=== PATIENT | female | born 1945 | race Caucasian/White ===

== ENCOUNTER 2016-06-19 13:24 | Inpatient (IN) | payer MEDICARE, BC, OTHER ==
[2016-06-19] MEDS ORDERED: SODIUM CHLORIDE 0.9% 1,000 ML IV STA (14:05)
[2016-06-19] MEDS ORDERED: ACETAMINOPHEN IV (For NPO) 1,000 MG in EMPTY BAG 1 BAG IVPB ONE (14:05)
--- NOTE | 2016-06-19 14:20 | ED ---
General Adult HPI - General Chief complaint: Shortness of Breath Stated complaint: pneumonia, chf from [facility] Time Seen by Provider: 06/19/16 13:34 Source: patient, EMS, RN notes reviewed, old records reviewed Mode of arrival: EMS Limitations: altered mental status, physical limitation - History of Present Illness Initial comments: Chief complaint and history of present illness a 70-year-old female who was sent from [facility] emergency room with a diagnosis of pneumonia and CHF. The patient was accepted for transfer further evaluation and management here. The patient was in the hospital approximately 3 weeks ago for similar problems. The chart from the other facility concludes the patient has right perihilar infiltrates and evidence of CHF. The patient was given 40 mg of Lasix IV placed on BiPAP en route. She also received Zosyn and vancomycin. Here she had temperature 99.9 axillary. She received Tylenol while here. - Related Data Home Medications Medication Instructions Recorded Confirmed ALPRAZolam [Xanax] 0.5 mg PO TID PRN 11/07/13 06/19/16 Allopurinol [Zyloprim] 100 mg PO DAILY 11/07/13 06/19/16 Desvenlafaxine Succinate [Pristiq 50 mg PO DAILY 11/07/13 06/19/16 ER] Digoxin [Lanoxin] 250 mcg PO DAILY 11/07/13 06/19/16 Ferrous Sulfate [Feosol] 325 mg PO DAILY 11/07/13 06/19/16 Gabapentin [Neurontin] 300 mg PO HS 11/07/13 06/19/16 Ipratropium/Albuterol Sulfate 3 ml INHALATION RT-QID PRN 11/07/13 06/19/16 [Duoneb 0.5 mg-3 mg/3 ml Soln] Levothyroxine Sodium [Levoxyl] 175 mcg PO AC-BRKFST 11/07/13 06/19/16 Loratadine [Claritin] 10 mg PO DAILY 11/07/13 06/19/16 Mometasone Furoate [Nasonex Nasal 2 spray EA NOSTRIL DAILY 11/07/13 06/19/16 [place]] Omeprazole [PriLOSEC] 20 mg PO BID 11/07/13 06/19/16 Potassium Chloride [Klor-Con 20] 20 meq PO DAILY 11/07/13 06/19/16 busPIRone HCl [Buspar] 10 mg PO BID 11/08/13 06/19/16 Ascorbic Acid [Vitamin C] 500 mg PO DAILY 08/16/14 06/19/16 Warfarin [Coumadin] 3 mg PO MOTUTHSA 08/16/14 06/19/16 Cholecalciferol [Vitamin D3] 1,000 unit PO DAILY 12/30/14 06/19/16 Warfarin [Coumadin] 4.5 mg PO SUWEFR 12/30/14 06/19/16 Calcium 500 [id number] 1 tab PO DAILY 06/01/16 06/19/16 Cyanocobalamin [Vitamin B-12] 1,000 mcg PO DAILY 06/01/16 06/19/16 Docusate [Colace] 100 mg PO DAILY PRN 06/01/16 06/19/16 Furosemide [Lasix] 40 mg PO BID 06/01/16 06/19/16 HYDROcodone/APAP 5-325MG [[place] 1 tab PO BID PRN 06/01/16 06/19/16 5-325] Meloxicam [Mobic] 7.5 mg PO DAILY 06/01/16 06/19/16 Montelukast [Singulair] 10 mg PO HS 06/01/16 06/19/16 Multivits-Min/Iron/FA/Lutein 1 tab PO DAILY 06/01/16 06/19/16 [Centrum Silver Women Tablet] Niacin 500 mg PO DAILY 06/01/16 06/19/16 Ranitidine HCl [Zantac] 150 mg PO BID 06/01/16 06/19/16 Verapamil HCl 120 mg PO BID 06/01/16 06/19/16 guaiFENesin-DM 100-10MG/5ML 10 ml PO Q6H PRN 06/01/16 06/19/16 [Robitussin DM] tiZANidine [Zanaflex] 2 mg PO Q8HR PRN 06/01/16 06/19/16 Previous Rx's Medication Instructions Recorded HYDROcodone/APAP 10-325MG [[place] 1 each PO Q8HR PRN #0 tab 06/04/16 10-325] Magnesium Oxide [Mag-Ox] 250 mg PO TID #0 06/04/16 Methocarbamol [Robaxin] 500 mg PO Q4HR PRN #0 tab 06/04/16 Metoprolol Tartrate [Lopressor] 12.5 mg PO BID #60 tab 06/04/16 Pyridoxine [Vitamin B-6] 200 mg PO DAILY tab 06/04/16 predniSONE 10 mg PO DAILY #30 tab 06/04/16 Allergies Allergy/AdvReac Type Severity Reaction Status Date / Time Penicillins Allergy Dyspnea Verified 06/19/16 13:38 Review of Systems ROS Statement: Those systems with pertinent positive or pertinent negative responses have been documented in the HPI. Review of systems. The patient is on BiPAP but ANSWERING questions appropriately states she feels much better now than when she initially got to the other hospital. Patient denying any chest pain she has on BiPAP states she is feeling much better as far as her respiratory status goes. She's having chronic low back pain for several weeks. Patient reportedly lives home alone. Full workup was done at [facility]. Charts reviewed. Significant findings time CPK less than 20 normal limits troponin mildly elevated 0.39. INR 3.93, BNP 1344 which is elevated. Past medical problems significant for CHF, respiratory failure, COPD, obstructive sleep apnea, hypothyroidism, peripheral neuropathy, paroxysmal A. fib, osteoarthritis multiple joints, morbid obesity mass index of over 50. Moderate distress secondary pulmonary hypertension due to chronic obstructive pulmonary disease and hypertensive heart disease. Past surgery family history: Old chart. ALLERGIES penicillin. Review ROS Other: All systems not noted in ROS Statement are negative. Past Medical History Past Medical History: Heart Failure, COPD, Deep Vein Thrombosis (DVT), Hypertension, Pneumonia, Pulmonary Embolus (PE) Additional Past Medical History / Comment(s): anxiety, chronic back pain, morbid obesity, hypothyroidism, peripheral neuroapathy, UTI,CONSTIPATION History of Any Multi-Drug Resistant Organisms: MRSA Date of last positivie culture/infection: 11/13/07 MDRO Source:: Unknown Past Surgical History: Appendectomy, Cholecystectomy, Hysterectomy Additional Past Surgical History / Comment(s): Previous Trach placement- two cardiac arrests during procedure. Past Anesthesia/Blood Transfusion Reactions: No Reported Reaction Past Psychological History: Anxiety Smoking Status: Never smoker Past Alcohol Use History: None Reported Past Drug Use History: None Reported - Past Family History Father Family Medical History: No Reported History Mother Family Medical History: Unable to Obtain Additional Family Medical History / Comment(s): Two knee replacements and two hip replacements General Exam - General Exam Comments Initial Comments: General: Patient states she is feeling significantly better on BiPAP after leaving [facility]. Diagnosed with pneumonia and CHF at that facility was given IV antibiotics and Lasix. Vital signs per nurse's note. Patient states that she does not want to be intubated and no CPR. Eye: Pupils are equal, round and reactive to light, extra-ocular movements are intact ; there is normal conjunctiva bilaterally. No signs of icterus. Ears, nose, mouth and throat: There are moist mucous membranes and no oral lesions. Neck: The neck is supple, there is no tenderness , history healed tracheostomy. Cardiovascular: Egler rate, 89. No complaint chest pain at this time. Respiratory: Crepitant rales appreciated laterally. History CHF and COPD. She Lasix at the other facility. Gastrointestinal: Morbidly obese but no complaint of abdominal pain no masses palpable. Active bowel sounds. Back: Chronic back pain for weeks. Musculoskeletal: Positive peripheral pitting edema. Neurological: Moves upper or lower extremities on command. States she lives alone. Skin: Some bruising noted. Limitations: altered mental status, physical limitation Course Vital Signs 06/19/16 06/19/16 13:29 13:51 Temperature 99.4 F Pulse Rate 90 99 Respiratory 40 H 36 H Rate Blood Pressure 133/61 151/68 O2 Sat by Pulse 84 L 93 L Oximetry Medical Decision Making - Medical Decision Making The patient's labs are reviewed from the facility. I spoke with Dr. Reardon patient be admitted to ICU. Disposition Clinical Impression: Acute on chronic diastolic CHF (congestive heart failure), Pneumonia Disposition: ADMITTED IP TO THIS HOSP Condition: Serious
[2016-06-19] MEDS ORDERED: NALOXONE 0.4 MG/ML 1 ML VIAL IV PRN (14:24)
[2016-06-19] MEDS ORDERED: ACETAMINOPHEN TAB 325 MG TAB PO PRN (14:24)
[2016-06-19 14:25] LABS: Basophils % (A) 0 %; CH 24.6; CHCM 28.3; Eosinophils # (A) 0.1 k/uL (0-0.7); Eosinophils % (A) 1 %; HCT 35.5 % (34.0-46.0); HDW 3.25; Hypochromasia Marked; Luc # (Auto) 0.09; Luc % (Auto) 1; Lymphocytes # (A) 0.3 k/uL (1.0-4.8); Lymphocytes % (A) 3 %; MCH 24.5 pg (25.0-35.0); MCHC 28.2 g/dL (31.0-37.0); MCV 87.1 fL (80.0-100.0); Mean Platelet Volume 7.2; Monocytes # (A) 0.6 k/uL (0-1.0); Monocytes % (A) 5 %; Neutrophils # (A) 10.1 k/uL (1.3-7.7); Neutrophils % (A) 91 %; RBC 4.08 m/uL (3.80-5.40); RDW 15.8 % (11.5-15.5); WBC 11.2 k/uL (3.8-10.6); WBC (Perox) 12.07
[2016-06-19] MEDS ORDERED: DOCUSATE 100 MG CAP PO PRN (14:32)
[2016-06-19] MEDS ORDERED: METHOCARBAMOL 500 MG TAB PO PRN (14:32)
[2016-06-19] MEDS ORDERED: IV VANCOMYCIN PER PHARMACY 1 EACH MISC MISCELLANE PRN (14:36)
[2016-06-19 14:37] LABS: Prothrombin Time 39.6 sec (9.0-12.0)
[2016-06-19 14:38] LABS: ALT 37 U/L (9-52); AST 22 U/L (14-36); Alkaline Phosphatase 52 U/L (38-126); Blood Urea Nitrogen 13 mg/dL (7-17); Calcium 8.4 mg/dL (8.4-10.2); Chloride 93 mmol/L (98-107); Glucose 128 mg/dL (74-99); Non-African American GFR(MDRD) >60 (>60 ml/min/1.73 sqM); Potassium 4.4 mmol/L (3.5-5.1); Sodium 138 mmol/L (137-145); Total Bilirubin 0.6 mg/dL (0.2-1.3); Total Protein 5.2 g/dL (6.3-8.2)
[2016-06-19 14:47] LABS: Anion Gap 6 mmol/L; Carbon Dioxide 39 mmol/L (22-30)
[2016-06-19 14:48] LABS: Creatine Kinase <20 U/L (30-135)
[2016-06-19 15:00] LABS: Creatine Kinase MB 0.7 ng/mL (0.0-2.4)
[2016-06-19] MEDS: SODIUM CHLORIDE 0.9% 1,000 ML IV SCH (15:10)
[2016-06-19 15:24] LABS: Troponin I 0.057 ng/mL (0.000-0.034)
[2016-06-19] MEDS ORDERED: VANCOMYCIN 2,000 MG in SODIUM CHLORIDE 0.9% 500 ML IVPB STA (15:38)
[2016-06-19] MEDS ORDERED: VANCOMYCIN 1,000 MG in SODIUM CHLORIDE 0.9% 250 ML IVPB STA (15:47)
[2016-06-19 17:43] LABS: Glucose,Whole Blood 124 mg/dL (75-99)
[2016-06-19 17:43] LABS: Glucose,Whole Blood 117 mg/dL (75-99)
--- NOTE | 2016-06-19 17:49 | XR ---
EXAMINATION TYPE: XR chest 1V portable DATE OF EXAM: 06/19/2016 5:38 PM COMPARISON: 06/02/2016 HISTORY: Short of breath and heart failure TECHNIQUE: Single frontal view of the chest is obtained. FINDINGS: There is pneumonic consolidation in the right lower lobe and right middle lobe. There is m ild pulmonary vascular congestion. Heart is enlarged. There are chest leads. There is slight blunting of costophrenic angles. IMPRESSION: There is no significant pulmonary consolidation in the right lung compared to last exam. Congestive heart failure is mostly new compared to last exam. Cardiomegaly. Small pleural effusions.
[2016-06-19] MEDS: MAGNESIUM OXIDE 250 MG TAB PO SCH ×2 (17:54→22:30)
[2016-06-19] MEDS ORDERED: WARFARIN 3 MG TAB PO SCH (18:00)
[2016-06-19 19:03] LABS: Appearance,Urine Clear (Clear); Bacteria,Urine Rare /hpf; Bilirubin,Urine Negative (Negative); Glucose,Urine (UA) Negative (Negative); Ketones,Urine Negative (Negative); Leukocyte Esterase,Urine Negative (Negative); Mucus,Urine Rare /hpf; Nitrite,Urine Negative (Negative); PH, Urine 5.5 (5.0-8.0); Particle Count 1805; Protein,Urine Trace (Negative); RBC,Urine 16 /hpf (0-5); Specific Gravity,Urine 1.016 (1.001-1.035); UA Billing (MACRO vs. MICRO) MICRO; Urobilinogen,Urine <2.0 mg/dL (<2.0); WBC,Urine 2 /hpf (0-5)
[2016-06-19 20:03] LABS: Creatine Kinase <20 U/L (30-135)
[2016-06-19 20:16] LABS: Creatine Kinase MB 0.9 ng/mL (0.0-2.4)
[2016-06-19 20:18] LABS: Troponin I 0.051 ng/mL (0.000-0.034)
[2016-06-19] MEDS ORDERED: FAMOTIDINE 20 MG TAB PO SCH (21:00)
--- NOTE | 2016-06-19 21:15 | HP ---
DATE OF ADMISSION: 06/19/2016 CHIEF COMPLAINT: Shortness of breath and pneumonia. HISTORY OF PRESENT ILLNESS: This 70-year-old woman with a past medical history of multiple medical problems, including COPD, CHF, history of DVT, history of hypertension, hyperlipidemia, pulmonary embolism, anxiety, chronic back pain, history of super morbid obesity, being followed by Dr. Kwong in the outpatient setting, was recently admitted with CHF, acute exacerbation. The patient was treated with diuretics. Patient went home. Apparently patient presented again with shortness of breath to [facility] in [place], and from there the patient was directly transferred to [facility] and admitted for further evaluation and treatment. The chest x-ray showed evidence of pneumonia on the right side. There is no history of any fever, rigor or chills, no history of trauma. Currently patient is on BiPAP because of acute respiratory failure. Patient is unable to give a coherent history. Most of the history is taken from my discussion with staff and review of the chart at this time. PAST MEDICAL HISTORY: 1. CHF. 2. COPD. 3. DVT. 4. History of hypertension. 5. Pneumonia. 6. History of pulmonary embolism. 7. Anxiety. 8. Chronic back pain. 9. Morbid obesity. 10. History of UTI. 11. Constipation. 12. Cholecystectomy. HOME MEDICATIONS: 1. Robaxin 500 mg q.4 p.r.n. 2. Zantac 150 mg p.o. b.i.d. 3. DuoNeb q.i.d. and p.r.n. 4. Zanaflex 2 mg p.o. q.8 p.r.n. 5. Verapamil 120 mg p.o. b.i.d. 6. Vitamin B12 1000 mcg p.o. daily. 7. Vitamin D3 1000 units daily. 8. Vitamin C 500 mg p.o. daily. 9. Xanax 0.5 t.i.d. p.r.n. 10. Prednisone 20 mg p.o. daily. 11. Colace 100 mg daily p.r.n. 12. Pristiq ER 50 mg p.o. daily. 13. Zyloprim 100 mg p.o. daily. 14. Klor-Con 20 mEq p.o. daily. 15. Prilosec 20 mg p.o. b.i.d. 16. Niacin 500 mg p.o. daily. 17. Nasonex 2 sprays daily. 18. Singulair 10 mg at bedtime. 19. Lopressor 12.5 mg p.o. b.i.d. 20. Mobic 7.5 mg p.o. daily. 21. Magnesium oxide 250 mg p.o. daily. 22. Levoxyl 175 mcg p.o. daily. 23. Ferrous sulfate 325 mg daily. 24. Coumadin 4.5 mg Wednesday, Wednesday and Wednesday; 3 mg Wednesday, Wednesday, , Wednesday. 25. Hydrocodone 1 tablet q.i.d. p.r.n. 26. Neurontin 300 mg at bedtime. 27. Lasix 40 mg p.o. b.i.d. 28. Lanoxin 250 mcg p.o. daily. 29. BuSpar 10 mg p.o. daily. 30. Multivitamins 1 p.o. daily. 31. Claritin 10 mg daily. 32. Calcium daily. ALLERGIES: PENICILLIN. Family history, social history, review of systems could not be taken at length. Per chart, there is DJD in her family. No history of smoking. PHYSICAL EXAMINATION: Patient is stuporous. Pulse is 79, blood pressure 140/80, respiration 31, temperature 98.6, pulse ox 90% on 80% BiPAP HEENT: Conjunctivae normal. NECK: Obese. CARDIOVASCULAR SYSTEM: S1, S2 muffled. RESPIRATORY SYSTEM: Breath sounds diminished at the bases. Bilateral scattered rhonchi and expiratory wheezing and crackles. ABDOMEN: Soft, obese, nontender. No mass palpable. LEGS: Bilateral leg edema. NERVOUS SYSTEM: Diffusely weak. LABS: WBC 11.2. Hemoglobin is 10. INR is 4. Troponin 0.057. Albumin is 2.7. ASSESSMENT: 1. Right upper lobe and middle lobe pneumonia with possible sepsis; possibly hospital-acquired pneumonia with acute hypoxic respiratory failure. 2. Chronic hypercapnic respiratory failure from underlying chronic obstructive pulmonary disease. 3. Possible adult pickwickian syndrome. 4. Increased white count. 5. Change in mental status, metabolic encephalopathy. 6. Anemia, normocytic. 7. Super morbid obesity with a body mass index of 47.7. 8. Coumadin coagulopathy. 9. Increased random blood sugar. 10. Troponin 0.057. 11. Hypoalbuminemia. 12. History of congestive heart failure. 13. Chronic obstructive pulmonary disease. 14. History of deep venous thrombosis. 15. Hypertension. 16. History of pneumonia. 17. History of pulmonary embolism. 18. History of anemia. 19. Chronic back pain and degenerative joint disease. 20. Morbid obesity. 21. Peripheral neuropathy. 22. Hypothyroidism. 23. History of urinary tract infection. 24. History of constipation. 25. History of methicillin-resistant Staphylococcus aureus. 26. History of cholecystectomy. 27. History of trach placement and cardiac arrest. 28. History of anxiety. 29. History of congestive heart failure with chronic diastolic dysfunction; ejection fraction of 55% to 60%. 30. NO CODE, NO CPR, NO VENT. RECOMMENDATIONS AND DISCUSSION: In this 70-year-old woman who presented with multiple complex medical issues, we will monitor the patient closely, continue the current medication, continue with symptomatic treatment. Otherwise, at this time I recommend broad-spectrum IV antibiotics, bronchodilators. Monitor in the ICU. BiPAP. Consult Dr. Pathak. Guarded prognosis because of multiple complex medical issues. Resume the home medications. Will monitor PT and INR closely. Hold the Coumadin today. Prognosis is extremely guarded because of multiple complex medical issues. Patient is NO CODE. Discussed with the staff. Further recommendations to follow. A copy of this dictation is being forwarded to Dr. Kwong, who is the primary physician. SHANNEN
[2016-06-19 21:42] LABS: Glucose,Whole Blood 97 mg/dL (75-99)
[2016-06-19] MEDS: INSULIN LISPRO (humaLOG) 300 UNIT/3 ML VIAL SQ SCH (21:42)
[2016-06-19] MEDS: FUROSEMIDE 10 MG/ML 4 ML VIAL IV SCH (21:43)
[2016-06-19] MEDS: methylPREDNISolone SOD SUCCI 40 MG/ML 1 ML VIAL IV SCH (21:43)
[2016-06-19] MEDS: GABAPENTIN 300 MG CAP PO SCH (22:30)
[2016-06-19] MEDS: MONTELUKAST 10 MG TAB PO SCH (22:30)
[2016-06-19] MEDS: busPIRone HCl 10 MG TAB PO SCH (22:30)
[2016-06-19] MEDS: METOPROLOL TARTRATE 12.5 MG TAB PO SCH ×2 (22:31→23:23)
[2016-06-19] MEDS: VERAPAMIL 40 MG TAB PO SCH (22:31)
[2016-06-19 22:33] LABS: Hemoglobin A1C 5.6 % (4.2-6.1)
[2016-06-19] MEDS: VANCOMYCIN 2,000 MG in SODIUM CHLORIDE 0.9% 500 ML IVPB SCH (23:14)
[2016-06-20] MEDS ORDERED: ACETAMINOPHEN IV (For NPO) 1,000 MG in EMPTY BAG 1 BAG IVPB PRN (00:25)
[2016-06-20] MEDS: PIPERACILLIN-TAZOBACTAM 3.375 GM in DEXTROSE/WATER 1 50ML.BAG IVPB SCH ×3 (00:28→16:20)
[2016-06-20] MEDS: methylPREDNISolone SOD SUCCI 40 MG/ML 1 ML VIAL IV SCH ×4 (00:28→18:09)
[2016-06-20] MEDS: hydrALAZINE HCL 20 MG/ML 1 ML VIAL IVP PRN (00:46)
[2016-06-20 03:00] LABS: Basophils % (A) 0 %; CH 23.8; CHCM 27.2; Eosinophils % (A) 0 %; HCT 39.1 % (34.0-46.0); HDW 3.31; HGB 11.1 gm/dL (11.4-16.0); Hypochromasia Marked; Luc # (Auto) 0.13; Luc % (Auto) 1; Lymphocytes # (A) 0.2 k/uL (1.0-4.8); Lymphocytes % (A) 1 %; MCH 24.8 pg (25.0-35.0); MCHC 28.3 g/dL (31.0-37.0); MCV 87.8 fL (80.0-100.0); Mean Platelet Volume 6.2; Monocytes # (A) 0.3 k/uL (0-1.0); Monocytes % (A) 2 %; Neutrophils # (A) 16.2 k/uL (1.3-7.7); Neutrophils % (A) 96 %; RBC 4.46 m/uL (3.80-5.40); RDW 15.4 % (11.5-15.5); WBC 16.8 k/uL (3.8-10.6); WBC (Perox) 17.54
[2016-06-20 03:13] LABS: Prothrombin Time 51.1 sec (9.0-12.0)
[2016-06-20 03:15] LABS: Anion Gap 10 mmol/L; Blood Urea Nitrogen 13 mg/dL (7-17); Calcium 8.5 mg/dL (8.4-10.2); Carbon Dioxide 35 mmol/L (22-30); Chloride 93 mmol/L (98-107); Glucose 125 mg/dL (74-99); Magnesium 1.7 mg/dL (1.6-2.3); Non-African American GFR(MDRD) >60 (>60 ml/min/1.73 sqM); Potassium 4.5 mmol/L (3.5-5.1); Sodium 138 mmol/L (137-145)
[2016-06-20 03:20] LABS: Creatine Kinase <20 U/L (30-135); INR 5.1 (<1.1)
[2016-06-20 03:33] LABS: Creatine Kinase MB 0.8 ng/mL (0.0-2.4)
[2016-06-20 03:48] LABS: Troponin I 0.051 ng/mL (0.000-0.034)
[2016-06-20 04:13] LABS: Glucose,Whole Blood 125 mg/dL (75-99)
[2016-06-20] MEDS ORDERED: Magnesium Replacement Protocol 1 EACH MISC MISCELLANE PRN (04:57)
[2016-06-20] MEDS ORDERED: FUROSEMIDE 10 MG/ML 4 ML VIAL IV STA (05:14)
[2016-06-20] MEDS ORDERED: LEVOTHYROXINE 75 MCG TAB PO SCH (06:30)
[2016-06-20] MEDS ORDERED: LEVOTHYROXINE 100 MCG TAB PO SCH (06:30)
[2016-06-20] MEDS: MAGNESIUM SULFATE-D5W PMX 1 GM in DEXTROSE/WATER 1 100ML.BAG IVPB SCH ×2 (06:38→08:48)
[2016-06-20] MEDS: IPRATROPIUM-ALBUTEROL 3 ML NEB INHALATION PRN ×4 (07:28→19:43)
[2016-06-20] MEDS ORDERED: PANTOPRAZOLE 40 MG TABLET PO SCH (07:30)
[2016-06-20 08:38] LABS: Glucose,Whole Blood 152 mg/dL (75-99)
[2016-06-20] MEDS ORDERED: predniSONE 10 MG TAB PO SCH (09:00)
[2016-06-20] MEDS ORDERED: PANTOPRAZOLE 40 MG/10 ML VIAL IV SCH (09:00)
[2016-06-20] MEDS ORDERED: DIGOXIN 250 MCG TAB PO SCH (09:00)
[2016-06-20] MEDS: INSULIN LISPRO (humaLOG) 300 UNIT/3 ML VIAL SQ SCH ×3 (09:14→19:16)
[2016-06-20] MEDS: CYANOCOBALAMIN 500 MCG TAB PO SCH (09:15)
[2016-06-20] MEDS: busPIRone HCl 10 MG TAB PO SCH ×2 (09:15→23:57)
[2016-06-20] MEDS: ALLOPURINOL 100 MG TAB PO SCH (09:15)
[2016-06-20] MEDS: METOPROLOL TARTRATE 12.5 MG TAB PO SCH (09:16)
[2016-06-20] MEDS: MAGNESIUM OXIDE 250 MG TAB PO SCH ×3 (09:16→23:57)
[2016-06-20] MEDS: POTASSIUM CHLORIDE ER 20 MEQ TAB.ER PO SCH (09:16)
[2016-06-20] MEDS: FLUTICASONE 50MCG/SPRAY NASAL 16GM EA NOSTRIL SCH (09:16)
[2016-06-20] MEDS: LORATADINE 10 MG TAB PO SCH (09:16)
[2016-06-20] MEDS: MELOXICAM 7.5 MG TAB PO SCH (09:16)
[2016-06-20] MEDS: FUROSEMIDE 10 MG/ML 4 ML VIAL IV SCH (09:17)
[2016-06-20] MEDS: DESVENLAFAXINE SUCCINATE 50 MG TAB.ER.24H PO SCH (09:18)
[2016-06-20] MEDS: FERROUS SULFATE 325 MG TAB PO SCH (09:18)
[2016-06-20] MEDS: VERAPAMIL 40 MG TAB PO SCH ×2 (09:19→23:57)
[2016-06-20] MEDS: VANCOMYCIN 2,000 MG in SODIUM CHLORIDE 0.9% 500 ML IVPB SCH ×2 (10:04→23:58)
[2016-06-20] MEDS: NIACIN TR 500 MG CAPSULE.ER PO SCH (11:48)
[2016-06-20] MEDS: MULTIVITAMINS, THERA 1 EACH TAB PO SCH (11:48)
[2016-06-20] MEDS: CHOLECALCIFEROL 1,000 UNIT TAB PO SCH (11:49)
[2016-06-20] MEDS: CALCIUM CARB-VIT D 500MG-200UN 1 EACH TAB PO SCH (11:49)
[2016-06-20] MEDS: ASCORBIC ACID 500 MG TAB PO SCH (11:49)
[2016-06-20] MEDS: HYDROmorphone 1 MG/ML 1 ML SYRINGE IVP PRN (12:21)
[2016-06-20 12:29] LABS: Glucose,Whole Blood 169 mg/dL (75-99)
[2016-06-20 12:30] LABS: Glucose,Whole Blood 154 mg/dL (75-99)
[2016-06-20] MEDS: PANTOPRAZOLE 40 MG/10 ML VIAL IVP SCH (12:36)
[2016-06-20] MEDS: METOPROLOL TARTRATE 5 MG/5 ML VIAL IVP SCH ×2 (12:37→23:58)
--- NOTE | 2016-06-20 12:42 | P.CNPUL ---
History of Present Illness Consult date: 06/20/16 Requesting physician: Nik Reardon Reason for consult: abnormal CXR/CT (Multilobar pneumonia) Chief complaint: Shortness of breath History of present illness: This is a 70-year-old female patient with multiple medical problems including morbid obesity, chronic hypercapnic respiratory failure, chronic hypoxic respiratory failure secondary to obesity/hypoventilation syndrome/obstructive sleep apnea and she is a lifelong nonsmoker. She is maintained on home oxygen at 2-3 L/m per nasal cannula. She also has a history of hypertension, pulmonary embolism/DVT anticoagulated with warfarin , hypertension, general anxiety disorder, hypothyroidism, gout, GERD. She was recently here in May for acute on chronic hypercapnic respiratory failure and congestive heart failure. She was subsequently discharged and he presented to [facility] yesterday with similar symptoms of shortness of breath, cough and congestion. She was found to have bibasilar pneumonia and congestive heart failure. She was transferred here for further evaluation and treatment. She is seen today in consultation in the intensive care unit. Her chest x-ray does reveal bibasilar pneumonia with dense consolidation in the right middle lobe along with the left lower lobe retrocardiac area. She is maintained on BiPAP at 12/5 at 80% FiO2. She has a 0.9 normal saline at KVO. She has been diuresed and initiated on Lasix 40 mg IV every 12 hours. She was initiated on vancomycin and Zosyn. Review of Systems ROS unobtainable: due to mental status Past Medical History Past Medical History: Atrial Fibrillation, Heart Failure, COPD, Deep Vein Thrombosis (DVT), Hypertension, Pneumonia, Pulmonary Embolus (PE), Respiratory Disorder, Thyroid Disorder Additional Past Medical History / Comment(s): anxiety, chronic back pain, morbid obesity, hypothyroidism, peripheral neuroapathy, UTI,CONSTIPATION History of Any Multi-Drug Resistant Organisms: MRSA Date of last positivie culture/infection: 11/13/07 MDRO Source:: Unknown Past Surgical History: Appendectomy, Cholecystectomy, Hysterectomy Additional Past Surgical History / Comment(s): Previous Trach placement- two cardiac arrests during procedure. Past Anesthesia/Blood Transfusion Reactions: No Reported Reaction Past Psychological History: Anxiety Smoking Status: Never smoker Past Alcohol Use History: None Reported Past Drug Use History: None Reported - Past Family History Father Family Medical History: No Reported History Mother Family Medical History: Unable to Obtain Additional Family Medical History / Comment(s): Two knee replacements and two hip replacements Medications and Allergies Home Medications Medication Instructions Recorded Confirmed Type ALPRAZolam [Xanax] 0.5 mg PO TID PRN 11/07/13 06/19/16 History Allopurinol [Zyloprim] 100 mg PO DAILY 11/07/13 06/19/16 History Desvenlafaxine Succinate [Pristiq 50 mg PO DAILY 11/07/13 06/19/16 History ER] Digoxin [Lanoxin] 250 mcg PO DAILY 11/07/13 06/19/16 History Ferrous Sulfate [Feosol] 325 mg PO DAILY 11/07/13 06/19/16 History Gabapentin [Neurontin] 300 mg PO HS 11/07/13 06/19/16 History Ipratropium/Albuterol Sulfate 3 ml INHALATION RT-QID PRN 11/07/13 06/19/16 History [Duoneb 0.5 mg-3 mg/3 ml Soln] Levothyroxine Sodium [Levoxyl] 175 mcg PO AC-BRKFST 11/07/13 06/19/16 History Loratadine [Claritin] 10 mg PO DAILY 11/07/13 06/19/16 History Mometasone Furoate [Nasonex Nasal 2 spray EA NOSTRIL DAILY 11/07/13 06/19/16 History [place]] Omeprazole [PriLOSEC] 20 mg PO BID 11/07/13 06/19/16 History Potassium Chloride [Klor-Con 20] 20 meq PO DAILY 11/07/13 06/19/16 History busPIRone HCl [Buspar] 10 mg PO BID 11/08/13 06/19/16 History Ascorbic Acid [Vitamin C] 500 mg PO DAILY 08/16/14 06/19/16 History Warfarin [Coumadin] 3 mg PO MOTUTHSA 08/16/14 06/19/16 History Cholecalciferol [Vitamin D3] 1,000 unit PO DAILY 12/30/14 06/19/16 History Warfarin [Coumadin] 4.5 mg PO SUWEFR 12/30/14 06/19/16 History Calcium 500 [id number] 1 tab PO DAILY 06/01/16 06/19/16 History Cyanocobalamin [Vitamin B-12] 1,000 mcg PO DAILY 06/01/16 06/19/16 History Docusate [Colace] 100 mg PO DAILY PRN 06/01/16 06/19/16 History Furosemide [Lasix] 40 mg PO BID 06/01/16 06/19/16 History HYDROcodone/APAP 5-325MG [Amboy 1 tab PO BID PRN 06/01/16 06/19/16 History 5-325] Montelukast [Singulair] 10 mg PO HS 06/01/16 06/19/16 History Multivits-Min/Iron/FA/Lutein 1 tab PO DAILY 06/01/16 06/19/16 History [Centrum Silver Women Tablet] Niacin 500 mg PO DAILY 06/01/16 06/19/16 History Ranitidine HCl [Zantac] 150 mg PO BID 06/01/16 06/19/16 History Verapamil HCl 120 mg PO BID 06/01/16 06/19/16 History tiZANidine [Zanaflex] 2 mg PO Q8HR PRN 06/01/16 06/19/16 History Magnesium Oxide [Mag-Ox] 250 mg PO DAILY 06/19/16 06/19/16 History Meloxicam [Mobic] 7.5 mg PO DAILY 06/19/16 06/19/16 History Metoprolol Tartrate [Lopressor] 12.5 mg PO BID 06/19/16 06/19/16 History predniSONE 20 mg PO DAILY 06/19/16 06/19/16 History Allergies Allergy/AdvReac Type Severity Reaction Status Date / Time Penicillins Allergy Dyspnea Verified 06/19/16 15:02 Physical Exam Vitals: Vital Signs Temp Pulse Resp BP Pulse Ox 06/20/16 11:35 86 06/20/16 11:30 98.0 F 87 33 H 142/52 87 L 06/20/16 11:00 86 38 H 131/47 88 L 06/20/16 10:30 87 32 H 116/52 86 L 06/20/16 10:00 86 29 H 139/47 87 L 06/20/16 09:30 96 30 H 156/64 81 L 06/20/16 09:00 88 27 H 146/53 89 L 06/20/16 08:30 98.1 F 84 30 H 123/52 89 L 06/20/16 08:00 85 30 H 124/45 88 L 06/20/16 07:40 96 06/20/16 07:30 84 32 H 133/59 87 L 06/20/16 07:28 88 06/20/16 07:00 88 29 H 127/48 83 L 06/20/16 06:30 97.7 F 87 32 H 119/48 83 L 06/20/16 06:00 89 27 H 118/59 84 L 06/20/16 05:30 91 31 H 109/44 89 L 06/20/16 05:00 92 25 H 149/59 91 L 06/20/16 04:30 91 32 H 127/47 91 L 06/20/16 04:00 99.7 F H 95 34 H 118/46 90 L 06/20/16 03:30 97 32 H 124/48 89 L 06/20/16 03:00 104 H 25 H 168/72 90 L 06/20/16 02:30 108 H 26 H 168/72 91 L 06/20/16 02:00 108 H 28 H 188/58 91 L 06/20/16 01:30 107 H 26 H 185/63 91 L 06/20/16 01:00 105 H 25 H 184/64 91 L 06/20/16 00:30 104 H 26 H 184/72 88 L 06/20/16 00:00 100 F H 101 H 34 H 167/61 85 L 06/19/16 23:30 99 28 H 167/57 85 L 06/19/16 23:07 96 27 H 170/60 90 L 06/19/16 23:00 97 25 H 170/60 90 L 06/19/16 22:30 94 28 H 168/61 89 L 06/19/16 22:00 88 24 153/57 90 L 06/19/16 21:30 85 26 H 153/57 89 L 06/19/16 21:00 84 26 H 145/52 89 L 06/19/16 20:30 83 24 152/58 89 L 06/19/16 20:00 98.3 F 82 25 H 145/51 89 L 06/19/16 19:30 91 13 137/51 90 L 06/19/16 19:00 77 22 136/59 90 L 06/19/16 18:30 76 38 H 122/50 90 L 06/19/16 18:00 77 33 H 144/46 90 L 06/19/16 17:50 79 33 H 148/56 89 L 06/19/16 17:40 79 31 H 148/56 90 L 06/19/16 17:30 98.6 F 84 32 H 148/56 93 L 06/19/16 17:02 98.6 F 81 36 H 127/85 92 L 06/19/16 16:15 64 35 H 141/34 92 L 06/19/16 15:58 98.8 F 88 36 H 142/65 91 L 06/19/16 14:59 99.2 F 87 32 H 132/60 93 L Intake and Output 06/19/16 06/20/16 06/20/16 22:59 06:59 14:59 Intake Total 660 870 541.5 Output Total 585 1595 820 Balance 75 -725 -278.5 Intake: IV 160 220 95 Sodium Chloride 0.9% 1, 160 220 95 000 ml @ 40 mls/hr IV . Q24H [facility] Rx#:[id number] Intake, IV Titration 500 650 446.5 Amount ACETAMINOPHEN IV (For NPO 100 ) 1,000 mg In Empty Bag 1 bag @ 400 mls/hr IVPB Q6HR PRN Rx#:[id number] Magnesium Sulfate-D5w Pmx 100 1 gm In Dextrose/Water 1 100ml.bag @ 100 mls/hr IVPB Q1H [facility] Rx#: [id number] Piperacillin-Tazobactam 3 50 12.5 .375 gm In Dextrose/Water 1 50ml.bag @ 12.5 mls/hr IVPB Q8HR [facility] Rx#: [id number] Vancomycin 1,000 mg In 167 Sodium Chloride 0.9% 250 ml @ 125 mls/hr IVPB ONCE [facility] Rx#:[id number] Vancomycin 2,000 mg In 500 500 167 Sodium Chloride 0.9% 500 ml @ 167 mls/hr IVPB Q12HR@1000,2200 [facility] Rx#: [id number] Output: Urine 585 1595 820 Other: Voiding Method Indwelling Catheter Indwelling Catheter Indwelling Catheter Weight 142.428 kg 141.1 kg 141.1 kg Patient Weight 06/21/16 06:59 Weight 141.1 kg GENERAL EXAM: Morbidly obese. Obtunded. HEAD: Normocephalic. EYES: Normal reaction of pupils, equal size. NOSE: Clear with pink turbinates. THROAT: There is crowding of the posterior pharynx. No erythema or exudates. NECK: Short. No masses, no JVD. CHEST: No chest wall deformity. LUNGS: Equal air entry with GERD rhonchi, coarse crackles in the posterior bases. CVS: S1 and S2 normal with no audible murmurs, regular rhythm. ABDOMEN: Obese, soft, normal bowel sounds, no guarding or rigidity. Extremities: There is 1-2+ lower extremity peripheral edema. No clubbing, no cyanosis. Peripheral pulses are intact. Results - Laboratory Findings CBC and BMP: 06/20/16 02:46 06/20/16 02:46 PT/INR, D-dimer PT 51.1 sec (9.0-12.0) H 06/20/16 02:46 INR 5.1 (<1.1) H* 06/20/16 02:46 Abnormal lab findings: Abnormal Labs 06/19/16 06/19/16 06/19/16 17:20 17:41 18:50 WBC Hgb MCH MCHC Neutrophils # Lymphocytes # PT INR Chloride Carbon Dioxide Glucose POC Glucose (mg/dL) 117 H 124 H Total Creatine Kinase Troponin I Urine Protein Trace H Urine Blood Small H Urine RBC 16 H Urine Bacteria Rare H Urine Mucus Rare H 06/19/16 06/20/16 06/20/16 19:27 02:46 02:46 WBC 16.8 H Hgb 11.1 L MCH 24.8 L MCHC 28.3 L Neutrophils # 16.2 H Lymphocytes # 0.2 L PT INR Chloride Carbon Dioxide Glucose POC Glucose (mg/dL) Total Creatine Kinase <20 L <20 L Troponin I 0.051 H* 0.051 H* Urine Protein Urine Blood Urine RBC Urine Bacteria Urine Mucus 06/20/16 06/20/16 06/20/16 02:46 02:46 04:09 WBC Hgb MCH MCHC Neutrophils # Lymphocytes # PT 51.1 H INR 5.1 H* Chloride 93 L Carbon Dioxide 35 H Glucose 125 H POC Glucose (mg/dL) 125 H Total Creatine Kinase Troponin I Urine Protein Urine Blood Urine RBC Urine Bacteria Urine Mucus 06/20/16 08:37 WBC Hgb MCH MCHC Neutrophils # Lymphocytes # PT INR Chloride Carbon Dioxide Glucose POC Glucose (mg/dL) 152 H Total Creatine Kinase Troponin I Urine Protein Urine Blood Urine RBC Urine Bacteria Urine Mucus - Diagnostic Findings Chest x-ray: image reviewed (Bibasilar pneumonia with dense consolidation in the right mid lung/right lower lobe/left lower lobe.) Assessment and Plan Plan: Impression: #1 Acute on chronic hypoxic respiratory failure secondary to fluid volume overload from acute on chronic exacerbation of diastolic congestive heart failure and secondary to multilobar pneumonia. #2 Acute on chronic hypercapnic respiratory failure secondary to above. #3 Acute on chronic diastolic congestive heart failure. #4 Moderate pulmonary hypertension. #5 Morbid obesity with obesity/hypoventilation syndrome. #6 Obstructive sleep apnea. #7 Previous history of PE/DVT, anticoagulated with warfarin, currently supratherapeutic at 5.1. #8 Chronic back pain. #9 Peripheral neuropathy. #10 Hypothyroidism. Her graft #11 Poor overall functional performance secondary to the above-mentioned multiple comorbidities. Plan: The patient was seen and evaluated by Dr. Pathak. Her chest x-ray ABGs and labs were reviewed. Patient is still requiring a significant amount of FiO2 80% to maintain O2 saturations in the low 90s. Her overall prognosis is quite poor and guarded. Her daughter is planning to arrive at 1:30 and already made her a DO NOT RESUSCITATE/DO NOT INTUBATE CODE STATUS. She may consider comfort care at this point as well. In the interim we'll continue with supportive care. He remains on antibiotics in the form of vancomycin and Zosyn. We'll continue with bronchodilators and IV Solu-Medrol. She continues to be diuresed. We'll hold the warfarin. We'll continue to monitor her closely and make further recommendations based on her clinical status.
[2016-06-20] MEDS: SODIUM CHLORIDE 0.9% 1,000 ML IV SCH (15:58)
--- NOTE | 2016-06-20 16:35 | PN ---
DATE OF SERVICE: 06/20/2016 This 70-year-old woman who was admitted with multilobe pneumonia, also had features of acute respiratory failure. The patient is on BiPAP at this time. Dr. Pathak is following the patient closely. The patient is on broad-spectrum IV antibiotics. The patient also had congestive heart failure acute exacerbation also. Fluid and electrolyte balance is being managed. The sensorium is significantly improved compared to yesterday. PAST MEDICAL HISTORY: Reviewed. REVIEW OF SYSTEMS: CARDIOVASCULAR: No angina. RESPIRATORY: As mentioned earlier. GI: As mentioned earlier. : No dysuria. NERVOUS SYSTEM: No numbness or weakness. Current medications are: 1. Tylenol 650 q.6 p.r.n. 2. Tylenol. 3. Terry 5 mg. 4. Albuterol and Atrovent q.i.d. and p.r.n. 5. Zyloprim 100 mg daily. 6. Xanax 0.5 t.i.d. p.r.n. 7. Vitamin C 500 daily. 8. BuSpar 10 mg p.o. b.i.d. 9. Os-Marcus with vitamin D 1 p.o. daily. 10. Vitamin D3 1000 daily. 11. Vitamin B12 1,000 daily. 12. Pristiq 50 mg daily. 13. Lanoxin 175 mg IV daily. 14. Colace 100 mg. 15. Iron sulfate 320 mg daily. 16. Flonase. 17. Lasix 40 mg b.i.d. 18. Apresoline 10 mg q.6 p.r.n. 19. Dilaudid 0.5 mg q.4 p.r.n. 20. Synthroid 100 mcg p.o. daily. 21. Claritin 10 mg p.o. daily. 22. Magnesium oxide. 23. Mobic. 24. Robaxin. 25. Solu-Medrol 40 IV q.6. 26. Vancomycin. 27. Zosyn IV. 28. Zanaflex. PHYSICAL EXAMINATION: Patient is alert and oriented x2. Pulse is 82, blood pressure is 140/52, respirations 16, temperature is normal. Pulse ox 87% on 80% BiPAP. HEENT: Mild facial puffiness. NECK: No jugular venous distention. No carotid bruit. No lymph node enlargement. CARDIOVASCULAR: S1 and S2, muffled. No S3, no S4. RESPIRATORY: Breath sounds diminished at the bases. Bilateral scattered rhonchi ABDOMEN: Soft, nontender. No mass palpable. LEGS: No edema, no swelling. NERVOUS SYSTEM: Higher function as mentioned earlier. Moves all four limbs. Mild diffuse weakness. LYMPHATIC: No lymphadenopathy in the neck, axillae or groin. SKIN: No ulcer, rash or bleeding. LABS: WBC 16.8, Accu-Cheks noted. Troponin 0.051, TSH 0.367 and FT4 is 1.74. ASSESSMENT: 1. Right upper and middle lobe pneumonia, multilobar pneumonia with possible sepsis with possible hospital acquired with acute hypoxic respiratory failure on BiPAP with possible sepsis. 2. Chronic hypercapnic respiratory failure from underlying chronic obstructive pulmonary disease. 3. Coumadin coagulopathy. 4. Troponin 0.051 indeterminate. 5. Low TSH and normal FT4, possible sick euthyroid syndrome. 6. Possible adult pickwickian syndrome. 7. Increased WBC. 8. Change in mental status, metabolic encephalopathy, multifactorial. 9. Anemia, normocytic. 10. Super morbid obesity with body mass index of 47.7. 11. Increased random blood sugar. 12. Hypoalbuminemia with mild to moderate protein calorie malnutrition. 13. History of congestive heart failure, ejection fraction 50% to 60% with earlier congestive heart failure. 14. Chronic obstructive pulmonary disease. 15. History of deep venous thrombosis. 16. Hypertension. 17. History of pneumonia. 18. History of pulmonary embolus. 19. History of anemia. 20. Chronic back pain and degenerative joint disease. 21. Morbid obesity. 22. neuropathy. 23. Hypothyroidism. 24. History of urinary tract infection. 25. History of constipation. 26. History of methicillin-resistant Staphylococcus aureus. 27. History of cholecystectomy. 28. History of trach placement and cardiac arrest previously. 29. History of anxiety. 30. History of congestive heart failure with chronic diastolic dysfunction, ejection fraction 50 to 60%. 31. No code, no cardiopulmonary resuscitation, no vent. RECOMMENDATIONS AND DISCUSSION: I recommend to continue the current medications, continue monitoring and symptomatic treatment. Continue with the bronchodilators, monitor fluid and electrolyte balance closely. Hold the Coumadin at this time. The patient is on IV Lasix 40 mg IV b.i.d. Otherwise continue steroids, monitor blood sugars closely, continue the broad-spectrum IV antibiotics, cultures are negative so far. Guarded prognosis. Sensorium as mentioned has slightly improved, but will continue to monitor in the ICU. Further recommendations to follow. MTDD
[2016-06-20 17:14] LABS: Glucose,Whole Blood 132 mg/dL (75-99)
[2016-06-20] MEDS ORDERED: WARFARIN 3 MG TAB PO SCH (18:00)
[2016-06-20 18:33] LABS: Potassium 4.4 mmol/L (3.5-5.1)
[2016-06-20] MEDS: GABAPENTIN 300 MG CAP PO SCH (23:57)
[2016-06-20] MEDS: MONTELUKAST 10 MG TAB PO SCH (23:57)
[2016-06-21] MEDS: FUROSEMIDE 10 MG/ML 4 ML VIAL IV SCH ×3 (00:25→21:35)
[2016-06-21 00:46] LABS: Glucose,Whole Blood 144 mg/dL (75-99)
[2016-06-21] MEDS: HYDROmorphone 1 MG/ML 1 ML SYRINGE IVP PRN ×3 (01:20→18:41)
[2016-06-21] MEDS: INSULIN LISPRO (humaLOG) 300 UNIT/3 ML VIAL SQ SCH ×5 (01:25→21:51)
[2016-06-21] MEDS: methylPREDNISolone SOD SUCCI 40 MG/ML 1 ML VIAL IV SCH ×5 (01:48→23:33)
[2016-06-21] MEDS: PIPERACILLIN-TAZOBACTAM 3.375 GM in DEXTROSE/WATER 1 50ML.BAG IVPB SCH ×3 (02:50→16:11)
[2016-06-21 05:06] LABS: Basophils % (A) 0 %; CHCM 27.8; Eosinophils % (A) 0 %; HCT 35.1 % (34.0-46.0); HDW 3.34; Hypochromasia Marked; Luc # (Auto) 0.08; Luc % (Auto) 1; Lymphocytes # (A) 0.2 k/uL (1.0-4.8); Lymphocytes % (A) 2 %; MCH 24.6 pg (25.0-35.0); MCHC 28.3 g/dL (31.0-37.0); MCV 86.7 fL (80.0-100.0); Mean Platelet Volume 5.9; Monocytes # (A) 0.3 k/uL (0-1.0); Monocytes % (A) 3 %; Neutrophils # (A) 8.7 k/uL (1.3-7.7); Neutrophils % (A) 94 %; RBC 4.05 m/uL (3.80-5.40); RDW 15.5 % (11.5-15.5); WBC 9.3 k/uL (3.8-10.6); WBC (Perox) 9.53
[2016-06-21 05:18] LABS: Anion Gap 7 mmol/L; Blood Urea Nitrogen 19 mg/dL (7-17); Calcium 8.3 mg/dL (8.4-10.2); Chloride 94 mmol/L (98-107); Glucose 149 mg/dL (74-99); Magnesium 1.7 mg/dL (1.6-2.3); Non-African American GFR(MDRD) >60 (>60 ml/min/1.73 sqM); Potassium 3.4 mmol/L (3.5-5.1); Sodium 141 mmol/L (137-145)
[2016-06-21 05:29] LABS: Carbon Dioxide 40 mmol/L (22-30)
[2016-06-21] MEDS: LEVOTHYROXINE IVP 100 MCG/5 ML VIAL IV SCH (05:31)
[2016-06-21 05:32] LABS: Prothrombin Time 54.9 sec (9.0-12.0)
[2016-06-21] MEDS ORDERED: Potassium Replacement Protocol 1 EACH MISC MISCELLANE PRN (05:34)
[2016-06-21 05:36] LABS: INR 5.5 (<1.1)
[2016-06-21] MEDS: POTASSIUM CHLORIDE 10 MEQ, LIDOCAINE 2% INJ 10 MG in SODIUM CHLORIDE 0.9% 100 ML IV SCH ×4 (06:17→21:34)
[2016-06-21] MEDS: MAGNESIUM SULFATE-D5W PMX 1 GM in DEXTROSE/WATER 1 100ML.BAG IVPB SCH ×2 (06:52→08:44)
[2016-06-21] MEDS: IPRATROPIUM-ALBUTEROL 3 ML NEB INHALATION PRN ×4 (07:28→19:28)
[2016-06-21 08:21] LABS: Glucose,Whole Blood 169 mg/dL (75-99)
[2016-06-21] MEDS: PANTOPRAZOLE 40 MG/10 ML VIAL IVP SCH (08:46)
[2016-06-21] MEDS: VERAPAMIL 40 MG TAB PO SCH ×2 (08:46→21:35)
[2016-06-21] MEDS: METOPROLOL TARTRATE 5 MG/5 ML VIAL IVP SCH ×2 (08:46→21:35)
[2016-06-21] MEDS: MAGNESIUM OXIDE 250 MG TAB PO SCH ×3 (08:46→21:36)
[2016-06-21] MEDS: POTASSIUM CHLORIDE ER 20 MEQ TAB.ER PO SCH (08:47)
[2016-06-21] MEDS: DESVENLAFAXINE SUCCINATE 50 MG TAB.ER.24H PO SCH (08:47)
[2016-06-21] MEDS: ALLOPURINOL 100 MG TAB PO SCH (08:49)
[2016-06-21] MEDS: LORATADINE 10 MG TAB PO SCH (08:49)
[2016-06-21] MEDS: busPIRone HCl 10 MG TAB PO SCH ×2 (08:49→21:35)
[2016-06-21] MEDS: CYANOCOBALAMIN 500 MCG TAB PO SCH (08:49)
[2016-06-21] MEDS: DIGOXIN 250 MCG/ML 2 ML AMP IVP SCH (08:50)
[2016-06-21] MEDS ORDERED: VANCOMYCIN TROUGH DUE 1 EACH MISC MISCELLANE ONE (09:00)
[2016-06-21] MEDS: FLUTICASONE 50MCG/SPRAY NASAL 16GM EA NOSTRIL SCH (09:43)
[2016-06-21] MEDS: FERROUS SULFATE 325 MG TAB PO SCH (09:43)
[2016-06-21] MEDS: MELOXICAM 7.5 MG TAB PO SCH (09:44)
[2016-06-21] MEDS: CHOLECALCIFEROL 1,000 UNIT TAB PO SCH (09:45)
[2016-06-21] MEDS: CALCIUM CARB-VIT D 500MG-200UN 1 EACH TAB PO SCH (09:45)
[2016-06-21] MEDS: ASCORBIC ACID 500 MG TAB PO SCH (09:45)
[2016-06-21] MEDS: NIACIN TR 500 MG CAPSULE.ER PO SCH (09:46)
[2016-06-21] MEDS: MULTIVITAMINS, THERA 1 EACH TAB PO SCH (09:46)
[2016-06-21] MEDS: VANCOMYCIN 2,000 MG in SODIUM CHLORIDE 0.9% 500 ML IVPB SCH (11:16)
[2016-06-21 11:22] LABS: Glucose,Whole Blood 170 mg/dL (75-99)
--- NOTE | 2016-06-21 11:31 | P.PN ---
Subjective Progress note dated 06/21/2016 This is a 70-year-old female who we saw yesterday in consultation. She was admitted with a diagnosis of multilobar pneumonia. She been on BiPAP pretty much the entire time since his been here. Her BiPAP settings are 12 and 5 and 70%. She is a DO NOT RESUSCITATE. I told her nurse, that the patient could eat if she felt like eating. May be started off with clear liquids or full liquids. She is only getting applesauce right now with her oral medications. In addition, because she has made some improvements, she can come off the BiPAP if she wishes. I explained what BiPAP wasn't told her that if she wanted the BiPAP she could ask for back and he didn't wanted she could take it off and is gone nasal O2. I don't told the nurse not to pay as much attention to the saturations but more in with the patient clinically looks like including how she feels her respiratory rate, etc. She has a history of multiple medical problems including off chronic hypercapnic respiratory failure probable pickwickian syndrome possibly obstructive sleep apnea syndrome essential hypertension PE/DVT hypertension anxiety hypothyroidism gout and GERD. She was initially admitted to [facility] and transferred out for further evaluation. She was seen by Dr. Vinay Whyte in the emergency room. She is much more awake today much more alert today. Feeling much better. Objective - Vital Signs Vital signs: Vital Signs Temp 98.7 F 06/21/16 11:00 Pulse 57 L 06/21/16 11:00 Resp 19 06/21/16 11:00 BP 146/50 06/21/16 11:00 Pulse Ox 84 L 06/21/16 11:00 Intake & Output 06/20/16 06/21/16 06/21/16 18:59 06:59 18:59 Intake Total 1058.0 890 517.0 Output Total 1915 2435 625 Balance -857.0 -1545 -108.0 Weight 141.1 kg 143.2 kg 143.2 kg Intake: IV 95 Sodium Chloride 0.9% 1, 95 000 ml @ 40 mls/hr IV . Q24H [facility] Rx#:[id number] Intake, IV Titration 963.0 890 397.0 Amount Magnesium Sulfate-D5w Pmx 100 1 gm In Dextrose/Water 1 100ml.bag @ 100 mls/hr IVPB Q1H [facility] Rx#: [id number] Magnesium Sulfate-D5w Pmx 100 1 gm In Dextrose/Water 1 100ml.bag @ 100 mls/hr IVPB Q1H [facility] Rx#: [id number] Piperacillin-Tazobactam 3 75.0 50 50.0 .375 gm In Dextrose/Water 1 50ml.bag @ 12.5 mls/hr IVPB Q8HR [facility] Rx#: [id number] Potassium Chloride 10 meq 100 Lidocaine 2% Inj 10 mg In Sodium Chloride 0.9% 100 ml @ 100 mls/hr IV Q1HR [facility] Rx#:[id number] Sodium Chloride 0.9% 1, 120 240 80 000 ml @ 20 mls/hr IV . Q24H [facility] Rx#:[id number] Vancomycin 1,000 mg In 167 Sodium Chloride 0.9% 250 ml @ 125 mls/hr IVPB ONCE [facility] Rx#:[id number] Vancomycin 2,000 mg In 501 500 167 Sodium Chloride 0.9% 500 ml @ 167 mls/hr IVPB Q12HR@1000,2200 [facility] Rx#: [id number] Oral 120 Output: Urine 1915 2435 625 Other: Voiding Method Indwelling Catheter Indwelling Catheter Indwelling Catheter - Exam No acute distress, oriented 3. BiPAP mask in place. She can only mouth words. HEENT examination is grossly unremarkable. Neck is Supple. Cardiovascular examination reveals distant heart sounds. No distinct murmurs noted. S1-S2 normal. Lungs reveal few scattered coarse rhonchi. No wheezes or crackles. Abdomen is obese. Extremities are noted to be normal. - Labs CBC & Chem 7: 06/21/16 04:37 06/21/16 04:37 Labs: Abnormal Lab Results - Last 24 Hours (Table) 06/20/16 06/20/16 06/20/16 Range/Units 02:46 12:06 12:27 Hgb (11.4-16.0) gm/dL MCH (25.0-35.0) pg MCHC (31.0-37.0) g/dL Plt Count (150-450) k/uL Neutrophils # (1.3-7.7) k/uL Lymphocytes # (1.0-4.8) k/uL PT (9.0-12.0) sec INR (<1.1) Potassium (3.5-5.1) mmol/L Chloride (98-107) mmol/L Carbon Dioxide (22-30) mmol/L BUN (7-17) mg/dL Glucose (74-99) mg/dL POC Glucose (mg/dL) 154 H 169 H (75-99) mg/dL Calcium (8.4-10.2) mg/dL TSH 0.360 L (0.465-4.680) mIU/L 06/20/16 06/21/16 06/21/16 Range/Units 17:01 00:43 04:37 Hgb 10.0 L (11.4-16.0) gm/dL MCH 24.6 L (25.0-35.0) pg MCHC 28.3 L (31.0-37.0) g/dL Plt Count 138 L (150-450) k/uL Neutrophils # 8.7 H (1.3-7.7) k/uL Lymphocytes # 0.2 L (1.0-4.8) k/uL PT (9.0-12.0) sec INR (<1.1) Potassium (3.5-5.1) mmol/L Chloride (98-107) mmol/L Carbon Dioxide (22-30) mmol/L BUN (7-17) mg/dL Glucose (74-99) mg/dL POC Glucose (mg/dL) 132 H 144 H (75-99) mg/dL Calcium (8.4-10.2) mg/dL TSH (0.465-4.680) mIU/L 06/21/16 06/21/16 06/21/16 Range/Units 04:37 04:37 07:51 Hgb (11.4-16.0) gm/dL MCH (25.0-35.0) pg MCHC (31.0-37.0) g/dL Plt Count (150-450) k/uL Neutrophils # (1.3-7.7) k/uL Lymphocytes # (1.0-4.8) k/uL PT 54.9 H (9.0-12.0) sec INR 5.5 H* (<1.1) Potassium 3.4 L (3.5-5.1) mmol/L Chloride 94 L (98-107) mmol/L Carbon Dioxide 40 H* (22-30) mmol/L BUN 19 H (7-17) mg/dL Glucose 149 H (74-99) mg/dL POC Glucose (mg/dL) 169 H (75-99) mg/dL Calcium 8.3 L (8.4-10.2) mg/dL TSH (0.465-4.680) mIU/L 06/21/16 Range/Units 11:19 Hgb (11.4-16.0) gm/dL MCH (25.0-35.0) pg MCHC (31.0-37.0) g/dL Plt Count (150-450) k/uL Neutrophils # (1.3-7.7) k/uL Lymphocytes # (1.0-4.8) k/uL PT (9.0-12.0) sec INR (<1.1) Potassium (3.5-5.1) mmol/L Chloride (98-107) mmol/L Carbon Dioxide (22-30) mmol/L BUN (7-17) mg/dL Glucose (74-99) mg/dL POC Glucose (mg/dL) 170 H (75-99) mg/dL Calcium (8.4-10.2) mg/dL TSH (0.465-4.680) mIU/L Microbiology - Last 24 Hours (Table) 06/19/16 18:50 Urine Culture - Final Urine,Catheterized Assessment and Plan (1) Acute on chronic diastolic CHF (congestive heart failure) Status: Acute (2) Pneumonia Status: Acute (3) Acute respiratory acidosis Status: Acute (4) CHF (congestive heart failure) Status: Acute (5) COPD exacerbation Status: Acute (6) Hx of deep venous thrombosis Status: Acute (7) Hypothyroid Status: Acute (8) Morbid obesity Status: Chronic (9) Restrictive lung disease secondary to obesity Status: Chronic Plan: Plan dated 06/21/2016 The patient is currently just on an IV appointment 90 KVO. When I evaluated her she was on the BiPAP. She can come off the BiPAP if he wishes. She go back on the BiPAP. She feels winded or short of breath. We can also advance her diet is feeling up to it. She is a DO NOT RESUSCITATE. Meds labs x-rays are all reviewed. Additional recommendations suggestions are forthcoming. Prognosis is guarded. Time with Patient: Less than 30
[2016-06-21 13:05] LABS: Glucose,Whole Blood 157 mg/dL (75-99)
[2016-06-21] MEDS: SODIUM CHLORIDE 0.9% 1,000 ML IV SCH (13:54)
[2016-06-21] MEDS: HYDROcodone/APAP 5-325MG 1 EACH TAB PO PRN (16:02)
[2016-06-21] MEDS: hydrALAZINE HCL 20 MG/ML 1 ML VIAL IVP PRN (16:03)
--- NOTE | 2016-06-21 17:06 | P.CRDCN ---
History of Present Illness Consult date: 06/21/16 History of present illness: This is a pleasant 70-year-old female patient with a past medical history significant for morbid obesity, chronic respiratory failure, COPD, hypertension, hypertensive heart disease, as well as multiple comorbid conditions was transferred from another hospital to [facility] with acute on chronic respiratory failure. The patient was found unresponsive at home by a visiting nurse. But over the last 4 days she has been experiencing progressive dyspnea and progressive bilateral lower extremities edema. She did not have any symptoms of chest pain or chest discomfort. She was diagnosed was congestive heart failure exacerbation as well as with a pneumonia. The chest x-ray showed findings consistent with vascular congestion as well as infiltrate consistent with pneumonia and also pleural effusion. The BNP came in to be elevated. The EKG showed sinus rhythm with RBBB. The patient was on Coumadin for DVT/PE but the INR was supratherapeutic and the Coumadin is on hold at this point. The patient was started on Lasix IV. The patient underwent an echocardiogram in May 2016 and that showed preserved LV function with moderate concentric LVH and finding consistent with hypertensive heart disease. At this admission, the cardiac enzymes were checked and came in to be slightly abnormal but the patient did not have any symptoms of chest pain or chest discomfort. Currently the patient is on Lasix and she is on antibiotic. I would add aspirin and statin to the current medical treatment. As an outpatient severity underlying CAD need to be ruled out by obtaining a stress test or performing a heart catheterization. Past Medical History Past Medical History: Atrial Fibrillation, Heart Failure, COPD, Deep Vein Thrombosis (DVT), Hypertension, Pneumonia, Pulmonary Embolus (PE), Respiratory Disorder, Thyroid Disorder Additional Past Medical History / Comment(s): anxiety, chronic back pain, morbid obesity, hypothyroidism, peripheral neuroapathy, UTI,CONSTIPATION History of Any Multi-Drug Resistant Organisms: MRSA Date of last positivie culture/infection: 11/13/07 MDRO Source:: Unknown Past Surgical History: Appendectomy, Cholecystectomy, Hysterectomy Additional Past Surgical History / Comment(s): Previous Trach placement- two cardiac arrests during procedure. Past Anesthesia/Blood Transfusion Reactions: No Reported Reaction Past Psychological History: Anxiety Smoking Status: Never smoker Past Alcohol Use History: None Reported Past Drug Use History: None Reported - Past Family History Father Family Medical History: No Reported History Mother Family Medical History: Unable to Obtain Additional Family Medical History / Comment(s): Two knee replacements and two hip replacements Medications and Allergies Home Medications Medication Instructions Recorded Confirmed Type ALPRAZolam [Xanax] 0.5 mg PO TID PRN 11/07/13 06/19/16 History Allopurinol [Zyloprim] 100 mg PO DAILY 11/07/13 06/19/16 History Desvenlafaxine Succinate [Pristiq 50 mg PO DAILY 11/07/13 06/19/16 History ER] Digoxin [Lanoxin] 250 mcg PO DAILY 11/07/13 06/19/16 History Ferrous Sulfate [Feosol] 325 mg PO DAILY 11/07/13 06/19/16 History Gabapentin [Neurontin] 300 mg PO HS 11/07/13 06/19/16 History Ipratropium/Albuterol Sulfate 3 ml INHALATION RT-QID PRN 11/07/13 06/19/16 History [Duoneb 0.5 mg-3 mg/3 ml Soln] Levothyroxine Sodium [Levoxyl] 175 mcg PO AC-BRKFST 11/07/13 06/19/16 History Loratadine [Claritin] 10 mg PO DAILY 11/07/13 06/19/16 History Mometasone Furoate [Nasonex Nasal 2 spray EA NOSTRIL DAILY 11/07/13 06/19/16 History Norden] Omeprazole [PriLOSEC] 20 mg PO BID 11/07/13 06/19/16 History Potassium Chloride [Klor-Con 20] 20 meq PO DAILY 11/07/13 06/19/16 History busPIRone HCl [Buspar] 10 mg PO BID 11/08/13 06/19/16 History Ascorbic Acid [Vitamin C] 500 mg PO DAILY 08/16/14 06/19/16 History Warfarin [Coumadin] 3 mg PO MOTUTHSA 08/16/14 06/19/16 History Cholecalciferol [Vitamin D3] 1,000 unit PO DAILY 12/30/14 06/19/16 History Warfarin [Coumadin] 4.5 mg PO SUWEFR 12/30/14 06/19/16 History Calcium 500 [id number] 1 tab PO DAILY 06/01/16 06/19/16 History Cyanocobalamin [Vitamin B-12] 1,000 mcg PO DAILY 06/01/16 06/19/16 History Docusate [Colace] 100 mg PO DAILY PRN 06/01/16 06/19/16 History Furosemide [Lasix] 40 mg PO BID 06/01/16 06/19/16 History HYDROcodone/APAP 5-325MG [[place] 1 tab PO BID PRN 06/01/16 06/19/16 History 5-325] Montelukast [Singulair] 10 mg PO HS 06/01/16 06/19/16 History Multivits-Min/Iron/FA/Lutein 1 tab PO DAILY 06/01/16 06/19/16 History [Centrum Silver Women Tablet] Niacin 500 mg PO DAILY 06/01/16 06/19/16 History Ranitidine HCl [Zantac] 150 mg PO BID 06/01/16 06/19/16 History Verapamil HCl 120 mg PO BID 06/01/16 06/19/16 History tiZANidine [Zanaflex] 2 mg PO Q8HR PRN 06/01/16 06/19/16 History Magnesium Oxide [Mag-Ox] 250 mg PO DAILY 06/19/16 06/19/16 History Meloxicam [Mobic] 7.5 mg PO DAILY 06/19/16 06/19/16 History Metoprolol Tartrate [Lopressor] 12.5 mg PO BID 06/19/16 06/19/16 History predniSONE 20 mg PO DAILY 06/19/16 06/19/16 History Allergies Allergy/AdvReac Type Severity Reaction Status Date / Time Penicillins Allergy Dyspnea Verified 06/19/16 15:02 Physical Exam Vitals: Vital Signs Temp Pulse Resp BP Pulse Ox 06/21/16 16:30 74 22 166/57 93 L 06/21/16 16:13 77 06/21/16 16:04 74 06/21/16 16:00 79 26 H 170/61 93 L 06/21/16 15:30 98.9 F 69 25 H 170/71 93 L 06/21/16 15:00 66 25 H 186/69 93 L 06/21/16 14:30 68 27 H 167/62 93 L 06/21/16 14:00 70 19 167/62 87 L 06/21/16 13:30 68 22 170/69 91 L 06/21/16 13:00 66 28 H 170/69 92 L 06/21/16 12:30 69 25 H 161/62 91 L 06/21/16 12:00 73 37 H 161/62 88 L 06/21/16 11:34 88 06/21/16 11:30 63 17 146/50 88 L 06/21/16 11:26 87 06/21/16 11:00 98.7 F 57 L 19 146/50 84 L 06/21/16 10:30 57 L 20 154/61 85 L 06/21/16 10:00 73 21 154/61 85 L 06/21/16 09:30 74 28 H 143/52 90 L 06/21/16 09:00 83 21 143/52 90 L 06/21/16 08:30 98.3 F 82 19 148/51 92 L 06/21/16 08:00 78 18 148/51 93 L 06/21/16 07:32 83 06/21/16 07:30 98.3 F 91 28 H 155/69 93 L 06/21/16 07:00 82 31 H 151/53 92 L 06/21/16 06:00 79 31 H 150/48 92 L 06/21/16 05:00 84 20 156/58 93 L 06/21/16 04:00 98.8 F 82 30 H 140/53 94 L 06/21/16 03:00 83 22 133/54 91 L 06/21/16 02:00 78 22 139/59 94 L 06/21/16 01:00 83 30 H 142/56 91 L 06/21/16 00:00 98.7 F 92 26 H 142/59 91 L 06/20/16 23:00 82 35 H 129/45 92 L 06/20/16 22:00 87 31 H 130/52 89 L 06/20/16 21:00 89 27 H 158/50 91 L 06/20/16 20:00 89 22 149/51 92 L 06/20/16 19:47 89 34 H 94/54 91 L 06/20/16 19:36 86 06/20/16 19:30 86 26 H 94/54 90 L 06/20/16 19:00 91 20 94/54 91 L 06/20/16 18:30 87 25 H 142/55 91 L 06/20/16 18:00 84 27 H 142/55 90 L 06/20/16 17:30 84 26 H 133/51 90 L Intake and Output 06/21/16 06/21/16 06/21/16 06:59 14:59 22:59 Intake Total 810 1158.0 12.5 Output Total 1900 1265 245 Balance -1090 -107.0 -232.5 Intake: Intake, IV Titration 810 1038.0 12.5 Amount Magnesium Sulfate-D5w Pmx 100 1 gm In Dextrose/Water 1 100ml.bag @ 100 mls/hr IVPB Q1H [facility] Rx#: [id number] Piperacillin-Tazobactam 3 50 50.0 12.5 .375 gm In Dextrose/Water 1 50ml.bag @ 12.5 mls/hr IVPB Q8HR [facility] Rx#: [id number] Potassium Chloride 10 meq 100 100 Lidocaine 2% Inj 10 mg In Sodium Chloride 0.9% 100 ml @ 100 mls/hr IV Q1HR [facility] Rx#:[id number] Sodium Chloride 0.9% 1, 160 120 000 ml @ 20 mls/hr IV . Q24H [facility] Rx#:[id number] Vancomycin 2,000 mg In 500 668 Sodium Chloride 0.9% 500 ml @ 167 mls/hr IVPB Q12HR@1000,2200 [facility] Rx#: [id number] Oral 120 Output: Urine 1900 1265 245 Other: Voiding Method Indwelling Catheter Indwelling Catheter Indwelling Catheter Weight 143.2 kg 143.2 kg 143.2 kg Patient Weight 06/22/16 06:59 Weight 143.2 kg - Constitutional General appearance: mild distress - Respiratory Respiratory: bilateral: rales - Cardiovascular Rhythm: regular Heart sounds: normal: S1, S2 Results 06/21/16 04:37 06/21/16 04:37 Coagulation 06/21/16 Range/Units 04:37 PT 54.9 H (9.0-12.0) sec CBC 06/21/16 Range/Units 04:37 WBC 9.3 (3.8-10.6) k/uL RBC 4.05 (3.80-5.40) m/uL Hgb 10.0 L (11.4-16.0) gm/dL Hct 35.1 (34.0-46.0) % Plt Count 138 L (150-450) k/uL Comprehensive Metabolic Panel 06/20/16 06/21/16 Range/Units 17:10 04:37 Sodium 141 (137-145) mmol/L Potassium 4.4 3.4 L (3.5-5.1) mmol/L Chloride 94 L (98-107) mmol/L Carbon Dioxide 40 H* (22-30) mmol/L BUN 19 H (7-17) mg/dL Creatinine 0.71 (0.52-1.04) mg/dL Glucose 149 H (74-99) mg/dL Calcium 8.3 L (8.4-10.2) mg/dL Current Medications Generic Name Dose Route Start Last Admin Trade Name Freq PRN Reason Stop Dose Admin Acetaminophen 650 mg 06/19/16 14:24 Tylenol Tab PO Q6HR PRN Mild Pain or Fever > 100.5 Acetaminophen/Hydrocodone Bitart 1 each 06/19/16 17:22 06/21/16 16:02 [place] 5-325 PO 1 each BID PRN Administration Pain Albuterol/Ipratropium 3 ml 06/19/16 14:32 06/21/16 16:02 Duoneb 0.5 Mg-3 Mg/3 Ml Soln INHALATION 3 ml RT-QID PRN Administration Shortness Of Breath Allopurinol 100 mg 06/20/16 09:00 06/21/16 08:49 Zyloprim PO 100 mg DAILY JOLEEN Administration Alprazolam 0.5 mg 06/19/16 14:32 Xanax PO TID PRN Anxiety Ascorbic Acid 500 mg 06/20/16 12:00 06/21/16 09:45 Vitamin C PO 500 mg 1200 JOLEEN Administration Budesonide 1 mg 06/21/16 20:00 Pulmicort INHALATION RT-BID JOLEEN Buspirone HCl 10 mg 06/19/16 21:00 06/21/16 08:49 Buspar PO 10 mg BID JOLEEN Administration Calcium Carbonate 1 each 06/20/16 12:00 06/21/16 09:45 [place]scal 500+D PO 1 each 1200 JOLEEN Administration Cholecalciferol 1,000 unit 06/20/16 12:00 06/21/16 09:45 Vitamin D3 PO 1,000 unit 1200 JOLEEN Administration Cyanocobalamin 1,000 mcg 06/20/16 09:00 06/21/16 08:49 Vitamin B-12 PO 1,000 mcg DAILY JOLEEN Administration Desvenlafaxine Succinate 50 mg 06/20/16 09:00 06/21/16 08:47 Pristiq Er PO 50 mg DAILY JOLEEN Administration Digoxin 175 mcg 06/21/16 09:00 06/21/16 08:50 Lanoxin IVP 175 mcg DAILY JOLEEN Administration Docusate Sodium 100 mg 06/19/16 14:32 Colace PO DAILY PRN Constipation Ferrous Sulfate 325 mg 06/20/16 09:00 06/21/16 09:43 Feosol PO 325 mg DAILY JOLEEN Administration Fluticasone Propionate 2 spray 06/20/16 09:00 06/21/16 09:43 Flonase Nasal [place] EA NOSTRIL 2 spray DAILY JOLEEN Administration Formoterol Fumarate 20 mcg 06/21/16 20:00 Perforomist INHALATION RT-BID [facility] Furosemide 40 mg 06/19/16 21:00 06/21/16 08:47 Lasix IV 40 mg Q12HR JOLEEN Administration Gabapentin 300 mg 06/19/16 21:00 06/20/16 23:57 Neurontin PO Not Given [facility] Hydralazine HCl 10 mg 06/20/16 00:26 06/21/16 16:03 Apresoline IVP 10 mg Q6HR PRN Administration Blood Pressure - High Hydromorphone HCl 0.5 mg 06/20/16 12:11 06/21/16 07:41 Dilaudid IVP 0.5 mg Q4HR PRN Administration Pain Sodium Chloride 1,000 mls @ 40 mls/hr 06/19/16 14:30 06/21/16 13:54 Saline 0.9% IV Not Given .Q24H [facility] Piperacillin/Tazobactam/ 50 mls @ 12.5 mls/hr 06/20/16 00:00 06/21/16 16:11 Dextrose 3.375 gm/ IV Solution IVPB 12.5 mls/hr Q8HR JOLEEN Administration Vancomycin HCl 1,750 mg/ 250 mls @ 125 mls/hr 06/22/16 06:00 Sodium Chloride IVPB Q12H [facility] Insulin Human Lispro 0 unit 06/20/16 17:30 06/21/16 11:21 Humalog SQ 3 unit ACHS JOLEEN Administration Protocol Levothyroxine Sodium 100 mcg 06/21/16 06:30 06/21/16 05:31 Synthroid Ivp IV 100 mcg DAILY@0630 JOLEEN Administration Loratadine 10 mg 06/20/16 09:00 06/21/16 08:49 Claritin PO 10 mg DAILY JOLEEN Administration Magnesium Oxide 250 mg 06/19/16 16:00 06/21/16 16:04 Mag-Ox PO 250 mg TID JOLEEN Administration Meloxicam 7.5 mg 06/20/16 09:00 06/21/16 09:44 Mobic PO 7.5 mg DAILY JOLEEN Administration Methocarbamol 500 mg 06/19/16 14:32 Robaxin PO Q4HR PRN Muscle Pain Methylprednisolone Sodium Succinate 40 mg 06/19/16 18:45 06/21/16 11:17 Solu-Medrol IV 40 mg Q6HR JOLEEN Administration Metoprolol Tartrate 5 mg 06/20/16 11:45 06/21/16 08:46 Lopressor IVP 5 mg BID JOLEEN Administration Miscellaneous Information 1 each 06/20/16 04:57 Magnesium Per Protocol MISCELLANE DAILY PRN Per Protocol Protocol Miscellaneous Information 1 each 06/21/16 05:34 Potassium Per Protocol MISCELLANE DAILY PRN Per Protocol Protocol Montelukast Sodium 10 mg 06/19/16 21:00 06/20/16 23:57 Singulair PO Not Given HS [facility] Multivitamins 1 each 06/20/16 12:00 06/21/16 09:46 Theragran PO 1 each 1200 JOLEEN Administration Naloxone HCl 0.2 mg 06/19/16 14:24 Narcan IV Q2M PRN Opioid Reversal Niacin 500 mg 06/20/16 12:00 06/21/16 09:46 Niacin Tr PO 500 mg 1200 JOLEEN Administration Pantoprazole Sodium 40 mg 06/20/16 11:45 06/21/16 08:46 Protonix IVP 40 mg DAILY JOLEEN Administration Potassium Chloride 20 meq 06/20/16 09:00 06/21/16 08:47 K-Dur 20 PO 20 meq DAILY [facility] Administration Tizanidine HCl 2 mg 06/19/16 14:32 Zanaflex PO Q8HR PRN Muscle Spasm/Pain Verapamil HCl 120 mg 06/19/16 21:00 06/21/16 08:46 Isoptin PO 120 mg BID JOLEEN Administration Warfarin Sodium 4.5 mg 06/19/16 18:00 Coumadin PO SUWEFR [facility] Warfarin Sodium 3 mg 06/20/16 18:00 Coumadin PO MOTUTHSA [facility] Intake and Output 06/21/16 06/21/16 06/21/16 06:59 14:59 22:59 Intake Total 810 1158.0 12.5 Output Total 1900 1265 245 Balance -1090 -107.0 -232.5 Intake: Intake, IV Titration 810 1038.0 12.5 Amount Magnesium Sulfate-D5w Pmx 100 1 gm In Dextrose/Water 1 100ml.bag @ 100 mls/hr IVPB Q1H [facility] Rx#: [id number] Piperacillin-Tazobactam 3 50 50.0 12.5 .375 gm In Dextrose/Water 1 50ml.bag @ 12.5 mls/hr IVPB Q8HR [facility] Rx#: [id number] Potassium Chloride 10 meq 100 100 Lidocaine 2% Inj 10 mg In Sodium Chloride 0.9% 100 ml @ 100 mls/hr IV Q1HR [facility] Rx#:[id number] Sodium Chloride 0.9% 1, 160 120 000 ml @ 20 mls/hr IV . Q24H [facility] Rx#:[id number] Vancomycin 2,000 mg In 500 668 Sodium Chloride 0.9% 500 ml @ 167 mls/hr IVPB Q12HR@1000,2200 [facility] Rx#: [id number] Oral 120 Output: Urine 1900 1265 245 Other: Voiding Method Indwelling Catheter Indwelling Catheter Indwelling Catheter Weight 143.2 kg 143.2 kg 143.2 kg Patient Weight 06/22/16 06:59 Weight 143.2 kg 06/21/16 04:37 06/21/16 04:37 Assessment and Plan Plan: Assessment #1 acute on chronic respiratory failure #2 congestive heart failure exacerbation secondary to diastole dysfunction #3 COPD exacerbation #4 pneumonia #5 mildly abnormal cardiac enzymes #6 morbid obesity #7 multiple comorbid conditions Plan #1 continue the Lasix and continue the antibiotic #2 no need to repeat the echo since the patient just had an echo in May #3 add aspirin and statin to the current medical treatment #4 follow-up with the patient
[2016-06-21 17:11] LABS: Glucose,Whole Blood 162 mg/dL (75-99)
[2016-06-21 17:56] LABS: Magnesium 2.2 mg/dL (1.6-2.3); Potassium 3.6 mmol/L (3.5-5.1)
[2016-06-21] MEDS ORDERED: MAGNESIUM HYDROXIDE 2,400 MG/10 ML CUP PO PRN (18:26)
[2016-06-21] MEDS ORDERED: cloNIDine HCL 0.1 MG TAB PO PRN (19:05)
[2016-06-21] MEDS: FORMOTEROL FUMARATE 20 MCG/2 ML NEBU INHALATION SCH (19:28)
[2016-06-21] MEDS: BUDESONIDE 1 MG/2 ML NEBU INHALATION SCH (19:28)
[2016-06-21 20:59] LABS: Glucose,Whole Blood 208 mg/dL (75-99)
[2016-06-21] MEDS ORDERED: METOPROLOL TARTRATE 25 MG TAB PO SCH (21:00)
[2016-06-21] MEDS: GABAPENTIN 300 MG CAP PO SCH (21:35)
[2016-06-21] MEDS: MONTELUKAST 10 MG TAB PO SCH (21:35)
[2016-06-22] MEDS: PIPERACILLIN-TAZOBACTAM 3.375 GM in DEXTROSE/WATER 1 50ML.BAG IVPB SCH ×4 (00:25→23:35)
[2016-06-22 05:12] LABS: Basophils # (A) 0.1 k/uL (0-0.2); Basophils % (A) 2 %; CH 24.3; Eosinophils % (A) 0 %; HCT 33.5 % (34.0-46.0); HDW 3.24; HGB 9.4 gm/dL (11.4-16.0); Hypochromasia Marked; Luc # (Auto) 0.15; Luc % (Auto) 3; Lymphocytes # (A) 0.2 k/uL (1.0-4.8); Lymphocytes % (A) 4 %; MCH 24.4 pg (25.0-35.0); MCHC 28.1 g/dL (31.0-37.0); MCV 86.8 fL (80.0-100.0); Mean Platelet Volume 7.2; Monocytes # (A) 0.2 k/uL (0-1.0); Monocytes % (A) 4 %; Neutrophils % (A) 87 %; RBC 3.86 m/uL (3.80-5.40); RDW 15.8 % (11.5-15.5); WBC 4.6 k/uL (3.8-10.6); WBC (Perox) 4.62
[2016-06-22 05:24] LABS: Blood Urea Nitrogen 24 mg/dL (7-17); Calcium 8.2 mg/dL (8.4-10.2); Chloride 94 mmol/L (98-107); Glucose 162 mg/dL (74-99); Magnesium 2.1 mg/dL (1.6-2.3); Non-African American GFR(MDRD) >60 (>60 ml/min/1.73 sqM); Phosphorous 1.8 mg/dL (2.5-4.5); Potassium 3.6 mmol/L (3.5-5.1); Sodium 142 mmol/L (137-145)
[2016-06-22 05:31] LABS: Anion Gap 4 mmol/L
[2016-06-22 05:36] LABS: Prothrombin Time 49.8 sec (9.0-12.0)
[2016-06-22 05:37] LABS: Carbon Dioxide 44 mmol/L (22-30)
[2016-06-22] MEDS ORDERED: Phosphorus Replacement Protoco 1 EACH MISC MISCELLANE PRN (05:52)
[2016-06-22] MEDS: LEVOTHYROXINE IVP 100 MCG/5 ML VIAL IV SCH (05:57)
[2016-06-22] MEDS: methylPREDNISolone SOD SUCCI 40 MG/ML 1 ML VIAL IV SCH ×4 (05:57→23:35)
[2016-06-22] MEDS ORDERED: POTASSIUM CHLORIDE ER 20 MEQ TAB.ER PO SCH (06:00)
[2016-06-22] MEDS: VANCOMYCIN 1,750 MG in SODIUM CHLORIDE 0.9% 250 ML IVPB SCH ×2 (06:40→17:04)
--- NOTE | 2016-06-22 07:21 | XR ---
EXAMINATION TYPE: XR chest 1V portable DATE OF EXAM: 06/22/2016 6:47 AM HISTORY: Shortness of breath. COMPARISON: 06/19/2016 TECHNIQUE: Single view of the chest is submitted. FINDINGS: Demonstrated are scattered senescent parenchymal change. Again noted are perihilar infiltrates with significant improvement right perihilar region. Left lower lobe atelectasis or infiltrate persists as well. Small effusions noted. The heart is stable. Hilar and mediastinal structures are within normal limits. Degenerative changes are seen of the dorsal spine. IMPRESSION: 1. Again noted are perihilar infiltrates with significant improvement right perihilar region. Left l ower lobe atelectasis or infiltrate persists as well. Small effusions noted.
[2016-06-22] MEDS: FORMOTEROL FUMARATE 20 MCG/2 ML NEBU INHALATION SCH ×2 (07:37→20:03)
[2016-06-22] MEDS: IPRATROPIUM-ALBUTEROL 3 ML NEB INHALATION PRN ×4 (07:37→20:03)
[2016-06-22] MEDS: BUDESONIDE 1 MG/2 ML NEBU INHALATION SCH ×2 (07:37→20:03)
[2016-06-22 07:49] LABS: Glucose,Whole Blood 165 mg/dL (75-99)
[2016-06-22] MEDS: FUROSEMIDE 10 MG/ML 4 ML VIAL IV SCH (08:48)
[2016-06-22] MEDS: SODIUM PHOSPHATE 10 MMOL in SODIUM CHLORIDE 0.9% 250 ML IVPB SCH ×2 (08:48→10:51)
[2016-06-22] MEDS: FLUTICASONE 50MCG/SPRAY NASAL 16GM EA NOSTRIL SCH (08:48)
[2016-06-22] MEDS: VERAPAMIL 40 MG TAB PO SCH ×2 (08:49→20:25)
[2016-06-22] MEDS: METOPROLOL TARTRATE 5 MG/5 ML VIAL IVP SCH (08:49)
[2016-06-22] MEDS: MAGNESIUM OXIDE 250 MG TAB PO SCH ×3 (08:49→23:35)
[2016-06-22] MEDS: POTASSIUM CHLORIDE ER 20 MEQ TAB.ER PO SCH (08:49)
[2016-06-22] MEDS: CHOLECALCIFEROL 1,000 UNIT TAB PO SCH (08:50)
[2016-06-22] MEDS: ASPIRIN 325 MG TAB PO SCH (08:50)
[2016-06-22] MEDS: PANTOPRAZOLE 40 MG/10 ML VIAL IVP SCH (08:50)
[2016-06-22] MEDS: MULTIVITAMINS, THERA 1 EACH TAB PO SCH (08:50)
[2016-06-22] MEDS: INSULIN LISPRO (humaLOG) 300 UNIT/3 ML VIAL SQ SCH ×4 (08:51→20:33)
[2016-06-22] MEDS: DIGOXIN 250 MCG/ML 2 ML AMP IVP SCH (08:51)
[2016-06-22] MEDS: NIACIN TR 500 MG CAPSULE.ER PO SCH (08:52)
[2016-06-22] MEDS: busPIRone HCl 10 MG TAB PO SCH ×2 (08:52→20:25)
[2016-06-22] MEDS: ALLOPURINOL 100 MG TAB PO SCH (08:52)
[2016-06-22] MEDS: MELOXICAM 7.5 MG TAB PO SCH (08:53)
[2016-06-22] MEDS: ASCORBIC ACID 500 MG TAB PO SCH (08:53)
[2016-06-22] MEDS: LORATADINE 10 MG TAB PO SCH (08:53)
[2016-06-22] MEDS: CYANOCOBALAMIN 500 MCG TAB PO SCH (08:53)
[2016-06-22] MEDS: FERROUS SULFATE 325 MG TAB PO SCH (08:53)
[2016-06-22] MEDS: DESVENLAFAXINE SUCCINATE 50 MG TAB.ER.24H PO SCH (08:53)
[2016-06-22] MEDS: CALCIUM CARB-VIT D 500MG-200UN 1 EACH TAB PO SCH (08:54)
[2016-06-22] MEDS ORDERED: PHYTONADIONE ORAL 5 MG/5 ML ORAL.SYRG PO STA (09:34)
--- NOTE | 2016-06-22 09:34 | P.PN ---
Subjective This is a 70-year-old female patient with multiple medical problems including morbid obesity, chronic hypercapnic respiratory failure, chronic hypoxic respiratory failure secondary to obesity/hypoventilation syndrome/obstructive sleep apnea and she is a lifelong nonsmoker. She is maintained on home oxygen at 2-3 L/m per nasal cannula. She also has a history of hypertension, pulmonary embolism/DVT anticoagulated with warfarin , hypertension, general anxiety disorder, hypothyroidism, gout, GERD. She was recently here in May for acute on chronic hypercapnic respiratory failure and congestive heart failure. She was subsequently discharged and he presented to [facility] yesterday with similar symptoms of shortness of breath, cough and congestion. She was found to have bibasilar pneumonia and congestive heart failure. She was transferred here for further evaluation and treatment. She is seen today in consultation in the intensive care unit. Her chest x-ray does reveal bibasilar pneumonia with dense consolidation in the right middle lobe along with the left lower lobe retrocardiac area. She is maintained on BiPAP at 12/5 at 80% FiO2. She has a 0.9 normal saline at KVO. She has been diuresed and initiated on Lasix 40 mg IV every 12 hours. She was initiated on vancomycin and Zosyn. On 06/22/2016, the patient is being seen in follow-up. As mentioned, the patient went into respiratory failure due to an extensive right lung pneumonia and CHF. The follow-up chest x-ray that was done today showed marked improvement in the right sided pneumonia and there is some residual perihilar pulmonary infiltrates still present however in comparison there is considerable improvement and x-ray findings. The patient remains on a combination of Zosyn and vancomycin.. She is still producing copious amount of purulent respiratory secretions. No cultures have been identified and the patient's blood culture has been negative. The patient is also being diuresis with IV Lasix.The neck fluid Balance is negative more than 3 L over the past 24-48 hours. She is afebrile. No change in mental status. She is using on and off the BiPAP at a pressure of 12 over 5 cm of water with an FiO2 of 70%, currently she is on 10 L high flow oxygen and the saturation is at 88-89%. The PT/INR remains quite elevated and the patient does not show any signs of bleeding. Objective - Vital Signs Vital signs: Vital Signs Temp 97.7 F 06/22/16 08:00 Pulse 59 L 06/22/16 08:02 Resp 23 06/22/16 08:00 BP 161/54 06/22/16 08:00 Pulse Ox 96 06/22/16 08:00 Intake & Output 06/21/16 06/22/16 06/22/16 18:59 06:59 18:59 Intake Total 1195.5 1182.5 620 Output Total 1600 1750 75 Balance -404.5 -567.5 545 Weight 143.2 kg 144.2 kg Intake: Intake, IV Titration 1075.5 162.5 500 Amount Magnesium Sulfate-D5w Pmx 100 1 gm In Dextrose/Water 1 100ml.bag @ 100 mls/hr IVPB Q1H [facility] Rx#: [id number] Piperacillin-Tazobactam 3 87.5 62.5 .375 gm In Dextrose/Water 1 50ml.bag @ 12.5 mls/hr IVPB Q8HR [facility] Rx#: [id number] Potassium Chloride 10 meq 100 Lidocaine 2% Inj 10 mg In Sodium Chloride 0.9% 100 ml @ 100 mls/hr IV Q1HR [facility] Rx#:[id number] Potassium Chloride 10 meq 100 Lidocaine 2% Inj 10 mg In Sodium Chloride 0.9% 100 ml @ 100 mls/hr IV Q1HR [facility] Rx#:[id number] Sodium Chloride 0.9% 1, 120 000 ml @ 20 mls/hr IV . Q24H [facility] Rx#:[id number] Vancomycin 2,000 mg In 668 500 Sodium Chloride 0.9% 500 ml @ 167 mls/hr IVPB Q12HR@1000,2200 [facility] Rx#: [id number] Oral 120 1020 120 Output: Urine 1600 1750 75 Other: Voiding Method Indwelling Catheter Indwelling Catheter Indwelling Catheter - Exam Morbidly obese, comfortable, not in acute distress, currently on high flow oxygen at 2 L per minute nasal cannula.Head exam was generally normal. There was no scleral icterus or corneal arcus. Mucous membranes were moist. Neck is short and the patient has significant crowding of the posterior oropharynx. There is no goiter or neck masses. Lungs sounds are diminished bilaterally along with scattered rhonchi heard throughout the lung son. Sounds are diminished in lung bases. Heart sounds are regular, and there is a systolic ejection murmur grade 3/6 heard throughout the precordium.Abdominal exam revealed normal bowel sounds. The abdomen was soft, non-tender, and without masses, organomegaly, or appreciable enlargement of the abdominal aorta. Organs cannot be palpated adequate. The patient is morbidly obese. Extremities are slightly swollen and there is no cyanosis or clubbing at this point. Neurologically, the patient is awake and alert and she is following commands and answering questions appropriately. - Labs CBC & Chem 7: 06/22/16 04:45 06/22/16 04:45 Labs: Abnormal Lab Results - Last 24 Hours (Table) 06/21/16 06/21/16 06/21/16 Range/Units 11:19 13:02 17:10 Hgb (11.4-16.0) gm/dL Hct (34.0-46.0) % MCH (25.0-35.0) pg MCHC (31.0-37.0) g/dL RDW (11.5-15.5) % Plt Count (150-450) k/uL Lymphocytes # (1.0-4.8) k/uL PT (9.0-12.0) sec INR (<1.1) Chloride (98-107) mmol/L Carbon Dioxide (22-30) mmol/L BUN (7-17) mg/dL Glucose (74-99) mg/dL POC Glucose (mg/dL) 170 H 157 H 162 H (75-99) mg/dL Calcium (8.4-10.2) mg/dL Phosphorus (2.5-4.5) mg/dL 06/21/16 06/22/16 06/22/16 Range/Units 20:58 04:45 04:45 Hgb 9.4 L (11.4-16.0) gm/dL Hct 33.5 L (34.0-46.0) % MCH 24.4 L (25.0-35.0) pg MCHC 28.1 L (31.0-37.0) g/dL RDW 15.8 H (11.5-15.5) % Plt Count 130 L (150-450) k/uL Lymphocytes # 0.2 L (1.0-4.8) k/uL PT (9.0-12.0) sec INR (<1.1) Chloride 94 L (98-107) mmol/L Carbon Dioxide 44 H* (22-30) mmol/L BUN 24 H (7-17) mg/dL Glucose 162 H (74-99) mg/dL POC Glucose (mg/dL) 208 H (75-99) mg/dL Calcium 8.2 L (8.4-10.2) mg/dL Phosphorus 1.8 L (2.5-4.5) mg/dL 06/22/16 06/22/16 Range/Units 04:45 07:45 Hgb (11.4-16.0) gm/dL Hct (34.0-46.0) % MCH (25.0-35.0) pg MCHC (31.0-37.0) g/dL RDW (11.5-15.5) % Plt Count (150-450) k/uL Lymphocytes # (1.0-4.8) k/uL PT 49.8 H (9.0-12.0) sec INR 5.0 H* (<1.1) Chloride (98-107) mmol/L Carbon Dioxide (22-30) mmol/L BUN (7-17) mg/dL Glucose (74-99) mg/dL POC Glucose (mg/dL) 165 H (75-99) mg/dL Calcium (8.4-10.2) mg/dL Phosphorus (2.5-4.5) mg/dL Assessment and Plan Plan: Impression: #1 Acute on chronic hypoxic respiratory failure secondary primarily pneumonia of the right lung which is improving and secondarily due to CHF/diastolic dysfunction. The patient has extensive pulmonary infiltration of the right lung which is improving with a combination of Zosyn and vancomycin. She is still producing copious amount of purulent secretions and cultures need to be obtained. The chest x-ray from today shows significant improvement. There is been some improvement in the patient's oxygenation, however the patient is still requiring BiPAP on and off during the day which is set at a pressure of 12 /7 cm of water with an FiO2 of 70%. #2 Acute on chronic hypercapnic respiratory failure secondary to above. #3 Acute on chronic diastolic congestive heart failure. #4 Moderate pulmonary hypertension. #5 Morbid obesity with obesity/hypoventilation syndrome. #6 Obstructive sleep apnea. #7 Previous history of PE/DVT, anticoagulated with warfarin, currently supratherapeutic at 5.0. She is off anticoagulation and there is no signs of bleeding for now. #8 Chronic back pain. #9 Peripheral neuropathy. #10 Hypothyroidism. #11 Poor overall functional performance secondary to the above-mentioned multiple comorbidities. #13 severe pulmonary hypertension based on echocardiogram from some of 2015 Plan The patient is improving. Continue same treatment. The Lasix to 40 Mg IV Once a Day. Give the Patient Does of 2 Mg of Vitamin K. Keep the Patient ICU As Long As the Patient Is Still Requiring High Flow of Oxygen and on and off BiPAP. Clinically However, the Patient Is Improved and There Is Also Improvement in the Right Lung Pneumonia on Today's Chest X-Ray. Anticipate Further Improvement over the Next 24 Hours.
[2016-06-22 11:27] LABS: Glucose,Whole Blood 198 mg/dL (75-99)
--- NOTE | 2016-06-22 14:50 | PN ---
DATE OF SERVICE: 06/21/2016 This 70-year-old woman was admitted with multilobar pneumonia, is improving significantly. Patient also had possible sepsis with possible acute component. The patient for respiratory, patient on BiPAP. Patient is overall much more alert, and patient is being closely monitored. Patient's course improving at this time. Patient will be closely monitored in ICU. Dr. Pathak and Dr. Faulkner are following the patient closely. PAST MEDICAL HISTORY: Reviewed. REVIEW OF SYSTEMS: Could not be taken. The patient is on BiPAP and slightly drowsy. Current medications are reviewed and include: 1. Tylenol 650 q.6 p.r.n. 2. [place] 5 mg b.i.d. p.r.n. 3. DuoNeb q.i.d. and p.r.n. 4. Zyloprim 100 mg p.o. daily. 5. Xanax 0.5 t.i.d. 6. Vitamin C 500 mg. 7. Ecotrin 325 mg. 8. Pulmicort 1 mg b.i.d. 9. BuSpar 10 mg b.i.d. 10. Os-Marcus 500 1 p.o. daily. 11. Vitamin D3 one thousand daily. 12. Vitamin B12 one thousand mg daily. 13. Pristiq ER 50 mg p.o. 14. Lanoxin 175 mg p.o. daily. 15. Colace 100 mg p.o. daily. 16. Iron sulfate 325 mg daily. 17. Fluticasone. 18. Perforomist b.i.d. 19. Lasix 40 mg IV. 20. Neurontin 300 mg q.h.s. 21. Apresoline 10 mg q.6. 22. Dilaudid 0.5 mg q.4 p.r.n. 23. Synthroid 100 mcg daily. 24. Milk of magnesia. 25. Magnesium oxide. 26. Mobic. 27. Robaxin 500 mg p.o. 28. Solu-Medrol 40 IV q.6. 29. Lopressor 5 mg IV b.i.d. 30. Singulair 10 mg q.h.s. 31. Multivitamin 1 p.o. daily. 32. Narcan. 33. Niacin. 34. Zosyn 3.375 IV q.8. 35. K-Dur 20 mEq p.o. daily. 36. Zanaflex 2 mg p.o. q.8 p.r.n. 37. Isoptin 120 mg p.o. b.i.d. 38. Coumadin 4.5 mg p.o. Wednesday, Wednesday, Wednesday and 3 mg p.o. Wednesday, Wednesday, , Wednesday. PHYSICAL EXAMINATION: Pulse is 77, blood pressure 157/58, respirations 17, temperature is normal, pulse ox is 93% on 70% BiPAP. HEENT: Conjunctivae normal, oral mucosa moist. NECK: No thyroid enlargement, no carotid bruit, no lymph node enlargement. CARDIOVASCULAR SYSTEM: S1, S2 muffled. RESPIRATORY: Breath sounds diminished at the bases. Otherwise continue the bronchodilators. Continue with the antibiotics. The patient is also on intravenous steroids. Closely follow with Dr. Pathak. Further recommendations to follow. Once the patient is p.o., metoprolol can be switched over to p.o. metoprolol. Otherwise, I would recommend using p.r.n. medications at this time and continue to monitor. P.r.n. medication for blood pressure.
--- NOTE | 2016-06-22 16:37 | P.PN ---
Subjective Principal diagnosis: CHF This is a pleasant 70-year-old female patient with a past medical history significant for morbid obesity, chronic respiratory failure, COPD, hypertension, hypertensive heart disease, as well as multiple comorbid conditions was transferred from another hospital to [facility] with acute on chronic respiratory failure. The patient was found unresponsive at home by a visiting nurse. But over the last 4 days she has been experiencing progressive dyspnea and progressive bilateral lower extremities edema. She did not have any symptoms of chest pain or chest discomfort. She was diagnosed was congestive heart failure exacerbation as well as with a pneumonia. The chest x-ray showed findings consistent with vascular congestion as well as infiltrate consistent with pneumonia and also pleural effusion. The BNP came in to be elevated. The EKG showed sinus rhythm with RBBB. The patient was on Coumadin for DVT/PE but the INR was supratherapeutic and the Coumadin is on hold at this point. The patient was started on Lasix IV. The patient underwent an echocardiogram in May 2016 and that showed preserved LV function with moderate concentric LVH and finding consistent with hypertensive heart disease. At this admission, the cardiac enzymes were checked and came in to be slightly abnormal but the patient did not have any symptoms of chest pain or chest discomfort. On follow-up with the patient today, she seems to be doing slightly better. Her shortness of breath has improved. She continues to be on Lasix IV and she is making urine. She has been bradycardic and I am going to DC the digoxin, DC clonidine, and DC metoprolol IV. I will start the patient on Hydralazine PO. Objective - Vital Signs Vital signs: Vital Signs Temp 97.7 F 06/22/16 08:00 Pulse 71 06/22/16 16:16 Resp 18 06/22/16 11:29 BP 158/52 06/22/16 10:00 Pulse Ox 86 L 06/22/16 10:00 Intake & Output 06/21/16 06/22/16 06/22/16 18:59 06:59 18:59 Intake Total 1195.5 1182.5 1170.0 Output Total 1600 1750 525 Balance -404.5 -567.5 645.0 Weight 143.2 kg 144.2 kg 144.2 kg Intake: IV 500 Sodium Phosphate 10 mmol 500 In Sodium Chloride 0.9% 250 ml @ 125 mls/hr IVPB Q2H [facility] Rx#:[id number] Intake, IV Titration 1075.5 162.5 550.0 Amount Magnesium Sulfate-D5w Pmx 100 1 gm In Dextrose/Water 1 100ml.bag @ 100 mls/hr IVPB Q1H [facility] Rx#: [id number] Piperacillin-Tazobactam 3 87.5 62.5 50.0 .375 gm In Dextrose/Water 1 50ml.bag @ 12.5 mls/hr IVPB Q8HR [facility] Rx#: [id number] Potassium Chloride 10 meq 100 Lidocaine 2% Inj 10 mg In Sodium Chloride 0.9% 100 ml @ 100 mls/hr IV Q1HR [facility] Rx#:[id number] Potassium Chloride 10 meq 100 Lidocaine 2% Inj 10 mg In Sodium Chloride 0.9% 100 ml @ 100 mls/hr IV Q1HR [facility] Rx#:[id number] Sodium Chloride 0.9% 1, 120 000 ml @ 20 mls/hr IV . Q24H [facility] Rx#:[id number] Vancomycin 2,000 mg In 668 500 Sodium Chloride 0.9% 500 ml @ 167 mls/hr IVPB Q12HR@1000,2200 [facility] Rx#: [id number] Oral 120 1020 120 Output: Urine 1600 1750 525 Other: Voiding Method Indwelling Catheter Indwelling Catheter Indwelling Catheter - Constitutional General appearance: Present: no acute distress - Respiratory Respiratory: bilateral: diminished - Cardiovascular Rhythm: regular Heart sounds: normal: S1, S2 - Labs CBC & Chem 7: 06/22/16 04:45 06/22/16 04:45 Labs: Abnormal Lab Results - Last 24 Hours (Table) 06/21/16 06/21/16 06/22/16 Range/Units 17:10 20:58 04:45 Hgb 9.4 L (11.4-16.0) gm/dL Hct 33.5 L (34.0-46.0) % MCH 24.4 L (25.0-35.0) pg MCHC 28.1 L (31.0-37.0) g/dL RDW 15.8 H (11.5-15.5) % Plt Count 130 L (150-450) k/uL Lymphocytes # 0.2 L (1.0-4.8) k/uL PT (9.0-12.0) sec INR (<1.1) Chloride (98-107) mmol/L Carbon Dioxide (22-30) mmol/L BUN (7-17) mg/dL Glucose (74-99) mg/dL POC Glucose (mg/dL) 162 H 208 H (75-99) mg/dL Calcium (8.4-10.2) mg/dL Phosphorus (2.5-4.5) mg/dL 06/22/16 06/22/16 06/22/16 Range/Units 04:45 04:45 07:45 Hgb (11.4-16.0) gm/dL Hct (34.0-46.0) % MCH (25.0-35.0) pg MCHC (31.0-37.0) g/dL RDW (11.5-15.5) % Plt Count (150-450) k/uL Lymphocytes # (1.0-4.8) k/uL PT 49.8 H (9.0-12.0) sec INR 5.0 H* (<1.1) Chloride 94 L (98-107) mmol/L Carbon Dioxide 44 H* (22-30) mmol/L BUN 24 H (7-17) mg/dL Glucose 162 H (74-99) mg/dL POC Glucose (mg/dL) 165 H (75-99) mg/dL Calcium 8.2 L (8.4-10.2) mg/dL Phosphorus 1.8 L (2.5-4.5) mg/dL 06/22/16 Range/Units 11:26 Hgb (11.4-16.0) gm/dL Hct (34.0-46.0) % MCH (25.0-35.0) pg MCHC (31.0-37.0) g/dL RDW (11.5-15.5) % Plt Count (150-450) k/uL Lymphocytes # (1.0-4.8) k/uL PT (9.0-12.0) sec INR (<1.1) Chloride (98-107) mmol/L Carbon Dioxide (22-30) mmol/L BUN (7-17) mg/dL Glucose (74-99) mg/dL POC Glucose (mg/dL) 198 H (75-99) mg/dL Calcium (8.4-10.2) mg/dL Phosphorus (2.5-4.5) mg/dL Assessment and Plan Plan: Assessment #1 acute on chronic respiratory failure #2 congestive heart failure exacerbation secondary to diastole dysfunction #3 COPD exacerbation #4 pneumonia #5 mildly abnormal cardiac enzymes #6 morbid obesity #7 multiple comorbid conditions Plan #1 continue the Lasix and continue the antibiotic #2 no need to repeat the echo since the patient just had an echo in May #3 follow-up with the patient
[2016-06-22] MEDS: SODIUM CHLORIDE 0.9% 1,000 ML IV SCH (17:06)
[2016-06-22] MEDS: hydrALAZINE HCL 25 MG TAB PO SCH ×2 (17:11→23:35)
[2016-06-22] MEDS: DOCUSATE 100 MG CAP PO SCH (17:12)
[2016-06-22 17:50] LABS: Glucose,Whole Blood 208 mg/dL (75-99)
--- NOTE | 2016-06-22 19:59 | PN ---
DATE OF SERVICE: 06/22/2016 This 70-year-old woman who was admitted with multilobar pneumonia also had change in mental status, metabolic encephalopathy, and acute respiratory failure. Patient was on BiPAP throughout a couple days ago, but currently patient is on BiPAP at night. Sensorium has definitely improved. Chest x-ray also showed minimal improvement in the right middle and upper lobes. Multiple consultants are following the patient closely, including Dr. Leung. Past medical history reviewed. Review of systems still could not be taken; patient is confused. Current medications are reviewed and include: 1. Tylenol 650 q.6 p.r.n. 2. [place] 5 mg b.i.d. p.r.n. 3. DuoNeb q.i.d. and p.r.n. 4. Zyloprim 100 mg daily. 5. Xanax 0.5 t.i.d. 6. Vitamin C 500 mg 7. Aspirin 325 mg daily. 8. Pulmicort 1 mg b.i.d. 9. BuSpar 10 mg b.i.d. 10. Os-Marcus with vitamin D one p.o. daily. 11. Vitamin D3 daily. 12. Catapres 0.1 q.4 p.r.n. 13. Vitamin B12 1000 daily. 14. Pristiq ER 50 mg daily. 15. Lanoxin 175 mcg daily. 16. Colace. 17. Iron sulfate. 18. Perforomist. 19. Lasix. 20. Neurontin 300 mg q.6. 21. Apresoline 10 mg q.6 p.r.n. 22. Dilaudid. 23. Claritin. 24. Magnesium oxide. 25. Robaxin. 26. Solu-Medrol 40 IV q.6. 27. Lopressor. 28. Singulair. 29. Multivitamins. 30. Narcan. 31. Niacin. 32. Protonix. 33. Zosyn. 34. Zanaflex. 35. Vancomycin. 36. Isoptin. 37. Coumadin. PHYSICAL EXAMINATION: Patient is alert and oriented x3. Pulse is 58, blood pressure 158/92, respiration 18, temperature 97.7, pulse ox 96% on 15 L nasal cannula. HEENT: Conjunctivae normal. Oral mucosa moist. NECK: No jugular venous distention. No carotid bruit. No lymph node enlargement. CARDIOVASCULAR SYSTEM: S1, S2 muffled. No S3. No S4. RESPIRATORY SYSTEM: Breath sounds diminished at the bases. Bilateral scattered rhonchi and expiratory wheezing, crackles. ABDOMEN: Soft, non-tender. No mass palpable. LEGS: No edema. No swelling. NERVOUS SYSTEM: Higher functions as mentioned earlier. Moves all 4 limbs. No focal motor or sensory deficit. LYMPHATICS: No lymph node palpable in neck, axillae or groin. SKIN: No ulcer, rash, bleeding. LABS: WBC 4.6, hemoglobin 9.4. INR is 5. Sodium 142, potassium 3.6. Calcium 8.2. ASSESSMENT: 1. Right upper and middle lobe pneumonia; multilobar pneumonia with possible sepsis with possible hospital-acquired acute hypoxic respiratory failure, on BiPAP with possible sepsis. 2. Chronic hypercapnic respiratory failure from underlying chronic obstructive pulmonary disease. 3. Coumadin coagulopathy. 4. Troponin 0.051, indeterminate. 5. Low TSH with normal free T4; possible sick euthyroid syndrome. 6. Possible adult pickwickian syndrome. 7. Increased white count. 8. Change in mental status, metabolic encephalopathy, multifactorial. 9. Anemia, normocytic. 10. Super morbid obesity with a body mass index of 47.6. 11. Increased random blood sugar. 12. Hypoalbuminemia with mild protein-calorie malnutrition. 13. History of congestive heart failure, ejection 50% to 60%, with chronic systolic heart failure. 14. Chronic obstructive pulmonary disease. 15. History of deep venous thrombosis. 16. Hypertension. 17. History of pneumonia. 18. History of pulmonary embolus. 19. History of anemia. 20. Chronic back pain and degenerative joint disease. 21. Morbid obesity. 22. Neuropathy. 23. Hypothyroidism. 24. History of urinary tract infection. 25. History of constipation. 26. History of methicillin-resistant Staphylococcus aureus. 27. History of cholecystectomy. 28. History of trach placement and cardiac arrest previously. 29. History of anxiety. 30. History of congestive heart failure with chronic diastolic dysfunction, ejection fraction 50% to 60%. 31. NO CODE, CPR, NO VENT. RECOMMENDATIONS AND DISCUSSION: In this 70-year-old woman who presented with multiple complex medical issues, we will monitor the patient closely, continue the current medications, continue with symptomatic treatment, continue with empiric antibiotics, bronchodilators. Closely monitor. INR is 5 at this time. We will hold the Coumadin. Guarded prognosis because of multiple complex medical issues. Further recommendations to follow. Continue with antibiotics. Continue with BiPAP at night, bronchodilators, rest of the medications. Prognosis guarded. Patient is making gradual improvement at this time. TRACEYD
[2016-06-22] MEDS: GABAPENTIN 300 MG CAP PO SCH (20:25)
[2016-06-22] MEDS: MONTELUKAST 10 MG TAB PO SCH (20:25)
[2016-06-22 20:30] LABS: Glucose,Whole Blood 205 mg/dL (75-99)
[2016-06-22] MEDS: ONDANSETRON 4 MG/2 ML VIAL IVP PRN (21:11)
[2016-06-22 21:55] LABS: Glucose,Whole Blood 181 mg/dL (75-99)
[2016-06-23 04:56] LABS: Aty Lym Flag Slight; CH 23.8; CHCM 27.6; HCT 32.6 % (34.0-46.0); HDW 3.27; HGB 9.1 gm/dL (11.4-16.0); Hypochromasia Marked; MCH 24.3 pg (25.0-35.0); MCV 86.7 fL (80.0-100.0); Mean Platelet Volume 6.5; RBC 3.76 m/uL (3.80-5.40); RDW 15.4 % (11.5-15.5); WBC 5.8 k/uL (3.8-10.6); WBC (Perox) 6.27
[2016-06-23 05:13] LABS: Blood Urea Nitrogen 28 mg/dL (7-17); Calcium 8.4 mg/dL (8.4-10.2); Chloride 93 mmol/L (98-107); Glucose 186 mg/dL (74-99); Magnesium 2.3 mg/dL (1.6-2.3); Non-African American GFR(MDRD) >60 (>60 ml/min/1.73 sqM); Phosphorous 2.8 mg/dL (2.5-4.5); Potassium 3.9 mmol/L (3.5-5.1); Sodium 143 mmol/L (137-145)
[2016-06-23 05:19] LABS: Anion Gap 6 mmol/L
[2016-06-23 05:20] LABS: Carbon Dioxide 44 mmol/L (22-30)
[2016-06-23] MEDS: HYDROmorphone 1 MG/ML 1 ML SYRINGE IVP PRN (05:38)
[2016-06-23] MEDS: LEVOTHYROXINE IVP 100 MCG/5 ML VIAL IV SCH (05:38)
[2016-06-23] MEDS: methylPREDNISolone SOD SUCCI 40 MG/ML 1 ML VIAL IV SCH ×3 (05:38→17:20)
[2016-06-23 05:39] LABS: INR 1.6 (<1.1); Prothrombin Time 15.1 sec (9.0-12.0)
[2016-06-23] MEDS: VANCOMYCIN 1,750 MG in SODIUM CHLORIDE 0.9% 250 ML IVPB SCH ×2 (05:40→17:19)
[2016-06-23] MEDS: ONDANSETRON 4 MG/2 ML VIAL IVP PRN (05:59)
[2016-06-23] MEDS: POTASSIUM CHLORIDE 10 MEQ, LIDOCAINE 2% INJ 10 MG in SODIUM CHLORIDE 0.9% 100 ML IV SCH ×2 (05:59→08:34)
[2016-06-23 06:05] LABS: Add Differential Manual Differential
[2016-06-23 06:06] LABS: Nucleated Red Blood Cells 0 /100 WBC (0-0); Total Cells Counted 100
[2016-06-23 06:07] LABS: Manual Review Performed; Reactive Lymphocytes Present
[2016-06-23 07:29] LABS: Glucose,Whole Blood 205 mg/dL (75-99)
[2016-06-23] MEDS: IPRATROPIUM-ALBUTEROL 3 ML NEB INHALATION PRN ×3 (07:41→20:16)
[2016-06-23] MEDS: FORMOTEROL FUMARATE 20 MCG/2 ML NEBU INHALATION SCH ×2 (07:41→20:16)
[2016-06-23] MEDS: BUDESONIDE 1 MG/2 ML NEBU INHALATION SCH ×2 (07:41→20:16)
--- NOTE | 2016-06-23 08:08 | XR ---
EXAMINATION TYPE: XR chest 1V DATE OF EXAM: 06/23/2016 7:02 AM CLINICAL HISTORY: Difficulty breathing progress study. TECHNIQUE: Single AP portable upright view of the chest is obtained. COMPARISON: Chest x-ray from one day earlier FINDINGS: There is persistent cardiomegaly with atherosclerotic thoracic aorta. There are persistent small bilateral pleural effusions. There is persistent right hilar opacity. Improved aeration left h ilar level is present. There is persistent left basilar atelectasis and/or infiltrate silhouetting le ft hemidiaphragm No pneumothorax is seen bilaterally. Multilevel spurring and spine is present. [place] us structures are demineralized. IMPRESSION: Cardiomegaly with persistent right hilar infiltrate and left basilar atelectasis and/or i nfiltrate with small bilateral pleural effusions all redemonstrated. Background of chronic emphysemat ous change is suspected. No new infiltrate is seen.
[2016-06-23] MEDS: FUROSEMIDE 10 MG/ML 4 ML VIAL IV SCH (08:30)
[2016-06-23] MEDS: PANTOPRAZOLE 40 MG/10 ML VIAL IVP SCH (08:30)
[2016-06-23] MEDS: MULTIVITAMINS, THERA 1 EACH TAB PO SCH (08:31)
[2016-06-23] MEDS: VERAPAMIL 40 MG TAB PO SCH ×2 (08:31→20:18)
[2016-06-23] MEDS: MAGNESIUM OXIDE 250 MG TAB PO SCH ×2 (08:31→16:24)
[2016-06-23] MEDS: hydrALAZINE HCL 25 MG TAB PO SCH ×4 (08:31→22:37)
[2016-06-23] MEDS: DOCUSATE 100 MG CAP PO SCH ×2 (08:31→20:20)
[2016-06-23] MEDS: DESVENLAFAXINE SUCCINATE 50 MG TAB.ER.24H PO SCH (08:31)
[2016-06-23] MEDS: CHOLECALCIFEROL 1,000 UNIT TAB PO SCH (08:31)
[2016-06-23] MEDS: ASPIRIN 325 MG TAB PO SCH (08:31)
[2016-06-23] MEDS: MELOXICAM 7.5 MG TAB PO SCH (08:32)
[2016-06-23] MEDS: CALCIUM CARB-VIT D 500MG-200UN 1 EACH TAB PO SCH (08:32)
[2016-06-23] MEDS: ALLOPURINOL 100 MG TAB PO SCH (08:32)
[2016-06-23] MEDS: LORATADINE 10 MG TAB PO SCH (08:32)
[2016-06-23] MEDS: POTASSIUM CHLORIDE ER 20 MEQ TAB.ER PO SCH (08:32)
[2016-06-23] MEDS: busPIRone HCl 10 MG TAB PO SCH ×2 (08:32→20:20)
[2016-06-23] MEDS: FERROUS SULFATE 325 MG TAB PO SCH (08:32)
[2016-06-23] MEDS: NIACIN TR 500 MG CAPSULE.ER PO SCH (08:32)
[2016-06-23] MEDS: CYANOCOBALAMIN 500 MCG TAB PO SCH (08:32)
[2016-06-23] MEDS: ASCORBIC ACID 500 MG TAB PO SCH (08:32)
[2016-06-23] MEDS: FLUTICASONE 50MCG/SPRAY NASAL 16GM EA NOSTRIL SCH (08:41)
[2016-06-23] MEDS: INSULIN LISPRO (humaLOG) 300 UNIT/3 ML VIAL SQ SCH ×4 (08:41→20:20)
--- NOTE | 2016-06-23 09:26 | P.PN ---
Subjective This is a 70-year-old female patient with multiple medical problems including morbid obesity, chronic hypercapnic respiratory failure, chronic hypoxic respiratory failure secondary to obesity/hypoventilation syndrome/obstructive sleep apnea and she is a lifelong nonsmoker. She is maintained on home oxygen at 2-3 L/m per nasal cannula. She also has a history of hypertension, pulmonary embolism/DVT anticoagulated with warfarin , hypertension, general anxiety disorder, hypothyroidism, gout, GERD. She was recently here in May for acute on chronic hypercapnic respiratory failure and congestive heart failure. She was subsequently discharged and he presented to [facility] yesterday with similar symptoms of shortness of breath, cough and congestion. She was found to have bibasilar pneumonia and congestive heart failure. She was transferred here for further evaluation and treatment. She is seen today in consultation in the intensive care unit. Her chest x-ray does reveal bibasilar pneumonia with dense consolidation in the right middle lobe along with the left lower lobe retrocardiac area. She is maintained on BiPAP at 12/5 at 80% FiO2. She has a 0.9 normal saline at KVO. She has been diuresed and initiated on Lasix 40 mg IV every 12 hours. She was initiated on vancomycin and Zosyn. On 06/22/2016, the patient is being seen in follow-up. As mentioned, the patient went into respiratory failure due to an extensive right lung pneumonia and CHF. The follow-up chest x-ray that was done today showed marked improvement in the right sided pneumonia and there is some residual perihilar pulmonary infiltrates still present however in comparison there is considerable improvement and x-ray findings. The patient remains on a combination of Zosyn and vancomycin.. She is still producing copious amount of purulent respiratory secretions. No cultures have been identified and the patient's blood culture has been negative. The patient is also being diuresis with IV Lasix.The neck fluid Balance is negative more than 3 L over the past 24-48 hours. She is afebrile. No change in mental status. She is using on and off the BiPAP at a pressure of 12 over 5 cm of water with an FiO2 of 70%, currently she is on 10 L high flow oxygen and the saturation is at 88-89%. The PT/INR remains quite elevated and the patient does not show any signs of bleeding. On 06/23/2016 the patient is being seen in follow-up. Her chest x-ray from today still showing a dense consolidation in the right mid/perihilar area. She remains on a combination of vancomycin and Zosyn. Sputum is shown some yeast and gram-positive bacilli and final cultures and sensitivities are still pending. This morning, the patient is on high flow oxygen at 12 L. Note that her baseline is at 3 L/m nasal cannula. Overnight she was using the BiPAP at a pressure of 12 over 5 cm of water. She is gradually increasing her diet. No nausea. No vomiting. She is having some issues with constipation and she was given note of Magnesia and Colace was also started. She has a congested cough. On and off she is producing purulent sputum. No pleurisy pain no chest pain. No change in mental status. She is on IV Solu-Medrol. She is also on IV Lasix once a day. Objective - Vital Signs Vital signs: Vital Signs Temp 98 F 06/23/16 04:00 Pulse 69 06/23/16 08:10 Resp 10 L 06/23/16 07:00 BP 145/55 06/23/16 07:00 Pulse Ox 94 L 06/23/16 07:00 Intake & Output 06/22/16 06/23/16 06/23/16 18:59 06:59 18:59 Intake Total 1315.0 570 20 Output Total 1330 790 60 Balance -15.0 -220 -40 Weight 144.2 kg 138.4 kg Intake: IV 500 220 20 Sodium Chloride 0.9% 1, 220 20 000 ml @ 40 mls/hr IV . Q24H [facility] Rx#:[id number] Sodium Phosphate 10 mmol 500 In Sodium Chloride 0.9% 250 ml @ 125 mls/hr IVPB Q2H [facility] Rx#:[id number] Intake, IV Titration 695.0 350 Amount Piperacillin-Tazobactam 3 75.0 .375 gm In Dextrose/Water 1 50ml.bag @ 12.5 mls/hr IVPB Q8HR [facility] Rx#: [id number] Potassium Chloride 10 meq 100 Lidocaine 2% Inj 10 mg In Sodium Chloride 0.9% 100 ml @ 100 mls/hr IV Q1HR [facility] Rx#:[id number] Sodium Chloride 0.9% 1, 120 000 ml @ 40 mls/hr IV . Q24H [facility] Rx#:[id number] Vancomycin 1,750 mg In 250 Sodium Chloride 0.9% 250 ml @ 125 mls/hr IVPB Q12H [facility] Rx#:[id number] Vancomycin 2,000 mg In 500 Sodium Chloride 0.9% 500 ml @ 167 mls/hr IVPB Q12HR@1000,2200 [facility] Rx#: [id number] Oral 120 Output: Urine 1330 790 60 Other: Voiding Method Indwelling Catheter Indwelling Catheter - Exam Morbidly obese, comfortable, not in acute distress, currently on high flow oxygen at 2 L per minute nasal cannula.Head exam was generally normal. There was no scleral icterus or corneal arcus. Mucous membranes were moist. Neck is short and the patient has significant crowding of the posterior oropharynx. There is no goiter or neck masses. Lungs sounds are diminished bilaterally along with scattered rhonchi heard throughout the lung son. Sounds are diminished in lung bases. Heart sounds are regular, and there is a systolic ejection murmur grade 3/6 heard throughout the precordium.Abdominal exam revealed normal bowel sounds. The abdomen was soft, non-tender, and without masses, organomegaly, or appreciable enlargement of the abdominal aorta. Organs cannot be palpated adequate. The patient is morbidly obese. Extremities are slightly swollen and there is no cyanosis or clubbing at this point. Neurologically, the patient is awake and alert and she is following commands and answering questions appropriately. - Labs CBC & Chem 7: 06/23/16 04:31 06/23/16 04:31 Labs: Abnormal Lab Results - Last 24 Hours (Table) 06/22/16 06/22/16 06/22/16 Range/Units 11:26 17:48 20:29 RBC (3.80-5.40) m/uL Hgb (11.4-16.0) gm/dL Hct (34.0-46.0) % MCH (25.0-35.0) pg MCHC (31.0-37.0) g/dL Plt Count (150-450) k/uL Lymphocytes # (Manual) (1.0-4.8) k/uL PT (9.0-12.0) sec Chloride (98-107) mmol/L Carbon Dioxide (22-30) mmol/L BUN (7-17) mg/dL Glucose (74-99) mg/dL POC Glucose (mg/dL) 198 H 208 H 205 H (75-99) mg/dL 06/22/16 06/23/16 06/23/16 Range/Units 21:53 04:31 04:31 RBC 3.76 L (3.80-5.40) m/uL Hgb 9.1 L (11.4-16.0) gm/dL Hct 32.6 L (34.0-46.0) % MCH 24.3 L (25.0-35.0) pg MCHC 28.0 L (31.0-37.0) g/dL Plt Count 129 L (150-450) k/uL Lymphocytes # (Manual) 0.9 L (1.0-4.8) k/uL PT (9.0-12.0) sec Chloride 93 L (98-107) mmol/L Carbon Dioxide 44 H* (22-30) mmol/L BUN 28 H (7-17) mg/dL Glucose 186 H (74-99) mg/dL POC Glucose (mg/dL) 181 H (75-99) mg/dL 06/23/16 06/23/16 Range/Units 04:31 07:27 RBC (3.80-5.40) m/uL Hgb (11.4-16.0) gm/dL Hct (34.0-46.0) % MCH (25.0-35.0) pg MCHC (31.0-37.0) g/dL Plt Count (150-450) k/uL Lymphocytes # (Manual) (1.0-4.8) k/uL PT 15.1 H (9.0-12.0) sec Chloride (98-107) mmol/L Carbon Dioxide (22-30) mmol/L BUN (7-17) mg/dL Glucose (74-99) mg/dL POC Glucose (mg/dL) 205 H (75-99) mg/dL Microbiology - Last 24 Hours (Table) 06/22/16 11:25 Gram Stain - Preliminary Sputum Assessment and Plan Plan: Impression: #1 Acute on chronic hypoxic respiratory failure secondary primarily pneumonia of the right lung which is improving and secondarily due to CHF/diastolic dysfunction. The patient has extensive pulmonary infiltration of the right lung which is improving with a combination of Zosyn and vancomycin. She is still producing copious amount of purulent secretions and cultures need to be obtained. The chest x-ray from today shows significant improvement. There is been some improvement in the patient's oxygenation, however the patient is still requiring BiPAP on and off during the day which is set at a pressure of 12 /7 cm of water with an FiO2 of 70%. On 06/23/2016, the patient remains on the same antibiotic coverage. There is persistent infiltration of the right lung involving the right perihilar area and the right midlung area. Cultures had not yielded for any significant or specific microbial growth. She remains on a combination of Zosyn and vancomycin. She is less short of breath compared to yesterday. She is on high flow oxygen at 12 L/m nasal cannula. #2 Acute on chronic hypercapnic respiratory failure secondary to above. #3 Acute on chronic diastolic congestive heart failure. #4 Moderate pulmonary hypertension. #5 Morbid obesity with obesity/hypoventilation syndrome. #6 Obstructive sleep apnea. #7 Previous history of PE/DVT, anticoagulated with warfarin, currently supratherapeutic at 5.0. The patient was given a total of 2 mg of vitamin K yesterday and her INR dropped down to 1.6. #8 Chronic back pain. #9 Peripheral neuropathy. #10 Hypothyroidism. #11 Poor overall functional performance secondary to the above-mentioned multiple comorbidities. #13 severe pulmonary hypertension based on echocardiogram from some of 2015 Plan The patient is improving. Continue same treatment. The Lasix to 40 Mg IV Once a Day. Continue combination of Zosyn and vancomycin. Repeat chest x-ray in the morning. Gradually wean off the FiO2 as tolerated. Give the patient 2 mg of Coumadin today and repeat PT/INR in the morning. She'll be kept in ICU for another 24 hours. If he is evidence of activity as tolerated. We'll try to set that up on a chair. PT evaluation.
[2016-06-23] MEDS: PIPERACILLIN-TAZOBACTAM 3.375 GM in DEXTROSE/WATER 1 50ML.BAG IVPB SCH ×2 (09:37→16:30)
[2016-06-23 11:37] LABS: Glucose,Whole Blood 258 mg/dL (75-99)
--- NOTE | 2016-06-23 11:37 | P.PN ---
Subjective Principal diagnosis: CHF This is a pleasant 70-year-old female patient with a past medical history significant for morbid obesity, chronic respiratory failure, COPD, hypertension, hypertensive heart disease, as well as multiple comorbid conditions [facility] chronic [facility] failure. The patient was found unresponsive at home by a visiting nurse. But over the last 4 days she has been experiencing progressive dyspnea and progressive bilateral lower extremities edema. She did not have any symptoms of chest pain or chest discomfort. She was diagnosed was congestive heart failure exacerbation as well as with a pneumonia. The chest x-ray showed findings consistent with vascular congestion as well as infiltrate consistent with pneumonia and also pleural effusion. The BNP came in to be elevated. The EKG showed sinus rhythm with RBBB. The patient was on Coumadin for DVT/PE but the INR was supratherapeutic and the Coumadin is on hold at this point. The patient was started on Lasix IV. The patient underwent an echocardiogram in May 2016 and that showed preserved LV function with moderate concentric LVH and finding consistent with hypertensive heart disease. At this admission, the cardiac enzymes were checked and came in to be slightly abnormal but the patient did not have any symptoms of chest pain or chest discomfort. I'll follow-up with the patient today she stated that she still short of breath. The Lasix was decreased in to 40 mg IV daily. The kidney function continues to be stable. The heart rate has improved after I backed up multiple AV edison inga agents. Objective - Vital Signs Vital signs: Vital Signs Temp 98 F 06/23/16 04:00 Pulse 71 06/23/16 10:00 Resp 19 06/23/16 10:00 BP 150/56 06/23/16 10:00 Pulse Ox 87 L 06/23/16 10:00 Intake & Output 06/22/16 06/23/16 06/23/16 18:59 06:59 18:59 Intake Total 1315.0 570 185.0 Output Total 1330 790 390 Balance -15.0 -220 -205.0 Weight 144.2 kg 138.4 kg Intake: IV 500 220 60 Sodium Chloride 0.9% 1, 220 60 000 ml @ 40 mls/hr IV . Q24H [facility] Rx#:[id number] Sodium Phosphate 10 mmol 500 In Sodium Chloride 0.9% 250 ml @ 125 mls/hr IVPB Q2H [facility] Rx#:[id number] Intake, IV Titration 695.0 350 125.0 Amount Piperacillin-Tazobactam 3 75.0 25.0 .375 gm In Dextrose/Water 1 50ml.bag @ 12.5 mls/hr IVPB Q8HR [facility] Rx#: [id number] Potassium Chloride 10 meq 100 100 Lidocaine 2% Inj 10 mg In Sodium Chloride 0.9% 100 ml @ 100 mls/hr IV Q1HR [facility] Rx#:[id number] Sodium Chloride 0.9% 1, 120 000 ml @ 40 mls/hr IV . Q24H [facility] Rx#:[id number] Vancomycin 1,750 mg In 250 Sodium Chloride 0.9% 250 ml @ 125 mls/hr IVPB Q12H [facility] Rx#:[id number] Vancomycin 2,000 mg In 500 Sodium Chloride 0.9% 500 ml @ 167 mls/hr IVPB Q12HR@1000,2200 [facility] Rx#: [id number] Oral 120 Output: Urine 1330 790 390 Other: Voiding Method Indwelling Catheter Indwelling Catheter Indwelling Catheter - Constitutional General appearance: Present: mild distress - Respiratory Respiratory: bilateral: rales - Cardiovascular Heart sounds: normal: S1, S2 - Labs CBC & Chem 7: 06/23/16 04:31 06/23/16 04:31 Labs: Abnormal Lab Results - Last 24 Hours (Table) 06/22/16 06/22/16 06/22/16 Range/Units 17:48 20:29 21:53 RBC (3.80-5.40) m/uL Hgb (11.4-16.0) gm/dL Hct (34.0-46.0) % MCH (25.0-35.0) pg MCHC (31.0-37.0) g/dL Plt Count (150-450) k/uL Lymphocytes # (Manual) (1.0-4.8) k/uL PT (9.0-12.0) sec Chloride (98-107) mmol/L Carbon Dioxide (22-30) mmol/L BUN (7-17) mg/dL Glucose (74-99) mg/dL POC Glucose (mg/dL) 208 H 205 H 181 H (75-99) mg/dL 06/23/16 06/23/16 06/23/16 Range/Units 04:31 04:31 04:31 RBC 3.76 L (3.80-5.40) m/uL Hgb 9.1 L (11.4-16.0) gm/dL Hct 32.6 L (34.0-46.0) % MCH 24.3 L (25.0-35.0) pg MCHC 28.0 L (31.0-37.0) g/dL Plt Count 129 L (150-450) k/uL Lymphocytes # (Manual) 0.9 L (1.0-4.8) k/uL PT 15.1 H (9.0-12.0) sec Chloride 93 L (98-107) mmol/L Carbon Dioxide 44 H* (22-30) mmol/L BUN 28 H (7-17) mg/dL Glucose 186 H (74-99) mg/dL POC Glucose (mg/dL) (75-99) mg/dL 06/23/16 Range/Units 07:27 RBC (3.80-5.40) m/uL Hgb (11.4-16.0) gm/dL Hct (34.0-46.0) % MCH (25.0-35.0) pg MCHC (31.0-37.0) g/dL Plt Count (150-450) k/uL Lymphocytes # (Manual) (1.0-4.8) k/uL PT (9.0-12.0) sec Chloride (98-107) mmol/L Carbon Dioxide (22-30) mmol/L BUN (7-17) mg/dL Glucose (74-99) mg/dL POC Glucose (mg/dL) 205 H (75-99) mg/dL Microbiology - Last 24 Hours (Table) 06/22/16 11:25 Gram Stain - Preliminary Sputum Assessment and Plan Plan: Assessment #1 acute on chronic respiratory failure #2 congestive heart failure exacerbation secondary to diastole dysfunction #3 COPD exacerbation #4 pneumonia #5 mildly abnormal cardiac enzymes #6 morbid obesity #7 multiple comorbid conditions Plan #1 continue the Lasix and continue the antibiotic #2 no need to repeat the echo since the patient just had an echo in May #3 follow-up with the patient
[2016-06-23] MEDS: SODIUM CHLORIDE 0.9% 1,000 ML IV SCH (16:23)
[2016-06-23 17:03] LABS: Glucose,Whole Blood 105 mg/dL (75-99)
[2016-06-23] MEDS: HYDROcodone/APAP 5-325MG 1 EACH TAB PO PRN ×2 (17:19→22:28)
[2016-06-23] MEDS ORDERED: WARFARIN 2 MG TAB PO ONE (18:00)
[2016-06-23 20:19] LABS: Glucose,Whole Blood 271 mg/dL (75-99)
[2016-06-23] MEDS: MONTELUKAST 10 MG TAB PO SCH (20:19)
[2016-06-23] MEDS: GABAPENTIN 300 MG CAP PO SCH (20:19)
--- NOTE | 2016-06-23 21:39 | PN ---
HOSPITAL COURSE/SUBJECTIVE DATA: This is a 70-year-old female with multiple medical problems that is admitted to hospital with difficulty breathing and was noted to be in acute hypoxic respiratory failure. It was initially attributed to acute exacerbation of congestive heart failure and mild hypercapnic respiratory failure and obesity hypoventilation syndrome. Patient was initially noted to have bibasilar pneumonia with dense consolidation in the right middle lobe. Patient was started on IV diuretics. Patient was started on IV antibiotics. Patient currently is maintained on 100% FiO2. States to have a cough that is productive of a reddish-brown sputum that has mild to moderate amounts. The patient denies having any chills at this time. The patient denies having any chest pressure, abdominal pain or any change in bowel habits. OBJECTIVE DATA: VITALS: Temperature 98, pulse rate is a 69 beats per minute, respiratory rate 10, blood pressure 145/55 and saturating 94% on 100 percent FiO2. GENERAL APPEARANCE: In mild respiratory distress alert, oriented x3. Neck is supple. No JVD. Chest is obese. Diminished breath sounds in the bases. Air movement is appreciated. HEART: A mild systolic murmur is appreciated. Regular rate and rhythm. ABDOMEN: Obese and nontender. No organomegaly. Rebolledo catheter is noted. Neurologically moves all 4 extremities. Cranial nerves II through XII grossly intact. LABORATORY DATA: Hemoglobin is 9.1, hematocrit 32.6, white count 5.8 platelet count 129. Sodium 143, potassium 3.9, chloride 93, bicarb 44, BUN 28, creatinine 0.76. ASSESSMENT AND PLAN: 1. Acute on chronic hypoxic hypercapnic respiratory failure, which is complicated with healthcare acquired pneumonia involving and right middle lobe. 2. Acute on chronic diastolic congestive heart failure. 3. Moderate pulmonary hypertension. 4. Morbid obesity and obesity hypoventilation syndrome. 5. Obstructive sleep apnea. 6. History of venous thromboembolism in the past. 7. Peripheral neuropathy. 8. Hypothyroidism. 9. Severe pulmonary hypertension. 10. Chronic back pain. 11. Chronic respiratory acidosis that is compensated. PLAN: I discussed the CODE STATUS with the patient. The patient would like to be a DO NOT RESUSCITATE and DO NOT INTUBATE prior to a CODE BLUE. Patient would like a trial of BiPAP if necessary; however, not in the long-term. Patient will be maintained on a nasal cannula. Await respiratory causes. Continue empiric antibiotic therapy with vancomycin and Zosyn. Repeat laboratory data in the a.m. Prognosis appears to be poor.
[2016-06-24] MEDS: methylPREDNISolone SOD SUCCI 40 MG/ML 1 ML VIAL IV SCH ×5 (01:02→23:58)
[2016-06-24] MEDS: PIPERACILLIN-TAZOBACTAM 3.375 GM in DEXTROSE/WATER 1 50ML.BAG IVPB SCH ×4 (01:02→23:58)
[2016-06-24 01:06] LABS: Glucose,Whole Blood 231 mg/dL (75-99)
[2016-06-24 05:00] LABS: Basophils % (A) 0 %; CH 23.8; CHCM 27.6; Eosinophils % (A) 0 %; HCT 29.8 % (34.0-46.0); HDW 3.31; HGB 8.5 gm/dL (11.4-16.0); Hypochromasia Marked; Luc % (Auto) 2; Lymphocytes # (A) 0.4 k/uL (1.0-4.8); Lymphocytes % (A) 5 %; MCH 24.7 pg (25.0-35.0); MCHC 28.5 g/dL (31.0-37.0); MCV 86.6 fL (80.0-100.0); Mean Platelet Volume 6.5; Monocytes # (A) 0.3 k/uL (0-1.0); Monocytes % (A) 4 %; Neutrophils # (A) 7.4 k/uL (1.3-7.7); Neutrophils % (A) 88 %; RBC 3.44 m/uL (3.80-5.40); RDW 15.2 % (11.5-15.5); WBC 8.4 k/uL (3.8-10.6); WBC (Perox) 8.83
[2016-06-24] MEDS ORDERED: VANCOMYCIN TROUGH DUE 1 EACH MISC MISCELLANE ONE (05:00)
[2016-06-24 05:06] LABS: INR 1.3 (<1.1); Prothrombin Time 12.4 sec (9.0-12.0)
[2016-06-24] MEDS: VANCOMYCIN 1,750 MG in SODIUM CHLORIDE 0.9% 250 ML IVPB SCH ×2 (05:09→05:40)
[2016-06-24 05:17] LABS: Blood Urea Nitrogen 51 mg/dL (7-17); Calcium 8.6 mg/dL (8.4-10.2); Chloride 93 mmol/L (98-107); Glucose 169 mg/dL (74-99); Magnesium 2.6 mg/dL (1.6-2.3); Non-African American GFR(MDRD) >60 (>60 ml/min/1.73 sqM); Phosphorous 2.6 mg/dL (2.5-4.5); Potassium 4.4 mmol/L (3.5-5.1); Sodium 142 mmol/L (137-145)
[2016-06-24 05:24] LABS: Anion Gap 6 mmol/L
[2016-06-24 05:34] LABS: Carbon Dioxide 43 mmol/L (22-30)
[2016-06-24] MEDS: LEVOTHYROXINE IVP 100 MCG/5 ML VIAL IV SCH (05:41)
--- NOTE | 2016-06-24 07:18 | XR ---
EXAMINATION TYPE: XR chest 1V DATE OF EXAM: 06/24/2016 7:10 AM COMPARISON: Prior chest x-ray 23 June 2016 HISTORY: Pneumonia TECHNIQUE: Single frontal view of the chest is obtained. FINDINGS: The perihilar increased density on the right is somewhat less conspicuous than on prior ex am, there is persistent obscuration of the left hemidiaphragm, increased retrocardiac density. Inters titium is increased in the heart is enlarged. There are overlying cardiac leads. IMPRESSION: Correlate for possible congestive heart failure, there may be pleural effusion, pneumoni a not excluded. Follow up recommended.
[2016-06-24] MEDS: FORMOTEROL FUMARATE 20 MCG/2 ML NEBU INHALATION SCH ×2 (07:29→20:16)
[2016-06-24] MEDS: BUDESONIDE 1 MG/2 ML NEBU INHALATION SCH ×2 (07:29→20:16)
[2016-06-24] MEDS: IPRATROPIUM-ALBUTEROL 3 ML NEB INHALATION PRN ×4 (07:29→20:16)
[2016-06-24] MEDS ORDERED: IV VANCOMYCIN PER PHARMACY 1 EACH MISC MISCELLANE PRN (08:06)
--- NOTE | 2016-06-24 08:30 | P.PN ---
Subjective This is a 70-year-old female patient with multiple medical problems including morbid obesity, chronic hypercapnic respiratory failure, chronic hypoxic respiratory failure secondary to obesity/hypoventilation syndrome/obstructive sleep apnea and she is a lifelong nonsmoker. She is maintained on home oxygen at 2-3 L/m per nasal cannula. She also has a history of hypertension, pulmonary embolism/DVT anticoagulated with warfarin , hypertension, general anxiety disorder, hypothyroidism, gout, GERD. She was recently here in May for acute on chronic hypercapnic respiratory failure and congestive heart failure. She was subsequently discharged and he presented to [facility] yesterday with similar symptoms of shortness of breath, cough and congestion. She was found to have bibasilar pneumonia and congestive heart failure. She was transferred here for further evaluation and treatment. She is seen today in consultation in the intensive care unit. Her chest x-ray does reveal bibasilar pneumonia with dense consolidation in the right middle lobe along with the left lower lobe retrocardiac area. She is maintained on BiPAP at 12/5 at 80% FiO2. She has a 0.9 normal saline at KVO. She has been diuresed and initiated on Lasix 40 mg IV every 12 hours. She was initiated on vancomycin and Zosyn. On 06/22/2016, the patient is being seen in follow-up. As mentioned, the patient went into respiratory failure due to an extensive right lung pneumonia and CHF. The follow-up chest x-ray that was done today showed marked improvement in the right sided pneumonia and there is some residual perihilar pulmonary infiltrates still present however in comparison there is considerable improvement and x-ray findings. The patient remains on a combination of Zosyn and vancomycin.. She is still producing copious amount of purulent respiratory secretions. No cultures have been identified and the patient's blood culture has been negative. The patient is also being diuresis with IV Lasix.The neck fluid Balance is negative more than 3 L over the past 24-48 hours. She is afebrile. No change in mental status. She is using on and off the BiPAP at a pressure of 12 over 5 cm of water with an FiO2 of 70%, currently she is on 10 L high flow oxygen and the saturation is at 88-89%. The PT/INR remains quite elevated and the patient does not show any signs of bleeding. On 06/23/2016 the patient is being seen in follow-up. Her chest x-ray from today still showing a dense consolidation in the right mid/perihilar area. She remains on a combination of vancomycin and Zosyn. Sputum is shown some yeast and gram-positive bacilli and final cultures and sensitivities are still pending. . Note that her baseline is at 3 L/m nasal cannula. Overnight she was using the BiPAP at a pressure of 12 over 5 cm of water. She is gradually increasing her diet. No nausea. No vomiting. She is having some issues with constipation and she was given note of Magnesia and Colace was also started. She has a congested cough. On and off she is producing purulent sputum. No pleurisy pain no chest pain. No change in mental status. She is on IV Solu- Medrol. She is also on IV Lasix once a day. On 06/24/2016 the patient is being seen in follow-up. On today's chest x-ray there is some interval improvement of the right perihilar pulmonary infiltrate. There are small lateral pleural effusions. The patient is still being diuresed with IV Lasix once a day 40 mg IV push. The Creatinine are stable. Creatinine is at 0.8. No fever. No chills. No change in mental status. She has a congested cough.This morning, the patient is on high flow oxygen at 12 L nasal cannula. The earlier sputum that was sent did not yield any positive growth. The white cell count is not elevated at 8.4. Hemoglobin stable at 8.5. I noted a steady progressive drop in hemoglobin since the patient has been in the ICU where based on hemoglobin was 11.1 and has slowly dropped down to 8.5. No evidence of any acute gastrointestinal blood loss. The patient is still on anticoagulation. Her INR today is at 1.3 and the patient will be given another 2 mg of Coumadin today. Objective - Vital Signs Vital signs: Vital Signs Temp 98.6 F 06/24/16 04:00 Pulse 69 06/24/16 07:48 Resp 21 06/24/16 07:00 BP 134/57 06/24/16 07:00 Pulse Ox 95 06/24/16 07:00 Intake & Output 06/23/16 06/24/16 06/24/16 18:59 06:59 18:59 Intake Total 575.0 560.0 10 Output Total 885 1335 75 Balance -310.0 -775.0 -65 Weight 136.8 kg Intake: IV 150 190 10 Sodium Chloride 0.9% 1, 150 190 10 000 ml @ 40 mls/hr IV . Q24H [facility] Rx#:[id number] Intake, IV Titration 425.0 50.0 Amount Piperacillin-Tazobactam 3 75.0 50.0 .375 gm In Dextrose/Water 1 50ml.bag @ 12.5 mls/hr IVPB Q8HR [facility] Rx#: [id number] Potassium Chloride 10 meq 100 Lidocaine 2% Inj 10 mg In Sodium Chloride 0.9% 100 ml @ 100 mls/hr IV Q1HR [facility] Rx#:[id number] Vancomycin 1,750 mg In 250 Sodium Chloride 0.9% 250 ml @ 125 mls/hr IVPB Q12H [facility] Rx#:[id number] Oral 320 Output: Urine 885 1335 75 Other: Voiding Method Indwelling Catheter Indwelling Catheter - Exam Morbidly obese, comfortable, not in acute distress, currently on high flow oxygen at 2 L per minute nasal cannula.Head exam was generally normal. There was no scleral icterus or corneal arcus. Mucous membranes were moist. Neck is short and the patient has significant crowding of the posterior oropharynx. There is no goiter or neck masses. Lungs sounds are diminished bilaterally along with scattered rhonchi heard throughout the lung son. Sounds are diminished in lung bases. Heart sounds are regular, and there is a systolic ejection murmur grade 3/6 heard throughout the precordium.Abdominal exam revealed normal bowel sounds. The abdomen was soft, non-tender, and without masses, organomegaly, or appreciable enlargement of the abdominal aorta. Organs cannot be palpated adequate. The patient is morbidly obese. Extremities are slightly swollen and there is no cyanosis or clubbing at this point. Neurologically, the patient is awake and alert and she is following commands and answering questions appropriately. - Labs CBC & Chem 7: 06/24/16 04:41 06/24/16 04:41 Labs: Abnormal Lab Results - Last 24 Hours (Table) 06/23/16 06/23/16 06/23/16 Range/Units 11:35 17:00 20:17 RBC (3.80-5.40) m/uL Hgb (11.4-16.0) gm/dL Hct (34.0-46.0) % MCH (25.0-35.0) pg MCHC (31.0-37.0) g/dL Plt Count (150-450) k/uL Lymphocytes # (1.0-4.8) k/uL PT (9.0-12.0) sec Chloride (98-107) mmol/L Carbon Dioxide (22-30) mmol/L BUN (7-17) mg/dL Glucose (74-99) mg/dL POC Glucose (mg/dL) 258 H 105 H 271 H (75-99) mg/dL Magnesium (1.6-2.3) mg/dL Vancomycin Trough ug/mL 06/24/16 06/24/16 06/24/16 Range/Units 01:04 04:41 04:41 RBC 3.44 L (3.80-5.40) m/uL Hgb 8.5 L (11.4-16.0) gm/dL Hct 29.8 L (34.0-46.0) % MCH 24.7 L (25.0-35.0) pg MCHC 28.5 L (31.0-37.0) g/dL Plt Count 147 L (150-450) k/uL Lymphocytes # 0.4 L (1.0-4.8) k/uL PT (9.0-12.0) sec Chloride 93 L (98-107) mmol/L Carbon Dioxide 43 H* (22-30) mmol/L BUN 51 H (7-17) mg/dL Glucose 169 H (74-99) mg/dL POC Glucose (mg/dL) 231 H (75-99) mg/dL Magnesium 2.6 H (1.6-2.3) mg/dL Vancomycin Trough ug/mL 06/24/16 06/24/16 Range/Units 04:41 04:41 RBC (3.80-5.40) m/uL Hgb (11.4-16.0) gm/dL Hct (34.0-46.0) % MCH (25.0-35.0) pg MCHC (31.0-37.0) g/dL Plt Count (150-450) k/uL Lymphocytes # (1.0-4.8) k/uL PT 12.4 H (9.0-12.0) sec Chloride (98-107) mmol/L Carbon Dioxide (22-30) mmol/L BUN (7-17) mg/dL Glucose (74-99) mg/dL POC Glucose (mg/dL) (75-99) mg/dL Magnesium (1.6-2.3) mg/dL Vancomycin Trough 33.6 H* ug/mL Assessment and Plan Plan: Impression: #1 Acute on chronic hypoxic respiratory failure secondary primarily pneumonia of the right lung which is improving and secondarily due to CHF/diastolic dysfunction. The patient has extensive pulmonary infiltration of the right lung which is improving with a combination of Zosyn and vancomycin. She is still producing copious amount of purulent secretions and cultures need to be obtained. The chest x-ray from today shows significant improvement. There is been some improvement in the patient's oxygenation, however the patient is still requiring BiPAP on and off during the day which is set at a pressure of 12 /7 cm of water with an FiO2 of 70%. On 06/23/2016, the patient remains on the same antibiotic coverage. There is persistent infiltration of the right lung involving the right perihilar area and the right midlung area. Cultures had not yielded for any significant or specific microbial growth. She remains on a combination of Zosyn and vancomycin. She is less short of breath compared to yesterday. She is on high flow oxygen at 12 L/m nasal cannula. On 06/24/2016, the patient remains stable on high flow oxygen 12 L. There has been some interval improvement in the right perihilar infiltrate. We will continue same antibiotic coverage included a combination of Zosyn and vancomycin. No significant interval events since yesterday. #2 Acute on chronic hypercapnic respiratory failure secondary to above. #3 Acute on chronic diastolic congestive heart failure. #4 Moderate pulmonary hypertension. #5 Morbid obesity with obesity/hypoventilation syndrome. #6 Obstructive sleep apnea. #7 Previous history of PE/DVT, anticoagulated with warfarin, currently INR is 1.3 #8 Chronic back pain. #9 Peripheral neuropathy. #10 Hypothyroidism. #11 Poor overall functional performance secondary to the above-mentioned multiple comorbidities. #13 severe pulmonary hypertension based on echocardiogram from some of 2016 Plan The patient is improving. Continue same treatment. The Lasix to 40 Mg IV Once a Day. Continue combination of Zosyn and vancomycin. I am pleased with the follow-up chest x-ray that shows some interval improvement in the right perihilar pneumonia. The patient be given to make of the Coumadin today. The patient will be moved up to medical floor with telemetry monitoring. Note that the patient's CODE STATUS is DNR/DNI. On today's evaluation she stated that she is getting very tired with this ongoing medical treatment and care and she is interested in comfort care measures and hospice. I asked the patient to get a further thought and discussed this further with her father was living at the age of 90 and a daughter who lives in [place]. I would like to discuss it further with the family and make further recommendations regarding her future care. I will that the patient has multiple medical problems and comorbidities. Her quality of life has been poor. She has had multiple hospitalizations. She is seriously considering hospice care. That may be an option for this patient if the family, the patient and the rest of the medical staff are all in agreement. We'll continue to follow.
[2016-06-24] MEDS: FLUTICASONE 50MCG/SPRAY NASAL 16GM EA NOSTRIL SCH (08:54)
[2016-06-24] MEDS: INSULIN LISPRO (humaLOG) 300 UNIT/3 ML VIAL SQ SCH ×4 (08:54→21:25)
[2016-06-24 08:55] LABS: Glucose,Whole Blood 216 mg/dL (75-99)
[2016-06-24] MEDS: DOCUSATE 100 MG CAP PO SCH ×2 (08:55→21:18)
[2016-06-24] MEDS: VERAPAMIL 40 MG TAB PO SCH ×2 (08:55→21:17)
[2016-06-24] MEDS: hydrALAZINE HCL 25 MG TAB PO SCH ×4 (08:55→21:30)
[2016-06-24] MEDS: POTASSIUM CHLORIDE ER 20 MEQ TAB.ER PO SCH (08:55)
[2016-06-24] MEDS: FUROSEMIDE 10 MG/ML 4 ML VIAL IV SCH (08:55)
[2016-06-24] MEDS: CYANOCOBALAMIN 500 MCG TAB PO SCH (08:56)
[2016-06-24] MEDS: DESVENLAFAXINE SUCCINATE 50 MG TAB.ER.24H PO SCH (08:56)
[2016-06-24] MEDS: busPIRone HCl 10 MG TAB PO SCH ×2 (08:56→21:17)
[2016-06-24] MEDS: ASPIRIN 325 MG TAB PO SCH (08:56)
[2016-06-24] MEDS: ALLOPURINOL 100 MG TAB PO SCH (08:57)
[2016-06-24] MEDS: PANTOPRAZOLE 40 MG/10 ML VIAL IVP SCH (08:57)
[2016-06-24] MEDS: LORATADINE 10 MG TAB PO SCH (08:58)
[2016-06-24] MEDS: FERROUS SULFATE 325 MG TAB PO SCH (08:59)
--- NOTE | 2016-06-24 09:03 | P.PN ---
Subjective Principal diagnosis: CHF This is a pleasant 70-year-old female patient with a past medical history significant for morbid obesity, chronic respiratory failure, COPD, hypertension, hypertensive heart disease, as well as multiple comorbid conditions was transferred from another hospital [facility] with acute on chronic respiratory failure. The patient was found unresponsive at home by a visiting nurse. But over the last 4 days she has been experiencing progressive dyspnea and progressive bilateral lower extremities edema. She did not have any symptoms of chest pain or chest discomfort. She was diagnosed was congestive heart failure exacerbation as well as with a pneumonia. The chest x-ray showed findings consistent with vascular congestion as well as infiltrate consistent with pneumonia and also pleural effusion. The BNP came in to be elevated. The EKG showed sinus rhythm with RBBB. The patient was on Coumadin for DVT/PE but the INR was supratherapeutic and the Coumadin is on hold at this point. The patient was started on Lasix IV. The patient underwent an echocardiogram in May 2016 and that showed preserved LV function with moderate concentric LVH and finding consistent with hypertensive heart disease. At this admission, the cardiac enzymes were checked and came in to be slightly abnormal but the patient did not have any symptoms of chest pain or chest discomfort. I'll follow-up with the patient today, she is feeling slightly better. She has been getting physical therapy. She continues to be on Lasix 40 mg IV daily and the kidney function continues to be stable. The chest x-ray from yesterday showed finding consistent with CHF. We'll continue the patient on Lasix IV and continue monitor the kidney function and electrolytes. Objective - Vital Signs Vital signs: Vital Signs Temp 98.6 F 06/24/16 04:00 Pulse 69 06/24/16 07:48 Resp 21 06/24/16 07:00 BP 134/57 06/24/16 07:00 Pulse Ox 95 06/24/16 07:00 Intake & Output 06/23/16 06/24/16 06/24/16 18:59 06:59 18:59 Intake Total 575.0 560.0 10 Output Total 885 1335 75 Balance -310.0 -775.0 -65 Weight 136.8 kg Intake: IV 150 190 10 Sodium Chloride 0.9% 1, 150 190 10 000 ml @ 40 mls/hr IV . Q24H [facility] Rx#:[id number] Intake, IV Titration 425.0 50.0 Amount Piperacillin-Tazobactam 3 75.0 50.0 .375 gm In Dextrose/Water 1 50ml.bag @ 12.5 mls/hr IVPB Q8HR [facility] Rx#: [id number] Potassium Chloride 10 meq 100 Lidocaine 2% Inj 10 mg In Sodium Chloride 0.9% 100 ml @ 100 mls/hr IV Q1HR [facility] Rx#:[id number] Vancomycin 1,750 mg In 250 Sodium Chloride 0.9% 250 ml @ 125 mls/hr IVPB Q12H [facility] Rx#:[id number] Oral 320 Output: Urine 885 1335 75 Other: Voiding Method Indwelling Catheter Indwelling Catheter - Constitutional General appearance: Present: mild distress, no acute distress - Respiratory Respiratory: right: CTA, left: rales - Cardiovascular Rhythm: regular Heart sounds: normal: S1, S2 - Labs CBC & Chem 7: 06/24/16 04:41 06/24/16 04:41 Labs: Abnormal Lab Results - Last 24 Hours (Table) 06/23/16 06/23/16 06/23/16 Range/Units 11:35 17:00 20:17 RBC (3.80-5.40) m/uL Hgb (11.4-16.0) gm/dL Hct (34.0-46.0) % MCH (25.0-35.0) pg MCHC (31.0-37.0) g/dL Plt Count (150-450) k/uL Lymphocytes # (1.0-4.8) k/uL PT (9.0-12.0) sec Chloride (98-107) mmol/L Carbon Dioxide (22-30) mmol/L BUN (7-17) mg/dL Glucose (74-99) mg/dL POC Glucose (mg/dL) 258 H 105 H 271 H (75-99) mg/dL Magnesium (1.6-2.3) mg/dL Vancomycin Trough ug/mL 06/24/16 06/24/16 06/24/16 Range/Units 01:04 04:41 04:41 RBC 3.44 L (3.80-5.40) m/uL Hgb 8.5 L (11.4-16.0) gm/dL Hct 29.8 L (34.0-46.0) % MCH 24.7 L (25.0-35.0) pg MCHC 28.5 L (31.0-37.0) g/dL Plt Count 147 L (150-450) k/uL Lymphocytes # 0.4 L (1.0-4.8) k/uL PT (9.0-12.0) sec Chloride 93 L (98-107) mmol/L Carbon Dioxide 43 H* (22-30) mmol/L BUN 51 H (7-17) mg/dL Glucose 169 H (74-99) mg/dL POC Glucose (mg/dL) 231 H (75-99) mg/dL Magnesium 2.6 H (1.6-2.3) mg/dL Vancomycin Trough ug/mL 06/24/16 06/24/16 06/24/16 Range/Units 04:41 04:41 08:53 RBC (3.80-5.40) m/uL Hgb (11.4-16.0) gm/dL Hct (34.0-46.0) % MCH (25.0-35.0) pg MCHC (31.0-37.0) g/dL Plt Count (150-450) k/uL Lymphocytes # (1.0-4.8) k/uL PT 12.4 H (9.0-12.0) sec Chloride (98-107) mmol/L Carbon Dioxide (22-30) mmol/L BUN (7-17) mg/dL Glucose (74-99) mg/dL POC Glucose (mg/dL) 216 H (75-99) mg/dL Magnesium (1.6-2.3) mg/dL Vancomycin Trough 33.6 H* ug/mL Assessment and Plan Plan: Assessment #1 acute on chronic respiratory failure #2 congestive heart failure exacerbation secondary to diastole dysfunction #3 COPD exacerbation #4 pneumonia #5 mildly abnormal cardiac enzymes #6 morbid obesity #7 multiple comorbid conditions Plan #1 continue the Lasix and continue the antibiotic #2 no need to repeat the echo since the patient just had an echo in May #3 follow-up with the patient
[2016-06-24] MEDS: MELOXICAM 7.5 MG TAB PO SCH (09:18)
[2016-06-24] MEDS: MULTIVITAMINS, THERA 1 EACH TAB PO SCH (11:07)
[2016-06-24 12:32] LABS: Glucose,Whole Blood 224 mg/dL (75-99)
[2016-06-24] MEDS: HYDROcodone/APAP 5-325MG 1 EACH TAB PO PRN (14:23)
[2016-06-24] MEDS: ALPRAZolam 0.5 MG TAB PO PRN (14:23)
[2016-06-24] MEDS: SODIUM CHLORIDE 0.9% 1,000 ML IV SCH (15:02)
--- NOTE | 2016-06-24 15:53 | P.PN ---
Subjective This is a 70-year-old lady with multiple medical problems is admitted to the hospital with difficulty breathing. Patient was noted to have acute hypoxic respiratory failure. Is this was attribute it to multifactorial causes including a lateral lower lobe pneumonia and obesity hypoventilation syndrome. Her graft patient was started on IV antibiotics thereafter improved. Patient was on BiPAP initially for short period of time however did not tolerate it well. On 06/23/2016 when patient was evaluated in the ICU patient stated that she does not want any aggressive measures. Today patient was seen on the fourth floor. Patient appears to be stable. States that the she does not want anything aggressive done and to prolong her life. States thatif we stop her treatment she would pass away and is verbalizes to understand her situation. Other overnight events are reported. Objective - Vital Signs Vital signs: Vital Signs Temp 98.4 F 06/24/16 08:00 Pulse 70 06/24/16 12:20 Resp 53 H 06/24/16 09:00 BP 170/64 06/24/16 09:00 Pulse Ox 85 L 06/24/16 09:00 Intake & Output 06/23/16 06/24/16 06/24/16 18:59 06:59 18:59 Intake Total 575.0 560.0 30 Output Total 885 1335 190 Balance -310.0 -775.0 -160 Weight 136.8 kg Intake: IV 150 190 30 Sodium Chloride 0.9% 1, 150 190 30 000 ml @ 40 mls/hr IV . Q24H [facility] Rx#:[id number] Intake, IV Titration 425.0 50.0 Amount Piperacillin-Tazobactam 3 75.0 50.0 .375 gm In Dextrose/Water 1 50ml.bag @ 12.5 mls/hr IVPB Q8HR JO[facility] Rx#: [id number] Potassium Chloride 10 meq 100 Lidocaine 2% Inj 10 mg In Sodium Chloride 0.9% 100 ml @ 100 mls/hr IV Q1HR [facility] Rx#:[id number] Vancomycin 1,750 mg In 250 Sodium Chloride 0.9% 250 ml @ 125 mls/hr IVPB Q12H [facility] Rx#:[id number] Oral 320 Output: Urine 885 1335 190 Other: Voiding Method Indwelling Catheter Indwelling Catheter Indwelling Catheter # Bowel Movements 0 - Exam Gen. appearance alert oriented 3 in no distress Neck is supple noted Lungs diminished breath sounds obese chest Heart regular rate and rhythm no murmurs appreciated Abdomen is obese distended no organomegaly appreciated Lower extremities 1+ edema appreciated no erythema. Neurologically moves all 4 extremity is at this time. - Labs CBC & Chem 7: 06/24/16 04:41 06/24/16 04:41 Labs: Abnormal Lab Results - Last 24 Hours (Table) 06/23/16 06/23/16 06/24/16 Range/Units 17:00 20:17 01:04 RBC (3.80-5.40) m/uL Hgb (11.4-16.0) gm/dL Hct (34.0-46.0) % MCH (25.0-35.0) pg MCHC (31.0-37.0) g/dL Plt Count (150-450) k/uL Lymphocytes # (1.0-4.8) k/uL PT (9.0-12.0) sec Chloride (98-107) mmol/L Carbon Dioxide (22-30) mmol/L BUN (7-17) mg/dL Glucose (74-99) mg/dL POC Glucose (mg/dL) 105 H 271 H 231 H (75-99) mg/dL Magnesium (1.6-2.3) mg/dL Vancomycin Trough ug/mL 06/24/16 06/24/16 06/24/16 Range/Units 04:41 04:41 04:41 RBC 3.44 L (3.80-5.40) m/uL Hgb 8.5 L (11.4-16.0) gm/dL Hct 29.8 L (34.0-46.0) % MCH 24.7 L (25.0-35.0) pg MCHC 28.5 L (31.0-37.0) g/dL Plt Count 147 L (150-450) k/uL Lymphocytes # 0.4 L (1.0-4.8) k/uL PT 12.4 H (9.0-12.0) sec Chloride 93 L (98-107) mmol/L Carbon Dioxide 43 H* (22-30) mmol/L BUN 51 H (7-17) mg/dL Glucose 169 H (74-99) mg/dL POC Glucose (mg/dL) (75-99) mg/dL Magnesium 2.6 H (1.6-2.3) mg/dL Vancomycin Trough ug/mL 06/24/16 06/24/16 06/24/16 Range/Units 04:41 08:53 12:30 RBC (3.80-5.40) m/uL Hgb (11.4-16.0) gm/dL Hct (34.0-46.0) % MCH (25.0-35.0) pg MCHC (31.0-37.0) g/dL Plt Count (150-450) k/uL Lymphocytes # (1.0-4.8) k/uL PT (9.0-12.0) sec Chloride (98-107) mmol/L Carbon Dioxide (22-30) mmol/L BUN (7-17) mg/dL Glucose (74-99) mg/dL POC Glucose (mg/dL) 216 H 224 H (75-99) mg/dL Magnesium (1.6-2.3) mg/dL Vancomycin Trough 33.6 H* ug/mL Microbiology - Last 24 Hours (Table) 06/22/16 11:25 Gram Stain - Final Sputum Sputum Culture - Final April albicans Assessment and Plan Plan: #1 acute on chronic hypoxic hypercapnic respiratory failure which is compensated with the healthcare acquired pneumonia involving the right middle lobe #2 acute on chronic diastolic congestive heart failure #3 moderate to severe pulmonary hypertension #4 chronic respiratory acidosis #5 COPD #6 history of venous some embolism #7 peripheral neuropathy #8 hypothyroidism #9 chronic back pain Plan Patient has multiple comorbidities currently is improved slightly however patient is likely to be bedridden and may not make significant improvement. This was discussed with the patient states that she does not want to prolong her life with multiple admissions to the hospital. Discussed options such as hospice. Patient states she like to discuss her options with the hospice team. Goals of care right now are DO NOT RESUSCITATE and no aggressive measures prior to a CODE BLUE. Continue antibiotics and continue with oxygen.
[2016-06-24 17:07] LABS: Glucose,Whole Blood 192 mg/dL (75-99)
[2016-06-24] MEDS ORDERED: WARFARIN 2 MG TAB PO ONE (18:00)
[2016-06-24] MEDS: MELATONIN 3 MG TABLET PO SCH (21:15)
[2016-06-24 21:17] LABS: Glucose,Whole Blood 273 mg/dL (75-99)
[2016-06-24] MEDS: MONTELUKAST 10 MG TAB PO SCH (21:17)
[2016-06-24] MEDS: POLYETHYLENE GLYCOL 3350 17 GM POWD.PACK PO SCH (21:18)
[2016-06-24] MEDS: GABAPENTIN 300 MG CAP PO SCH (21:18)
[2016-06-25 01:23] LABS: Glucose,Whole Blood 265 mg/dL (75-99)
[2016-06-25] MEDS: methylPREDNISolone SOD SUCCI 40 MG/ML 1 ML VIAL IV SCH ×4 (05:20→23:19)
[2016-06-25] MEDS: HYDROcodone/APAP 5-325MG 1 EACH TAB PO PRN (05:33)
[2016-06-25] MEDS: LEVOTHYROXINE IVP 100 MCG/5 ML VIAL IV SCH (05:48)
[2016-06-25 07:25] LABS: Glucose,Whole Blood 251 mg/dL (75-99)
[2016-06-25] MEDS: INSULIN LISPRO (humaLOG) 300 UNIT/3 ML VIAL SQ SCH ×4 (08:34→21:30)
[2016-06-25] MEDS: PIPERACILLIN-TAZOBACTAM 3.375 GM in DEXTROSE/WATER 1 50ML.BAG IVPB SCH ×3 (08:35→23:19)
[2016-06-25] MEDS: ALLOPURINOL 100 MG TAB PO SCH (08:36)
[2016-06-25] MEDS: busPIRone HCl 10 MG TAB PO SCH ×2 (08:37→21:30)
[2016-06-25] MEDS: ASPIRIN 325 MG TAB PO SCH (08:37)
[2016-06-25] MEDS: CYANOCOBALAMIN 500 MCG TAB PO SCH (08:38)
[2016-06-25] MEDS: DESVENLAFAXINE SUCCINATE 50 MG TAB.ER.24H PO SCH (08:38)
[2016-06-25] MEDS: FERROUS SULFATE 325 MG TAB PO SCH (08:39)
[2016-06-25] MEDS: DOCUSATE 100 MG CAP PO SCH ×2 (08:39→21:30)
[2016-06-25] MEDS: FLUTICASONE 50MCG/SPRAY NASAL 16GM EA NOSTRIL SCH (08:39)
[2016-06-25] MEDS: hydrALAZINE HCL 25 MG TAB PO SCH ×4 (08:40→21:30)
[2016-06-25] MEDS: FUROSEMIDE 10 MG/ML 4 ML VIAL IV SCH (08:40)
[2016-06-25] MEDS: LORATADINE 10 MG TAB PO SCH (08:41)
[2016-06-25] MEDS: POTASSIUM CHLORIDE ER 20 MEQ TAB.ER PO SCH (08:41)
[2016-06-25] MEDS: MELOXICAM 7.5 MG TAB PO SCH (08:41)
[2016-06-25] MEDS: PANTOPRAZOLE 40 MG/10 ML VIAL IVP SCH (08:41)
[2016-06-25] MEDS: VERAPAMIL 40 MG TAB PO SCH ×4 (08:41→21:29)
[2016-06-25] MEDS: BUDESONIDE 1 MG/2 ML NEBU INHALATION SCH ×2 (08:58→20:04)
[2016-06-25] MEDS: IPRATROPIUM-ALBUTEROL 3 ML NEB INHALATION PRN ×4 (08:59→20:05)
[2016-06-25] MEDS: FORMOTEROL FUMARATE 20 MCG/2 ML NEBU INHALATION SCH ×2 (08:59→20:05)
[2016-06-25 09:14] LABS: INR 1.7 (<1.1); Prothrombin Time 16.8 sec (9.0-12.0)
[2016-06-25 09:34] LABS: Calcium 8.5 mg/dL (8.4-10.2); Chloride 91 mmol/L (98-107); Glucose 230 mg/dL (74-99); Non-African American GFR(MDRD) >60 (>60 ml/min/1.73 sqM); Sodium 139 mmol/L (137-145); Total Bilirubin 0.8 mg/dL (0.2-1.3); Total Protein 4.8 g/dL (6.3-8.2)
[2016-06-25 09:42] LABS: Anion Gap 2 mmol/L
[2016-06-25 09:46] LABS: ALT 49 U/L (9-52); AST 41 U/L (14-36); Blood Urea Nitrogen 44 mg/dL (7-17); Carbon Dioxide 46 mmol/L (22-30); Magnesium 2.4 mg/dL (1.6-2.3); Potassium 4.8 mmol/L (3.5-5.1)
[2016-06-25 09:47] LABS: Alkaline Phosphatase 32 U/L (38-126)
[2016-06-25 10:55] LABS: Basophils % (A) 0 %; CH 24.2; CHCM 28.6; Eosinophils % (A) 0 %; HCT 25.8 % (34.0-46.0); HDW 3.31; HGB 7.6 gm/dL (11.4-16.0); Hypochromasia Marked; Luc # (Auto) 0.05; Luc % (Auto) 1; Lymphocytes # (A) 0.3 k/uL (1.0-4.8); Lymphocytes % (A) 4 %; MCH 24.9 pg (25.0-35.0); MCHC 29.3 g/dL (31.0-37.0); MCV 84.9 fL (80.0-100.0); Mean Platelet Volume 8.8; Monocytes # (A) 0.3 k/uL (0-1.0); Monocytes % (A) 4 %; Neutrophils # (A) 6.2 k/uL (1.3-7.7); Neutrophils % (A) 91 %; RBC 3.04 m/uL (3.80-5.40); RDW 15.8 % (11.5-15.5); WBC 6.7 k/uL (3.8-10.6)
[2016-06-25] MEDS: MULTIVITAMINS, THERA 1 EACH TAB PO SCH (12:04)
[2016-06-25] MEDS: METOPROLOL TARTRATE 50 MG TAB PO SCH ×2 (12:28→21:30)
[2016-06-25 12:35] LABS: Glucose,Whole Blood 277 mg/dL (75-99)
--- NOTE | 2016-06-25 13:55 | PN ---
Mrs. Fernandez has history of paroxysmal A. fib. She is anticoagulated, INR is slightly low at 1.7. She is resting comfortably at the time of my evaluation, but she is in atrial fib, her rate is in the 120 range. She came into the hospital after being found unresponsive. She has improved, had spent some time in the ICU. However, at this time, she is resting comfortably without symptoms. She has had a previous echo in June 02 which revealed preserved systolic function. She is in atrial fib, hemodynamically stable. Blood pressure today is about 140/70, pulse rate is 124 per minute, irregular. JVD of 1 cm, no carotid bruit. Heart exam reveals S1, S2 with somewhat distant heart sounds. Lungs reveal diminished air entry. Abdomen and lower extremity exam is unchanged. I am recommending that we optimize rate control with increasing the Verapamil to 120 mg t.i.d. and also to add Lopressor 50 mg b.i.d. with one dose now. Hopefully, she will convert to sinus rhythm. I will discontinue the aspirin since patient is already on Coumadin with a decent INR. I discussed my thoughts in detail with the patient. Her laboratory data suggests some prerenal azotemia with some alkalosis. I am recommending some Diamox 250 mg b.i.d. and to discontinue IV Lasix and place her only on 20 mg Lasix p.o. Her ejection fraction based on the ejection fraction from June 02 revealed preserved systolic function. I discussed my thoughts in detail with the patient. Thank you very much for the consult.
[2016-06-25] MEDS: SODIUM CHLORIDE 0.9% 1,000 ML IV SCH (14:29)
[2016-06-25] MEDS: ALPRAZolam 0.5 MG TAB PO PRN (14:29)
[2016-06-25 14:34] VITALS: BMI 48.2
[2016-06-25] MEDS ORDERED: VANCOMYCIN 1,750 MG in SODIUM CHLORIDE 0.9% 250 ML IVPB ONE (15:00)
--- NOTE | 2016-06-25 15:05 | XR ---
EXAMINATION TYPE: XR chest 2V DATE OF EXAM: 06/25/2016 1:34 PM COMPARISON: 06/24/2016 HISTORY: 71 year-old female CHF TECHNIQUE: Frontal and lateral views FINDINGS: Heart remains borderline enlarged. Obscuration of the lower aortic dissection. Patchy airspace opacit ies particularly in the right perihilar region and retrocardiac region. Blunting of the left greater than right costophrenic angles. IMPRESSION: Patchy bilateral airspace disease especially right perihilar region and left retrocardiac region. Als o, small left pleural effusion. Findings are overall unchanged. Correlate for CHF and pulmonary edema or multifocal pneumonia.
[2016-06-25] MEDS ORDERED: VERAPAMIL 40 MG TAB PO SCH (16:00)
--- NOTE | 2016-06-25 16:25 | P.PN ---
Subjective This is a 70-year-old lady with multiple medical problems is admitted to the hospital with difficulty breathing. Patient was noted to have acute hypoxic respiratory failure. Is this was attribute it to multifactorial causes including a lateral lower lobe pneumonia and obesity hypoventilation syndrome. patient was started on IV antibiotics thereafter improved. Patient was on BiPAP initially for short period of time however did not tolerate it well. On 06/23/2016 when patient was evaluated in the ICU patient stated that she does not want any aggressive measures. Today patient was seen on the fourth floor. Patient appears to be stable. States that the she does not want anything aggressive done and to prolong her life. States that if we stop her treatment she would pass away and is verbalizes to understand her situation. Other overnight events are reported. 06/25/2016 Patient apparently did not want hospice this morning states that she wants to live. Stage to be breathing slightly better. No new complaints reported. Objective - Vital Signs Vital signs: Vital Signs Temp 98.6 F 06/25/16 14:02 Pulse 76 06/25/16 16:03 Resp 20 06/25/16 16:00 BP 127/52 06/25/16 14:02 Pulse Ox 96 06/25/16 14:02 Intake & Output 06/24/16 06/25/16 06/25/16 18:59 06:59 18:59 Intake Total 30 50 Output Total 9044 780 9576 Balance -1959 Weight 144 kg 144 kg Intake: IV 30 50 Piperacillin-Tazobactam 3 50 .375 gm In Dextrose/Water 1 50ml.bag @ 12.5 mls/hr IVPB Q8HR [facility] Rx#: [id number] Sodium Chloride 0.9% 1, 30 000 ml @ 40 mls/hr IV . Q24H [facility] Rx#:[id number] Output: Urine 7195 093 1174 Other: Voiding Method Indwelling Catheter Indwelling Catheter Indwelling Catheter # Bowel Movements 0 0 - Exam Gen. appearance alert oriented 3 in no distress Neck is supple noted Lungs diminished breath sounds obese chest Heart regular rate and rhythm no murmurs appreciated Abdomen is obese distended no organomegaly appreciated Lower extremities 1+ edema appreciated no erythema. Neurologically moves all 4 extremity is at this time. - Labs CBC & Chem 7: 06/25/16 08:03 06/25/16 08:03 Labs: Abnormal Lab Results - Last 24 Hours (Table) 06/24/16 06/24/16 06/25/16 Range/Units 17:05 21:15 01:19 RBC (3.80-5.40) m/uL Hgb (11.4-16.0) gm/dL Hct (34.0-46.0) % MCH (25.0-35.0) pg MCHC (31.0-37.0) g/dL RDW (11.5-15.5) % Plt Count (150-450) k/uL Lymphocytes # (1.0-4.8) k/uL PT (9.0-12.0) sec Chloride (98-107) mmol/L Carbon Dioxide (22-30) mmol/L BUN (7-17) mg/dL Glucose (74-99) mg/dL POC Glucose (mg/dL) 192 H 273 H 265 H (75-99) mg/dL Magnesium (1.6-2.3) mg/dL AST (14-36) U/L Alkaline Phosphatase (38-126) U/L Total Protein (6.3-8.2) g/dL Albumin (3.5-5.0) g/dL 06/25/16 06/25/16 06/25/16 Range/Units 07:02 08:03 08:03 RBC 3.04 L (3.80-5.40) m/uL Hgb 7.6 L (11.4-16.0) gm/dL Hct 25.8 L (34.0-46.0) % MCH 24.9 L (25.0-35.0) pg MCHC 29.3 L (31.0-37.0) g/dL RDW 15.8 H (11.5-15.5) % Plt Count 103 L (150-450) k/uL Lymphocytes # 0.3 L (1.0-4.8) k/uL PT (9.0-12.0) sec Chloride 91 L (98-107) mmol/L Carbon Dioxide 46 H* (22-30) mmol/L BUN 44 H (7-17) mg/dL Glucose 230 H (74-99) mg/dL POC Glucose (mg/dL) 251 H (75-99) mg/dL Magnesium 2.4 H (1.6-2.3) mg/dL AST 41 H (14-36) U/L Alkaline Phosphatase 32 L (38-126) U/L Total Protein 4.8 L (6.3-8.2) g/dL Albumin 2.3 L (3.5-5.0) g/dL 06/25/16 06/25/16 Range/Units 08:03 12:20 RBC (3.80-5.40) m/uL Hgb (11.4-16.0) gm/dL Hct (34.0-46.0) % MCH (25.0-35.0) pg MCHC (31.0-37.0) g/dL RDW (11.5-15.5) % Plt Count (150-450) k/uL Lymphocytes # (1.0-4.8) k/uL PT 16.8 H (9.0-12.0) sec Chloride (98-107) mmol/L Carbon Dioxide (22-30) mmol/L BUN (7-17) mg/dL Glucose (74-99) mg/dL POC Glucose (mg/dL) 277 H (75-99) mg/dL Magnesium (1.6-2.3) mg/dL AST (14-36) U/L Alkaline Phosphatase (38-126) U/L Total Protein (6.3-8.2) g/dL Albumin (3.5-5.0) g/dL Assessment and Plan Plan: #1 acute on chronic hypoxic hypercapnic respiratory failure which is compensated with the healthcare acquired pneumonia involving the right middle lobe #2 acute on chronic diastolic congestive heart failure #3 moderate to severe pulmonary hypertension #4 chronic respiratory acidosis #5 COPD #6 history of venous some embolism #7 peripheral neuropathy #8 hypothyroidism #9 chronic back pain Plan Continue ongoing care Diuretics and diamox> will obtain an ABG Repeat chest xray in the am. Likely dc to NH on wednesday. Currently on 10 l of supplemental o2. Goals of care right now are DO NOT RESUSCITATE and no aggressive measures prior to a CODE BLUE. Continue antibiotics and continue with oxygen.
[2016-06-25 16:52] LABS: Glucose,Whole Blood 247 mg/dL (75-99)
--- NOTE | 2016-06-25 17:55 | P.PN ---
Subjective This is a pleasant 70-year-old female patient with multiple medical problems including morbid obesity, chronic hypercapnic respiratory failure, chronic hypoxic respiratory failure secondary to obesity/hypoventilation syndrome/ obstructive sleep apnea. She is a lifelong nonsmoker. She presented here on initially seen in the intensive care unit for bibasilar pneumonia. Her chest x-ray showed bibasilar pneumonia with dense consolidation in the right middle lobe along with left lower lobe retrocardiac area. She is seen again today in follow-up in the regular medical floor. She is awake and alert in no acute distress. Yesterday's x-ray showed interval improvement in the right perihilar pulmonary infiltrate. There are small bilateral pleural effusions. The patient has been diuresed and has improved clinically and radiographically. Objective - Vital Signs Vital signs: Vital Signs Temp 98.6 F 06/25/16 14:02 Pulse 76 06/25/16 16:03 Resp 20 06/25/16 16:00 BP 127/52 06/25/16 14:02 Pulse Ox 96 06/25/16 14:02 Intake & Output 06/24/16 06/25/16 06/25/16 18:59 06:59 18:59 Intake Total 30 50 Output Total 4816 589 1817 -1959 Weight 144 kg 144 kg Intake: IV 30 50 Piperacillin-Tazobactam 3 50 .375 gm In Dextrose/Water 1 50ml.bag @ 12.5 mls/hr IVPB Q8HR [facility] Rx#: [id number] Sodium Chloride 0.9% 1, 30 000 ml @ 40 mls/hr IV . Q24H [facility] Rx#:[id number] Output: Urine 2637 332 5232 Other: Voiding Method Indwelling Catheter Indwelling Catheter Indwelling Catheter # Bowel Movements 0 0 - Exam GENERAL EXAM: Morbidly obese. Alert, comfortable in no apparent distress. HEAD: Normocephalic. EYES: Normal reaction of pupils, equal size. NOSE: Clear with pink turbinates. THROAT: There is crowding of the posterior pharynx. No erythema or exudates. NECK: Short. No masses, no JVD. CHEST: No chest wall deformity. LUNGS: Few bilateral scattered rhonchi. Diminished. CVS: S1 and S2 normal with audible systolic murmur, regular rhythm. ABDOMEN: Obese. Soft, normal bowel sounds, no guarding or rigidity. Extremities: There is trace peripheral edema. No clubbing, no cyanosis. Peripheral pulses are intact. - Labs CBC & Chem 7: 06/25/16 08:03 06/25/16 08:03 Labs: Abnormal Lab Results - Last 24 Hours (Table) 06/24/16 06/25/16 06/25/16 Range/Units 21:15 01:19 07:02 RBC (3.80-5.40) m/uL Hgb (11.4-16.0) gm/dL Hct (34.0-46.0) % MCH (25.0-35.0) pg MCHC (31.0-37.0) g/dL RDW (11.5-15.5) % Plt Count (150-450) k/uL Lymphocytes # (1.0-4.8) k/uL PT (9.0-12.0) sec Chloride (98-107) mmol/L Carbon Dioxide (22-30) mmol/L BUN (7-17) mg/dL Glucose (74-99) mg/dL POC Glucose (mg/dL) 273 H 265 H 251 H (75-99) mg/dL Magnesium (1.6-2.3) mg/dL AST (14-36) U/L Alkaline Phosphatase (38-126) U/L Total Protein (6.3-8.2) g/dL Albumin (3.5-5.0) g/dL 06/25/16 06/25/16 06/25/16 Range/Units 08:03 08:03 08:03 RBC 3.04 L (3.80-5.40) m/uL Hgb 7.6 L (11.4-16.0) gm/dL Hct 25.8 L (34.0-46.0) % MCH 24.9 L (25.0-35.0) pg MCHC 29.3 L (31.0-37.0) g/dL RDW 15.8 H (11.5-15.5) % Plt Count 103 L (150-450) k/uL Lymphocytes # 0.3 L (1.0-4.8) k/uL PT 16.8 H (9.0-12.0) sec Chloride 91 L (98-107) mmol/L Carbon Dioxide 46 H* (22-30) mmol/L BUN 44 H (7-17) mg/dL Glucose 230 H (74-99) mg/dL POC Glucose (mg/dL) (75-99) mg/dL Magnesium 2.4 H (1.6-2.3) mg/dL AST 41 H (14-36) U/L Alkaline Phosphatase 32 L (38-126) U/L Total Protein 4.8 L (6.3-8.2) g/dL Albumin 2.3 L (3.5-5.0) g/dL 06/25/16 06/25/16 Range/Units 12:20 16:47 RBC (3.80-5.40) m/uL Hgb (11.4-16.0) gm/dL Hct (34.0-46.0) % MCH (25.0-35.0) pg MCHC (31.0-37.0) g/dL RDW (11.5-15.5) % Plt Count (150-450) k/uL Lymphocytes # (1.0-4.8) k/uL PT (9.0-12.0) sec Chloride (98-107) mmol/L Carbon Dioxide (22-30) mmol/L BUN (7-17) mg/dL Glucose (74-99) mg/dL POC Glucose (mg/dL) 277 H 247 H (75-99) mg/dL Magnesium (1.6-2.3) mg/dL AST (14-36) U/L Alkaline Phosphatase (38-126) U/L Total Protein (6.3-8.2) g/dL Albumin (3.5-5.0) g/dL Assessment and Plan Plan: Impression: #1 Acute on chronic hypoxic respiratory failure secondary to fluid volume overload from acute on chronic exacerbation of diastolic congestive heart failure and secondary to multilobar pneumonia. #2 Acute on chronic hypercapnic respiratory failure secondary to above. #3 Acute on chronic diastolic congestive heart failure. #4 Moderate pulmonary hypertension. #5 Morbid obesity with obesity/hypoventilation syndrome. #6 Obstructive sleep apnea. #7 Previous history of PE/DVT, anticoagulated with warfarin, currently subtherapeutic at 1.7. #8 Chronic back pain. #9 Peripheral neuropathy. #10 Hypothyroidism. #11 Poor overall functional performance secondary to the above-mentioned multiple comorbidities. Plan: The patient was seen and evaluated by Dr. Leung. Her chest x-ray and labs were reviewed. We will order arterial blood gases to be drawn in the morning. If there is noted acidosis we'll discontinue the Diamox. She is improved clinically. We'll continue with her current pulmonary medications. We will increase her activity as tolerated. We'll continue to follow make further recommendations based on her clinical status.
[2016-06-25 20:53] LABS: Glucose,Whole Blood 284 mg/dL (75-99)
[2016-06-25] MEDS: MELATONIN 3 MG TABLET PO SCH (21:29)
[2016-06-25] MEDS: POLYETHYLENE GLYCOL 3350 17 GM POWD.PACK PO SCH (21:29)
[2016-06-25] MEDS: GABAPENTIN 300 MG CAP PO SCH (21:30)
[2016-06-25] MEDS: MONTELUKAST 10 MG TAB PO SCH (21:30)
[2016-06-25] MEDS: acetaZOLAMIDE 250 MG TAB PO SCH (21:30)
[2016-06-26] MEDS: LEVOTHYROXINE 75 MCG TAB PO SCH (06:15)
[2016-06-26] MEDS: ALPRAZolam 0.5 MG TAB PO PRN (06:15)
[2016-06-26] MEDS: LEVOTHYROXINE 100 MCG TAB PO SCH (06:15)
[2016-06-26] MEDS: methylPREDNISolone SOD SUCCI 40 MG/ML 1 ML VIAL IV SCH ×2 (06:15→11:43)
[2016-06-26 07:19] LABS: Glucose,Whole Blood 262 mg/dL (75-99)
[2016-06-26] MEDS: PIPERACILLIN-TAZOBACTAM 3.375 GM in DEXTROSE/WATER 1 50ML.BAG IVPB SCH ×3 (07:35→23:12)
[2016-06-26] MEDS: INSULIN LISPRO (humaLOG) 300 UNIT/3 ML VIAL SQ SCH ×4 (07:35→21:03)
[2016-06-26] MEDS: ALLOPURINOL 100 MG TAB PO SCH (07:36)
[2016-06-26] MEDS: acetaZOLAMIDE 250 MG TAB PO SCH ×2 (07:39→21:05)
[2016-06-26] MEDS: busPIRone HCl 10 MG TAB PO SCH ×2 (07:39→21:05)
[2016-06-26] MEDS: CYANOCOBALAMIN 500 MCG TAB PO SCH (07:40)
[2016-06-26] MEDS: FLUTICASONE 50MCG/SPRAY NASAL 16GM EA NOSTRIL SCH (07:41)
[2016-06-26] MEDS: DOCUSATE 100 MG CAP PO SCH ×2 (07:41→21:35)
[2016-06-26] MEDS: DESVENLAFAXINE SUCCINATE 50 MG TAB.ER.24H PO SCH (07:41)
[2016-06-26] MEDS: FERROUS SULFATE 325 MG TAB PO SCH (07:41)
[2016-06-26] MEDS: FUROSEMIDE 20 MG TAB PO SCH (07:42)
[2016-06-26] MEDS: LORATADINE 10 MG TAB PO SCH (07:42)
[2016-06-26] MEDS: hydrALAZINE HCL 25 MG TAB PO SCH ×4 (07:42→21:04)
[2016-06-26] MEDS: MELOXICAM 7.5 MG TAB PO SCH (07:43)
[2016-06-26] MEDS: PANTOPRAZOLE 40 MG/10 ML VIAL IVP SCH (07:43)
[2016-06-26] MEDS: POTASSIUM CHLORIDE ER 20 MEQ TAB.ER PO SCH (07:43)
[2016-06-26] MEDS: METOPROLOL TARTRATE 50 MG TAB PO SCH ×2 (07:43→21:05)
[2016-06-26] MEDS: VERAPAMIL 40 MG TAB PO SCH ×3 (07:44→21:04)
--- NOTE | 2016-06-26 07:45 | XR ---
EXAMINATION TYPE: XR chest 2V DATE OF EXAM: 06/26/2016 7:16 AM COMPARISON: 06/25/2016 HISTORY: Shortness of breath TECHNIQUE: Frontal and lateral views of the chest are obtained. FINDINGS: Scattered senescent parenchymal changes noted. Hyperinflation compatible with COPD. Heart size is stable and enlarged. Continued pulmonary venous congestion essentially unchanged with l eft basilar opacity which may reflect atelectasis and/or effusion. Mediastinal structures are stable and grossly unremarkable. No evidence for hilar prominence. Degenerative changes dorsal spine. IMPRESSION: 1. Stable chest
[2016-06-26 09:02] LABS: Basophils % (A) 0 %; CH 23.8; CHCM 27.5; Eosinophils % (A) 0 %; HCT 28.2 % (34.0-46.0); HDW 3.32; HGB 7.8 gm/dL (11.4-16.0); Hypochromasia Marked; Luc # (Auto) 0.05; Luc % (Auto) 1; Lymphocytes # (A) 0.2 k/uL (1.0-4.8); Lymphocytes % (A) 3 %; MCH 23.9 pg (25.0-35.0); MCV 86.7 fL (80.0-100.0); Mean Platelet Volume 6.5; Monocytes # (A) 0.3 k/uL (0-1.0); Monocytes % (A) 4 %; Neutrophils # (A) 6.5 k/uL (1.3-7.7); Neutrophils % (A) 92 %; RBC 3.25 m/uL (3.80-5.40); RDW 15.6 % (11.5-15.5); WBC 7.1 k/uL (3.8-10.6); WBC (Perox) 7.27
[2016-06-26 09:13] LABS: ALT 51 U/L (9-52); AST 26 U/L (14-36); Alkaline Phosphatase 39 U/L (38-126); Blood Urea Nitrogen 32 mg/dL (7-17); Calcium 8.7 mg/dL (8.4-10.2); Chloride 91 mmol/L (98-107); Glucose 283 mg/dL (74-99); Non-African American GFR(MDRD) 54 (>60 ml/min/1.73 sqM); Sodium 137 mmol/L (137-145); Total Bilirubin 0.8 mg/dL (0.2-1.3)
[2016-06-26 09:15] LABS: MCHC 27.6 g/dL (31.0-37.0)
[2016-06-26 09:20] LABS: Anion Gap 1 mmol/L
[2016-06-26] MEDS: FORMOTEROL FUMARATE 20 MCG/2 ML NEBU INHALATION SCH ×2 (09:22→18:39)
[2016-06-26] MEDS: IPRATROPIUM-ALBUTEROL 3 ML NEB INHALATION PRN (09:22)
[2016-06-26] MEDS: BUDESONIDE 1 MG/2 ML NEBU INHALATION SCH ×2 (09:23→18:39)
[2016-06-26 09:27] LABS: Carbon Dioxide 45 mmol/L (22-30)
[2016-06-26 10:05] LABS: ABG HCO3 39 mmol/L (21-25); ABG PCO2 54 mmHg (35-45); ABG PH 7.47 (7.35-7.45); ABG PO2 113 mmHg (83-108); ABG TCO2 41 mmol/L (19-24)
[2016-06-26] MEDS: MULTIVITAMINS, THERA 1 EACH TAB PO SCH (11:43)
[2016-06-26 12:05] LABS: Glucose,Whole Blood 228 mg/dL (75-99)
[2016-06-26] MEDS: VANCOMYCIN 1,750 MG in SODIUM CHLORIDE 0.9% 250 ML IVPB SCH (13:03)
[2016-06-26] MEDS: SODIUM CHLORIDE 0.9% 1,000 ML IV SCH (13:04)
--- NOTE | 2016-06-26 15:16 | P.PN ---
Subjective This is a pleasant 70-year-old female patient with multiple medical problems including morbid obesity, chronic hypercapnic respiratory failure, chronic hypoxic respiratory failure secondary to obesity/hypoventilation syndrome/ obstructive sleep apnea. She is a lifelong nonsmoker. She presented here on initially seen in the intensive care unit for bibasilar pneumonia. Her chest x-ray showed bibasilar pneumonia with dense consolidation in the right middle lobe along with left lower lobe retrocardiac area. She is seen again today 06/26/2016 in follow-up on the regular medical floor. She is awake and alert in no acute distress. Recent x-ray showed interval improvement in the right perihilar pulmonary infiltrate. There are small bilateral pleural effusions. The patient has been diuresed and has improved clinically and radiographically. She is still requiring 9 L of high flow nasal cannula to maintain O2 saturations in the 90s. She is afebrile. No white count. Arterial blood gases on 50% FiO2 revealed a pO2 of 113, pCO2 54, pH 7.47. We'll continue the Diamox 1 more day. Objective - Vital Signs Vital signs: Vital Signs Temp 97.6 F 06/26/16 07:00 Pulse 84 06/26/16 09:43 Resp 18 06/26/16 07:00 BP 144/69 06/26/16 07:00 Pulse Ox 98 06/26/16 07:00 Intake & Output 06/25/16 06/26/16 06/26/16 18:59 06:59 18:59 Intake Total 780 500 500 Output Total 2100 1225 500 Balance -1320 -725 0 Weight 144 kg 142.5 kg Intake: Oral 780 500 500 Output: Urine 2100 1225 500 Other: Voiding Method Indwelling Catheter Indwelling Catheter Indwelling Catheter # Voids 1 # Bowel Movements 0 1 - Exam GENERAL EXAM: Morbidly obese. Alert, comfortable in no apparent distress. HEAD: Normocephalic. EYES: Normal reaction of pupils, equal size. NOSE: Clear with pink turbinates. THROAT: There is crowding of the posterior pharynx. No erythema or exudates. NECK: Short. No masses, no JVD. CHEST: No chest wall deformity. LUNGS: Few bilateral scattered rhonchi. Diminished. CVS: S1 and S2 normal with audible systolic murmur, regular rhythm. ABDOMEN: Obese. Soft, normal bowel sounds, no guarding or rigidity. Extremities: There is trace peripheral edema. No clubbing, no cyanosis. Peripheral pulses are intact. - Labs CBC & Chem 7: 06/26/16 08:07 06/26/16 08:07 Labs: Abnormal Lab Results - Last 24 Hours (Table) 06/25/16 06/25/16 06/26/16 Range/Units 16:47 20:33 07:17 RBC (3.80-5.40) m/uL Hgb (11.4-16.0) gm/dL Hct (34.0-46.0) % MCH (25.0-35.0) pg MCHC (31.0-37.0) g/dL RDW (11.5-15.5) % Lymphocytes # (1.0-4.8) k/uL ABG pH (7.35-7.45) ABG pCO2 (35-45) mmHg ABG pO2 (83-108) mmHg ABG HCO3 (21-25) mmol/L ABG Total CO2 (19-24) mmol/L ABG O2 Saturation (94-97) % Chloride (98-107) mmol/L Carbon Dioxide (22-30) mmol/L BUN (7-17) mg/dL Glucose (74-99) mg/dL POC Glucose (mg/dL) 247 H 284 H 262 H (75-99) mg/dL Total Protein (6.3-8.2) g/dL Albumin (3.5-5.0) g/dL 06/26/16 06/26/16 06/26/16 Range/Units 08:07 08:07 09:45 RBC 3.25 L (3.80-5.40) m/uL Hgb 7.8 L (11.4-16.0) gm/dL Hct 28.2 L (34.0-46.0) % MCH 23.9 L (25.0-35.0) pg MCHC 27.6 L (31.0-37.0) g/dL RDW 15.6 H (11.5-15.5) % Lymphocytes # 0.2 L (1.0-4.8) k/uL ABG pH 7.47 H (7.35-7.45) ABG pCO2 54 H (35-45) mmHg ABG pO2 113 H (83-108) mmHg ABG HCO3 39 H (21-25) mmol/L ABG Total CO2 41 H (19-24) mmol/L ABG O2 Saturation 99.0 H (94-97) % Chloride 91 L (98-107) mmol/L Carbon Dioxide 45 H* (22-30) mmol/L BUN 32 H (7-17) mg/dL Glucose 283 H (74-99) mg/dL POC Glucose (mg/dL) (75-99) mg/dL Total Protein 5.0 L (6.3-8.2) g/dL Albumin 2.7 L (3.5-5.0) g/dL 06/26/16 Range/Units 11:41 RBC (3.80-5.40) m/uL Hgb (11.4-16.0) gm/dL Hct (34.0-46.0) % MCH (25.0-35.0) pg MCHC (31.0-37.0) g/dL RDW (11.5-15.5) % Lymphocytes # (1.0-4.8) k/uL ABG pH (7.35-7.45) ABG pCO2 (35-45) mmHg ABG pO2 (83-108) mmHg ABG HCO3 (21-25) mmol/L ABG Total CO2 (19-24) mmol/L ABG O2 Saturation (94-97) % Chloride (98-107) mmol/L Carbon Dioxide (22-30) mmol/L BUN (7-17) mg/dL Glucose (74-99) mg/dL POC Glucose (mg/dL) 228 H (75-99) mg/dL Total Protein (6.3-8.2) g/dL Albumin (3.5-5.0) g/dL Assessment and Plan Plan: Impression: #1 Acute on chronic hypoxic respiratory failure secondary to fluid volume overload from acute on chronic exacerbation of diastolic congestive heart failure and secondary to multilobar pneumonia. #2 Acute on chronic hypercapnic respiratory failure secondary to above. #3 Acute on chronic diastolic congestive heart failure. #4 Moderate pulmonary hypertension. #5 Morbid obesity with obesity/hypoventilation syndrome. #6 Obstructive sleep apnea. #7 Previous history of PE/DVT, anticoagulated with warfarin, currently subtherapeutic at 1.7. #8 Chronic back pain. #9 Peripheral neuropathy. #10 Hypothyroidism. #11 Poor overall functional performance secondary to the above-mentioned multiple comorbidities. Plan: The patient was seen and evaluated by Dr. Leung. Her arterial blood gases and labs were reviewed. She is improved clinically. We'll continue with her current pulmonary medications. We will increase her activity as tolerated. We' ll continue to follow and make further recommendations based on her clinical status.
--- NOTE | 2016-06-26 15:48 | P.PN ---
Subjective This is a 70-year-old lady with multiple medical problems is admitted to the hospital with difficulty breathing. Patient was noted to have acute hypoxic respiratory failure. Is this was attribute it to multifactorial causes including a lateral lower lobe pneumonia and obesity hypoventilation syndrome. patient was started on IV antibiotics thereafter improved. Patient was on BiPAP initially for short period of time however did not tolerate it well. On 06/23/2016 when patient was evaluated in the ICU patient stated that she does not want any aggressive measures. Today patient was seen on the fourth floor. Patient appears to be stable. States that the she does not want anything aggressive done and to prolong her life. States that if we stop her treatment she would pass away and is verbalizes to understand her situation. Other overnight events are reported. 06/25/2016 Patient apparently did not want hospice this morning states that she wants to live. Stage to be breathing slightly better. No new complaints reported. 06/26/2016 Patient states to be doing well. Continues to be on 10 L of supplement oxygen. States to have a cough that is nonproductive in nature. Denies having any fevers, chills, abdominal pain. Patient did have bowel movement this morning. Objective - Vital Signs Vital signs: Vital Signs Temp 98.4 F 06/26/16 15:00 Pulse 70 06/26/16 15:00 Resp 18 06/26/16 15:00 BP 124/54 06/26/16 15:00 Pulse Ox 98 06/26/16 15:00 Intake & Output 06/25/16 06/26/16 06/26/16 18:59 06:59 18:59 Intake Total 946 660 9748 Output Total 2100 1225 800 Balance -1320 -725 200 Weight 144 kg 142.5 kg Intake: Oral 629 070 6350 Output: Urine 2100 1225 800 Other: Voiding Method Indwelling Catheter Indwelling Catheter Indwelling Catheter # Voids 1 # Bowel Movements 0 1 - Exam Gen. appearance alert oriented 3 in no distress Neck is supple noted Lungs diminished breath sounds obese chest Heart regular rate and rhythm no murmurs appreciated Abdomen is obese distended no organomegaly appreciated Lower extremities 1+ edema appreciated no erythema. Neurologically moves all 4 extremity is at this time. - Labs CBC & Chem 7: 06/26/16 08:07 06/26/16 08:07 Labs: Abnormal Lab Results - Last 24 Hours (Table) 06/25/16 06/25/16 06/26/16 Range/Units 16:47 20:33 07:17 RBC (3.80-5.40) m/uL Hgb (11.4-16.0) gm/dL Hct (34.0-46.0) % MCH (25.0-35.0) pg MCHC (31.0-37.0) g/dL RDW (11.5-15.5) % Lymphocytes # (1.0-4.8) k/uL ABG pH (7.35-7.45) ABG pCO2 (35-45) mmHg ABG pO2 (83-108) mmHg ABG HCO3 (21-25) mmol/L ABG Total CO2 (19-24) mmol/L ABG O2 Saturation (94-97) % Chloride (98-107) mmol/L Carbon Dioxide (22-30) mmol/L BUN (7-17) mg/dL Glucose (74-99) mg/dL POC Glucose (mg/dL) 247 H 284 H 262 H (75-99) mg/dL Total Protein (6.3-8.2) g/dL Albumin (3.5-5.0) g/dL 06/26/16 06/26/16 06/26/16 Range/Units 08:07 08:07 09:45 RBC 3.25 L (3.80-5.40) m/uL Hgb 7.8 L (11.4-16.0) gm/dL Hct 28.2 L (34.0-46.0) % MCH 23.9 L (25.0-35.0) pg MCHC 27.6 L (31.0-37.0) g/dL RDW 15.6 H (11.5-15.5) % Lymphocytes # 0.2 L (1.0-4.8) k/uL ABG pH 7.47 H (7.35-7.45) ABG pCO2 54 H (35-45) mmHg ABG pO2 113 H (83-108) mmHg ABG HCO3 39 H (21-25) mmol/L ABG Total CO2 41 H (19-24) mmol/L ABG O2 Saturation 99.0 H (94-97) % Chloride 91 L (98-107) mmol/L Carbon Dioxide 45 H* (22-30) mmol/L BUN 32 H (7-17) mg/dL Glucose 283 H (74-99) mg/dL POC Glucose (mg/dL) (75-99) mg/dL Total Protein 5.0 L (6.3-8.2) g/dL Albumin 2.7 L (3.5-5.0) g/dL 06/26/16 Range/Units 11:41 RBC (3.80-5.40) m/uL Hgb (11.4-16.0) gm/dL Hct (34.0-46.0) % MCH (25.0-35.0) pg MCHC (31.0-37.0) g/dL RDW (11.5-15.5) % Lymphocytes # (1.0-4.8) k/uL ABG pH (7.35-7.45) ABG pCO2 (35-45) mmHg ABG pO2 (83-108) mmHg ABG HCO3 (21-25) mmol/L ABG Total CO2 (19-24) mmol/L ABG O2 Saturation (94-97) % Chloride (98-107) mmol/L Carbon Dioxide (22-30) mmol/L BUN (7-17) mg/dL Glucose (74-99) mg/dL POC Glucose (mg/dL) 228 H (75-99) mg/dL Total Protein (6.3-8.2) g/dL Albumin (3.5-5.0) g/dL Assessment and Plan Plan: #1 acute on chronic hypoxic hypercapnic respiratory failure which is compensated with the healthcare acquired pneumonia involving the right middle lobe #2 acute on chronic diastolic congestive heart failure #3 moderate to severe pulmonary hypertension #4 chronic respiratory acidosis #5 COPD #6 history of venous some embolism #7 peripheral neuropathy #8 hypothyroidism #9 chronic back pain Plan Continue ongoing care ABG was reviewed appears well compensated. Continue ongoing care. X-ray appears stable. Continue to be on 10 L supplement oxygen. Patient apparently desaturated with decreased to 8. Continue with fluid management. Will likely need another 40- 72 hours prior to discharge. Goals of care right now are DO NOT RESUSCITATE and no aggressive measures prior to a CODE BLUE. Continue antibiotics and continue with oxygen.
[2016-06-26] MEDS: predniSONE 10 MG TAB PO SCH (15:55)
--- NOTE | 2016-06-26 16:05 | PN ---
This lady has converted to sinus rhythm. She has a history of paroxysmal atrial fibrillation, cardiomyopathy-type picture. Doing well overall. She has anemia. Her Coumadin is being resumed at 2.5 mg today, and Dr. Reardon, her hospitalist, will manage the Coumadin from here onwards. She remains in sinus rhythm. I increased Lopressor and Verapamil yesterday. She is tolerating this well. She feels much better today. Vital signs are stable. S1 and S2 heard normally. Short systolic murmur noted. Lungs reveal improved air entry. Abdomen is soft, nontender. Lower extremities reveal bilateral 1+ edema. Central nervous system is grossly within normal limits. I will see her as needed from a cardiac standpoint and would recommend that we anticoagulate her, keep the INR between 2.0 and 2.8.
[2016-06-26 17:07] LABS: Glucose,Whole Blood 223 mg/dL (75-99)
[2016-06-26] MEDS ORDERED: WARFARIN 2.5 MG TAB PO ONE (18:00)
[2016-06-26] MEDS: HYDROcodone/APAP 5-325MG 1 EACH TAB PO PRN (19:48)
[2016-06-26 20:27] LABS: Glucose,Whole Blood 337 mg/dL (75-99)
[2016-06-26] MEDS ORDERED: INSULIN LISPRO (humaLOG) 300 UNIT/3 ML VIAL SQ ONE (20:52)
[2016-06-26] MEDS: MONTELUKAST 10 MG TAB PO SCH (21:04)
[2016-06-26] MEDS: GABAPENTIN 300 MG CAP PO SCH (21:05)
[2016-06-26] MEDS: MELATONIN 3 MG TABLET PO SCH (21:05)
[2016-06-26] MEDS: POLYETHYLENE GLYCOL 3350 17 GM POWD.PACK PO SCH (21:35)
[2016-06-27] MEDS: HYDROcodone/APAP 5-325MG 1 EACH TAB PO PRN (06:29)
[2016-06-27] MEDS: LEVOTHYROXINE 100 MCG TAB PO SCH (06:30)
[2016-06-27] MEDS: LEVOTHYROXINE 75 MCG TAB PO SCH (06:30)
[2016-06-27 07:26] LABS: Glucose,Whole Blood 194 mg/dL (75-99)
[2016-06-27] MEDS: hydrALAZINE HCL 25 MG TAB PO SCH ×4 (07:51→22:03)
[2016-06-27] MEDS: PIPERACILLIN-TAZOBACTAM 3.375 GM in DEXTROSE/WATER 1 50ML.BAG IVPB SCH ×3 (07:51→23:18)
[2016-06-27] MEDS: predniSONE 10 MG TAB PO SCH (07:52)
[2016-06-27] MEDS: acetaZOLAMIDE 250 MG TAB PO SCH (07:52)
[2016-06-27] MEDS: FUROSEMIDE 20 MG TAB PO SCH ×2 (07:53→22:00)
[2016-06-27] MEDS: busPIRone HCl 10 MG TAB PO SCH ×2 (07:53→22:03)
[2016-06-27] MEDS: DESVENLAFAXINE SUCCINATE 50 MG TAB.ER.24H PO SCH (07:53)
[2016-06-27] MEDS: MELOXICAM 7.5 MG TAB PO SCH (07:54)
[2016-06-27] MEDS: VERAPAMIL 40 MG TAB PO SCH ×3 (07:54→22:02)
[2016-06-27] MEDS: FLUTICASONE 50MCG/SPRAY NASAL 16GM EA NOSTRIL SCH (07:54)
[2016-06-27] MEDS: PANTOPRAZOLE 40 MG/10 ML VIAL IVP SCH (07:55)
[2016-06-27] MEDS: CYANOCOBALAMIN 500 MCG TAB PO SCH (07:55)
[2016-06-27] MEDS: LORATADINE 10 MG TAB PO SCH (07:55)
[2016-06-27] MEDS: POTASSIUM CHLORIDE ER 20 MEQ TAB.ER PO SCH (07:56)
[2016-06-27] MEDS: INSULIN LISPRO (humaLOG) 300 UNIT/3 ML VIAL SQ SCH ×4 (07:56→22:04)
[2016-06-27] MEDS: METOPROLOL TARTRATE 50 MG TAB PO SCH ×2 (07:56→22:04)
[2016-06-27] MEDS: FERROUS SULFATE 325 MG TAB PO SCH (07:56)
[2016-06-27] MEDS: ALLOPURINOL 100 MG TAB PO SCH (07:56)
[2016-06-27] MEDS: FORMOTEROL FUMARATE 20 MCG/2 ML NEBU INHALATION SCH ×2 (08:04→19:39)
[2016-06-27] MEDS: IPRATROPIUM-ALBUTEROL 3 ML NEB INHALATION PRN ×4 (08:04→19:39)
[2016-06-27] MEDS: BUDESONIDE 1 MG/2 ML NEBU INHALATION SCH ×2 (08:04→19:39)
[2016-06-27 08:43] LABS: INR 2.1 (<1.1); Prothrombin Time 19.9 sec (9.0-12.0)
[2016-06-27 08:46] LABS: Anisocytosis Slight; Basophils % (A) 0 %; CH 24.2; CHCM 28.4; Eosinophils % (A) 0 %; HCT 28.6 % (34.0-46.0); HDW 3.35; Hypochromasia Marked; Luc # (Auto) 0.13; Luc % (Auto) 1; Lymphocytes # (A) 0.4 k/uL (1.0-4.8); Lymphocytes % (A) 4 %; MCV 85.5 fL (80.0-100.0); Mean Platelet Volume 7.9; Monocytes # (A) 0.5 k/uL (0-1.0); Monocytes % (A) 5 %; Neutrophils # (A) 9.1 k/uL (1.3-7.7); Neutrophils % (A) 91 %; RBC 3.34 m/uL (3.80-5.40); RDW 16.1 % (11.5-15.5); WBC 10.1 k/uL (3.8-10.6); WBC (Perox) 10.52
[2016-06-27 08:54] LABS: ALT 47 U/L (9-52); AST 22 U/L (14-36); Alkaline Phosphatase 38 U/L (38-126); Anion Gap 7 mmol/L; Blood Urea Nitrogen 31 mg/dL (7-17); Calcium 8.7 mg/dL (8.4-10.2); Carbon Dioxide 37 mmol/L (22-30); Chloride 93 mmol/L (98-107); Glucose 177 mg/dL (74-99); Magnesium 2.2 mg/dL (1.6-2.3); Non-African American GFR(MDRD) 53 (>60 ml/min/1.73 sqM); Potassium 3.7 mmol/L (3.5-5.1); Sodium 137 mmol/L (137-145); Total Bilirubin 0.8 mg/dL (0.2-1.3); Total Protein 5.1 g/dL (6.3-8.2)
[2016-06-27] MEDS: DOCUSATE 100 MG CAP PO SCH ×2 (10:31→22:02)
[2016-06-27 11:52] LABS: Glucose,Whole Blood 200 mg/dL (75-99)
--- NOTE | 2016-06-27 12:14 | P.PN ---
Subjective This is a pleasant 70-year-old female patient with multiple medical problems including morbid obesity, chronic hypercapnic respiratory failure, chronic hypoxic respiratory failure secondary to obesity/hypoventilation syndrome/ obstructive sleep apnea. She is a lifelong nonsmoker. She presented here on initially seen in the intensive care unit for bibasilar pneumonia. Her chest x-ray showed bibasilar pneumonia with dense consolidation in the right middle lobe along with left lower lobe retrocardiac area. Patient is seen again today 06/27/2016 in follow-up. She is awake and alert in no acute distress. She denies any worsening shortness of breath, cough or congestion. She is maintaining O2 saturations in the mid 90s on 5 L of high flow nasal cannula. She is afebrile. No leukocytosis. She's been up out of bed with assistance. She started having loose liquidy diarrhea. She has been maintained on vancomycin and Zosyn. Objective - Vital Signs Vital signs: Vital Signs Temp 97.9 F 06/27/16 07:00 Pulse 72 06/27/16 11:53 Resp 20 06/27/16 07:00 BP 130/65 06/27/16 07:00 Pulse Ox 94 L 06/27/16 07:00 Intake & Output 06/26/16 06/27/16 06/27/16 18:59 06:59 18:59 Intake Total 1000 1000 Output Total 800 1350 Balance 200 -350 Weight 150 kg Intake: Oral 1000 1000 Output: Urine 800 1350 Other: Voiding Method Indwelling Catheter Indwelling Catheter Indwelling Catheter # Voids 1 # Bowel Movements 1 - Exam GENERAL EXAM: Morbidly obese. Alert, comfortable in no apparent distress. HEAD: Normocephalic. EYES: Normal reaction of pupils, equal size. NOSE: Clear with pink turbinates. THROAT: There is crowding of the posterior pharynx. No erythema or exudates. NECK: Short. No masses, no JVD. CHEST: No chest wall deformity. LUNGS: Few bilateral scattered rhonchi. Diminished. CVS: S1 and S2 normal with audible systolic murmur, regular rhythm. ABDOMEN: Obese. Soft, normal bowel sounds, no guarding or rigidity. Extremities: There is trace peripheral edema. No clubbing, no cyanosis. Peripheral pulses are intact. - Labs CBC & Chem 7: 06/27/16 07:51 06/27/16 07:51 Labs: Abnormal Lab Results - Last 24 Hours (Table) 06/26/16 06/26/16 06/27/16 Range/Units 17:05 20:21 07:25 RBC (3.80-5.40) m/uL Hgb (11.4-16.0) gm/dL Hct (34.0-46.0) % MCH (25.0-35.0) pg MCHC (31.0-37.0) g/dL RDW (11.5-15.5) % Neutrophils # (1.3-7.7) k/uL Lymphocytes # (1.0-4.8) k/uL PT (9.0-12.0) sec Chloride (98-107) mmol/L Carbon Dioxide (22-30) mmol/L BUN (7-17) mg/dL Glucose (74-99) mg/dL POC Glucose (mg/dL) 223 H 337 H 194 H (75-99) mg/dL Total Protein (6.3-8.2) g/dL Albumin (3.5-5.0) g/dL 06/27/16 06/27/16 06/27/16 Range/Units 07:51 07:51 07:51 RBC 3.34 L (3.80-5.40) m/uL Hgb 8.0 L (11.4-16.0) gm/dL Hct 28.6 L (34.0-46.0) % MCH 24.0 L (25.0-35.0) pg MCHC 28.0 L (31.0-37.0) g/dL RDW 16.1 H (11.5-15.5) % Neutrophils # 9.1 H (1.3-7.7) k/uL Lymphocytes # 0.4 L (1.0-4.8) k/uL PT 19.9 H (9.0-12.0) sec Chloride 93 L (98-107) mmol/L Carbon Dioxide 37 H (22-30) mmol/L BUN 31 H (7-17) mg/dL Glucose 177 H (74-99) mg/dL POC Glucose (mg/dL) (75-99) mg/dL Total Protein 5.1 L (6.3-8.2) g/dL Albumin 2.7 L (3.5-5.0) g/dL 06/27/16 Range/Units 11:51 RBC (3.80-5.40) m/uL Hgb (11.4-16.0) gm/dL Hct (34.0-46.0) % MCH (25.0-35.0) pg MCHC (31.0-37.0) g/dL RDW (11.5-15.5) % Neutrophils # (1.3-7.7) k/uL Lymphocytes # (1.0-4.8) k/uL PT (9.0-12.0) sec Chloride (98-107) mmol/L Carbon Dioxide (22-30) mmol/L BUN (7-17) mg/dL Glucose (74-99) mg/dL POC Glucose (mg/dL) 200 H (75-99) mg/dL Total Protein (6.3-8.2) g/dL Albumin (3.5-5.0) g/dL Assessment and Plan Plan: Impression: #1 Acute on chronic hypoxic respiratory failure secondary to fluid volume overload from acute on chronic exacerbation of diastolic congestive heart failure and secondary to multilobar pneumonia. She has improved both clinically and radiographically. #2 Acute on chronic hypercapnic respiratory failure secondary to above. #3 Acute on chronic diastolic congestive heart failure. #4 Moderate pulmonary hypertension. #5 Morbid obesity with obesity/hypoventilation syndrome. #6 Obstructive sleep apnea. #7 Previous history of PE/DVT, anticoagulated with warfarin, currently subtherapeutic at 1.7. #8 Chronic back pain. #9 Peripheral neuropathy. #10 Hypothyroidism. #11 Poor overall functional performance secondary to the above-mentioned multiple comorbidities. #12 New-onset diarrhea. #13 Anemia, current hemoglobin 8.0. Plan: The patient was seen and evaluated by Dr. Leung. She is improved clinically. We'll continue with her current pulmonary medications. We'll obtain a stool to rule out C. difficile toxin. We will increase her activity as tolerated. We'll continue to follow and make further recommendations based on her clinical status.
[2016-06-27] MEDS: MULTIVITAMINS, THERA 1 EACH TAB PO SCH (12:59)
[2016-06-27] MEDS: VANCOMYCIN 1,750 MG in SODIUM CHLORIDE 0.9% 250 ML IVPB SCH (15:38)
[2016-06-27] MEDS: SODIUM CHLORIDE 0.9% 1,000 ML IV SCH (15:38)
[2016-06-27] MEDS ORDERED: MECLIZINE 12.5 MG TAB PO PRN (16:02)
--- NOTE | 2016-06-27 16:02 | P.PN ---
Subjective This is a 70-year-old lady with multiple medical problems is admitted to the hospital with difficulty breathing. Patient was noted to have acute hypoxic respiratory failure. Is this was attribute it to multifactorial causes including a lateral lower lobe pneumonia and obesity hypoventilation syndrome. patient was started on IV antibiotics thereafter improved. Patient was on BiPAP initially for short period of time however did not tolerate it well. On 06/23/2016 when patient was evaluated in the ICU patient stated that she does not want any aggressive measures. Today patient was seen on the fourth floor. Patient appears to be stable. States that the she does not want anything aggressive done and to prolong her life. States that if we stop her treatment she would pass away and is verbalizes to understand her situation. Other overnight events are reported. 06/25/2016 Patient apparently did not want hospice this morning states that she wants to live. Stage to be breathing slightly better. No new complaints reported. 06/26/2016 Patient states to be doing well. Continues to be on 10 L of supplement oxygen. States to have a cough that is nonproductive in nature. Denies having any fevers, chills, abdominal pain. Patient did have bowel movement this morning. 06/27/2016 Patient states that her hearing has been significant diminished and feels a sense of fullness... States that she gets dizzy with movement of the head. Currently on 5 L supplemental oxygen. States of a cough that has been nonproductive in nature. States to be improved significantly Denies having any fevers, chills, nausea, vomiting. Objective - Vital Signs Vital signs: Vital Signs Temp 97.8 F 06/27/16 15:00 Pulse 67 06/27/16 15:00 Resp 20 06/27/16 15:00 BP 125/60 06/27/16 15:00 Pulse Ox 94 L 06/27/16 15:00 Intake & Output 06/26/16 06/27/16 06/27/16 18:59 06:59 18:59 Intake Total 1000 1000 Output Total 800 1350 700 Balance 200 -350 -700 Weight 150 kg Intake: Oral 1000 1000 Output: Urine 800 1350 700 Other: Voiding Method Indwelling Catheter Indwelling Catheter Indwelling Catheter # Voids 1 # Bowel Movements 1 2 - Exam Gen. appearance alert oriented 3 in no distress Neck is supple noted Lungs diminished breath sounds obese chest Heart regular rate and rhythm no murmurs appreciated Abdomen is obese distended no organomegaly appreciated Lower extremities 1+ edema appreciated no erythema. Neurologically moves all 4 extremity is at this time. - Labs CBC & Chem 7: 06/27/16 07:51 06/27/16 07:51 Labs: Abnormal Lab Results - Last 24 Hours (Table) 06/26/16 06/26/16 06/27/16 Range/Units 17:05 20:21 07:25 RBC (3.80-5.40) m/uL Hgb (11.4-16.0) gm/dL Hct (34.0-46.0) % MCH (25.0-35.0) pg MCHC (31.0-37.0) g/dL RDW (11.5-15.5) % Neutrophils # (1.3-7.7) k/uL Lymphocytes # (1.0-4.8) k/uL PT (9.0-12.0) sec Chloride (98-107) mmol/L Carbon Dioxide (22-30) mmol/L BUN (7-17) mg/dL Glucose (74-99) mg/dL POC Glucose (mg/dL) 223 H 337 H 194 H (75-99) mg/dL Total Protein (6.3-8.2) g/dL Albumin (3.5-5.0) g/dL 06/27/16 06/27/16 06/27/16 Range/Units 07:51 07:51 07:51 RBC 3.34 L (3.80-5.40) m/uL Hgb 8.0 L (11.4-16.0) gm/dL Hct 28.6 L (34.0-46.0) % MCH 24.0 L (25.0-35.0) pg MCHC 28.0 L (31.0-37.0) g/dL RDW 16.1 H (11.5-15.5) % Neutrophils # 9.1 H (1.3-7.7) k/uL Lymphocytes # 0.4 L (1.0-4.8) k/uL PT 19.9 H (9.0-12.0) sec Chloride 93 L (98-107) mmol/L Carbon Dioxide 37 H (22-30) mmol/L BUN 31 H (7-17) mg/dL Glucose 177 H (74-99) mg/dL POC Glucose (mg/dL) (75-99) mg/dL Total Protein 5.1 L (6.3-8.2) g/dL Albumin 2.7 L (3.5-5.0) g/dL 06/27/16 Range/Units 11:51 RBC (3.80-5.40) m/uL Hgb (11.4-16.0) gm/dL Hct (34.0-46.0) % MCH (25.0-35.0) pg MCHC (31.0-37.0) g/dL RDW (11.5-15.5) % Neutrophils # (1.3-7.7) k/uL Lymphocytes # (1.0-4.8) k/uL PT (9.0-12.0) sec Chloride (98-107) mmol/L Carbon Dioxide (22-30) mmol/L BUN (7-17) mg/dL Glucose (74-99) mg/dL POC Glucose (mg/dL) 200 H (75-99) mg/dL Total Protein (6.3-8.2) g/dL Albumin (3.5-5.0) g/dL Assessment and Plan Plan: #1 acute on chronic hypoxic hypercapnic respiratory failure which is compensated with the healthcare acquired pneumonia involving the right middle lobe #2 acute on chronic diastolic congestive heart failure #3 moderate to severe pulmonary hypertension #4 chronic respiratory acidosis #5 COPD #6 history of venous thrombo embolism #7 peripheral neuropathy #8 hypothyroidism #9 chronic back pain Plan Improved currently on 5 L of supplement oxygen. Patient's bicarb is improved. We'll discontinue Diamox. We'll change Lasix to 20 mg twice a day. We'll be started on Antivert. Peripheral vertigo is likely secondary to vestibular neuronitis. The sense of fullness is likely secondary to steroid use. Goals of care right now are DO NOT RESUSCITATE and no aggressive measures prior to a CODE BLUE. Continue antibiotics and treated off oxygen as tolerated.
[2016-06-27 17:12] LABS: Glucose,Whole Blood 247 mg/dL (75-99)
[2016-06-27] MEDS: ALPRAZolam 0.5 MG TAB PO PRN (17:53)
[2016-06-27 21:13] LABS: Glucose,Whole Blood 240 mg/dL (75-99)
[2016-06-27] MEDS: MELATONIN 3 MG TABLET PO SCH (22:00)
[2016-06-27] MEDS: MONTELUKAST 10 MG TAB PO SCH (22:03)
[2016-06-27] MEDS: GABAPENTIN 300 MG CAP PO SCH (22:04)
[2016-06-27] MEDS: POLYETHYLENE GLYCOL 3350 17 GM POWD.PACK PO SCH (22:06)
[2016-06-28] MEDS: LEVOTHYROXINE 100 MCG TAB PO SCH (06:37)
[2016-06-28] MEDS: LEVOTHYROXINE 75 MCG TAB PO SCH (06:37)
[2016-06-28 07:31] LABS: Glucose,Whole Blood 166 mg/dL (75-99)
[2016-06-28] MEDS: PIPERACILLIN-TAZOBACTAM 3.375 GM in DEXTROSE/WATER 1 50ML.BAG IVPB SCH ×3 (07:49→23:10)
[2016-06-28] MEDS: DOCUSATE 100 MG CAP PO SCH ×2 (07:50→21:30)
[2016-06-28] MEDS: INSULIN LISPRO (humaLOG) 300 UNIT/3 ML VIAL SQ SCH ×4 (07:50→21:26)
[2016-06-28] MEDS: FLUTICASONE 50MCG/SPRAY NASAL 16GM EA NOSTRIL SCH (07:51)
[2016-06-28] MEDS: PANTOPRAZOLE 40 MG/10 ML VIAL IVP SCH (07:53)
[2016-06-28] MEDS: BUDESONIDE 1 MG/2 ML NEBU INHALATION SCH ×2 (08:05→20:23)
[2016-06-28] MEDS: IPRATROPIUM-ALBUTEROL 3 ML NEB INHALATION PRN ×4 (08:05→20:19)
[2016-06-28] MEDS: FORMOTEROL FUMARATE 20 MCG/2 ML NEBU INHALATION SCH ×2 (08:05→20:23)
[2016-06-28 08:09] LABS: INR 2.2 (<1.1); Prothrombin Time 21.6 sec (9.0-12.0)
[2016-06-28 08:20] LABS: Basophils % (A) 0 %; CH 23.8; Eosinophils # (A) 0.1 k/uL (0-0.7); Eosinophils % (A) 1 %; HCT 24.5 % (34.0-46.0); HDW 3.44; HGB 7.1 gm/dL (11.4-16.0); Hypochromasia Marked; Luc % (Auto) 1; Lymphocytes # (A) 0.5 k/uL (1.0-4.8); Lymphocytes % (A) 7 %; MCH 24.4 pg (25.0-35.0); MCV 84.3 fL (80.0-100.0); Mean Platelet Volume 7.1; Monocytes # (A) 0.4 k/uL (0-1.0); Monocytes % (A) 6 %; Neutrophils # (A) 6.3 k/uL (1.3-7.7); Neutrophils % (A) 85 %; Poikilocytosis Slight; RDW 15.7 % (11.5-15.5); WBC 7.4 k/uL (3.8-10.6); WBC (Perox) 7.71
[2016-06-28 08:21] LABS: ALT 49 U/L (9-52); AST 16 U/L (14-36); Alkaline Phosphatase 36 U/L (38-126); Anion Gap 3 mmol/L; Blood Urea Nitrogen 26 mg/dL (7-17); Calcium 8.4 mg/dL (8.4-10.2); Carbon Dioxide 36 mmol/L (22-30); Chloride 94 mmol/L (98-107); Glucose 154 mg/dL (74-99); Non-African American GFR(MDRD) 56 (>60 ml/min/1.73 sqM); Potassium 3.6 mmol/L (3.5-5.1); Sodium 133 mmol/L (137-145); Total Bilirubin 0.7 mg/dL (0.2-1.3); Total Protein 4.4 g/dL (6.3-8.2)
[2016-06-28] MEDS: VERAPAMIL 40 MG TAB PO SCH ×3 (08:24→21:25)
[2016-06-28] MEDS: hydrALAZINE HCL 25 MG TAB PO SCH ×4 (08:24→21:25)
[2016-06-28] MEDS: METOPROLOL TARTRATE 50 MG TAB PO SCH ×2 (08:25→21:25)
[2016-06-28] MEDS: MELOXICAM 7.5 MG TAB PO SCH (08:25)
[2016-06-28] MEDS: predniSONE 10 MG TAB PO SCH (08:25)
[2016-06-28] MEDS: busPIRone HCl 10 MG TAB PO SCH ×2 (08:25→21:25)
[2016-06-28] MEDS: POTASSIUM CHLORIDE ER 20 MEQ TAB.ER PO SCH (08:26)
[2016-06-28] MEDS: CYANOCOBALAMIN 500 MCG TAB PO SCH (08:26)
[2016-06-28] MEDS: ALLOPURINOL 100 MG TAB PO SCH (08:26)
[2016-06-28] MEDS: LORATADINE 10 MG TAB PO SCH (08:26)
[2016-06-28] MEDS: FERROUS SULFATE 325 MG TAB PO SCH (08:26)
[2016-06-28] MEDS: DESVENLAFAXINE SUCCINATE 50 MG TAB.ER.24H PO SCH (08:26)
[2016-06-28] MEDS: FUROSEMIDE 20 MG TAB PO SCH ×2 (08:27→21:25)
[2016-06-28 08:29] LABS: CHCM 28.4; MCHC 28.9 g/dL (31.0-37.0)
[2016-06-28] MEDS: ALPRAZolam 0.5 MG TAB PO PRN ×2 (10:32→22:34)
[2016-06-28] MEDS ORDERED: FUROSEMIDE 10 MG/ML 2 ML VIAL IV ONE (11:51)
--- NOTE | 2016-06-28 12:04 | P.PN ---
Subjective This is a 70-year-old lady with multiple medical problems is admitted to the hospital with difficulty breathing. Patient was noted to have acute hypoxic respiratory failure. Is this was attribute it to multifactorial causes including a lateral lower lobe pneumonia and obesity hypoventilation syndrome. patient was started on IV antibiotics thereafter improved. Patient was on BiPAP initially for short period of time however did not tolerate it well. On 06/23/2016 when patient was evaluated in the ICU patient stated that she does not want any aggressive measures. Today patient was seen on the fourth floor. Patient appears to be stable. States that the she does not want anything aggressive done and to prolong her life. States that if we stop her treatment she would pass away and is verbalizes to understand her situation. Other overnight events are reported. 06/25/2016 Patient apparently did not want hospice this morning states that she wants to live. Stage to be breathing slightly better. No new complaints reported. 06/26/2016 Patient states to be doing well. Continues to be on 10 L of supplement oxygen. States to have a cough that is nonproductive in nature. Denies having any fevers, chills, abdominal pain. Patient did have bowel movement this morning. 06/27/2016 Patient states that her hearing has been significant diminished and feels a sense of fullness... States that she gets dizzy with movement of the head. Currently on 5 L supplemental oxygen. States of a cough that has been nonproductive in nature. States to be improved significantly Denies having any fevers, chills, nausea, vomiting. 06/28/2016 Patient states to be improved today her hearing and sense of fullness is also improved. Patient is currently significant a chair currently on 5 L supplement oxygen saturating at 96%. Denies having a cough, fevers, chills, nausea, vomiting. Patient continues to have a Rebolledo catheter in place. Objective - Vital Signs Vital signs: Vital Signs Temp 97.7 F 06/28/16 07:00 Pulse 60 06/28/16 11:50 Resp 20 06/28/16 11:41 BP 109/41 06/28/16 07:00 Pulse Ox 96 06/28/16 07:00 Intake & Output 06/27/16 06/28/16 06/28/16 18:59 06:59 18:59 Intake Total 1300 Output Total 700 1350 Balance -700 -50 Weight 150 kg Intake: Oral 1300 Output: Urine 700 1350 Other: Voiding Method Indwelling Catheter Indwelling Catheter Indwelling Catheter # Bowel Movements 1 - Exam Gen. appearance alert oriented 3 in no distress Neck is supple noted Lungs diminished breath sounds crackles appreciated at the bases today. Heart regular rate and rhythm no murmurs appreciated Abdomen is obese distended no organomegaly appreciated Lower extremities 1+ edema appreciated no erythema. Neurologically moves all 4 extremity is at this time. - Labs CBC & Chem 7: 06/28/16 07:32 06/28/16 07:32 Labs: Abnormal Lab Results - Last 24 Hours (Table) 06/27/16 06/27/16 06/28/16 Range/Units 17:02 20:58 07:29 RBC (3.80-5.40) m/uL Hgb (11.4-16.0) gm/dL Hct (34.0-46.0) % MCH (25.0-35.0) pg MCHC (31.0-37.0) g/dL RDW (11.5-15.5) % Lymphocytes # (1.0-4.8) k/uL PT (9.0-12.0) sec Sodium (137-145) mmol/L Chloride (98-107) mmol/L Carbon Dioxide (22-30) mmol/L BUN (7-17) mg/dL Glucose (74-99) mg/dL POC Glucose (mg/dL) 247 H 240 H 166 H (75-99) mg/dL Alkaline Phosphatase (38-126) U/L Total Protein (6.3-8.2) g/dL Albumin (3.5-5.0) g/dL 06/28/16 06/28/16 06/28/16 Range/Units 07:32 07:32 07:32 RBC 2.90 L (3.80-5.40) m/uL Hgb 7.1 L (11.4-16.0) gm/dL Hct 24.5 L (34.0-46.0) % MCH 24.4 L (25.0-35.0) pg MCHC 28.9 L (31.0-37.0) g/dL RDW 15.7 H (11.5-15.5) % Lymphocytes # 0.5 L (1.0-4.8) k/uL PT 21.6 H (9.0-12.0) sec Sodium 133 L (137-145) mmol/L Chloride 94 L (98-107) mmol/L Carbon Dioxide 36 H (22-30) mmol/L BUN 26 H (7-17) mg/dL Glucose 154 H (74-99) mg/dL POC Glucose (mg/dL) (75-99) mg/dL Alkaline Phosphatase 36 L (38-126) U/L Total Protein 4.4 L (6.3-8.2) g/dL Albumin 2.2 L (3.5-5.0) g/dL Assessment and Plan Plan: #1 acute on chronic hypoxic hypercapnic respiratory failure which is compensated with the healthcare acquired pneumonia involving the right middle lobe #2 acute on chronic diastolic congestive heart failure #3 moderate to severe pulmonary hypertension #4 chronic respiratory acidosis #5 COPD #6 history of venous thrombo embolism #7 peripheral neuropathy #8 hypothyroidism #9 chronic back pain #10 anemia of unknown etiology. Plan Titrate off oxygen. Patient uses 3 L supplement oxygen at home. Patient will receive an additional 20 Milgram IV Lasix at this time. Continue 21 g by mouth twice a day. Patient will likely be ready for discharge tomorrow in the a.m. Monitor hemoglobin. Patient is currently asymptomatic. We'll taking iron studies and reticulocyte count to evaluate etiology of anemia. We'll be started on Antivert. Peripheral vertigo is likely secondary to vestibular neuronitis. The sense of fullness is likely secondary to steroid use. Goals of care right now are DO NOT RESUSCITATE and no aggressive measures prior to a CODE BLUE. Continue antibiotics and treated off oxygen as tolerated.
[2016-06-28] MEDS: MULTIVITAMINS, THERA 1 EACH TAB PO SCH (12:22)
[2016-06-28 12:24] LABS: Glucose,Whole Blood 218 mg/dL (75-99)
[2016-06-28] MEDS ORDERED: VANCOMYCIN TROUGH DUE 1 EACH MISC MISCELLANE ONE (13:00)
[2016-06-28 13:07] LABS: Reticulocyte % 4.7 % (0.5-2.0)
[2016-06-28 13:32] LABS: % Iron Saturation 13.1 % (20-50)
[2016-06-28] MEDS: SODIUM CHLORIDE 0.9% 1,000 ML IV SCH (14:08)
[2016-06-28] MEDS: VANCOMYCIN 1,750 MG in SODIUM CHLORIDE 0.9% 250 ML IVPB SCH (14:08)
--- NOTE | 2016-06-28 15:02 | P.PN ---
Subjective This is a 70-year-old female patient with multiple medical problems including morbid obesity, chronic hypercapnic respiratory failure, chronic hypoxic respiratory failure secondary to obesity/hypoventilation syndrome/obstructive sleep apnea and she is a lifelong nonsmoker. She is maintained on home oxygen at 2-3 L/m per nasal cannula. She also has a history of hypertension, pulmonary embolism/DVT anticoagulated with warfarin , hypertension, general anxiety disorder, hypothyroidism, gout, GERD. She was recently here in May for acute on chronic hypercapnic respiratory failure and congestive heart failure. She was subsequently discharged and he presented to [facility] yesterday with similar symptoms of shortness of breath, cough and congestion. She was found to have bibasilar pneumonia and congestive heart failure. She was transferred here for further evaluation and treatment. She is seen today in consultation in the intensive care unit. Her chest x-ray does reveal bibasilar pneumonia with dense consolidation in the right middle lobe along with the left lower lobe retrocardiac area. She is maintained on BiPAP at 12/5 at 80% FiO2. She has a 0.9 normal saline at KVO. She has been diuresed and initiated on Lasix 40 mg IV every 12 hours. She was initiated on vancomycin and Zosyn. On 06/22/2016, the patient is being seen in follow-up. As mentioned, the patient went into respiratory failure due to an extensive right lung pneumonia and CHF. The follow-up chest x-ray that was done today showed marked improvement in the right sided pneumonia and there is some residual perihilar pulmonary infiltrates still present however in comparison there is considerable improvement and x-ray findings. The patient remains on a combination of Zosyn and vancomycin.. She is still producing copious amount of purulent respiratory secretions. No cultures have been identified and the patient's blood culture has been negative. The patient is also being diuresis with IV Lasix.The neck fluid Balance is negative more than 3 L over the past 24-48 hours. She is afebrile. No change in mental status. She is using on and off the BiPAP at a pressure of 12 over 5 cm of water with an FiO2 of 70%, currently she is on 10 L high flow oxygen and the saturation is at 88-89%. The PT/INR remains quite elevated and the patient does not show any signs of bleeding. On 06/23/2016 the patient is being seen in follow-up. Her chest x-ray from today still showing a dense consolidation in the right mid/perihilar area. She remains on a combination of vancomycin and Zosyn. Sputum is shown some yeast and gram-positive bacilli and final cultures and sensitivities are still pending. . Note that her baseline is at 3 L/m nasal cannula. Overnight she was using the BiPAP at a pressure of 12 over 5 cm of water. She is gradually increasing her diet. No nausea. No vomiting. She is having some issues with constipation and she was given note of Magnesia and Colace was also started. She has a congested cough. On and off she is producing purulent sputum. No pleurisy pain no chest pain. No change in mental status. She is on IV Solu- Medrol. She is also on IV Lasix once a day. On 06/24/2016 the patient is being seen in follow-up. On today's chest x-ray there is some interval improvement of the right perihilar pulmonary infiltrate. There are small lateral pleural effusions. The patient is still being diuresed with IV Lasix once a day 40 mg IV push. The Creatinine are stable. Creatinine is at 0.8. No fever. No chills. No change in mental status. She has a congested cough.This morning, the patient is on high flow oxygen at 12 L nasal cannula. The earlier sputum that was sent did not yield any positive growth. The white cell count is not elevated at 8.4. Hemoglobin stable at 8.5. I noted a steady progressive drop in hemoglobin since the patient has been in the ICU where based on hemoglobin was 11.1 and has slowly dropped down to 8.5. No evidence of any acute gastrointestinal blood loss. The patient is still on anticoagulation. Her INR today is at 1.3 and the patient will be given another 2 mg of Coumadin today. On 06/28/2016 the patient is being seen in follow-up. She is sitting up on a chair. She is alert and awake. No significant respiratory distress. No nausea or vomiting. No diarrhea. She still has a Rebolledo catheter in place. She is on high flow oxygen at 5 L/m nasal cannula. No leukocytosis. No chest pain. No change in mental status. No other complaints otherwise. She is quite weak and debilitated. Were looking for an ECF transferred to [place]. Objective - Vital Signs Vital signs: Vital Signs Temp 97.7 F 06/28/16 07:00 Pulse 60 06/28/16 11:50 Resp 20 06/28/16 11:41 BP 121/53 06/28/16 12:32 Pulse Ox 96 06/28/16 07:00 Intake & Output 06/27/16 06/28/16 06/28/16 18:59 06:59 18:59 Intake Total 1300 210 Output Total 700 1350 700 Balance -700 -50 -490 Weight 150 kg Intake: IV 210 Piperacillin-Tazobactam 3 50 .375 gm In Dextrose/Water 1 50ml.bag @ 12.5 mls/hr IVPB Q8HR [facility] Rx#: [id number] Sodium Chloride 0.9% 1, 160 000 ml @ 40 mls/hr IV . Q24H [facility] Rx#:[id number] Oral 1300 Output: Urine 700 1350 700 Other: Voiding Method Indwelling Catheter Indwelling Catheter Indwelling Catheter # Bowel Movements 1 - Exam Morbidly obese, comfortable, not in acute distress, currently on high flow oxygen at 5 L per minute nasal cannula.Head exam was generally normal. There was no scleral icterus or corneal arcus. Mucous membranes were moist. Neck is short and the patient has significant crowding of the posterior oropharynx. There is no goiter or neck masses. Lungs sounds are diminished bilaterally along with scattered rhonchi heard throughout the lung son. Sounds are diminished in lung bases. Heart sounds are regular, and there is a systolic ejection murmur grade 3/6 heard throughout the precordium.Abdominal exam revealed normal bowel sounds. The abdomen was soft, non-tender, and without masses, organomegaly, or appreciable enlargement of the abdominal aorta. Organs cannot be palpated adequate. The patient is morbidly obese. Extremities are slightly swollen and there is no cyanosis or clubbing at this point. Neurologically, the patient is awake and alert and she is following commands and answering questions appropriately. - Labs CBC & Chem 7: 06/28/16 07:32 06/28/16 07:32 Labs: Abnormal Lab Results - Last 24 Hours (Table) 06/27/16 06/27/16 06/28/16 Range/Units 17:02 20:58 07:29 RBC (3.80-5.40) m/uL Hgb (11.4-16.0) gm/dL Hct (34.0-46.0) % MCH (25.0-35.0) pg MCHC (31.0-37.0) g/dL RDW (11.5-15.5) % Lymphocytes # (1.0-4.8) k/uL Retic Count (0.5-2.0) % PT (9.0-12.0) sec Sodium (137-145) mmol/L Chloride (98-107) mmol/L Carbon Dioxide (22-30) mmol/L BUN (7-17) mg/dL Glucose (74-99) mg/dL POC Glucose (mg/dL) 247 H 240 H 166 H (75-99) mg/dL % Saturation (20-50) % Alkaline Phosphatase (38-126) U/L Total Protein (6.3-8.2) g/dL Albumin (3.5-5.0) g/dL 06/28/16 06/28/16 06/28/16 Range/Units 07:32 07:32 07:32 RBC 2.90 L (3.80-5.40) m/uL Hgb 7.1 L (11.4-16.0) gm/dL Hct 24.5 L (34.0-46.0) % MCH 24.4 L (25.0-35.0) pg MCHC 28.9 L (31.0-37.0) g/dL RDW 15.7 H (11.5-15.5) % Lymphocytes # 0.5 L (1.0-4.8) k/uL Retic Count (0.5-2.0) % PT 21.6 H (9.0-12.0) sec Sodium 133 L (137-145) mmol/L Chloride 94 L (98-107) mmol/L Carbon Dioxide 36 H (22-30) mmol/L BUN 26 H (7-17) mg/dL Glucose 154 H (74-99) mg/dL POC Glucose (mg/dL) (75-99) mg/dL % Saturation (20-50) % Alkaline Phosphatase 36 L (38-126) U/L Total Protein 4.4 L (6.3-8.2) g/dL Albumin 2.2 L (3.5-5.0) g/dL 06/28/16 06/28/16 06/28/16 Range/Units 12:23 12:43 12:43 RBC (3.80-5.40) m/uL Hgb (11.4-16.0) gm/dL Hct (34.0-46.0) % MCH (25.0-35.0) pg MCHC (31.0-37.0) g/dL RDW (11.5-15.5) % Lymphocytes # (1.0-4.8) k/uL Retic Count 4.7 H (0.5-2.0) % PT (9.0-12.0) sec Sodium (137-145) mmol/L Chloride (98-107) mmol/L Carbon Dioxide (22-30) mmol/L BUN (7-17) mg/dL Glucose (74-99) mg/dL POC Glucose (mg/dL) 218 H (75-99) mg/dL % Saturation 13.1 L (20-50) % Alkaline Phosphatase (38-126) U/L Total Protein (6.3-8.2) g/dL Albumin (3.5-5.0) g/dL Assessment and Plan Plan: Impression: #1 Acute on chronic hypoxic respiratory failure secondary primarily pneumonia of the right lung which is improving and secondarily due to CHF/diastolic dysfunction. The patient has extensive pulmonary infiltration of the right lung which is improving with a combination of Zosyn and vancomycin. On 06/28/2016, the patient is on 5 L of oxygen nasal cannula. There has been steady and progressive improvement of the right lung pneumonia. The patient is however quite weak and debilitated and she will need ECF transfer for further rehabilitation and recuperation. No signs of ongoing septicemia for now. #2 Acute on chronic hypercapnic respiratory failure secondary to above. #3 Acute on chronic diastolic congestive heart failure. #4 Moderate pulmonary hypertension. #5 Morbid obesity with obesity/hypoventilation syndrome. #6 Obstructive sleep apnea. #7 Previous history of PE/DVT, anticoagulated with warfarin, currently INR is 2.2 #8 Chronic back pain. #9 Peripheral neuropathy. #10 Hypothyroidism. #11 Poor overall functional performance secondary to the above-mentioned multiple comorbidities. #13 severe pulmonary hypertension based on echocardiogram from some of 2015 Plan Continue Zosyn and vancomycin. Follow-up chest x-ray. Wean off FiO2 as tolerated. Increased level of activity as tolerated. Incentive spirometer.Note that the patient's CODE STATUS is DNR/DNI.
[2016-06-28 17:06] LABS: Glucose,Whole Blood 239 mg/dL (75-99)
[2016-06-28] MEDS ORDERED: WARFARIN 5 MG TAB PO ONE (18:00)
[2016-06-28] MEDS: MELATONIN 3 MG TABLET PO SCH (21:25)
[2016-06-28] MEDS: MONTELUKAST 10 MG TAB PO SCH (21:25)
[2016-06-28] MEDS: GABAPENTIN 300 MG CAP PO SCH (21:25)
[2016-06-28] MEDS: POLYETHYLENE GLYCOL 3350 17 GM POWD.PACK PO SCH (21:30)
[2016-06-28 21:38] LABS: Glucose,Whole Blood 235 mg/dL (75-99)
[2016-06-29] MEDS: LEVOTHYROXINE 75 MCG TAB PO SCH (06:27)
[2016-06-29] MEDS: LEVOTHYROXINE 100 MCG TAB PO SCH (06:27)
[2016-06-29 07:28] LABS: Glucose,Whole Blood 122 mg/dL (75-99)
[2016-06-29] MEDS: INSULIN LISPRO (humaLOG) 300 UNIT/3 ML VIAL SQ SCH ×3 (07:34→17:43)
[2016-06-29] MEDS: FORMOTEROL FUMARATE 20 MCG/2 ML NEBU INHALATION SCH (08:11)
[2016-06-29] MEDS: BUDESONIDE 1 MG/2 ML NEBU INHALATION SCH (08:11)
[2016-06-29] MEDS: IPRATROPIUM-ALBUTEROL 3 ML NEB INHALATION PRN ×3 (08:11→15:56)
[2016-06-29 08:14] LABS: INR 1.9 (<1.1); Prothrombin Time 18.2 sec (9.0-12.0)
[2016-06-29 08:15] LABS: Anisocytosis Slight; Basophils % (A) 0 %; CH 24.1; Eosinophils # (A) 0.3 k/uL (0-0.7); Eosinophils % (A) 3 %; HCT 25.5 % (34.0-46.0); HDW 3.46; HGB 7.3 gm/dL (11.4-16.0); Hypochromasia Marked; Luc # (Auto) 0.12; Luc % (Auto) 1; Lymphocytes # (A) 0.7 k/uL (1.0-4.8); Lymphocytes % (A) 7 %; MCH 23.9 pg (25.0-35.0); MCHC 28.6 g/dL (31.0-37.0); MCV 83.6 fL (80.0-100.0); Mean Platelet Volume 7.4; Monocytes # (A) 0.5 k/uL (0-1.0); Monocytes % (A) 5 %; Neutrophils # (A) 7.7 k/uL (1.3-7.7); Neutrophils % (A) 83 %; Poikilocytosis Slight; RBC 3.05 m/uL (3.80-5.40); RDW 16.3 % (11.5-15.5); WBC 9.3 k/uL (3.8-10.6); WBC (Perox) 9.61
[2016-06-29 08:26] LABS: ALT 58 U/L (9-52); AST 19 U/L (14-36); Alkaline Phosphatase 42 U/L (38-126); Anion Gap 5 mmol/L; Blood Urea Nitrogen 22 mg/dL (7-17); Calcium 8.6 mg/dL (8.4-10.2); Carbon Dioxide 35 mmol/L (22-30); Chloride 96 mmol/L (98-107); Glucose 115 mg/dL (74-99); Non-African American GFR(MDRD) 57 (>60 ml/min/1.73 sqM); Potassium 3.7 mmol/L (3.5-5.1); Sodium 136 mmol/L (137-145); Total Bilirubin 0.6 mg/dL (0.2-1.3); Total Protein 4.6 g/dL (6.3-8.2)
[2016-06-29] MEDS: PIPERACILLIN-TAZOBACTAM 3.375 GM in DEXTROSE/WATER 1 50ML.BAG IVPB SCH ×2 (09:11→16:36)
[2016-06-29] MEDS: CYANOCOBALAMIN 500 MCG TAB PO SCH (09:12)
[2016-06-29] MEDS: DESVENLAFAXINE SUCCINATE 50 MG TAB.ER.24H PO SCH (09:12)
[2016-06-29] MEDS: DOCUSATE 100 MG CAP PO SCH (09:12)
[2016-06-29] MEDS: busPIRone HCl 10 MG TAB PO SCH (09:12)
[2016-06-29] MEDS: ALLOPURINOL 100 MG TAB PO SCH (09:12)
[2016-06-29] MEDS: FLUTICASONE 50MCG/SPRAY NASAL 16GM EA NOSTRIL SCH (09:13)
[2016-06-29] MEDS: FUROSEMIDE 20 MG TAB PO SCH (09:13)
[2016-06-29] MEDS: FERROUS SULFATE 325 MG TAB PO SCH (09:13)
[2016-06-29] MEDS: hydrALAZINE HCL 25 MG TAB PO SCH ×2 (09:13→12:51)
[2016-06-29] MEDS: LORATADINE 10 MG TAB PO SCH (09:14)
[2016-06-29] MEDS: MELOXICAM 7.5 MG TAB PO SCH (09:15)
[2016-06-29] MEDS: POTASSIUM CHLORIDE ER 20 MEQ TAB.ER PO SCH (09:16)
[2016-06-29] MEDS: METOPROLOL TARTRATE 50 MG TAB PO SCH (09:16)
[2016-06-29] MEDS: PANTOPRAZOLE 40 MG/10 ML VIAL IVP SCH (09:16)
[2016-06-29] MEDS: VERAPAMIL 40 MG TAB PO SCH ×2 (09:17→16:36)
[2016-06-29] MEDS: HYDROcodone/APAP 5-325MG 1 EACH TAB PO PRN (09:17)
[2016-06-29] MEDS: predniSONE 10 MG TAB PO SCH (09:17)
[2016-06-29 10:33] VITALS: RESP 18
[2016-06-29] MEDS ORDERED: WARFARIN 5 MG TAB PO ONE (11:00)
[2016-06-29] MEDS: MULTIVITAMINS, THERA 1 EACH TAB PO SCH (11:11)
[2016-06-29 12:10] LABS: Glucose,Whole Blood 189 mg/dL (75-99)
[2016-06-29] MEDS: SODIUM CHLORIDE 0.9% 1,000 ML IV SCH (14:38)
[2016-06-29] MEDS: VANCOMYCIN 1,750 MG in SODIUM CHLORIDE 0.9% 250 ML IVPB SCH (14:38)
--- NOTE | 2016-06-29 14:45 | P.DS ---
Providers Date of admission: 06/19/16 14:24 Expected date of discharge: 06/29/16 Attending physician: Nik Reardon MD Consults: 06/19/16 14:55 Consult Physician Routine Consulting Provider: Uziel Pathak Consult Reason/Comments: ICU management Do you want consulting provider notified?: Yes 06/21/16 15:54 Consult Physician Routine Consulting Provider: Frantz Faulkner Consult Reason/Comments: CHF Do you want consulting provider notified?: Yes Primary care physician: Uziel Solis [facility] Course: This is a 70-year-old lady with multiple medical problems is admitted to the hospital with difficulty breathing. Patient was noted to have acute hypoxic respiratory failure. Is this was attribute it to multifactorial causes including a lateral lower lobe pneumonia and obesity hypoventilation syndrome. patient was started on IV antibiotics thereafter improved. Patient was on BiPAP initially for short period of time however did not tolerate it well. On 06/23/2016 when patient was evaluated in the ICU patient stated that she does not want any aggressive measures. Today patient was seen on the fourth floor. Patient appears to be stable. States that the she does not want anything aggressive done and to prolong her life. States that if we stop her treatment she would pass away and is verbalizes to understand her situation. Other overnight events are reported. 06/25/2016 Patient apparently did not want hospice this morning states that she wants to live. Stage to be breathing slightly better. No new complaints reported. 06/26/2016 Patient states to be doing well. Continues to be on 10 L of supplement oxygen. States to have a cough that is nonproductive in nature. Denies having any fevers, chills, abdominal pain. Patient did have bowel movement this morning. 06/27/2016 Patient states that her hearing has been significant diminished and feels a sense of fullness... States that she gets dizzy with movement of the head. Currently on 5 L supplemental oxygen. States of a cough that has been nonproductive in nature. States to be improved significantly Denies having any fevers, chills, nausea, vomiting. 06/28/2016 Patient states to be improved today her hearing and sense of fullness is also improved. Patient is currently significant a chair currently on 5 L supplement oxygen saturating at 96%. Denies having a cough, fevers, chills, nausea, vomiting. Patient continues to have a Rebolledo catheter in place. - Exam Gen. appearance alert oriented 3 in no distress Neck is supple noted Lungs diminished breath sounds and good air movement trace crackles appreciated at the bases Heart regular rate and rhythm no murmurs appreciated Abdomen is obese distended no organomegaly appreciated Lower extremities 1+ edema appreciated no erythema. Neurologically moves all 4 extremity is at this time. Plan: #1 acute on chronic hypoxic hypercapnic respiratory failure which is compensated with the healthcare acquired pneumonia involving the right middle lobe #2 acute on chronic diastolic congestive heart failure #3 moderate to severe pulmonary hypertension #4 chronic respiratory acidosis #5 COPD #6 history of venous thrombo embolism #7 peripheral neuropathy #8 hypothyroidism #9 chronic back pain #10 anemia of unknown etiology. Patient is discharged on 3-4 L supple oxygen. Patient's oxygen requirement has significantly decreased. Continue Lasix 20 mg po twice a day. Patient's volume status is stable at this time. We'll recommend a follow-up x-ray in the next week and diuretic dosing accordingly. Recheck PT/INR and Chem-7 within the next week. Continue steroids till patient is followed up by Dr. Hernandez Patient Condition at Discharge: Serious Plan - Discharge Summary New Discharge Prescriptions: ALPRAZolam [Xanax] 0.5 mg PO TID PRN #20 tablet PRN Reason: Anxiety Discharge Medication List Allopurinol [Zyloprim] 100 mg PO DAILY 11/07/13 [History] Desvenlafaxine Succinate [Pristiq ER] 50 mg PO DAILY 11/07/13 [History] Gabapentin [Neurontin] 300 mg PO HS 11/07/13 [History] Ipratropium/Albuterol Sulfate [Duoneb 0.5 mg-3 mg/3 ml Soln] 3 ml INHALATION RT- QID PRN 11/07/13 [History] Levothyroxine Sodium [Levoxyl] 175 mcg PO AC-[id number] 11/07/13 [History] Loratadine [Claritin] 10 mg PO DAILY 11/07/13 [History] Mometasone Furoate [Nasonex Nasal [place]] 2 spray EA NOSTRIL DAILY 11/07/13 [ History] Omeprazole [PriLOSEC] 20 mg PO BID 11/07/13 [History] Potassium Chloride [Klor-Con 20] 20 meq PO DAILY 11/07/13 [History] busPIRone HCl [Buspar] 10 mg PO BID 11/08/13 [History] Ascorbic Acid [Vitamin C] 500 mg PO DAILY 08/16/14 [History] Warfarin [Coumadin] 3 mg PO MOTUTHSA 08/16/14 [History] Cholecalciferol [Vitamin D3] 1,000 unit PO DAILY 12/30/14 [History] Warfarin [Coumadin] 4.5 mg PO SUWEFR 12/30/14 [History] Calcium 500 [id number] 1 tab PO DAILY 06/01/16 [History] Cyanocobalamin [Vitamin B-12] 1,000 mcg PO DAILY 06/01/16 [History] Furosemide [Lasix] 40 mg PO BID 06/01/16 [History] Montelukast [Singulair] 10 mg PO HS 06/01/16 [History] Multivits-Min/Iron/FA/Lutein [Centrum Silver Women Tablet] 1 tab PO DAILY [History] Niacin 500 mg PO DAILY 06/01/16 [History] Verapamil HCl 120 mg PO BID 06/01/16 [History] tiZANidine [Zanaflex] 2 mg PO Q8HR PRN 06/01/16 [History] Methocarbamol [Robaxin] 500 mg PO Q4HR PRN #0 tab 06/04/16 [Rx] Meloxicam [Mobic] 7.5 mg PO DAILY 06/19/16 [History] Metoprolol Tartrate [Lopressor] 12.5 mg PO BID 06/19/16 [History] predniSONE 20 mg PO DAILY 06/19/16 [History] ALPRAZolam [Xanax] 0.5 mg PO TID PRN #20 tablet 06/29/16 [Rx] Docusate [Colace] 100 mg PO BID cap 06/29/16 [Rx] Ferrous Sulfate [Feosol] 325 mg PO TID #0 06/29/16 [Rx] Furosemide [Lasix] 20 mg PO BID tab 06/29/16 [Rx] Meclizine [Antivert] 12.5 mg PO BID PRN #0 tab 06/29/16 [Rx] Metoprolol Tartrate [Lopressor] 50 mg PO BID tab 06/29/16 [Rx] Follow up Appointment(s)/Referral(s): [place],Cain, MD [REFERRING] - 3 Days (While at [facility]) Uziel Kwong MD [Primary Care Provider] - 3 Days (After DC from ECF) Ambulatory/Diagnostic Orders: Prothrombin Time INR [LAB.AMB] Time Frame: 1 Day, Location: Determined By Patient Patient Instructions/Handouts: Heart Failure (DC), Pneumonia (DC) Activity/Diet/Wound Care/Special Instructions: [facility] Cardiac, diabetic diet. Diabetic/heart failure folder given. CBC, BMP in 3 days, daily PT INR Discharge Disposition: TRANSFER TO SNF/ECF
--- NOTE | 2016-06-29 16:11 | P.PN ---
Subjective Principal diagnosis: Acute on chronic hypoxic respiratory failure secondary to pneumonia and congestive heart failure/diastolic dysfunction. This is a 70-year-old female patient with multiple medical problems including morbid obesity, chronic hypercapnic respiratory failure, chronic hypoxic respiratory failure secondary to obesity/hypoventilation syndrome/obstructive sleep apnea and she is a lifelong nonsmoker. She is maintained on home oxygen at 2-3 L/m per nasal cannula. She also has a history of hypertension, pulmonary embolism/DVT anticoagulated with warfarin , hypertension, general anxiety disorder, hypothyroidism, gout, GERD. She was recently here in May for acute on chronic hypercapnic respiratory failure and congestive heart failure. She was subsequently discharged and he presented to [facility] yesterday with similar symptoms of shortness of breath, cough and congestion. She was found to have bibasilar pneumonia and congestive heart failure. She was transferred here for further evaluation and treatment. She is seen today in consultation in the intensive care unit. Her chest x-ray does reveal bibasilar pneumonia with dense consolidation in the right middle lobe along with the left lower lobe retrocardiac area. She is maintained on BiPAP at 12/5 at 80% FiO2. She has a 0.9 normal saline at KVO. She has been diuresed and initiated on Lasix 40 mg IV every 12 hours. She was initiated on vancomycin and Zosyn. On 06/29/2016, patient seems to be doing better, remains on oxygen and her dosing is between 3-5 L nasal cannula. She is presently on 3 L, and she is chronically on 3 L nasal cannula. Patient will likely require anywhere between 3-5 L, most likely for on a regular basis. Objective - Vital Signs Vital signs: Vital Signs Temp 97.6 F 06/29/16 07:00 Pulse 72 06/29/16 16:04 Resp 18 06/29/16 11:25 BP 144/64 06/29/16 07:00 Pulse Ox 92 L 06/29/16 11:25 Intake & Output 06/28/16 06/29/16 06/29/16 18:59 06:59 18:59 Intake Total 210 160 Output Total 1800 1 Balance -1590 159 Weight 146 kg Intake: IV 210 Piperacillin-Tazobactam 3 50 .375 gm In Dextrose/Water 1 50ml.bag @ 12.5 mls/hr IVPB Q8HR [facility] Rx#: [id number] Sodium Chloride 0.9% 1, 160 000 ml @ 40 mls/hr IV . Q24H [facility] Rx#:[id number] Intake, IV Titration 160 Amount Sodium Chloride 0.9% 1, 160 000 ml @ 40 mls/hr IV . Q24H [facility] Rx#:[id number] Output: Urine 1800 1 Other: Voiding Method Bedside Commode Bedside Commode Bedside Commode # Voids 1 2 3 # Bowel Movements 2 1 2 - Exam Morbidly obese, comfortable, not in acute distress, currently on high flow oxygen at 5 L per minute nasal cannula.Head exam was generally normal. There was no scleral icterus or corneal arcus. Mucous membranes were moist. Neck is short and the patient has significant crowding of the posterior oropharynx. There is no goiter or neck masses. Lungs sounds are diminished bilaterally along with scattered rhonchi heard throughout the lung son. Sounds are diminished in lung bases. Heart sounds are regular, and there is a systolic ejection murmur grade 3/6 heard throughout the precordium.Abdominal exam revealed normal bowel sounds. The abdomen was soft, non-tender, and without masses, organomegaly, or appreciable enlargement of the abdominal aorta. Organs cannot be palpated adequate. The patient is morbidly obese. Extremities are slightly swollen and there is no cyanosis or clubbing at this point. Neurologically, the patient is awake and alert and she is following commands and answering questions appropriately. - Labs CBC & Chem 7: 06/29/16 07:25 06/29/16 07:25 Labs: Abnormal Lab Results - Last 24 Hours (Table) 06/28/16 06/28/16 06/29/16 Range/Units 17:04 20:54 07:25 RBC 3.05 L (3.80-5.40) m/uL Hgb 7.3 L (11.4-16.0) gm/dL Hct 25.5 L (34.0-46.0) % MCH 23.9 L (25.0-35.0) pg MCHC 28.6 L (31.0-37.0) g/dL RDW 16.3 H (11.5-15.5) % Lymphocytes # 0.7 L (1.0-4.8) k/uL PT (9.0-12.0) sec Sodium (137-145) mmol/L Chloride (98-107) mmol/L Carbon Dioxide (22-30) mmol/L BUN (7-17) mg/dL Glucose (74-99) mg/dL POC Glucose (mg/dL) 239 H 235 H (75-99) mg/dL ALT (9-52) U/L Total Protein (6.3-8.2) g/dL Albumin (3.5-5.0) g/dL 06/29/16 06/29/16 06/29/16 Range/Units 07:25 07:25 07:26 RBC (3.80-5.40) m/uL Hgb (11.4-16.0) gm/dL Hct (34.0-46.0) % MCH (25.0-35.0) pg MCHC (31.0-37.0) g/dL RDW (11.5-15.5) % Lymphocytes # (1.0-4.8) k/uL PT 18.2 H (9.0-12.0) sec Sodium 136 L (137-145) mmol/L Chloride 96 L (98-107) mmol/L Carbon Dioxide 35 H (22-30) mmol/L BUN 22 H (7-17) mg/dL Glucose 115 H (74-99) mg/dL POC Glucose (mg/dL) 122 H (75-99) mg/dL ALT 58 H (9-52) U/L Total Protein 4.6 L (6.3-8.2) g/dL Albumin 2.4 L (3.5-5.0) g/dL 06/29/16 Range/Units 12:02 RBC (3.80-5.40) m/uL Hgb (11.4-16.0) gm/dL Hct (34.0-46.0) % MCH (25.0-35.0) pg MCHC (31.0-37.0) g/dL RDW (11.5-15.5) % Lymphocytes # (1.0-4.8) k/uL PT (9.0-12.0) sec Sodium (137-145) mmol/L Chloride (98-107) mmol/L Carbon Dioxide (22-30) mmol/L BUN (7-17) mg/dL Glucose (74-99) mg/dL POC Glucose (mg/dL) 189 H (75-99) mg/dL ALT (9-52) U/L Total Protein (6.3-8.2) g/dL Albumin (3.5-5.0) g/dL Assessment and Plan Plan: #1 Acute on chronic hypoxic respiratory failure secondary primarily pneumonia of the right lung which is improving and secondarily due to CHF/diastolic dysfunction. The patient has extensive pulmonary infiltration of the right lung which is improving with a combination of Zosyn and vancomycin. On 06/28/2016, the patient is on 5 L of oxygen nasal cannula. There has been steady and progressive improvement of the right lung pneumonia. The patient is however quite weak and debilitated and she will need ECF transfer for further rehabilitation and recuperation. No signs of ongoing septicemia for now. On , patient is on 3 L nasal cannula, she is steadily improving, and I believe the patient could be considered for discharge to ECF today. Her O2 will be at least 3 most likely 4 L/m 04/01. #2 Acute on chronic hypercapnic respiratory failure secondary to above. #3 Acute on chronic diastolic congestive heart failure. #4 Moderate pulmonary hypertension. #5 Morbid obesity with obesity/hypoventilation syndrome. #6 Obstructive sleep apnea. #7 Previous history of PE/DVT, anticoagulated with warfarin, currently INR is 2.2 #8 Chronic back pain. #9 Peripheral neuropathy. #10 Hypothyroidism. #11 Poor overall functional performance secondary to the above-mentioned multiple comorbidities. #13 severe pulmonary hypertension based on echocardiogram from some of 2016 Recommendation: Agree with discharge planning today, and we can follow-up on outpatient basis Time with Patient: Less than 30
[2016-06-29] MEDS: ALPRAZolam 0.5 MG TAB PO PRN (16:35)
[2016-06-29 16:54] VITALS: BP 145/67; PULSE 75; TEMP 98
[2016-06-29 17:52] LABS: Glucose,Whole Blood 253 mg/dL (75-99)
== END 2016-06-29 18:23 | DRG 291 ==
LOC: EC 13:24 → 6ICU 14:24 → 4MS4W 06-24 10:58
PROVIDERS: ADMIT Internal Medicine; ATTEND Internal Medicine
DX: I11.0 Hypertensive heart disease with heart failure (principal); J18.9 Pneumonia, unspecified organism; J96.21 Acute and chronic respiratory failure with hypoxia; G93.41 Metabolic encephalopathy; E44.0 Moderate protein-calorie malnutrition; E87.2 Acidosis; I27.2 Other secondary pulmonary hypertension; I42.9 Cardiomyopathy, unspecified; J96.22 Acute and chronic respiratory failure with hypercapnia; E66.2 Morbid (severe) obesity with alveolar hypoventilation; J44.0 Chronic obstructive pulmonary disease with (acute) lower respiratory infection; J44.1 Chronic obstructive pulmonary disease with (acute) exacerbation; Z68.42 Body mass index [BMI] 45.0-49.9, adult; I50.43 Acute on chronic combined systolic (congestive) and diastolic (congestive) heart failure; D64.9 Anemia, unspecified; E03.9 Hypothyroidism, unspecified; E78.5 Hyperlipidemia, unspecified; F41.1 Generalized anxiety disorder; G62.9 Polyneuropathy, unspecified; G89.29 Other chronic pain; I45.10 Unspecified right bundle-branch block; I48.0 Paroxysmal atrial fibrillation; J98.4 Other disorders of lung; K21.9 Gastro-esophageal reflux disease without esophagitis; K59.00 Constipation, unspecified; M10.9 Gout, unspecified; R79.1 Abnormal coagulation profile; T45.515A Adverse effect of anticoagulants, initial encounter; M54.9 Dorsalgia, unspecified; Y95 Nosocomial condition; R19.7 Diarrhea, unspecified; Z66 Do not resuscitate; Z86.14 Personal history of Methicillin resistant Staphylococcus aureus infection; Z86.711 Personal history of pulmonary embolism; Z86.718 Personal history of other venous thrombosis and embolism; Z86.74 Personal history of sudden cardiac arrest; Z87.01 Personal history of pneumonia (recurrent); Z87.440 Personal history of urinary (tract) infections; Z99.81 Dependence on supplemental oxygen; Z79.899 Other long term (current) drug therapy
CPT/HCPCS: 36415; 36600; 71010; 71020; 80048; 80053; 80202; 81001; 82550; 82553; 82728; 82805; 83036; 83540; 83550; 83605; 83735; 84100; 84132; 84439; 84443; 84484; 85025; 85045; 85610; 85730; 87040; 87070; 87086; 87205; 87502; 93005; 94640; 94660; 94760; 96365; 96375; 99285

== ENCOUNTER 2016-07-27 16:37 | Inpatient (IN) | payer MEDICARE, BC, OTHER ==
[2016-07-27] MEDS ORDERED: MAGNESIUM HYDROXIDE 2,400 MG/10 ML CUP PO PRN (23:10)
[2016-07-27] MEDS ORDERED: IV VANCOMYCIN PER PHARMACY 1 EACH MISC MISCELLANE PRN (23:10)
[2016-07-27] MEDS ORDERED: MECLIZINE 12.5 MG TAB PO PRN (23:10)
[2016-07-27] MEDS ORDERED: METHOCARBAMOL 500 MG TAB PO PRN (23:10)
[2016-07-27] MEDS ORDERED: CEFEPIME 1 GM in SODIUM CHLORIDE 0.9% 50 ML IVPB SCH (23:15)
[2016-07-27] MEDS: FLUCONAZOLE IN NACL,ISO-OSM 200 MG in SALINE 1 100ML.BAG IVPB SCH (23:42)
[2016-07-27] MEDS: SODIUM CHLORIDE 0.9% 1,000 ML IV SCH (23:42)
[2016-07-27] MEDS: GABAPENTIN 300 MG CAP PO SCH (23:58)
[2016-07-28] MEDS ORDERED: IPRATROPIUM-ALBUTEROL 3 ML NEB INHALATION SCH
[2016-07-28] MEDS ORDERED: IPRATROPIUM-ALBUTEROL 3 ML NEB INHALATION PRN (00:38)
[2016-07-28 01:03] LABS: Basophils % (A) 0 %; CH 23.2; CHCM 26.7; Eosinophils % (A) 0 %; HCT 32.7 % (34.0-46.0); HDW 3.12; HGB 8.7 gm/dL (11.4-16.0); Hypochromasia Marked; Luc # (Auto) 0.11; Luc % (Auto) 1; Lymphocytes # (A) 0.6 k/uL (1.0-4.8); Lymphocytes % (A) 5 %; MCH 23.3 pg (25.0-35.0); MCV 87.2 fL (80.0-100.0); Mean Platelet Volume 6.2; Monocytes # (A) 0.4 k/uL (0-1.0); Monocytes % (A) 3 %; Neutrophils # (A) 11.2 k/uL (1.3-7.7); Neutrophils % (A) 91 %; RBC 3.75 m/uL (3.80-5.40); RDW 15.9 % (11.5-15.5); WBC 12.3 k/uL (3.8-10.6); WBC (Perox) 12.44
[2016-07-28] MEDS: CEFEPIME 2 GM in SODIUM CHLORIDE 0.9% 50 ML IVPB SCH ×3 (01:03→17:35)
[2016-07-28 01:05] LABS: MCHC 26.8 g/dL (31.0-37.0)
[2016-07-28 01:09] LABS: Anion Gap 6 mmol/L; Blood Urea Nitrogen 25 mg/dL (7-17); Calcium 8.6 mg/dL (8.4-10.2); Carbon Dioxide 39 mmol/L (22-30); Chloride 96 mmol/L (98-107); Glucose 100 mg/dL (74-99); Non-African American GFR(MDRD) >60 (>60 ml/min/1.73 sqM); Potassium 4.5 mmol/L (3.5-5.1); Sodium 141 mmol/L (137-145)
[2016-07-28] MEDS ORDERED: VANCOMYCIN 2,000 MG in SODIUM CHLORIDE 0.9% 500 ML IVPB SCH (03:00)
[2016-07-28] MEDS: VANCOMYCIN 2,000 MG in SODIUM CHLORIDE 0.9% 500 ML IVPB SCH ×2 (04:59→22:04)
[2016-07-28] MEDS: HYDROcodone/APAP 5-325MG 1 EACH TAB PO PRN (08:38)
[2016-07-28] MEDS: LEVOTHYROXINE 75 MCG TAB PO SCH (08:39)
[2016-07-28] MEDS: LEVOTHYROXINE 100 MCG TAB PO SCH (08:39)
[2016-07-28] MEDS: IPRATROPIUM-ALBUTEROL 3 ML NEB INHALATION SCH ×4 (09:14→19:53)
[2016-07-28] MEDS: METOPROLOL TARTRATE 12.5 MG TAB PO SCH ×2 (09:33→22:07)
[2016-07-28] MEDS: FLUTICASONE 50MCG/SPRAY NASAL 16GM EA NOSTRIL SCH (09:34)
[2016-07-28] MEDS: DESVENLAFAXINE SUCCINATE 50 MG TAB.ER.24H PO SCH (09:34)
[2016-07-28] MEDS: ALLOPURINOL 100 MG TAB PO SCH (09:34)
[2016-07-28] MEDS: POLYETHYLENE GLYCOL 3350 17 GM POWD.PACK PO SCH (09:34)
[2016-07-28] MEDS: POTASSIUM CHLORIDE ER 20 MEQ TAB.ER PO SCH (09:35)
[2016-07-28] MEDS: VERAPAMIL SR 120 MG TABLET.ER PO SCH ×2 (09:35→22:08)
[2016-07-28] MEDS: busPIRone HCl 10 MG TAB PO SCH ×2 (09:35→22:07)
[2016-07-28] MEDS: FERROUS SULFATE 325 MG TAB PO SCH ×3 (09:36→22:08)
[2016-07-28] MEDS: predniSONE 20 MG TAB PO SCH (09:38)
--- NOTE | 2016-07-28 11:15 | XR ---
EXAMINATION TYPE: XR chest 2V DATE OF EXAM: 07/28/2016 11:04 AM COMPARISON: Chest x-ray June 26, 2016. Older x-rays back through January 02, 2015 HISTORY: CHF with shortness of breath TECHNIQUE: Frontal and lateral views of the chest are obtained. FINDINGS: Osseous structures are demineralized. Degenerative change of both shoulders at acromioclavi cular joint is present. There is multilevel spurring in the spine. There is cardiomegaly with atherosclerotic thoracic aorta. There is chronic senescent change with per sistent left basilar opacity silhouetting left hemidiaphragm consistent with infiltrate and/or atelec tasis on frontal view less well-seen on lateral view. Finding is more prominent versus more remote x- ray January 02, 2015. Bilateral hilar prominence suggests underlying pulmonary artery hypertension. IMPRESSION: Cardiomegaly and chronic changes with persistent left basilar infiltrate and/or atelecta sis felt present, mild central vascular congestion is not excluded. Consider CHF exacerbation.
--- NOTE | 2016-07-28 12:40 | FL ---
COMPARISON: NONE HISTORY: A number of thin and thick substances were ingested under the care of the department of speech pathol ogy. There is penetration and questionable trace amount of aspiration upon ingestion of thin barium. 35 seconds of fluoroscopy utilized. IMPRESSION: 1. No evidence of aspiration or penetration.
--- NOTE | 2016-07-28 14:51 | P.HPIM ---
History of Present Illness H&P Date: 07/28/16 Chief Complaint: Difficulty in breathing 8-year-old female was recently scheduled for surface comes back in to the hospital from [facility] due to complaints of progressive worsening of breathing difficulty over the last few days. Patient states that she has a cough that is productive in nature brownish in color that has increased in intensity. Patient was recently seen in our service for a right lower lobe pneumonia was treated and thereafter discharged home. Patient was noted to have a persistent left lower lobe infiltrate, was noted to have fevers, chills denies having any chest pressure, difficulty breathing, urinary urgency or frequency, lower extremity edema. Patient was at a assisted is improving since discharge over the last 4 weeks. Denies having any sick contacts or there. Influenza is screen was negative and [facility]. Review of Systems All systems: negative (Noted in HPI) Past Medical History Past Medical History: Atrial Fibrillation, Heart Failure, COPD, Deep Vein Thrombosis (DVT), Hypertension, Pneumonia, Pulmonary Embolus (PE), Respiratory Disorder, Thyroid Disorder Additional Past Medical History / Comment(s): anxiety, chronic back pain, morbid obesity, hypothyroidism, peripheral neuroapathy, UTI,CONSTIPATION, per pt 02 6 liters n/c while at [facility].[email or web address], anxiety/depression History of Any Multi-Drug Resistant Organisms: MRSA Date of last positivie culture/infection: 11/13/07 MDRO Source:: Unknown Past Surgical History: Appendectomy, Cholecystectomy, Hysterectomy Additional Past Surgical History / Comment(s): Previous Trach placement- two cardiac arrests during procedure. Past Anesthesia/Blood Transfusion Reactions: Motion Sickness Additional Past Anesthesia/Blood Transfusion Reaction / Comment(s): past blood transfusion" many years ago"-no reaction to it. Past Psychological History: Anxiety Smoking Status: Never smoker Past Alcohol Use History: None Reported Past Drug Use History: None Reported - Past Family History Father Family Medical History: No Reported History Mother Family Medical History: Osteoarthritis (OA) Additional Family Medical History / Comment(s): Two knee replacements and two hip replacements Medications and Allergies Home Medications Medication Instructions Recorded Confirmed Type Allopurinol [Zyloprim] 100 mg PO DAILY 11/07/13 07/27/16 History Desvenlafaxine Succinate [Pristiq 50 mg PO DAILY 11/07/13 07/27/16 History ER] Gabapentin [Neurontin] 300 mg PO HS 11/07/13 07/27/16 History Ipratropium/Albuterol Sulfate 3 ml INHALATION RT-Q6H PRN 11/07/13 07/27/16 History [Duoneb 0.5 mg-3 mg/3 ml Soln] Levothyroxine Sodium [Levoxyl] 175 mcg PO AC-BRKFST 11/07/13 07/27/16 History Omeprazole [PriLOSEC] 20 mg PO HS 11/07/13 07/27/16 History Potassium Chloride [Klor-Con 20] 20 meq PO DAILY 11/07/13 07/27/16 History busPIRone HCl [Buspar] 10 mg PO BID 11/08/13 07/27/16 History Montelukast [Singulair] 10 mg PO HS 06/01/16 07/27/16 History tiZANidine [Zanaflex] 2 mg PO Q8HR PRN 06/01/16 07/27/16 History Metoprolol Tartrate [Lopressor] 12.5 mg PO BID 06/19/16 07/27/16 History predniSONE 20 mg PO DAILY 06/19/16 07/27/16 History Docusate [Colace] 100 mg PO DAILY@1700 07/27/16 07/27/16 History Fluticasone Nasal [place] [Flonase 2 spr EA NOSTRIL DAILY 07/27/16 07/27/16 History Nasal [place]] Furosemide [Lasix] 60 mg PO BID 07/27/16 07/27/16 History HYDROcodone/APAP 5-325MG [[place] 1 tab PO QID PRN 07/27/16 07/27/16 History 5-325] Magnesium Hydroxide [Milk of 2,400 mg PO Q4H PRN 07/27/16 07/27/16 History Magnesia] Polyethylene Glycol 3350 [Miralax] 17 gm PO DAILY 07/27/16 07/27/16 History Spironolactone [Aldactone] 25 mg PO DAILY 07/27/16 07/27/16 History Verapamil HCl [Calan] 120 mg PO BID 07/27/16 07/27/16 History Warfarin Sodium [Coumadin] 4 mg PO DAILY@2100 07/27/16 07/27/16 History Allergies Allergy/AdvReac Type Severity Reaction Status Date / Time Penicillins Allergy Dyspnea Verified 07/27/16 19:57 Physical Exam Vitals: Vital Signs Temp Pulse Pulse Resp BP Pulse Ox 07/28/16 12:20 96 07/28/16 12:15 92 07/28/16 09:25 96 07/28/16 09:17 94 93 L 07/28/16 07:00 97.1 F L 20 143/77 93 L 07/28/16 00:00 20 07/27/16 23:00 96.1 F L 71 20 140/65 99 07/27/16 21:32 96.8 F L 72 19 125/55 97 Intake and Output 07/27/16 07/28/16 07/28/16 22:59 06:59 14:59 Intake Total 200 Output Total 1 Balance 200 -1 Intake: Oral 200 Output: Urine/Stool Mix 1 Other: Voiding Method Bedside Commode # Voids 1 1 3 Weight 131 kg Physical exam Gen. appearance oriented 3 in no distress Neck is supple no JVD Lungs diminished breath sounds crackles at the right base. No Wheezing noted. Heart S1-S2 heard regular rate and rhythm no murmurs appreciated Abdomen is soft nontender no organomegaly bowel sounds are intact Neurologically cranial nerves II-12 grossly intact no focal motor or sensory deficits noted Skin no abnormalities appreciated Results CBC & Chem 7: 07/28/16 00:44 07/28/16 00:44 Labs: Abnormal Lab Results - Last 24 Hours (Table) 07/28/16 07/28/16 Range/Units 00:44 00:44 WBC 12.3 H (3.8-10.6) k/uL RBC 3.75 L (3.80-5.40) m/uL Hgb 8.7 L (11.4-16.0) gm/dL Hct 32.7 L (34.0-46.0) % MCH 23.3 L (25.0-35.0) pg MCHC 26.8 L (31.0-37.0) g/dL RDW 15.9 H (11.5-15.5) % Neutrophils # 11.2 H (1.3-7.7) k/uL Lymphocytes # 0.6 L (1.0-4.8) k/uL Chloride 96 L (98-107) mmol/L Carbon Dioxide 39 H (22-30) mmol/L BUN 25 H (7-17) mg/dL Glucose 100 H (74-99) mg/dL Thrombosis Risk Factor Assmnt - Choose All That Apply Any of the Below Risk Factors Present?: Yes Each Factor Represents 1 point: Abnormal pulmonary function (COPD), Obesity ( BMI >25), Swollen legs (current) Other Risk Factors: Yes Each Risk Factor Represents 2 Points: Age 61-74 years Each Risk Factor Represents 3 Points: History of DVT/PE Other congenital or acquired thrombophilia - If yes, enter type in comment: No Thrombosis Risk Factor Assessment Total Risk Factor Score: 8 Thrombosis Risk Factor Assessment Level: High Risk Assessment and Plan Plan: #1 healthcare acquired pneumonia in the left lower lobe causing an acute on chronic hypoxic hypercapnic respiratory failure #2 moderate to severe pulmonary hypertension #3 chronic metabolic alkalosis #4 history of venous some embolism #5 peripheral neuropathy #6 hypothyroidism #Chronic back pain #8 COPD #9 iron deficiency anemia #10 peripheral vertigo Plan Continue antibiotic therapy as recommended by infectious diseases. Continue breathing treatments. Medications were reconciled. Patient is currently on 6 L of oxygen will be titrated down as tolerated. Incentive spirometer and a PEP valve be given.
--- NOTE | 2016-07-28 15:10 | P.CNPUL ---
History of Present Illness Consult date: 07/28/16 Requesting physician: Nik Reardon Reason for consult: dyspnea Chief complaint: Shortness of breath, cough congestion History of present illness: This is a very pleasant 71-year-old female patient who has a history of atrial fibrillation, congestive heart failure, chronic obstructive pulmonary disease, DVT, hypertension, pulmonary embolism, hypothyroidism, chronic back pain, morbid obesity. She does have chronic hypoxic respiratory failure secondary to obesity/hypoventilation syndrome/obstructive sleep apnea. She is a lifelong nonsmoker. She is oxygen dependent. She was just seen here last month for multilobar pneumonia. She was subsequently discharged to [facility] where she has been for almost 3 weeks. She had developed increasing shortness of breath cough and congestion and was transferred back here yesterday. She is seen today in consultation on the regular medical floor. She is awake and alert and in no acute distress. Her chest x-ray reveals evidence of mild congestive heart failure. She's had minimal leukocytosis at 12.3. She has been afebrile. She is on 6 L of high flow nasal cannula to maintain O2 saturations in the 90s. She is hemodynamically stable. Recent echocardiogram reveals preserved left ventricular systolic function with an ejection fraction between 55 and 60%. Review of Systems 14 point review of system was conducted. All negative other than as mentioned in HPI. Past Medical History Past Medical History: Atrial Fibrillation, Heart Failure, COPD, Deep Vein Thrombosis (DVT), Hypertension, Pneumonia, Pulmonary Embolus (PE), Respiratory Disorder, Thyroid Disorder Additional Past Medical History / Comment(s): anxiety, chronic back pain, morbid obesity, hypothyroidism, peripheral neuroapathy, UTI,CONSTIPATION, per pt 02 6 liters n/c while at [email or web address], anxiety/depression History of Any Multi-Drug Resistant Organisms: MRSA Date of last positivie culture/infection: 11/13/07 MDRO Source:: Unknown Past Surgical History: Appendectomy, Cholecystectomy, Hysterectomy Additional Past Surgical History / Comment(s): Previous Trach placement- two cardiac arrests during procedure. Past Anesthesia/Blood Transfusion Reactions: Motion Sickness Additional Past Anesthesia/Blood Transfusion Reaction / Comment(s): past blood transfusion" many years ago"-no reaction to it. Past Psychological History: Anxiety Smoking Status: Never smoker Past Alcohol Use History: None Reported Past Drug Use History: None Reported - Past Family History Father Family Medical History: No Reported History Mother Family Medical History: Osteoarthritis (OA) Additional Family Medical History / Comment(s): Two knee replacements and two hip replacements Medications and Allergies Home Medications Medication Instructions Recorded Confirmed Type Allopurinol [Zyloprim] 100 mg PO DAILY 11/07/13 07/27/16 History Desvenlafaxine Succinate [Pristiq 50 mg PO DAILY 11/07/13 07/27/16 History ER] Gabapentin [Neurontin] 300 mg PO HS 11/07/13 07/27/16 History Ipratropium/Albuterol Sulfate 3 ml INHALATION RT-Q6H PRN 11/07/13 07/27/16 History [Duoneb 0.5 mg-3 mg/3 ml Soln] Levothyroxine Sodium [Levoxyl] 175 mcg PO AC-BRKFST 11/07/13 07/27/16 History Omeprazole [PriLOSEC] 20 mg PO HS 11/07/13 07/27/16 History Potassium Chloride [Klor-Con 20] 20 meq PO DAILY 11/07/13 07/27/16 History busPIRone HCl [Buspar] 10 mg PO BID 11/08/13 07/27/16 History Montelukast [Singulair] 10 mg PO HS 06/01/16 07/27/16 History tiZANidine [Zanaflex] 2 mg PO Q8HR PRN 06/01/16 07/27/16 History Metoprolol Tartrate [Lopressor] 12.5 mg PO BID 06/19/16 07/27/16 History predniSONE 20 mg PO DAILY 06/19/16 07/27/16 History Docusate [Colace] 100 mg PO DAILY@1700 07/27/16 07/27/16 History Fluticasone Nasal [place] [Flonase 2 spr EA NOSTRIL DAILY 07/27/16 07/27/16 History Nasal [place]] Furosemide [Lasix] 60 mg PO BID 07/27/16 07/27/16 History HYDROcodone/APAP 5-325MG [[place] 1 tab PO QID PRN 07/27/16 07/27/16 History 5-325] Magnesium Hydroxide [Milk of 2,400 mg PO Q4H PRN 07/27/16 07/27/16 History Magnesia] Polyethylene Glycol 3350 [Miralax] 17 gm PO DAILY 07/27/16 07/27/16 History Spironolactone [Aldactone] 25 mg PO DAILY 07/27/16 07/27/16 History Verapamil HCl [Calan] 120 mg PO BID 07/27/16 07/27/16 History Warfarin Sodium [Coumadin] 4 mg PO DAILY@2100 07/27/16 07/27/16 History Allergies Allergy/AdvReac Type Severity Reaction Status Date / Time Penicillins Allergy Dyspnea Verified 07/27/16 19:57 Physical Exam Vitals: Vital Signs Temp Pulse Pulse Resp BP Pulse Ox 07/28/16 12:20 96 07/28/16 12:15 92 07/28/16 09:25 96 07/28/16 09:17 94 93 L 07/28/16 07:00 97.1 F L 20 143/77 93 L 07/28/16 00:00 20 07/27/16 23:00 96.1 F L 71 20 140/65 99 07/27/16 21:32 96.8 F L 72 19 125/55 97 Intake and Output 07/27/16 07/28/16 07/28/16 22:59 06:59 14:59 Intake Total 200 Output Total 1 Balance 200 -1 Intake: Oral 200 Output: Urine/Stool Mix 1 Other: Voiding Method Bedside Commode # Voids 1 1 3 Weight 131 kg GENERAL EXAM: Morbidly obese. Alert, comfortable in no apparent distress. HEAD: Normocephalic. EYES: Normal reaction of pupils, equal size. NOSE: Clear with pink turbinates. THROAT: There is crowding the posterior pharynx. No erythema or exudates. NECK: Short. No masses, no JVD. CHEST: No chest wall deformity. LUNGS: Equal air entry with faint crackles in the posterior bases.. CVS: S1 and S2 normal with no audible murmurs, regular rhythm. ABDOMEN: Obese, soft, normal bowel sounds, no guarding or rigidity. Extremities: There is 1-2+ lower extremity peripheral edema. No clubbing, no cyanosis. Peripheral pulses are intact. Results - Laboratory Findings CBC and BMP: 07/28/16 00:44 07/28/16 00:44 Abnormal lab findings: Abnormal Labs 07/28/16 07/28/16 00:44 00:44 WBC 12.3 H RBC 3.75 L Hgb 8.7 L Hct 32.7 L MCH 23.3 L MCHC 26.8 L RDW 15.9 H Neutrophils # 11.2 H Lymphocytes # 0.6 L Chloride 96 L Carbon Dioxide 39 H BUN 25 H Glucose 100 H - Diagnostic Findings Chest x-ray: image reviewed (Mild CHF.) Assessment and Plan Plan: Impression: #1 Dyspnea, multifactorial, suspect an acute exacerbation of chronic diastolic congestive heart failure. #2 Acute on chronic hypoxic respiratory failure secondary to above. #3 Acute on chronic hypercapnic respiratory failure secondary to above. #4 Moderate pulmonary hypertension. #5 Morbid obesity with obesity/hypoventilation syndrome. #6 Obstructive sleep apnea. #7 Prior history of PE/DVT, anticoagulated with warfarin #8 Chronic back pain. #9 Peripheral neuropathy. #10 Hypothyroidism. #11 Anemia. #12 Poor overall functional performance secondary to the above-mentioned multiple comorbidities. Plan: The patient was seen and evaluated by Dr. Pathak. Her chest x-ray and labs were reviewed. We will add proBNP level. We'll go ahead and add some diuretics to her regime. We'll continue with bronchodilators. She had been initiated on vancomycin and cefepime which may be able to be D escalated. We'll continue to follow make further recommendations based on her clinical status. Time with Patient: Greater than 30
[2016-07-28] MEDS: FUROSEMIDE 10 MG/ML 4 ML VIAL IV SCH (17:35)
[2016-07-28] MEDS: DOCUSATE 100 MG CAP PO SCH (19:12)
[2016-07-28] MEDS: GABAPENTIN 300 MG CAP PO SCH ×2 (22:07)
[2016-07-28] MEDS: PANTOPRAZOLE 40 MG TABLET PO SCH (22:07)
[2016-07-28] MEDS: MONTELUKAST 10 MG TAB PO SCH (22:07)
[2016-07-28] MEDS: SODIUM CHLORIDE 0.9% 1,000 ML IV SCH (22:08)
--- NOTE | 2016-07-28 22:24 | P.CONS ---
History of Present Illness - Reason for Consult Consult date: 07/28/16 - Chief Complaint shortness of breath - History of Present Illness 71-year-old female presents to Hospital from the extended care facility for evaluation of increasing shortness of breath. She does have a history of recent hospitalization where she had significant difficulties with pneumonia. She also had significant medical debility and was transferred to rehabilitation for physical strengthening and treatment of her pulmonary disease. She difficulties with pulmonary disease then and did well with diuresis and breathing treatments. Patient over now has a 2 day history of markedly increasing shortness of breath. Despite oxygen therapy she became more short of breath. She had chest x-ray the week before without evidence of pneumonia. On 07/26 a follow-up x-ray was performed that shows evidence of a new infiltrate. With this patient was transferred to Hospital for further intervention. Infectious disease consultation requested regarding history of pneumonia possibly aspiration. She has had a videoscopic swallow evaluation that showed no evidence of any penetration today. Patient relates that she still having cough and shortness of breath and feels slightly better than yesterday. She is anxious to continue her physical therapy so she can get back to her home setting she was hoping it was getting happen soon and this certainly is a bit of a setback for her. She is denying high-grade fever chills or rigors. The does feel weak and short of breath. Is hoping to have some therapy though while she is here so she doesn't have significant regression of her recent improvement. Review of Systems HEENT:Denies headache or acute visual change. Denies sinus or mouth discomforts. Denies neck stiffness or pain. Denies significant oral cavity pain. Denies difficulty on swallowing. Lungs: patient has severe shortness of breath sputum that is not grossly bloody. No he Does feel short of breath. Cardiovascular: Denies significant chest pain, chest wall pain, orthopnea, or syncope. But has had increasing dyspnea on exer Gastrointestinal:Denies nausea, vomiting, diarrhea, constipation, hematemesis, melena, hematochezia. No no significant change of bowel habit noticed. Musculoskeletal: denies significant myalgias or arthralgias. No new joint swelling. Denies new back pain. Skin: Denies new rash or lesions. No new ulcers or wounds are related.. Neuro: Denies headache or visual change. Denies any new onset weakness or difficulty with ambulation. Denies falls or seizures. Psychiatric:Denies anxiety or depression. Endocrine: has had significant fatigue which is improvingwith her therapy. Past Medical History Past Medical History: Atrial Fibrillation, Heart Failure, COPD, Deep Vein Thrombosis (DVT), Hypertension, Pneumonia, Pulmonary Embolus (PE), Respiratory Disorder, Thyroid Disorder Additional Past Medical History / Comment(s): anxiety, chronic back pain, morbid obesity, hypothyroidism, peripheral neuroapathy, UTI,CONSTIPATION, per pt 02 6 liters n/c while at [facility].gout, anxiety/depression History of Any Multi-Drug Resistant Organisms: MRSA Year Discovered:: 11/13/07 MDRO Source:: Unknown Past Surgical History: Appendectomy, Cholecystectomy, Hysterectomy Additional Past Surgical History / Comment(s): Previous Trach placement- two cardiac arrests during procedure. Past Anesthesia/Blood Transfusion Reactions: Motion Sickness Additional Past Anesthesia/Blood Transfusion Reaction / Comm: past blood transfusion" many years ago"-no reaction to it. Past Psychological History: Anxiety Additional Psychological History / Comment(s): . Lifelong nonsmoker. Retired customer service security officer. No experience. No travel history. No animal exposures Smoking Status: Never smoker Past Alcohol Use History: None Reported Past Drug Use History: None Reported - Past Family History Father Family Medical History: No Reported History Mother Family Medical History: Osteoarthritis (OA) Additional Family Medical History / Comment(s): Two knee replacements and two hip replacements Medications and Allergies Home Medications and Allergies Comment(s): Current Medications Acetaminophen/Hydrocodone Bitart ([place] 5-325) 1 each PO QID PRN PRN Reason: Pain Last Admin: 07/28/16 08:38 Dose: 1 each Albuterol/Ipratropium (Duoneb 0.5 Mg-3 Mg/3 Ml Soln) 3 ml INHALATION RT-QID JOLEEN Last Admin: 07/28/16 19:53 Dose: 3 ml Albuterol/Ipratropium (Duoneb 0.5 Mg-3 Mg/3 Ml Soln) 3 ml INHALATION RT-Q2H PRN PRN Reason: Shortness Of Breath Or Wheezing Allopurinol (Zyloprim) 100 mg PO DAILY JOLEEN Last Admin: 07/28/16 09:34 Dose: 100 mg Alprazolam (Xanax) 0.5 mg PO TID PRN PRN Reason: Anxiety Buspirone HCl (Buspar) 10 mg PO BID [facility] Last Admin: 07/28/16 22:07 Dose: 10 mg Desvenlafaxine Succinate (Pristiq Er) 50 mg PO DAILY [facility] Last Admin: 07/28/16 09:34 Dose: 50 mg Docusate Sodium (Colace) 100 mg PO DAILY@1700 [facility] Last Admin: 07/28/16 19:12 Dose: 100 mg Ferrous Sulfate (Feosol) 325 mg PO TID [facility] Last Admin: 07/28/16 22:08 Dose: 325 mg Fluticasone Propionate (Flonase Nasal [place]) 2 spray EA NOSTRIL DAILY [facility] Last Admin: 07/28/16 09:34 Dose: 2 spray Furosemide (Lasix) 40 mg IV Q8HR [facility] Last Admin: 07/28/16 17:35 Dose: 40 mg Gabapentin (Neurontin) 300 mg PO HS [facility] Last Admin: 07/28/16 22:07 Dose: 300 mg Fluconazole/Sodium Chloride (200 mg/ IV Solution) 100 mls @ 100 mls/hr IVPB Q24H [facility] Last Admin: 07/27/16 23:42 Dose: 100 mls/hr Sodium Chloride (Saline 0.9%) 1,000 mls @ 20 mls/hr IV .Q24H [facility] Last Admin: 07/28/16 22:08 Dose: 20 mls/hr Cefepime HCl 2 gm/ Sodium (Chloride) 50 mls @ 100 mls/hr IVPB Q8H [facility] Last Admin: 07/28/16 17:35 Dose: 100 mls/hr Vancomycin HCl 2,000 mg/ (Sodium Chloride) 500 mls @ 167 mls/hr IVPB Q16H [facility] Last Admin: 07/28/16 22:04 Dose: 167 mls/hr Levothyroxine Sodium (Synthroid) 100 mcg PO AC-BRKFST [facility] Last Admin: 07/28/16 08:39 Dose: 100 mcg Levothyroxine Sodium (Synthroid) 75 mcg PO AC-BRKFST [facility] Last Admin: 07/28/16 08:39 Dose: 75 mcg Magnesium Hydroxide (Milk Of Magnesia) 2,400 mg PO Q4H PRN PRN Reason: Constipation Meclizine HCl (Antivert) 12.5 mg PO BID PRN PRN Reason: Vertigo Methocarbamol (Robaxin) 500 mg PO Q4HR PRN PRN Reason: Muscle Pain Metoprolol Tartrate (Lopressor) 12.5 mg PO BID [facility] Last Admin: 07/28/16 22:07 Dose: 12.5 mg Montelukast Sodium (Singulair) 10 mg PO HS [facility] Last Admin: 07/28/16 22:07 Dose: 10 mg Pantoprazole Sodium (Protonix) 40 mg PO HS [facility] Last Admin: 07/28/16 22:07 Dose: 40 mg Polyethylene Glycol (Miralax) 17 gm PO DAILY [facility] Last Admin: 07/28/16 09:34 Dose: 17 gm Potassium Chloride (K-Dur 20) 20 meq PO DAILY [facility] Last Admin: 07/28/16 09:35 Dose: 20 meq Prednisone () 20 mg PO DAILY [facility] Last Admin: 07/28/16 09:38 Dose: 20 mg Tizanidine HCl (Zanaflex) 2 mg PO Q8HR PRN PRN Reason: Muscle Spasm Verapamil HCl (Isoptin Sr) 120 mg PO BID [facility] Last Admin: 07/28/16 22:08 Dose: 120 mg Home Medications Medication Instructions Recorded Confirmed Type Allopurinol [Zyloprim] 100 mg PO DAILY 11/07/13 07/27/16 History Desvenlafaxine Succinate [Pristiq 50 mg PO DAILY 11/07/13 07/27/16 History ER] Gabapentin [Neurontin] 300 mg PO 11/07/13 07/27/16 History Ipratropium/Albuterol Sulfate 3 ml INHALATION RT-Q6H PRN 11/07/13 07/27/16 History [Duoneb 0.5 mg-3 mg/3 ml Soln] Levothyroxine Sodium [Levoxyl] 175 mcg PO -BRKFST 11/07/13 07/27/16 History Omeprazole [PriLOSEC] 20 mg PO HS 11/07/13 07/27/16 History Potassium Chloride [Klor-Con 20] 20 meq PO DAILY 11/07/13 07/27/16 History busPIRone HCl [Buspar] 10 mg PO BID 11/08/13 07/27/16 History Montelukast [Singulair] 10 mg PO HS 06/01/16 07/27/16 History tiZANidine [Zanaflex] 2 mg PO Q8HR PRN 06/01/16 07/27/16 History Metoprolol Tartrate [Lopressor] 12.5 mg PO BID 06/19/16 07/27/16 History predniSONE 20 mg PO DAILY 06/19/16 07/27/16 History Docusate [Colace] 100 mg PO DAILY@1700 07/27/16 07/27/16 History Fluticasone Nasal [place] [Flonase 2 spr EA NOSTRIL DAILY 07/27/16 07/27/16 History Nasal [place]] Furosemide [Lasix] 60 mg PO BID 07/27/16 07/27/16 History HYDROcodone/APAP 5-325MG [[place] 1 tab PO QID PRN 07/27/16 07/27/16 History 5-325] Magnesium Hydroxide [Milk of 2,400 mg PO Q4H PRN 07/27/16 07/27/16 History Magnesia] Polyethylene Glycol 3350 [Miralax] 17 gm PO DAILY 07/27/16 07/27/16 History Spironolactone [Aldactone] 25 mg PO DAILY 07/27/16 07/27/16 History Verapamil HCl [Calan] 120 mg PO BID 07/27/16 07/27/16 History Warfarin Sodium [Coumadin] 4 mg PO DAILY@2100 07/27/16 07/27/16 History Allergies Allergy/AdvReac Type Severity Reaction Status Date / Time Penicillins Allergy Dyspnea Verified 07/27/16 19:57 Physical Exam Vitals: Vital Signs Temp Pulse Pulse Resp BP Pulse Ox 07/28/16 20:03 94 07/28/16 19:53 92 07/28/16 15:39 98 07/28/16 15:30 94 07/28/16 15:00 98.5 F 96 19 134/69 93 L 07/28/16 12:20 96 07/28/16 12:15 92 07/28/16 09:25 96 07/28/16 09:17 94 93 L 07/28/16 07:00 97.1 F L 20 143/77 93 L 07/28/16 00:00 20 07/27/16 23:00 96.1 F L 71 20 140/65 99 Intake and Output 07/28/16 07/28/16 07/28/16 06:59 14:59 22:59 Intake Total 200 Output Total 1 Balance 200 -1 Intake: Oral 200 Output: Urine/Stool Mix 1 Other: Voiding Method Bedside Commode # Voids 1 3 71-year-old woman who complains of some shortness of breath and cough HEENT: Anicteric conjunctiva are pink and moist nasal mucosa grossly intact without significant lesions, there is no thrush.edentulous Neck: The neck is supple without significant lymphadenopathy or thyromegaly. Lungs: Symmetrical air entry. Few expiratory wheezes. Few crackles in the right posterior base are noted. No dullness or egophony. Heart: irregular an audible S1-S2, no S3 no S4. There is no significant murmur click or rub, PMI was nondisplaced.has old gastric stapling scar Abdomen: obese,Positive bowel sounds soft and nontender without palpable masses or organomegaly. There was no guarding or rebound.Old midline incision well healed, Extremities: The upper extremities have excellent pulses they are symmetric, no significant petechiae or telangiectasia. No splinter hemorrhages were noted. or extremities have evidence of bilateral Left leg slightly more edematous Neuro: Awake alert oriented to person place and time. There are no acute new gross focal sensory motor deficits. Results CBC & Chem 7: 07/28/16 00:44 07/28/16 00:44 Labs: Abnormal Lab Results - Last 24 Hours (Table) 07/28/16 07/28/16 Range/Units 00:44 00:44 WBC 12.3 H (3.8-10.6) k/uL RBC 3.75 L (3.80-5.40) m/uL Hgb 8.7 L (11.4-16.0) gm/dL Hct 32.7 L (34.0-46.0) % MCH 23.3 L (25.0-35.0) pg MCHC 26.8 L (31.0-37.0) g/dL RDW 15.9 H (11.5-15.5) % Neutrophils # 11.2 H (1.3-7.7) k/uL Lymphocytes # 0.6 L (1.0-4.8) k/uL Chloride 96 L (98-107) mmol/L Carbon Dioxide 39 H (22-30) mmol/L BUN 25 H (7-17) mg/dL Glucose 100 H (74-99) mg/dL Laboratory Results WBC 12.3 k/uL (3.8-10.6) H 07/28/16 00:44 RBC 3.75 m/uL (3.80-5.40) L 07/28/16 00:44 Hgb 8.7 gm/dL (11.4-16.0) L 07/28/16 00:44 Hct 32.7 % (34.0-46.0) L 07/28/16 00:44 MCV 87.2 fL (80.0-100.0) 07/28/16 00:44 MCH 23.3 pg (25.0-35.0) L 07/28/16 00:44 MCHC 26.8 g/dL (31.0-37.0) L 07/28/16 00:44 RDW 15.9 % (11.5-15.5) H 07/28/16 00:44 Plt Count 203 k/uL (150-450) 07/28/16 00:44 Neutrophils % 91 % 07/28/16 00:44 Lymphocytes % 5 % 07/28/16 00:44 Monocytes % 3 % 07/28/16 00:44 Eosinophils % 0 % 07/28/16 00:44 Basophils % 0 % 07/28/16 00:44 Neutrophils # 11.2 k/uL (1.3-7.7) H 07/28/16 00:44 Lymphocytes # 0.6 k/uL (1.0-4.8) L 07/28/16 00:44 Monocytes # 0.4 k/uL (0-1.0) 07/28/16 00:44 Eosinophils # 0.0 k/uL (0-0.7) 07/28/16 00:44 Basophils # 0.0 k/uL (0-0.2) 07/28/16 00:44 Hypochromasia Marked 07/28/16 00:44 Sodium 141 mmol/L (137-145) 07/28/16 00:44 Potassium 4.5 mmol/L (3.5-5.1) 07/28/16 00:44 Chloride 96 mmol/L (98-107) L 07/28/16 00:44 Carbon Dioxide 39 mmol/L (22-30) H 07/28/16 00:44 Anion Gap 6 mmol/L 07/28/16 00:44 BUN 25 mg/dL (7-17) H 07/28/16 00:44 Creatinine 0.70 mg/dL (0.52-1.04) 07/28/16 00:44 Est GFR (MDRD) Af Amer >60 (>60 ml/min/1.73 sqM) 07/28/16 00:44 Est GFR (MDRD) Non-Af >60 (>60 ml/min/1.73 sqM) 07/28/16 00:44 Glucose 100 mg/dL (74-99) H 07/28/16 00:44 Calcium 8.6 mg/dL (8.4-10.2) 07/28/16 00:44 Assessment and Plan (1) Pneumonia Narrative/Plan: 71-year-old woman who was transferred from [facility] where she had worsening shortness of breath. Influenza testing is come back as negative. She is not having high-grade fevers or chills but had increasing shortness of breath with cough with sputum production. Does have some underlying lung disease. Chest x-ray is abnormal with a new right lower lobe infiltrate. She is evidence of significant penicillin ALLERGY. She's been placed on cefepime while cultures from process. His also received a dose of vancomycin. Awaiting further data from her prior admission. Laboratory review at this facility shows no prior history of MRSA. The fluoroscopic video evaluation of her swallow shows evidence of any aspiration. The patient does not give a history of second aspiration events. Cultures were further help direct her antibiotics therapy within the next day. If she improves could be potentially transition to levofloxacin to complete a course of therapy at the extended care facility. Status: Acute (2) CHF (congestive heart failure) Status: Acute
[2016-07-29] MEDS: FLUCONAZOLE IN NACL,ISO-OSM 200 MG in SALINE 1 100ML.BAG IVPB SCH (01:10)
[2016-07-29] MEDS: FUROSEMIDE 10 MG/ML 4 ML VIAL IV SCH ×3 (01:11→15:18)
[2016-07-29] MEDS: CEFEPIME 2 GM in SODIUM CHLORIDE 0.9% 50 ML IVPB SCH ×3 (02:15→16:09)
[2016-07-29] MEDS: LEVOTHYROXINE 75 MCG TAB PO SCH (07:09)
[2016-07-29] MEDS: LEVOTHYROXINE 100 MCG TAB PO SCH (07:09)
[2016-07-29] MEDS: IPRATROPIUM-ALBUTEROL 3 ML NEB INHALATION SCH ×4 (07:55→20:05)
[2016-07-29] MEDS: METOPROLOL TARTRATE 12.5 MG TAB PO SCH ×2 (08:21→20:26)
[2016-07-29] MEDS: ALLOPURINOL 100 MG TAB PO SCH (08:21)
[2016-07-29] MEDS: DESVENLAFAXINE SUCCINATE 50 MG TAB.ER.24H PO SCH (08:21)
[2016-07-29] MEDS: HYDROcodone/APAP 5-325MG 1 EACH TAB PO PRN ×2 (08:21→20:32)
[2016-07-29] MEDS: busPIRone HCl 10 MG TAB PO SCH ×2 (08:21→20:27)
[2016-07-29] MEDS: METOPROLOL TARTRATE 50 MG TAB PO SCH ×2 (08:22→20:27)
[2016-07-29] MEDS: FERROUS SULFATE 325 MG TAB PO SCH ×3 (08:22→22:25)
[2016-07-29] MEDS: FLUTICASONE 50MCG/SPRAY NASAL 16GM EA NOSTRIL SCH (08:22)
[2016-07-29] MEDS: POLYETHYLENE GLYCOL 3350 17 GM POWD.PACK PO SCH (08:22)
[2016-07-29] MEDS: POTASSIUM CHLORIDE ER 20 MEQ TAB.ER PO SCH (08:23)
[2016-07-29] MEDS: VERAPAMIL SR 120 MG TABLET.ER PO SCH ×2 (08:23→20:26)
[2016-07-29] MEDS: predniSONE 20 MG TAB PO SCH (08:23)
[2016-07-29 08:51] LABS: INR 3.9 (<1.1); Prothrombin Time 37.9 sec (9.0-12.0)
[2016-07-29 08:52] LABS: Anion Gap 7 mmol/L; Blood Urea Nitrogen 20 mg/dL (7-17); Calcium 8.9 mg/dL (8.4-10.2); Carbon Dioxide 39 mmol/L (22-30); Chloride 95 mmol/L (98-107); Glucose 167 mg/dL (74-99); Non-African American GFR(MDRD) >60 (>60 ml/min/1.73 sqM); Sodium 141 mmol/L (137-145)
--- NOTE | 2016-07-29 11:04 | P.PN ---
Subjective This is a very pleasant 71-year-old female patient who has a history of atrial fibrillation, congestive heart failure, chronic obstructive pulmonary disease, DVT, hypertension, pulmonary embolism, hypothyroidism, chronic back pain, morbid obesity. She does have chronic hypoxic respiratory failure secondary to obesity/hypoventilation syndrome/obstructive sleep apnea. She is a lifelong nonsmoker. She is oxygen dependent. She was just seen here last month for multilobar pneumonia. She was subsequently discharged to [facility] where she has been for almost 3 weeks. She had developed increasing shortness of breath cough and congestion and was transferred back here yesterday. She is seen today in consultation on the regular medical floor. She is awake and alert and in no acute distress. Her chest x-ray reveals evidence of mild congestive heart failure. She's had minimal leukocytosis at 12.3. She has been afebrile. She is on 6 L of high flow nasal cannula to maintain O2 saturations in the 90s. She is hemodynamically stable. Recent echocardiogram reveals preserved left ventricular systolic function with an ejection fraction between 55 and 60%. She is seen again today 07/29/2016 in follow-up on the regular medical floor. She is awake and alert in no acute distress. She states she is breathing easier today as compared to yesterday. She continues with a loose nonproductive cough. She is maintaining good O2 saturations in the 90s on 6 L/ m per nasal cannula. Currently afebrile. Hemodynamically stable. She has been seen by ID and is currently on cefepime and vancomycin. She is being diuresed as well. Objective - Vital Signs Vital signs: Vital Signs Temp 97.6 F 07/29/16 07:00 Pulse 94 07/29/16 08:10 Resp 18 07/29/16 07:00 BP 105/65 07/29/16 07:00 Pulse Ox 92 L 07/29/16 07:00 Intake & Output 07/28/16 07/29/16 07/29/16 18:59 06:59 18:59 Intake Total 750 Output Total 1 Balance -1 750 Weight 128 kg Intake: Oral 750 Output: Urine/Stool Mix 1 Other: Voiding Method Bedside Commode # Voids 3 2 2 # Bowel Movements 2 - Exam GENERAL EXAM: Morbidly obese. Alert, active, comfortable in no apparent distress. HEAD: Normocephalic. EYES: Normal reaction of pupils, equal size. NOSE: Clear with pink turbinates. THROAT: Crowding of the posterior pharynx. No erythema or exudates. NECK: Short. No masses, no JVD. CHEST: No chest wall deformity. LUNGS: Equal air entry with crackles in the posterior bases, more so on the left. CVS: S1 and S2 normal with no audible murmurs, regular rhythm. ABDOMEN: Obese. Soft, normal bowel sounds, no guarding or rigidity. Extremities: There is trace peripheral edema. No clubbing, no cyanosis. Peripheral pulses are intact - Labs CBC & Chem 7: 07/28/16 00:44 07/29/16 08:18 Labs: Abnormal Lab Results - Last 24 Hours (Table) 07/29/16 07/29/16 Range/Units 08:18 08:18 PT 37.9 H (9.0-12.0) sec Chloride 95 L (98-107) mmol/L Carbon Dioxide 39 H (22-30) mmol/L BUN 20 H (7-17) mg/dL Glucose 167 H (74-99) mg/dL Assessment and Plan Plan: Impression: #1 Dyspnea, multifactorial, suspect an acute exacerbation of chronic diastolic congestive heart failure. #2 Acute on chronic hypoxic respiratory failure secondary to above. #3 Acute on chronic hypercapnic respiratory failure secondary to above. #4 Moderate pulmonary hypertension. #5 Morbid obesity with obesity/hypoventilation syndrome. #6 Obstructive sleep apnea. #7 Prior history of PE/DVT, anticoagulated with warfarin #8 Chronic back pain. #9 Peripheral neuropathy. #10 Hypothyroidism. #11 Anemia. #12 Poor overall functional performance secondary to the above-mentioned multiple comorbidities. Plan: The patient was seen and evaluated by Dr. Pathak. We'll continue with her current medications. Antibiotics per ID. We'll repeat her chest x-ray in the a.m. We'll continue to follow.
[2016-07-29] MEDS: VANCOMYCIN 2,000 MG in SODIUM CHLORIDE 0.9% 500 ML IVPB SCH (12:00)
[2016-07-29] MEDS: DOCUSATE 100 MG CAP PO SCH (15:18)
--- NOTE | 2016-07-29 17:04 | P.PN ---
Subjective 71-year-old female was recently scheduled for surface comes back in to the hospital from [facility] due to complaints of progressive worsening of breathing difficulty over the last few days. Patient states that she has a cough that is productive in nature brownish in color that has increased in intensity. Patient was recently seen in our service for a right lower lobe pneumonia was treated and thereafter discharged home. Patient was noted to have a persistent left lower lobe infiltrate, was noted to have fevers, chills denies having any chest pressure, difficulty breathing, urinary urgency or frequency, lower extremity edema. Patient was at a longterm is improving since discharge over the last 4 weeks. Denies having any sick contacts or there. Influenza is screen was negative and [facility]. 07/29/2016 States to have a cough minimally productive in nature. No fevers, chills, nausea, vomiting at this time. Was able to work with physical therapy. Currently on 6 L supplement oxygen. Objective - Vital Signs Vital signs: Vital Signs Temp 97.6 F 07/29/16 15:00 Pulse 94 07/29/16 16:43 Resp 16 07/29/16 15:00 BP 124/65 07/29/16 15:00 Pulse Ox 93 L 07/29/16 15:00 Intake & Output 07/28/16 07/29/16 07/29/16 18:59 06:59 18:59 Intake Total 750 1210 Output Total 1 Balance -1 750 1210 Weight 128 kg Intake: IV 160 Sodium Chloride 0.9% 1, 160 000 ml @ 20 mls/hr IV . Q24H JOLEEN Rx#:[id number] Intake, IV Titration 550 Amount Cefepime 2 gm In Sodium 50 Chloride 0.9% 50 ml @ 100 mls/hr IVPB Q8H JOLEEN Rx#: [id number] Vancomycin 2,000 mg In 500 Sodium Chloride 0.9% 500 ml @ 167 mls/hr IVPB Q16H JOLEEN Rx#:[id number] Oral 750 500 Output: Urine/Stool Mix 1 Other: Voiding Method Bedside Commode # Voids 3 2 1 # Bowel Movements 2 - Exam Gen. appearance oriented 3 Neck is supple no JVD Head atraumatic normal self. Pupils equal round and reactive light and accommodation Lungs crackles at the bases diminished breath sounds however no wheezing or rhonchi appreciated Abdomen is soft obese nontender no organomegaly Neurologically no focal motor or sensory deficits noted No lower extremity edema appreciated Skin no abnormalities noted. - Labs CBC & Chem 7: 07/28/16 00:44 07/29/16 08:18 Labs: Abnormal Lab Results - Last 24 Hours (Table) 07/29/16 07/29/16 Range/Units 08:18 08:18 PT 37.9 H (9.0-12.0) sec Chloride 95 L (98-107) mmol/L Carbon Dioxide 39 H (22-30) mmol/L BUN 20 H (7-17) mg/dL Glucose 167 H (74-99) mg/dL Assessment and Plan Plan: #1 acute on chronic hypercapnic hypoxic respiratory failure likely multifactorial underlying acute exacerbation of congestive heart failure that is diastolic in nature plus concern for tracheobronchitis which is healthcare acquired in nature. #2 moderate to severe pulmonary hypertension #3 chronic metabolic alkalosis #4 history of venous thromboembolism #5 peripheral neuropathy #6 hypothyroidism #Chronic back pain #8 COPD #9 iron deficiency anemia #10 peripheral vertigo Plan Continue antibiotic therapy as recommended by infectious diseases. Continue breathing treatments. Medications were reconciled. Patient is currently on 6 L of oxygen will be titrated down as tolerated. Incentive spirometer and a PEP valve be given. IV diuretics. Repeat chest x-ray in the a.m. PT/OT Likely be discharged in the next 24-48 hours. Titrate down oxygen as tolerated.
--- NOTE | 2016-07-29 20:13 | P.PN ---
Subjective Principal diagnosis: shortness of breath 71-year-old female presents to Hospital from the extended care facility for evaluation of increasing shortness of breath. She does have a history of recent hospitalization where she had significant difficulties with pneumonia. She also had significant medical debility and was transferred to rehabilitation for physical strengthening and treatment of her pulmonary disease. She difficulties with pulmonary disease then and did well with diuresis and breathing treatments. Patient over now has a 2 day history of markedly increasing shortness of breath. Despite oxygen therapy she became more short of breath. She had chest x-ray the week before without evidence of pneumonia. On 07/26 a follow-up x-ray was performed that shows evidence of a new infiltrate. With this patient was transferred to Hospital for further intervention. Infectious disease consultation requested regarding history of pneumonia possibly aspiration. She has had a videoscopic swallow evaluation that showed no evidence of any penetration today. Patient relates that she still having cough and shortness of breath and feels slightly better than yesterday. She is anxious to continue her physical therapy so she can get back to her home setting she was hoping it was getting happen soon and this certainly is a bit of a setback for her. She is denying high-grade fever chills or rigors. She does feel weak and short of breath. But feels somewhat better today and is hoping to have some therapy though while she is here so she doesn't have significant regression of her recent improvement. Objective - Vital Signs Vital signs: Vital Signs Temp 97.6 F 07/29/16 15:00 Pulse 96 07/29/16 20:05 Resp 16 07/29/16 15:00 BP 124/65 07/29/16 15:00 Pulse Ox 93 L 07/29/16 15:00 Intake & Output 07/29/16 07/29/16 07/30/16 06:59 18:59 06:59 Intake Total 750 1210 Balance 750 1210 Weight 128 kg Intake: IV 160 Sodium Chloride 0.9% 1, 160 000 ml @ 20 mls/hr IV . Q24H JOLEEN Rx#:[id number] Intake, IV Titration 550 Amount Cefepime 2 gm In Sodium 50 Chloride 0.9% 50 ml @ 100 mls/hr IVPB Q8H JOLEEN Rx#: [id number] Vancomycin 2,000 mg In 500 Sodium Chloride 0.9% 500 ml @ 167 mls/hr IVPB Q16H JOLEEN Rx#:[id number] Oral 750 500 Other: Voiding Method Bedside Commode # Voids 2 2 # Bowel Movements 2 - Exam 71-year-old woman who complains of some shortness of breath and cough HEENT: Anicteric conjunctiva are pink and moist nasal mucosa grossly intact without significant lesions, there is no thrush.edentulous Neck: The neck is supple without significant lymphadenopathy or thyromegaly. Lungs: Symmetrical air entry. Few expiratory wheezes. Few crackles in the right posterior base are noted. No dullness or egophony. Heart: irregular an audible S1-S2, no S3 no S4. There is no significant murmur click or rub, PMI was nondisplaced.has old gastric stapling scar Abdomen: obese,Positive bowel sounds soft and nontender without palpable masses or organomegaly. There was no guarding or rebound.Old midline incision well healed, Extremities: The upper extremities have excellent pulses they are symmetric, no significant petechiae or telangiectasia. No splinter hemorrhages were noted. or extremities have evidence of bilateral Left leg slightly more edematous Neuro: Awake alert oriented to person place and time. There are no acute new gross focal sensory motor deficits. - Labs CBC & Chem 7: 07/28/16 00:44 07/29/16 08:18 Labs: Abnormal Lab Results - Last 24 Hours (Table) 07/29/16 07/29/16 Range/Units 08:18 08:18 PT 37.9 H (9.0-12.0) sec Chloride 95 L (98-107) mmol/L Carbon Dioxide 39 H (22-30) mmol/L BUN 20 H (7-17) mg/dL Glucose 167 H (74-99) mg/dL Laboratory Results WBC 12.3 k/uL (3.8-10.6) H 07/28/16 00:44 RBC 3.75 m/uL (3.80-5.40) L 07/28/16 00:44 Hgb 8.7 gm/dL (11.4-16.0) L 07/28/16 00:44 Hct 32.7 % (34.0-46.0) L 07/28/16 00:44 MCV 87.2 fL (80.0-100.0) 07/28/16 00:44 MCH 23.3 pg (25.0-35.0) L 07/28/16 00:44 MCHC 26.8 g/dL (31.0-37.0) L 07/28/16 00:44 RDW 15.9 % (11.5-15.5) H 07/28/16 00:44 Plt Count 203 k/uL (150-450) 07/28/16 00:44 Neutrophils % 91 % 07/28/16 00:44 Lymphocytes % 5 % 07/28/16 00:44 Monocytes % 3 % 07/28/16 00:44 Eosinophils % 0 % 07/28/16 00:44 Basophils % 0 % 07/28/16 00:44 Neutrophils # 11.2 k/uL (1.3-7.7) H 07/28/16 00:44 Lymphocytes # 0.6 k/uL (1.0-4.8) L 07/28/16 00:44 Monocytes # 0.4 k/uL (0-1.0) 07/28/16 00:44 Eosinophils # 0.0 k/uL (0-0.7) 07/28/16 00:44 Basophils # 0.0 k/uL (0-0.2) 07/28/16 00:44 Hypochromasia Marked 07/28/16 00:44 PT 37.9 sec (9.0-12.0) H 07/29/16 08:18 INR 3.9 (<1.1) 07/29/16 08:18 Sodium 141 mmol/L (137-145) 07/29/16 08:18 Potassium 4.0 mmol/L (3.5-5.1) 07/29/16 08:18 Chloride 95 mmol/L (98-107) L 07/29/16 08:18 Carbon Dioxide 39 mmol/L (22-30) H 07/29/16 08:18 Anion Gap 7 mmol/L 07/29/16 08:18 BUN 20 mg/dL (7-17) H 07/29/16 08:18 Creatinine 0.71 mg/dL (0.52-1.04) 07/29/16 08:18 Est GFR (MDRD) Af Amer >60 (>60 ml/min/1.73 sqM) 07/29/16 08:18 Est GFR (MDRD) Non-Af >60 (>60 ml/min/1.73 sqM) 07/29/16 08:18 Glucose 167 mg/dL (74-99) H 07/29/16 08:18 Calcium 8.9 mg/dL (8.4-10.2) 07/29/16 08:18 NT-Pro-B Natriuret Pep 462 pg/mL 07/29/16 08:18 Assessment and Plan (1) Pneumonia Narrative/Plan: 71-year-old woman who was transferred from [facility] where she had worsening shortness of breath. Influenza testing is come back as negative. She is not having high-grade fevers or chills but had increasing shortness of breath with cough with sputum production. Does have some underlying lung disease. Chest x-ray is abnormal with a new right lower lobe infiltrate. She is evidence of significant penicillin ALLERGY. She's been placed on cefepime while cultures from process. His also received a dose of vancomycin. Awaiting further data from her prior admission. Laboratory review at this facility shows no prior history of MRSA. The fluoroscopic video evaluation of her swallow shows no evidence of any aspiration. The patient does not give a history of second aspiration events. Cultures were further help direct her antibiotics therapy within the next day. If she improves could be potentially transition to levofloxacin to complete a course of therapy at the extended care facility. Status: Acute (2) CHF (congestive heart failure) Status: Acute
[2016-07-29] MEDS: PANTOPRAZOLE 40 MG TABLET PO SCH (20:27)
[2016-07-29] MEDS: GABAPENTIN 300 MG CAP PO SCH (20:27)
[2016-07-29] MEDS: MONTELUKAST 10 MG TAB PO SCH (20:27)
[2016-07-29] MEDS: FLUCONAZOLE 100 MG TAB PO SCH (22:26)
[2016-07-30] MEDS: SODIUM CHLORIDE 0.9% 1,000 ML IV SCH (00:11)
[2016-07-30] MEDS: CEFEPIME 2 GM in SODIUM CHLORIDE 0.9% 50 ML IVPB SCH ×3 (00:18→18:16)
[2016-07-30] MEDS: FUROSEMIDE 10 MG/ML 4 ML VIAL IV SCH ×3 (00:18→21:37)
[2016-07-30] MEDS ORDERED: VANCOMYCIN TROUGH DUE 1 EACH MISC MISCELLANE ONE (04:00)
[2016-07-30 04:29] LABS: Blood Urea Nitrogen 26 mg/dL (7-17); Calcium 9.1 mg/dL (8.4-10.2); Chloride 89 mmol/L (98-107); Glucose 114 mg/dL (74-99); Non-African American GFR(MDRD) >60 (>60 ml/min/1.73 sqM); Sodium 141 mmol/L (137-145)
[2016-07-30 04:37] LABS: Anion Gap 4 mmol/L
[2016-07-30 04:54] LABS: Carbon Dioxide 48 mmol/L (22-30)
[2016-07-30] MEDS: VANCOMYCIN 2,000 MG in SODIUM CHLORIDE 0.9% 500 ML IVPB SCH (04:58)
--- NOTE | 2016-07-30 08:10 | XR ---
EXAMINATION TYPE: XR chest 1V portable DATE OF EXAM: 07/30/2016 8:01 AM HISTORY: Difficulty breathing. REFERENCE: Previous study dated 07/28/2016. FINDINGS: The heart is enlarged. There is volume loss in the left lung base. There is prominence of t he right interlobar artery suggesting pulmonary artery hypertension. I suspect the left effusion. IMPRESSION: 1. CARDIOMEGALY. 2. FINDINGS SUGGESTING PULMONARY ARTERY HYPERTENSION. 3. ATELECTASIS, LEFT LOWER LOBE. 4. LEFT-SIDED EFFUSION.
[2016-07-30] MEDS: POLYETHYLENE GLYCOL 3350 17 GM POWD.PACK PO SCH (08:42)
[2016-07-30] MEDS: ALLOPURINOL 100 MG TAB PO SCH (08:53)
[2016-07-30] MEDS: busPIRone HCl 10 MG TAB PO SCH ×2 (08:53→21:38)
[2016-07-30] MEDS: POTASSIUM CHLORIDE ER 20 MEQ TAB.ER PO SCH (08:53)
[2016-07-30] MEDS: IPRATROPIUM-ALBUTEROL 3 ML NEB INHALATION SCH ×4 (08:53→19:50)
[2016-07-30] MEDS: DESVENLAFAXINE SUCCINATE 50 MG TAB.ER.24H PO SCH (08:53)
[2016-07-30] MEDS: METOPROLOL TARTRATE 50 MG TAB PO SCH ×2 (08:53→21:38)
[2016-07-30] MEDS: FERROUS SULFATE 325 MG TAB PO SCH ×3 (08:53→21:37)
[2016-07-30] MEDS: METOPROLOL TARTRATE 12.5 MG TAB PO SCH ×2 (08:53→21:37)
[2016-07-30] MEDS: FLUTICASONE 50MCG/SPRAY NASAL 16GM EA NOSTRIL SCH (08:53)
[2016-07-30] MEDS: predniSONE 20 MG TAB PO SCH (08:54)
[2016-07-30] MEDS: LEVOTHYROXINE 75 MCG TAB PO SCH (08:54)
[2016-07-30] MEDS: VERAPAMIL SR 120 MG TABLET.ER PO SCH ×2 (08:54→21:38)
[2016-07-30] MEDS: LEVOTHYROXINE 100 MCG TAB PO SCH (08:54)
[2016-07-30] MEDS: HYDROcodone/APAP 5-325MG 1 EACH TAB PO PRN (09:04)
--- NOTE | 2016-07-30 11:57 | P.PN ---
Subjective 71-year-old female was recently scheduled for surface comes back in to the hospital from [facility] due to complaints of progressive worsening of breathing difficulty over the last few days. Patient states that she has a cough that is productive in nature brownish in color that has increased in intensity. Patient was recently seen in our service for a right lower lobe pneumonia was treated and thereafter discharged home. Patient was noted to have a persistent left lower lobe infiltrate, was noted to have fevers, chills denies having any chest pressure, difficulty breathing, urinary urgency or frequency, lower extremity edema. Patient was at a [facility] is improving since discharge over the last 4 weeks. Denies having any sick contacts or there. Influenza is screen was negative and [facility]. 07/29/2016 States to have a cough minimally productive in nature. No fevers, chills, nausea, vomiting at this time. Was able to work with physical therapy. Currently on 6 L supplement oxygen. 07/30/2016 Patient continues to have cough with significantly increased production of brownish sputum. States to improved. Currently on 4 L a supplement oxygen. Denies having any chest pain, difficulty breathing, nausea, vomiting at this time. Objective - Vital Signs Vital signs: Vital Signs Temp 96.1 F L 07/30/16 07:00 Pulse 88 07/30/16 09:00 Resp 16 07/30/16 07:00 BP 144/62 07/30/16 07:00 Pulse Ox 94 L 07/30/16 07:00 Intake & Output 07/29/16 07/30/16 07/30/16 18:59 06:59 18:59 Intake Total 1210 120 Output Total 1625 Balance 1210 -1505 Weight 125.5 kg Intake: IV 160 Sodium Chloride 0.9% 1, 160 000 ml @ 20 mls/hr IV . Q24H JOLEEN Rx#:[id number] Intake, IV Titration 550 Amount Cefepime 2 gm In Sodium 50 Chloride 0.9% 50 ml @ 100 mls/hr IVPB Q8H JOLEEN Rx#: [id number] Vancomycin 2,000 mg In 500 Sodium Chloride 0.9% 500 ml @ 167 mls/hr IVPB Q16H JOLEEN Rx#:[id number] Oral 500 120 Output: Urine 1625 Other: # Voids 2 1 # Bowel Movements 2 1 - Exam Gen. appearance oriented 3 Neck is supple no JVD Head atraumatic normal self. Pupils equal round and reactive light and accommodation Lungs rhonchi appreciated bilaterally today. Abdomen is soft obese nontender no organomegaly Neurologically no focal motor or sensory deficits noted No lower extremity edema appreciated Skin no abnormalities noted. - Labs CBC & Chem 7: 07/28/16 00:44 07/30/16 03:56 Labs: Abnormal Lab Results - Last 24 Hours (Table) 07/30/16 Range/Units 03:56 Chloride 89 L (98-107) mmol/L Carbon Dioxide 48 H* (22-30) mmol/L BUN 26 H (7-17) mg/dL Glucose 114 H (74-99) mg/dL Assessment and Plan Plan: #1 acute on chronic hypercapnic hypoxic respiratory failure likely multifactorial underlying acute exacerbation of congestive heart failure that is diastolic in nature plus concern for tracheobronchitis which is healthcare acquired in nature. #2 moderate to severe pulmonary hypertension #3 chronic metabolic alkalosis #4 history of venous thromboembolism #5 peripheral neuropathy #6 hypothyroidism #Chronic back pain #8 COPD #9 iron deficiency anemia #10 peripheral vertigo Plan antibiotic therapy. Patient has increased sputum production. However patient' s bicarbonate is over 48 hence will decrease the dose of Lasix. Can likely be discharged after recommendations from infectious diseases for long -term antibody therapy. Suspect morbid tracheobronchitis that a pneumonia.
--- NOTE | 2016-07-30 14:21 | P.PN ---
Subjective This is a very pleasant 71-year-old female patient who has a history of atrial fibrillation, congestive heart failure, chronic obstructive pulmonary disease, DVT, hypertension, pulmonary embolism, hypothyroidism, chronic back pain, morbid obesity. She does have chronic hypoxic respiratory failure secondary to obesity/hypoventilation syndrome/obstructive sleep apnea. She is a lifelong nonsmoker. She is oxygen dependent. She was just seen here last month for multilobar pneumonia. She was subsequently discharged to [facility] where she has been for almost 3 weeks. She had developed increasing shortness of breath cough and congestion and was transferred back here yesterday. She is seen today in consultation on the regular medical floor. She is awake and alert and in no acute distress. Her chest x-ray reveals evidence of mild congestive heart failure. She's had minimal leukocytosis at 12.3. She has been afebrile. She is on 6 L of high flow nasal cannula to maintain O2 saturations in the 90s. She is hemodynamically stable. Recent echocardiogram reveals preserved left ventricular systolic function with an ejection fraction between 55 and 60%. She is seen again today 07/30/2016. She is resting quite comfortably in bed. She is awake and alert in no acute distress. She states she is breathing easier today as compared to yesterday. Her cough has subsided. She is maintaining good O2 saturations in the mid 90s on 4 L per nasal cannula. Objective - Vital Signs Vital signs: Vital Signs Temp 96.1 F L 07/30/16 07:00 Pulse 90 07/30/16 13:35 Resp 16 07/30/16 07:00 BP 144/62 07/30/16 07:00 Pulse Ox 94 L 07/30/16 07:00 Intake & Output 07/29/16 07/30/16 07/30/16 18:59 06:59 18:59 Intake Total 1210 120 500 Output Total 1625 Balance 1210 -1505 500 Weight 125.5 kg Intake: IV 160 Sodium Chloride 0.9% 1, 160 000 ml @ 20 mls/hr IV . Q24H JOLEEN Rx#:[id number] Intake, IV Titration 550 Amount Cefepime 2 gm In Sodium 50 Chloride 0.9% 50 ml @ 100 mls/hr IVPB Q8H JOLEEN Rx#: [id number] Vancomycin 2,000 mg In 500 Sodium Chloride 0.9% 500 ml @ 167 mls/hr IVPB Q16H JOLEEN Rx#:[id number] Oral 500 120 500 Output: Urine 1625 Other: # Voids 2 1 # Bowel Movements 2 1 - Exam GENERAL EXAM: Morbidly obese. Alert, active, comfortable in no apparent distress. HEAD: Normocephalic. EYES: Normal reaction of pupils, equal size. NOSE: Clear with pink turbinates. THROAT: Crowding of the posterior pharynx. No erythema or exudates. NECK: Short. No masses, no JVD. CHEST: No chest wall deformity. LUNGS: Equal air entry with crackles in the posterior bases, more so on the left. CVS: S1 and S2 normal with no audible murmurs, regular rhythm. ABDOMEN: Obese. Soft, normal bowel sounds, no guarding or rigidity. Extremities: There is trace peripheral edema. No clubbing, no cyanosis. Peripheral pulses are intact - Labs CBC & Chem 7: 07/28/16 00:44 07/30/16 03:56 Labs: Abnormal Lab Results - Last 24 Hours (Table) 07/30/16 Range/Units 03:56 Chloride 89 L (98-107) mmol/L Carbon Dioxide 48 H* (22-30) mmol/L BUN 26 H (7-17) mg/dL Glucose 114 H (74-99) mg/dL Assessment and Plan Plan: Impression: #1 Dyspnea, multifactorial, suspect an acute exacerbation of chronic diastolic congestive heart failure. #2 Acute on chronic hypoxic respiratory failure secondary to above. #3 Acute on chronic hypercapnic respiratory failure secondary to above. #4 Moderate pulmonary hypertension. #5 Morbid obesity with obesity/hypoventilation syndrome. #6 Obstructive sleep apnea. #7 Prior history of PE/DVT, anticoagulated with warfarin #8 Chronic back pain. #9 Peripheral neuropathy. #10 Hypothyroidism. #11 Anemia. #12 Poor overall functional performance secondary to the above-mentioned multiple comorbidities. Plan: The patient was seen and evaluated by Dr. Pathak. Her chest x-ray was reviewed. There is no worsening infiltrates noted. She remains on antibiotics per infectious disease. If not to ECF today we will continue to follow make further recommendations based on her clinical status.
[2016-07-30] MEDS: DOCUSATE 100 MG CAP PO SCH (18:16)
[2016-07-30] MEDS: MONTELUKAST 10 MG TAB PO SCH (21:37)
[2016-07-30] MEDS: PANTOPRAZOLE 40 MG TABLET PO SCH (21:37)
[2016-07-30] MEDS: GABAPENTIN 300 MG CAP PO SCH (21:37)
[2016-07-30] MEDS: FLUCONAZOLE 100 MG TAB PO SCH (21:38)
--- NOTE | 2016-07-30 22:23 | P.PN ---
Subjective Principal diagnosis: shortness of breath 71-year-old female presents to Hospital from the extended care facility for evaluation of increasing shortness of breath. She does have a history of recent hospitalization where she had significant difficulties with pneumonia. She also had significant medical debility and was transferred to rehabilitation for physical strengthening and treatment of her pulmonary disease. She difficulties with pulmonary disease then and did well with diuresis and breathing treatments. Patient over now has a 2 day history of markedly increasing shortness of breath. Despite oxygen therapy she became more short of breath. She had chest x-ray the week before without evidence of pneumonia. On 07/26 a follow-up x-ray was performed that shows evidence of a new infiltrate. With this patient was transferred to Hospital for further intervention. Infectious disease consultation requested regarding history of pneumonia possibly aspiration. She has had a videoscopic swallow evaluation that showed no evidence of any penetration today. Patient relates that she still having cough and shortness of breath and feels slightly better than yesterday. She is anxious to continue her physical therapy so she can get back to her home setting she was hoping it was getting happen soon and this certainly is a bit of a setback for her. She is denying high-grade fever chills or rigors. She does feel weak and short of breath. Remains on oxygen therapy. Continues to have sputum production. But feels somewhat better today and is hoping to have some therapy though while she is here so she doesn't have significant regression of her recent improvement. Objective - Vital Signs Vital signs: Vital Signs Temp 97.9 F 07/30/16 15:00 Pulse 77 07/30/16 21:35 Resp 16 07/30/16 15:00 BP 117/75 07/30/16 21:35 Pulse Ox 94 L 07/30/16 19:50 Intake & Output 07/30/16 07/30/16 07/31/16 06:59 18:59 06:59 Intake Total 120 500 Output Total 1625 Balance -1505 500 Weight 125.5 kg Intake: Oral 120 500 Output: Urine 1625 Other: # Voids 1 1 # Bowel Movements 1 - Exam 71-year-old woman who complains of some shortness of breath and cough HEENT: Anicteric conjunctiva are pink and moist nasal mucosa grossly intact without significant lesions, there is no thrush.edentulous Neck: The neck is supple without significant lymphadenopathy or thyromegaly. Lungs: Symmetrical air entry. Few expiratory wheezes. Few crackles in the right posterior base are noted. No dullness or egophony. Heart: irregular an audible S1-S2, no S3 no S4. There is no significant murmur click or rub, PMI was nondisplaced.has old gastric stapling scar Abdomen: obese,Positive bowel sounds soft and nontender without palpable masses or organomegaly. There was no guarding or rebound.Old midline incision well healed, Extremities: The upper extremities have excellent pulses they are symmetric, no significant petechiae or telangiectasia. No splinter hemorrhages were noted. or extremities have evidence of bilateral Left leg slightly more edematous Neuro: Awake alert oriented to person place and time. There are no acute new gross focal sensory motor deficits. - Labs CBC & Chem 7: 07/28/16 00:44 07/30/16 03:56 Labs: Abnormal Lab Results - Last 24 Hours (Table) 07/30/16 Range/Units 03:56 Chloride 89 L (98-107) mmol/L Carbon Dioxide 48 H* (22-30) mmol/L BUN 26 H (7-17) mg/dL Glucose 114 H (74-99) mg/dL Laboratory Results WBC 12.3 k/uL (3.8-10.6) H 07/28/16 00:44 RBC 3.75 m/uL (3.80-5.40) L 07/28/16 00:44 Hgb 8.7 gm/dL (11.4-16.0) L 07/28/16 00:44 Hct 32.7 % (34.0-46.0) L 07/28/16 00:44 MCV 87.2 fL (80.0-100.0) 07/28/16 00:44 MCH 23.3 pg (25.0-35.0) L 07/28/16 00:44 MCHC 26.8 g/dL (31.0-37.0) L 07/28/16 00:44 RDW 15.9 % (11.5-15.5) H 07/28/16 00:44 Plt Count 203 k/uL (150-450) 07/28/16 00:44 Neutrophils % 91 % 07/28/16 00:44 Lymphocytes % 5 % 07/28/16 00:44 Monocytes % 3 % 07/28/16 00:44 Eosinophils % 0 % 07/28/16 00:44 Basophils % 0 % 07/28/16 00:44 Neutrophils # 11.2 k/uL (1.3-7.7) H 07/28/16 00:44 Lymphocytes # 0.6 k/uL (1.0-4.8) L 07/28/16 00:44 Monocytes # 0.4 k/uL (0-1.0) 07/28/16 00:44 Eosinophils # 0.0 k/uL (0-0.7) 07/28/16 00:44 Basophils # 0.0 k/uL (0-0.2) 07/28/16 00:44 Hypochromasia Marked 07/28/16 00:44 PT 37.9 sec (9.0-12.0) H 07/29/16 08:18 INR 3.9 (<1.1) 07/29/16 08:18 Sodium 141 mmol/L (137-145) 07/30/16 03:56 Potassium 4.0 mmol/L (3.5-5.1) 07/30/16 03:56 Chloride 89 mmol/L (98-107) L 07/30/16 03:56 Carbon Dioxide 48 mmol/L (22-30) H* 07/30/16 03:56 Anion Gap 4 mmol/L 07/30/16 03:56 BUN 26 mg/dL (7-17) H 07/30/16 03:56 Creatinine 0.82 mg/dL (0.52-1.04) 07/30/16 03:56 Est GFR (MDRD) Af Amer >60 (>60 ml/min/1.73 sqM) 07/30/16 03:56 Est GFR (MDRD) Non-Af >60 (>60 ml/min/1.73 sqM) 07/30/16 03:56 Glucose 114 mg/dL (74-99) H 07/30/16 03:56 Calcium 9.1 mg/dL (8.4-10.2) 07/30/16 03:56 NT-Pro-B Natriuret Pep 462 pg/mL 07/29/16 08:18 Vancomycin Trough 20.3 ug/mL 02/16/17 03:56 Assessment and Plan (1) Pneumonia Narrative/Plan: 71-year-old woman who was transferred from extended care where she had worsening shortness of breath. Influenza testing is come back as negative. She is not having high-grade fevers or chills but had increasing shortness of breath with cough with sputum production. Does have some underlying lung disease. Chest x-ray is abnormal with a new right lower lobe infiltrate. She is evidence of significant penicillin ALLERGY. She's been placed on cefepime while cultures from process. His also received a dose of vancomycin. Awaiting further data from her prior admission. Laboratory review at this facility shows no prior history of MRSA. The fluoroscopic video evaluation of her swallow shows no evidence of any aspiration. The patient does not give a history of second aspiration events. Cultures were further help direct her antibiotics therapy within the next day. If she improves could be potentially transition to levofloxacin to complete a course of therapy at the extended care facility. Status: Acute (2) CHF (congestive heart failure) Status: Acute
[2016-07-31] MEDS: CEFEPIME 2 GM in SODIUM CHLORIDE 0.9% 50 ML IVPB SCH ×3 (00:52→16:07)
[2016-07-31] MEDS: SODIUM CHLORIDE 0.9% 1,000 ML IV SCH (00:55)
[2016-07-31] MEDS: HYDROcodone/APAP 5-325MG 1 EACH TAB PO PRN ×3 (02:22→16:05)
[2016-07-31] MEDS: VANCOMYCIN 2,000 MG in SODIUM CHLORIDE 0.9% 500 ML IVPB SCH (05:30)
[2016-07-31] MEDS: IPRATROPIUM-ALBUTEROL 3 ML NEB INHALATION SCH ×4 (07:30→20:05)
[2016-07-31] MEDS: predniSONE 20 MG TAB PO SCH (08:27)
[2016-07-31] MEDS: METOPROLOL TARTRATE 12.5 MG TAB PO SCH ×2 (08:27→21:29)
[2016-07-31] MEDS: FLUTICASONE 50MCG/SPRAY NASAL 16GM EA NOSTRIL SCH (08:27)
[2016-07-31] MEDS: FERROUS SULFATE 325 MG TAB PO SCH ×3 (08:27→21:30)
[2016-07-31] MEDS: busPIRone HCl 10 MG TAB PO SCH ×2 (08:27→21:28)
[2016-07-31] MEDS: VERAPAMIL SR 120 MG TABLET.ER PO SCH ×2 (08:27→21:32)
[2016-07-31] MEDS: DESVENLAFAXINE SUCCINATE 50 MG TAB.ER.24H PO SCH (08:27)
[2016-07-31] MEDS: LEVOTHYROXINE 100 MCG TAB PO SCH (08:27)
[2016-07-31] MEDS: FUROSEMIDE 10 MG/ML 4 ML VIAL IV SCH ×2 (08:28→21:28)
[2016-07-31] MEDS: POLYETHYLENE GLYCOL 3350 17 GM POWD.PACK PO SCH (08:28)
[2016-07-31] MEDS: ALLOPURINOL 100 MG TAB PO SCH (08:28)
[2016-07-31] MEDS: LEVOTHYROXINE 75 MCG TAB PO SCH (08:28)
[2016-07-31] MEDS: POTASSIUM CHLORIDE ER 20 MEQ TAB.ER PO SCH (08:28)
[2016-07-31] MEDS: METOPROLOL TARTRATE 50 MG TAB PO SCH ×2 (08:28→21:29)
[2016-07-31] MEDS: ALPRAZolam 0.5 MG TAB PO PRN (08:32)
[2016-07-31 09:42] LABS: Anisocytosis Slight; Basophils % (A) 1 %; CH 23.9; CHCM 28.2; Eosinophils # (A) 0.1 k/uL (0-0.7); Eosinophils % (A) 1 %; HCT 36.6 % (34.0-46.0); HDW 3.03; HGB 10.2 gm/dL (11.4-16.0); Hypochromasia Marked; Luc # (Auto) 0.18; Luc % (Auto) 2; Lymphocytes # (A) 1.4 k/uL (1.0-4.8); Lymphocytes % (A) 18 %; MCH 23.8 pg (25.0-35.0); MCV 85.1 fL (80.0-100.0); Mean Platelet Volume 7.2; Monocytes # (A) 0.4 k/uL (0-1.0); Monocytes % (A) 5 %; Neutrophils # (A) 5.6 k/uL (1.3-7.7); Neutrophils % (A) 73 %; RBC 4.29 m/uL (3.80-5.40); RDW 16.2 % (11.5-15.5); WBC 7.6 k/uL (3.8-10.6); WBC (Perox) 7.77
[2016-07-31 09:49] LABS: ALT 32 U/L (9-52); AST 16 U/L (14-36); Alkaline Phosphatase 46 U/L (38-126); Anion Gap 12 mmol/L; Blood Urea Nitrogen 24 mg/dL (7-17); Calcium 9.3 mg/dL (8.4-10.2); Carbon Dioxide 36 mmol/L (22-30); Chloride 92 mmol/L (98-107); Glucose 165 mg/dL (74-99); Non-African American GFR(MDRD) >60 (>60 ml/min/1.73 sqM); Potassium 4.1 mmol/L (3.5-5.1); Sodium 140 mmol/L (137-145); Total Bilirubin 0.8 mg/dL (0.2-1.3)
--- NOTE | 2016-07-31 13:49 | P.PN ---
Subjective This is a very pleasant 71-year-old female patient who has a history of atrial fibrillation, congestive heart failure, chronic obstructive pulmonary disease, DVT, hypertension, pulmonary embolism, hypothyroidism, chronic back pain, morbid obesity. She does have chronic hypoxic respiratory failure secondary to obesity/hypoventilation syndrome/obstructive sleep apnea. She is a lifelong nonsmoker. She is oxygen dependent. She was just seen here last month for multilobar pneumonia. She was subsequently discharged to [facility] where she has been for almost 3 weeks. She had developed increasing shortness of breath cough and congestion and was transferred back here yesterday. She is seen today in consultation on the regular medical floor. She is awake and alert and in no acute distress. Her chest x-ray reveals evidence of mild congestive heart failure. She's had minimal leukocytosis at 12.3. She has been afebrile. She is on 6 L of high flow nasal cannula to maintain O2 saturations in the 90s. She is hemodynamically stable. Recent echocardiogram reveals preserved left ventricular systolic function with an ejection fraction between 55 and 60%. She is seen again today 07/30/2016. She is resting quite comfortably in bed. She is awake and alert in no acute distress. She states she is breathing easier today as compared to yesterday. Her cough has subsided. She is maintaining good O2 saturations in the mid 90s on 4 L per nasal cannula. She is seen again today 07/31/2016 in follow-up on the regular medical floor. Her chest x-ray reveals evidence of cardiomegaly and some question of pulmonary artery hypertension. There is some atelectatic changes left lower lobe. She denies any worsening shortness of breath, cough or congestion. She has been afebrile. No leukocytosis. ID is following the case as well. Objective - Vital Signs Vital signs: Vital Signs Temp 96.6 F L 07/31/16 07:00 Pulse 72 07/31/16 11:36 Resp 16 07/31/16 07:00 BP 134/62 07/31/16 07:00 Pulse Ox 95 07/31/16 07:00 Intake & Output 07/30/16 07/31/16 07/31/16 18:59 06:59 18:59 Intake Total 500 400 Output Total 3200 Balance 500 -2800 Weight 124.5 kg Intake: Oral 500 400 Output: Urine 3200 Other: Voiding Method Bedside Commode # Voids 1 1 # Bowel Movements 1 - Exam GENERAL EXAM: Morbidly obese. Alert, active, comfortable in no apparent distress. HEAD: Normocephalic. EYES: Normal reaction of pupils, equal size. NOSE: Clear with pink turbinates. THROAT: Crowding of the posterior pharynx. No erythema or exudates. NECK: Short. No masses, no JVD. CHEST: No chest wall deformity. LUNGS: Equal air entry with crackles in the posterior bases, more so on the left. CVS: S1 and S2 normal with no audible murmurs, regular rhythm. ABDOMEN: Obese. Soft, normal bowel sounds, no guarding or rigidity. Extremities: There is trace peripheral edema. No clubbing, no cyanosis. Peripheral pulses are intact - Labs CBC & Chem 7: 07/31/16 09:02 07/31/16 09:02 Labs: Abnormal Lab Results - Last 24 Hours (Table) 07/31/16 07/31/16 Range/Units 09:02 09:02 Hgb 10.2 L (11.4-16.0) gm/dL MCH 23.8 L (25.0-35.0) pg MCHC 28.0 L (31.0-37.0) g/dL RDW 16.2 H (11.5-15.5) % Chloride 92 L (98-107) mmol/L Carbon Dioxide 36 H (22-30) mmol/L BUN 24 H (7-17) mg/dL Glucose 165 H (74-99) mg/dL Total Protein 6.0 L (6.3-8.2) g/dL Albumin 3.0 L (3.5-5.0) g/dL Assessment and Plan Plan: Impression: #1 Dyspnea, suspect an acute exacerbation of chronic diastolic congestive heart failure. #2 Acute on chronic hypoxic respiratory failure secondary to above. #3 Acute on chronic hypercapnic respiratory failure secondary to above. #4 Moderate pulmonary hypertension. #5 Morbid obesity with obesity/hypoventilation syndrome. #6 Obstructive sleep apnea. #7 Prior history of PE/DVT, anticoagulated with warfarin #8 Chronic back pain. #9 Peripheral neuropathy. #10 Hypothyroidism. #11 Anemia. #12 Poor overall functional performance secondary to the above-mentioned multiple comorbidities. Plan: The patient was seen and evaluated by Dr. Pathak. She is cleared for transfer to the extended care facility from the pulmonary standpoint. Continue with her usual pulmonary medications. She is currently on prednisone 20 mg daily. Infectious diseases on the case as well and may transition the patient to oral Levaquin. She will follow-up in our office in 1-2 weeks' time or call sooner with any recurrence of symptoms or other questions or concerns. If not transferred today we will see the patient on as-needed basis.
--- NOTE | 2016-07-31 15:12 | P.PN ---
Subjective Principal diagnosis: shortness of breath 71-year-old female presents to Hospital from the extended care facility for evaluation of increasing shortness of breath. She does have a history of recent hospitalization where she had significant difficulties with pneumonia. She also had significant medical debility and was transferred to rehabilitation for physical strengthening and treatment of her pulmonary disease. She difficulties with pulmonary disease then and did well with diuresis and breathing treatments. Patient over now has a 2 day history of markedly increasing shortness of breath. Despite oxygen therapy she became more short of breath. She had chest x-ray the week before without evidence of pneumonia. On 07/26 a follow-up x-ray was performed that shows evidence of a new infiltrate. With this patient was transferred to Hospital for further intervention. Infectious disease consultation requested regarding history of pneumonia possibly aspiration. She has had a videoscopic swallow evaluation that showed no evidence of any penetration today. Patient relates that she still having cough and shortness of breath and feels slightly better than yesterday. She is anxious to continue her physical therapy so she can get back to her home setting she was hoping it was getting happen soon and this certainly is a bit of a setback for her. She is denying high-grade fever chills or rigors. She does feel weak and short of breath. Remains on oxygen therapy. Continues to have sputum production. Does feel somewhat better today and is hoping to have some therapy though while she is here so she doesn't have significant regression of her recent improvement. Objective - Vital Signs Vital signs: Vital Signs Temp 97.5 F L 07/31/16 15:00 Pulse 72 07/31/16 15:00 Resp 16 07/31/16 15:00 BP 125/53 07/31/16 15:00 Pulse Ox 94 L 07/31/16 15:00 Intake & Output 07/30/16 07/31/16 07/31/16 18:59 06:59 18:59 Intake Total 500 400 Output Total 3200 Balance 500 -2800 Weight 124.5 kg Intake: Oral 500 400 Output: Urine 3200 Other: Voiding Method Bedside Commode # Voids 1 1 # Bowel Movements 1 0 - Exam 71-year-old woman who complains of some shortness of breath and cough HEENT: Anicteric conjunctiva are pink and moist nasal mucosa grossly intact without significant lesions, there is no thrush.edentulous Neck: The neck is supple without significant lymphadenopathy or thyromegaly. Lungs: Symmetrical air entry. Few expiratory wheezes. Few crackles in the right posterior base are noted. No dullness or egophony. Heart: irregular an audible S1-S2, no S3 no S4. There is no significant murmur click or rub, PMI was nondisplaced.has old gastric stapling scar Abdomen: obese,Positive bowel sounds soft and nontender without palpable masses or organomegaly. There was no guarding or rebound.Old midline incision well healed, Extremities: The upper extremities have excellent pulses they are symmetric, no significant petechiae or telangiectasia. No splinter hemorrhages were noted. or extremities have evidence of bilateral Left leg slightly more edematous Neuro: Awake alert oriented to person place and time. There are no acute new gross focal sensory motor deficits. - Labs CBC & Chem 7: 07/31/16 09:02 07/31/16 09:02 Labs: Abnormal Lab Results - Last 24 Hours (Table) 07/31/16 07/31/16 Range/Units 09:02 09:02 Hgb 10.2 L (11.4-16.0) gm/dL MCH 23.8 L (25.0-35.0) pg MCHC 28.0 L (31.0-37.0) g/dL RDW 16.2 H (11.5-15.5) % Chloride 92 L (98-107) mmol/L Carbon Dioxide 36 H (22-30) mmol/L BUN 24 H (7-17) mg/dL Glucose 165 H (74-99) mg/dL Total Protein 6.0 L (6.3-8.2) g/dL Albumin 3.0 L (3.5-5.0) g/dL Laboratory Results WBC 7.6 k/uL (3.8-10.6) 07/31/16 09:02 RBC 4.29 m/uL (3.80-5.40) 07/31/16 09:02 Hgb 10.2 gm/dL (11.4-16.0) L 07/31/16 09:02 Hct 36.6 % (34.0-46.0) 07/31/16 09:02 MCV 85.1 fL (80.0-100.0) 07/31/16 09:02 MCH 23.8 pg (25.0-35.0) L 07/31/16 09:02 MCHC 28.0 g/dL (31.0-37.0) L 07/31/16 09:02 RDW 16.2 % (11.5-15.5) H 07/31/16 09:02 Plt Count 347 k/uL (150-450) 07/31/16 09:02 Neutrophils % 73 % 07/31/16 09:02 Lymphocytes % 18 % 07/31/16 09:02 Monocytes % 5 % 07/31/16 09:02 Eosinophils % 1 % 07/31/16 09:02 Basophils % 1 % 07/31/16 09:02 Neutrophils # 5.6 k/uL (1.3-7.7) 07/31/16 09:02 Lymphocytes # 1.4 k/uL (1.0-4.8) 07/31/16 09:02 Monocytes # 0.4 k/uL (0-1.0) 07/31/16 09:02 Eosinophils # 0.1 k/uL (0-0.7) 07/31/16 09:02 Basophils # 0.0 k/uL (0-0.2) 07/31/16 09:02 Hypochromasia Marked 07/31/16 09:02 Anisocytosis Slight 07/31/16 09:02 PT 37.9 sec (9.0-12.0) H 07/29/16 08:18 INR 3.9 (<1.1) 07/29/16 08:18 Sodium 140 mmol/L (137-145) 07/31/16 09:02 Potassium 4.1 mmol/L (3.5-5.1) 07/31/16 09:02 Chloride 92 mmol/L (98-107) L 07/31/16 09:02 Carbon Dioxide 36 mmol/L (22-30) H 07/31/16 09:02 Anion Gap 12 mmol/L 07/31/16 09:02 BUN 24 mg/dL (7-17) H 07/31/16 09:02 Creatinine 0.81 mg/dL (0.52-1.04) 07/31/16 09:02 Est GFR (MDRD) Af Amer >60 (>60 ml/min/1.73 sqM) 07/31/16 09:02 Est GFR (MDRD) Non-Af >60 (>60 ml/min/1.73 sqM) 07/31/16 09:02 Glucose 165 mg/dL (74-99) H 07/31/16 09:02 Calcium 9.3 mg/dL (8.4-10.2) 07/31/16 09:02 Total Bilirubin 0.8 mg/dL (0.2-1.3) 07/31/16 09:02 AST 16 U/L (14-36) 07/31/16 09:02 ALT 32 U/L (9-52) 07/31/16 09:02 Alkaline Phosphatase 46 U/L (38-126) 07/31/16 09:02 NT-Pro-B Natriuret Pep 462 pg/mL 07/29/16 08:18 Total Protein 6.0 g/dL (6.3-8.2) L 07/31/16 09:02 Albumin 3.0 g/dL (3.5-5.0) L 07/31/16 09:02 Vancomycin Trough 20.3 ug/mL 07/30/16 03:56 Assessment and Plan (1) Pneumonia Narrative/Plan: 71-year-old woman who was transferred from extended care where she had worsening shortness of breath. Influenza testing is come back as negative. She is not having high-grade fevers or chills but had increasing shortness of breath with cough with sputum production. Does have some underlying lung disease. Chest x-ray is abnormal with a new right lower lobe infiltrate. She is evidence of significant penicillin ALLERGY. She's been placed on cefepime while cultures from process. His also received a dose of vancomycin. Awaiting further data from her prior admission. Laboratory review at this facility shows no prior history of MRSA. The fluoroscopic video evaluation of her swallow shows no evidence of any aspiration. The patient does not give a history of second aspiration events. Cultures were further help direct her antibiotics therapy within the next day. If she improves could be potentially transition to levofloxacin to complete a 7 day course of therapy at the extended care facility. Status: Acute (2) CHF (congestive heart failure) Status: Acute
[2016-07-31] MEDS: DOCUSATE 100 MG CAP PO SCH (16:05)
[2016-07-31] MEDS: FLUCONAZOLE 100 MG TAB PO SCH (21:28)
[2016-07-31] MEDS: GABAPENTIN 300 MG CAP PO SCH (21:29)
[2016-07-31] MEDS: MONTELUKAST 10 MG TAB PO SCH (21:29)
[2016-07-31] MEDS: PANTOPRAZOLE 40 MG TABLET PO SCH (21:30)
[2016-08-01] MEDS: SODIUM CHLORIDE 0.9% 1,000 ML IV SCH (00:56)
[2016-08-01] MEDS: CEFEPIME 2 GM in SODIUM CHLORIDE 0.9% 50 ML IVPB SCH ×2 (00:57→09:24)
[2016-08-01] MEDS: VANCOMYCIN 2,000 MG in SODIUM CHLORIDE 0.9% 500 ML IVPB SCH (06:19)
--- NOTE | 2016-08-01 07:05 | PN ---
DATE OF SERVICE: 07/31/2016 INTERVAL HISTORY: Mrs. Fernandez is a 71-year-old female currently being treated for acute hypoxic and hypercapnic respiratory secondary to CHF with diastolic dysfunction and tracheobronchitis as well. Currently, patient says that she is better today. Denied any worsening cough or sputum production. Currently requiring oxygen 4 L nasal cannula. Denied any chest pain. No fever. No chills. No acute overnight issues. REVIEW OF SYSTEMS: CONSTITUTIONAL: No fever. No chills. No weakness, malaise. RESPIRATORY: Patient does have a cough with minimal sputum production and short of breath baseline. CARDIOVASCULAR: No chest pain. Patient does not have any leg swelling. ABDOMEN: No nausea or vomiting, abdominal pain. GENITOURINARY: Negative. ENDOCRINE: Negative. PSYCHIATRY: Negative. SKIN: Negative. All other remaining 14 point review of systems negative except as above. Current medications include [place] 5/75, DuoNeb, Zyloprim, Xanax, BuSpar, Cefepime, Pristiq, Colace, Feosol, Diflucan, Flonase, Lasix, gabapentin, levothyroxine, Milk of Magnesia, meclizine, Antivert, Robaxin, Lopressor, Singulair, Protonix, MiraLAX, K-Dur, prednisone, sodium chloride, ( ), tizanidine, vancomycin and Verapamil. PHYSICAL EXAMINATION: A 71-year-old male lying in the bed, awake, alert, oriented x2, appears in no apparent distress. VITALS: Blood pressure is 125/53, pulse is 72, respirations 16, temperature afebrile, pulse ox 95% on room air. HEENT: Atraumatic, normocephalic. Neck is supple. No JVD. CVS: S1, S2 heard. No murmurs or gallop. LUNGS: Bilateral air entry is present. Basilar crackles positive. Nonlabored breathing. No wheezing. ABDOMEN: Soft, obese. Bowel sounds are present. CODING COORDINATOR: Awake, alert, oriented x3 appears to be in no apparent distress. No focal deficits. EXTREMITIES: No edema. Pulses palpable bilaterally. No clubbing or cyanosis. PSYCHIATRIC: Cooperative. SKIN: No rash or skin lesions. LABORATORY DATA: WBC 7.6, hemoglobin 10.2, platelets 347, sodium 140, potassium 4.4, chloride 92. Bicarb is 36. BUN 24, creatinine 8.1, albumin 3.0. IMPRESSION: 1. Acute hypoxic and hypercapnic respiratory failure multifactorial secondary to acute congestive heart failure exacerbation with diastolic dysfunction and possible tracheobronchitis. 2. Acute on chronic congestive heart failure with diastolic dysfunction. Continued on IV diuresis. 3. Moderate to severe pulmonary hypertension. 4. Chronic metabolic acidosis. 5. History of deep venous thrombosis. 6. Peripheral neuropathy. 7. Hypothyroidism. 8. Chronic back pain. 9. Chronic respiratory failure secondary to chronic obstructive pulmonary disease. 10. Iron deficiency anemia. 11. Vertigo history. DISCUSSION AND PLAN: Patient will be continued on antibiotics in the form of vancomycin and cefepime. Awaiting final culture report and ID final antibiotic recommendations. Continue with IV diuresis today and will change to p.o. Lasix tomorrow. Will follow labs in a.m. Further recommendations based on clinical course. Anticipate discharge to [facility] in the next 24-hours.
[2016-08-01] MEDS: IPRATROPIUM-ALBUTEROL 3 ML NEB INHALATION SCH ×2 (07:20→11:15)
[2016-08-01 08:44] LABS: Basophils % (A) 0 %; CH 23.3; CHCM 27.4; Eosinophils # (A) 0.1 k/uL (0-0.7); Eosinophils % (A) 1 %; HCT 35.8 % (34.0-46.0); HGB 9.8 gm/dL (11.4-16.0); Hypochromasia Marked; Luc # (Auto) 0.23; Luc % (Auto) 3; Lymphocytes # (A) 1.3 k/uL (1.0-4.8); Lymphocytes % (A) 19 %; MCH 23.2 pg (25.0-35.0); Mean Platelet Volume 6.3; Monocytes # (A) 0.5 k/uL (0-1.0); Monocytes % (A) 7 %; Neutrophils # (A) 4.8 k/uL (1.3-7.7); Neutrophils % (A) 70 %; RBC 4.22 m/uL (3.80-5.40); RDW 15.6 % (11.5-15.5); WBC 6.9 k/uL (3.8-10.6); WBC (Perox) 7.24
[2016-08-01 08:48] LABS: MCHC 27.2 g/dL (31.0-37.0)
[2016-08-01 08:53] LABS: Anion Gap 5 mmol/L; Blood Urea Nitrogen 25 mg/dL (7-17); Calcium 9.1 mg/dL (8.4-10.2); Chloride 94 mmol/L (98-107); Glucose 118 mg/dL (74-99); Non-African American GFR(MDRD) >60 (>60 ml/min/1.73 sqM); Potassium 4.2 mmol/L (3.5-5.1); Sodium 139 mmol/L (137-145)
[2016-08-01 09:07] LABS: Carbon Dioxide 40 mmol/L (22-30)
[2016-08-01] MEDS: FUROSEMIDE 10 MG/ML 4 ML VIAL IV SCH (09:24)
[2016-08-01] MEDS: DESVENLAFAXINE SUCCINATE 50 MG TAB.ER.24H PO SCH (09:25)
[2016-08-01] MEDS: LEVOTHYROXINE 75 MCG TAB PO SCH (09:25)
[2016-08-01] MEDS: busPIRone HCl 10 MG TAB PO SCH (09:25)
[2016-08-01] MEDS: POLYETHYLENE GLYCOL 3350 17 GM POWD.PACK PO SCH (09:25)
[2016-08-01] MEDS: FERROUS SULFATE 325 MG TAB PO SCH (09:25)
[2016-08-01] MEDS: LEVOTHYROXINE 100 MCG TAB PO SCH (09:26)
[2016-08-01] MEDS: ALLOPURINOL 100 MG TAB PO SCH (09:26)
[2016-08-01] MEDS: METOPROLOL TARTRATE 12.5 MG TAB PO SCH (09:26)
[2016-08-01] MEDS: POTASSIUM CHLORIDE ER 20 MEQ TAB.ER PO SCH (09:26)
[2016-08-01] MEDS: VERAPAMIL SR 120 MG TABLET.ER PO SCH (09:26)
[2016-08-01] MEDS: METOPROLOL TARTRATE 50 MG TAB PO SCH (09:26)
[2016-08-01] MEDS: predniSONE 20 MG TAB PO SCH (09:27)
[2016-08-01] MEDS: ALPRAZolam 0.5 MG TAB PO PRN (09:33)
[2016-08-01] MEDS: HYDROcodone/APAP 5-325MG 1 EACH TAB PO PRN (09:33)
[2016-08-01 09:46] VITALS: BP 127/60; RESP 18; TEMP 96.6
[2016-08-01 11:32] VITALS: PULSE 76
[2016-08-01] MEDS: FLUTICASONE 50MCG/SPRAY NASAL 16GM EA NOSTRIL SCH (12:48)
--- NOTE | 2016-08-01 12:49 | P.PN ---
Subjective This is a very pleasant 71-year-old female patient who has a history of atrial fibrillation, congestive heart failure, chronic obstructive pulmonary disease, DVT, hypertension, pulmonary embolism, hypothyroidism, chronic back pain, morbid obesity. She does have chronic hypoxic respiratory failure secondary to obesity/hypoventilation syndrome/obstructive sleep apnea. She is a lifelong nonsmoker. She is oxygen dependent. She was just seen here last month for multilobar pneumonia. She was subsequently discharged to [facility] where she has been for almost 3 weeks. She had developed increasing shortness of breath cough and congestion and was transferred back here yesterday. She is seen today in consultation on the regular medical floor. She is awake and alert and in no acute distress. Her chest x-ray reveals evidence of mild congestive heart failure. She's had minimal leukocytosis at 12.3. She has been afebrile. She is on 6 L of high flow nasal cannula to maintain O2 saturations in the 90s. She is hemodynamically stable. Recent echocardiogram reveals preserved left ventricular systolic function with an ejection fraction between 55 and 60%. She is seen again today 07/30/2016. She is resting quite comfortably in bed. She is awake and alert in no acute distress. She states she is breathing easier today as compared to yesterday. Her cough has subsided. She is maintaining good O2 saturations in the mid 90s on 4 L per nasal cannula. She is seen again today 07/31/2016 in follow-up on the regular medical floor. Her chest x-ray reveals evidence of cardiomegaly and some question of pulmonary artery hypertension. There is some atelectatic changes left lower lobe. She denies any worsening shortness of breath, cough or congestion. She has been afebrile. No leukocytosis. ID is following the case as well. The patient is seen again today 08/01/2016 to follow-up on the regular medical floor. She is awake and alert in no acute distress. She denies any worsening shortness of breath, cough or congestion. No chills or night sweats. No leukocytosis. She has remained afebrile. She has been maintained on vancomycin and cefepime. Objective - Vital Signs Vital signs: Vital Signs Temp 96.6 F L 08/01/16 07:00 Pulse 76 08/01/16 11:25 Resp 18 08/01/16 11:03 BP 127/60 08/01/16 07:00 Pulse Ox 100 08/01/16 07:00 Intake & Output 07/31/16 08/01/16 08/01/16 18:59 06:59 18:59 Weight 124.5 kg Other: Voiding Method Bedside Commode Bedside Commode Bedside Commode # Voids 1 3 1 # Bowel Movements 0 - Exam GENERAL EXAM: Morbidly obese. Alert, active, comfortable in no apparent distress. HEAD: Normocephalic. EYES: Normal reaction of pupils, equal size. NOSE: Clear with pink turbinates. THROAT: Crowding of the posterior pharynx. No erythema or exudates. NECK: Short. No masses, no JVD. CHEST: No chest wall deformity. LUNGS: Equal air entry with crackles in the posterior bases, more so on the left. CVS: S1 and S2 normal with no audible murmurs, regular rhythm. ABDOMEN: Obese. Soft, normal bowel sounds, no guarding or rigidity. Extremities: There is trace peripheral edema. No clubbing, no cyanosis. Peripheral pulses are intact - Labs CBC & Chem 7: 08/01/16 08:06 08/01/16 08:06 Labs: Abnormal Lab Results - Last 24 Hours (Table) 08/01/16 08/01/16 Range/Units 08:06 08:06 Hgb 9.8 L (11.4-16.0) gm/dL MCH 23.2 L (25.0-35.0) pg MCHC 27.2 L (31.0-37.0) g/dL RDW 15.6 H (11.5-15.5) % Chloride 94 L (98-107) mmol/L Carbon Dioxide 40 H* (22-30) mmol/L BUN 25 H (7-17) mg/dL Glucose 118 H (74-99) mg/dL Assessment and Plan Plan: Impression: #1 Dyspnea, suspect an acute exacerbation of chronic diastolic congestive heart failure. #2 Acute on chronic hypoxic respiratory failure secondary to above. #3 Acute on chronic hypercapnic respiratory failure secondary to above. #4 Moderate pulmonary hypertension. #5 Morbid obesity with obesity/hypoventilation syndrome. #6 Obstructive sleep apnea. #7 Prior history of PE/DVT, anticoagulated with warfarin #8 Chronic back pain. #9 Peripheral neuropathy. #10 Hypothyroidism. #11 Anemia. #12 Poor overall functional performance secondary to the above-mentioned multiple comorbidities. Plan: The patient was seen and evaluated by Dr. Pathak. She is cleared for transfer to the extended care facility from the pulmonary standpoint. Continue with her usual pulmonary medications. She is currently on prednisone 20 mg daily. If not transferred today we will increase her activity as tolerated. Antibiotics per ID.
--- NOTE | 2016-08-01 13:28 | DS ---
DATE OF ADMISSION: 07/27/2016 DATE OF DISCHARGE: 08/01/2016 CONSULTATIONS: Pulmonary consultation and ID consultation. DISCHARGE DIAGNOSES: 1. Acute hypoxic and hypercapnic respiratory failure secondary to acute congestive heart failure with diastolic dysfunction and underlying tracheobronchitis. 2. Acute on chronic congestive heart failure with diastolic dysfunction, was on IV diuresis. 3. Acute tracheobronchitis. Culture showed no methicillin-resistant Staphylococcus aureus and patient was also found to have April albicans treated with Diflucan. 4. Moderate to severe pulmonary hypertension. 5. Chronic metabolic acidosis. 6. History of deep venous thrombosis on anticoagulation with Coumadin. 7. Peripheral neuropathy. 8. Hypothyroidism. 9. Chronic back pain. 10. Chronic respiratory failure secondary to chronic obstructive pulmonary disease, oxygen dependent and steroid dependent. 11. Iron deficiency anemia. 12. History of vertigo. HOSPITAL COURSE: Ms. Fernandez is a 71-year-old female with known history of multiple medical problems and comorbid conditions as discussed above admitted to the hospital with worsening short of breath and a cough with increased sputum production. Patient also found to have chest congestion and was treated for acute CHF with diastolic dysfunction and is continued on IV diuresis with IV Lasix. Initially patient was given q.8 hourly Lasix and changed to q.12 hourly due to worsening bicarb level. The patient is a chronic CO2 retainer, which is stable at this time. Lasix has been changed to p.o. today. Patient will be taking Lasix 60 mg b.i.d. along with spironolactone and potassium supplementation. Patient's breathing is much improved now. Sputum culture did not find any MRSA and the patient was continued on antibiotics in the form of vancomycin and cefepime while in the hospital, which will be changed to levofloxacin for 7 more days as per ID recommendations to complete the clinical course. Patient was seen by Pulmonary as well and cleared for discharge. Otherwise, patient's breathing is much improved now and will be discharged to [facility] and follow with the physician at that place. Patient is stable to be discharged today. DISCHARGE PHYSICAL EXAMINATION: A 71-year-old female, lying in the bed. Awake, alert, oriented x3, appears to be in no apparent distress. VITALS: Blood pressure is 127/60, pulse 71, respirations 18, temperature afebrile, pulse ox 100% on 4 L nasal cannula. Laboratory data reviewed. WBC 6.9, hemoglobin 9.8, platelets of 326. Sodium 139, potassium 4.2, chloride 94, bicarb is 40, BUN 25, creatinine 0.82. Albumin 3.0. DISCHARGE PHYSICAL EXAMINATION: HEENT: Atraumatic, normocephalic. Neck is supple. No JVD. CVS EXAM: S1, S2 heard. No murmurs, no gallop. LUNGS: Bilateral air entry is present. Minimal crackles at the base. Nonlabored breathing. No wheezing. ABDOMEN: Soft, obese. Bowel sounds are present. QUILL WORKER: Awake, alert, oriented x3. No focal neurologic deficit. EXTREMITIES: No edema. Pulses palpable bilaterally. No clubbing or cyanosis. PSYCHIATRIC: Cooperative. Discharge medications include: 1. Zyloprim 100 mg p.o. daily. 2. Pristiq 50 mg p.o. daily. 3. Gabapentin 300 mg p.o. at bedtime. 4. DuoNeb 3 mL q.6 hourly p.r.n. for short of breath. 5. Levothyroxine 175 mcg p.o. a.c. breakfast. 6. Omeprazole 20 mg p.o. at bedtime. 7. Potassium chloride 20 mEq p.o. daily. 8. Buspirone 10 mg p.o. b.i.d. 9. Singulair 10 mg p.o. at bedtime. 10. Zanaflex 2 mg p.o. q.8 hourly p.r.n. for spasms. 11. Robaxin 500 mg p.o. q.4 hourly p.r.n. 12. Lopressor 12.5 mg p.o. b.i.d. 13. Prednisone 20 mg p.o. daily. 14. Xanax 0.5 mg p.o. t.i.d. p.r.n. for anxiety. 15. Ferrous sulfate 325 mg p.o. t.i.d. 16. Meclizine 12.5 mg p.o. b.i.d. p.r.n. for vertigo. 17. Metoprolol 50 mg p.o. b.i.d. 18. Colace 100 p.o. daily p.r.n. for constipation. 19. Fluticasone nasal spray 2 sprays each nostril daily. 20. Lasix 60 mg p.o. b.i.d. 21. [place] 5/325 one tablet p.o. q.i.d. p.r.n. for pain. 22. Milk of magnesia 2400 mg p.o. q.4 hourly p.r.n. for constipation. 23. MiraLAX 17 grams p.o. daily p.r.n. for constipation. 24. Spironolactone 25 mg p.o. daily. 25. Verapamil 120 mg p.o. b.i.d. 26. Warfarin 4 mg p.o. daily. 27. Levofloxacin 500 mg p.o. daily for 7 days. Patient will be discharge [facility] in stable condition. Activity as tolerated. Heart healthy diet. Follow with the primary care physician in 1 to 2 days. Time taken more than 35 minutes including 18 minutes consulting patient and coordinating care.
--- NOTE | 2016-08-01 17:59 | P.PN ---
Subjective Principal diagnosis: shortness of breath 71-year-old female presents to Hospital from the extended care facility for evaluation of increasing shortness of breath. She does have a history of recent hospitalization where she had significant difficulties with pneumonia. She also had significant medical debility and was transferred to rehabilitation for physical strengthening and treatment of her pulmonary disease. She difficulties with pulmonary disease then and did well with diuresis and breathing treatments. Patient over now has a 2 day history of markedly increasing shortness of breath. Despite oxygen therapy she became more short of breath. She had chest x-ray the week before without evidence of pneumonia. On 07/26 a follow-up x-ray was performed that shows evidence of a new infiltrate. With this patient was transferred to Hospital for further intervention. Infectious disease consultation requested regarding history of pneumonia possibly aspiration. She has had a videoscopic swallow evaluation that showed no evidence of any penetration today. Patient relates that she still having cough and shortness of breath and feels slightly better than yesterday. She is anxious to continue her physical therapy so she can get back to her home setting she was hoping it was getting happen soon and this certainly is a bit of a setback for her. She is denying high-grade fever chills or rigors. She does feel weak and short of breath. Remains on oxygen therapy. Continues to have sputum production. Does feel somewhat better today looks forward to going to the extended care facility today. Objective - Vital Signs Vital signs: Vital Signs Temp 96.6 F L 08/01/16 07:00 Pulse 76 08/01/16 11:25 Resp 18 08/01/16 11:03 BP 127/60 08/01/16 07:00 Pulse Ox 100 08/01/16 07:00 Intake & Output 07/31/16 08/01/16 08/01/16 18:59 06:59 18:59 Intake Total 500 Balance 500 Weight 124.5 kg Intake: Oral 500 Other: Voiding Method Bedside Commode Bedside Commode Bedside Commode # Voids 1 3 1 # Bowel Movements 0 - Exam 71-year-old woman who complains of some shortness of breath and cough HEENT: Anicteric conjunctiva are pink and moist nasal mucosa grossly intact without significant lesions, there is no thrush.edentulous Neck: The neck is supple without significant lymphadenopathy or thyromegaly. Lungs: Symmetrical air entry. Few expiratory wheezes. Few crackles in the right posterior base are noted. No dullness or egophony. Heart: irregular an audible S1-S2, no S3 no S4. There is no significant murmur click or rub, PMI was nondisplaced.has old gastric stapling scar Abdomen: obese,Positive bowel sounds soft and nontender without palpable masses or organomegaly. There was no guarding or rebound.Old midline incision well healed, Extremities: The upper extremities have excellent pulses they are symmetric, no significant petechiae or telangiectasia. No splinter hemorrhages were noted. or extremities have evidence of bilateral Left leg slightly more edematous Neuro: Awake alert oriented to person place and time. There are no acute new gross focal sensory motor deficits. - Labs CBC & Chem 7: 08/01/16 08:06 08/01/16 08:06 Labs: Abnormal Lab Results - Last 24 Hours (Table) 08/01/16 08/01/16 Range/Units 08:06 08:06 Hgb 9.8 L (11.4-16.0) gm/dL MCH 23.2 L (25.0-35.0) pg MCHC 27.2 L (31.0-37.0) g/dL RDW 15.6 H (11.5-15.5) % Chloride 94 L (98-107) mmol/L Carbon Dioxide 40 H* (22-30) mmol/L BUN 25 H (7-17) mg/dL Glucose 118 H (74-99) mg/dL Laboratory Results WBC 6.9 k/uL (3.8-10.6) 08/01/16 08:06 RBC 4.22 m/uL (3.80-5.40) 08/01/16 08:06 Hgb 9.8 gm/dL (11.4-16.0) L 08/01/16 08:06 Hct 35.8 % (34.0-46.0) 08/01/16 08:06 MCV 85.0 fL (80.0-100.0) 08/01/16 08:06 MCH 23.2 pg (25.0-35.0) L 08/01/16 08:06 MCHC 27.2 g/dL (31.0-37.0) L 08/01/16 08:06 RDW 15.6 % (11.5-15.5) H 08/01/16 08:06 Plt Count 326 k/uL (150-450) 08/01/16 08:06 Neutrophils % 70 % 08/01/16 08:06 Lymphocytes % 19 % 08/01/16 08:06 Monocytes % 7 % 08/01/16 08:06 Eosinophils % 1 % 08/01/16 08:06 Basophils % 0 % 08/01/16 08:06 Neutrophils # 4.8 k/uL (1.3-7.7) 08/01/16 08:06 Lymphocytes # 1.3 k/uL (1.0-4.8) 08/01/16 08:06 Monocytes # 0.5 k/uL (0-1.0) 08/01/16 08:06 Eosinophils # 0.1 k/uL (0-0.7) 08/01/16 08:06 Basophils # 0.0 k/uL (0-0.2) 08/01/16 08:06 Hypochromasia Marked 08/01/16 08:06 Anisocytosis Slight 07/31/16 09:02 PT 37.9 sec (9.0-12.0) H 07/29/16 08:18 INR 3.9 (<1.1) 07/29/16 08:18 Sodium 139 mmol/L (137-145) 08/01/16 08:06 Potassium 4.2 mmol/L (3.5-5.1) 08/01/16 08:06 Chloride 94 mmol/L (98-107) L 08/01/16 08:06 Carbon Dioxide 40 mmol/L (22-30) H* 08/01/16 08:06 Anion Gap 5 mmol/L 08/01/16 08:06 BUN 25 mg/dL (7-17) H 08/01/16 08:06 Creatinine 0.82 mg/dL (0.52-1.04) 08/01/16 08:06 Est GFR (MDRD) Af Amer >60 (>60 ml/min/1.73 sqM) 08/01/16 08:06 Est GFR (MDRD) Non-Af >60 (>60 ml/min/1.73 sqM) 08/01/16 08:06 Glucose 118 mg/dL (74-99) H 08/01/16 08:06 Calcium 9.1 mg/dL (8.4-10.2) 08/01/16 08:06 Total Bilirubin 0.8 mg/dL (0.2-1.3) 07/31/16 09:02 AST 16 U/L (14-36) 07/31/16 09:02 ALT 32 U/L (9-52) 07/31/16 09:02 Alkaline Phosphatase 46 U/L (38-126) 07/31/16 09:02 NT-Pro-B Natriuret Pep 462 pg/mL 07/29/16 08:18 Total Protein 6.0 g/dL (6.3-8.2) L 07/31/16 09:02 Albumin 3.0 g/dL (3.5-5.0) L 07/31/16 09:02 Vancomycin Trough 20.3 ug/mL 07/30/16 03:56 Assessment and Plan (1) Pneumonia Narrative/Plan: 71-year-old woman who was transferred from [facility] where she had worsening shortness of breath. Influenza testing is come back as negative. She is not having high-grade fevers or chills but had increasing shortness of breath with cough with sputum production. Does have some underlying lung disease. Chest x-ray is abnormal with a new right lower lobe infiltrate. She is evidence of significant penicillin ALLERGY. She's been placed on cefepime while cultures from process. His also received a dose of vancomycin. Awaiting further data from her prior admission. Laboratory review at this facility shows no prior history of MRSA. The fluoroscopic video evaluation of her swallow shows no evidence of any aspiration. The patient does not give a history of second aspiration events. Cultures were further help direct her antibiotics therapy within the next day. She will complete a course of levofloxacin to complete a 7 day course of therapy at the extended care facility. Status: Acute (2) CHF (congestive heart failure) Status: Acute
== END 2016-08-01 16:12 | DRG 291 ==
LOC: 4MS4W 19:17
PROVIDERS: ADMIT Internal Medicine; ATTEND Internal Medicine
DX: I11.0 Hypertensive heart disease with heart failure (principal); J96.21 Acute and chronic respiratory failure with hypoxia; E87.4 Mixed disorder of acid-base balance; E66.2 Morbid (severe) obesity with alveolar hypoventilation; I27.2 Other secondary pulmonary hypertension; G62.9 Polyneuropathy, unspecified; I48.91 Unspecified atrial fibrillation; Z99.81 Dependence on supplemental oxygen; J44.0 Chronic obstructive pulmonary disease with (acute) lower respiratory infection; E03.9 Hypothyroidism, unspecified; J96.22 Acute and chronic respiratory failure with hypercapnia; M10.9 Gout, unspecified; D50.9 Iron deficiency anemia, unspecified; I50.33 Acute on chronic diastolic (congestive) heart failure; J20.9 Acute bronchitis, unspecified; F41.9 Anxiety disorder, unspecified; G89.29 Other chronic pain; H81.399 Other peripheral vertigo, unspecified ear; Z79.01 Long term (current) use of anticoagulants; Z79.52 Long term (current) use of systemic steroids; Z86.711 Personal history of pulmonary embolism; Z86.718 Personal history of other venous thrombosis and embolism; Z87.01 Personal history of pneumonia (recurrent); Z88.0 Allergy status to penicillin; M54.9 Dorsalgia, unspecified; Z79.899 Other long term (current) drug therapy
CPT/HCPCS: 71010; 71020; 74230; 80048; 80053; 80202; 83880; 85025; 85610; 94640; 94667; 94760

== ENCOUNTER 2016-12-23 14:41 | Inpatient (IN) | payer MEDICARE, BC, OTHER ==
[2016-12-23 17:02] VITALS: BMI 56.1
[2016-12-23] MEDS ORDERED: IPRATROPIUM-ALBUTEROL 3 ML NEB INHALATION PRN (19:31)
[2016-12-23] MEDS ORDERED: METHOCARBAMOL 500 MG TAB PO PRN (19:31)
[2016-12-23 19:58] LABS: CH 24.5; CHCM 28.9; HCT 40.9 % (34.0-46.0); HDW 2.79; HGB 12.1 gm/dL (11.4-16.0); Hypochromasia Marked; MCH 25.3 pg (25.0-35.0); MCHC 29.7 g/dL (31.0-37.0); MCV 85.1 fL (80.0-100.0); Mean Platelet Volume 6.4; RDW 14.9 % (11.5-15.5); WBC 11.2 k/uL (3.8-10.6)
[2016-12-23 20:00] LABS: ALT 24 U/L (9-52); AST 20 U/L (14-36); Alkaline Phosphatase 97 U/L (38-126); Blood Urea Nitrogen 22 mg/dL (7-17); Calcium 8.9 mg/dL (8.4-10.2); Chloride 93 mmol/L (98-107); Glucose 165 mg/dL (74-99); Magnesium 1.9 mg/dL (1.6-2.3); Non-African American GFR(MDRD) >60 (>60 ml/min/1.73 sqM); Potassium 4.7 mmol/L (3.5-5.1); Sodium 140 mmol/L (137-145); Total Bilirubin 0.7 mg/dL (0.2-1.3); Total Protein 5.9 g/dL (6.3-8.2)
[2016-12-23 20:06] LABS: Anion Gap 6 mmol/L
[2016-12-23 20:11] LABS: Carbon Dioxide 41 mmol/L (22-30)
[2016-12-23 20:29] LABS: INR 2.4 (<1.1); Prothrombin Time 22.9 sec (9.0-12.0)
[2016-12-23] MEDS: FUROSEMIDE 40 MG TAB PO SCH (20:51)
[2016-12-23] MEDS: PANTOPRAZOLE 40 MG TABLET PO SCH (20:51)
[2016-12-23] MEDS: busPIRone HCl 10 MG TAB PO SCH (20:51)
[2016-12-23] MEDS: GABAPENTIN 300 MG CAP PO SCH (20:51)
[2016-12-23] MEDS: VERAPAMIL SR 120 MG TABLET.ER PO SCH (20:51)
[2016-12-23] MEDS: METOPROLOL TARTRATE 50 MG TAB PO SCH (20:51)
[2016-12-23] MEDS: ALPRAZolam 0.5 MG TAB PO PRN (23:38)
[2016-12-24 00:05] LABS: Glucose,Whole Blood 158 mg/dL (75-99)
[2016-12-24 06:39] LABS: CH 24.3; CHCM 29.4; HDW 2.83; Hypochromasia Marked; MCH 25.5 pg (25.0-35.0); MCHC 30.7 g/dL (31.0-37.0); RDW 14.7 % (11.5-15.5); WBC 12.8 k/uL (3.8-10.6)
[2016-12-24 06:48] LABS: Blood Urea Nitrogen 26 mg/dL (7-17); Chloride 96 mmol/L (98-107); Glucose 137 mg/dL (74-99); Non-African American GFR(MDRD) >60 (>60 ml/min/1.73 sqM); Potassium 4.5 mmol/L (3.5-5.1); Sodium 141 mmol/L (137-145)
[2016-12-24] MEDS: LEVOTHYROXINE 100 MCG TAB PO SCH (06:52)
[2016-12-24] MEDS: PANTOPRAZOLE 40 MG TABLET PO SCH ×2 (06:52→17:24)
[2016-12-24] MEDS: LEVOTHYROXINE 75 MCG TAB PO SCH (06:52)
[2016-12-24 06:54] LABS: Anion Gap 5 mmol/L
[2016-12-24 07:00] LABS: Carbon Dioxide 40 mmol/L (22-30)
[2016-12-24 07:28] LABS: INR 2.7 (<1.1); Prothrombin Time 26.3 sec (9.0-12.0)
[2016-12-24] MEDS: METOPROLOL TARTRATE 50 MG TAB PO SCH ×2 (08:10→19:55)
[2016-12-24] MEDS: CHOLECALCIFEROL 1,000 UNIT TAB PO SCH (08:10)
[2016-12-24] MEDS: FERROUS SULFATE 325 MG TAB PO SCH (08:10)
[2016-12-24] MEDS: ASCORBIC ACID 500 MG TAB PO SCH (08:10)
[2016-12-24] MEDS: FUROSEMIDE 20 MG TAB PO SCH (08:10)
[2016-12-24] MEDS: POTASSIUM CHLORIDE ER 20 MEQ TAB.ER PO SCH (08:11)
[2016-12-24] MEDS: MAGNESIUM OXIDE 400 MG TAB PO SCH (08:11)
[2016-12-24] MEDS: VERAPAMIL SR 120 MG TABLET.ER PO SCH ×2 (08:11→19:55)
[2016-12-24] MEDS: busPIRone HCl 10 MG TAB PO SCH ×2 (08:11→19:54)
[2016-12-24] MEDS: ALLOPURINOL 100 MG TAB PO SCH (08:12)
[2016-12-24] MEDS: DESVENLAFAXINE SUCCINATE 50 MG TAB.ER.24H PO SCH (08:12)
[2016-12-24] MEDS: CYANOCOBALAMIN 500 MCG TAB PO SCH (08:12)
[2016-12-24] MEDS: DIGOXIN 250 MCG TAB PO SCH (08:12)
[2016-12-24] MEDS ORDERED: predniSONE 10 MG TAB PO SCH (09:00)
[2016-12-24] MEDS ORDERED: predniSONE 10 MG TAB PO ONE (13:00)
--- NOTE | 2016-12-24 13:28 | XR ---
EXAMINATION TYPE: XR chest 2V DATE OF EXAM: 12/24/2016 COMPARISON: Chest x-ray July 30, 2016. HISTORY: Shortness of breath. Possible aspiration pneumonia or CHF per order TECHNIQUE: Frontal and lateral views of the chest are obtained. FINDINGS: The osseous structures are demineralized. Degenerative spurring throughout the spine and b ilateral pulmonary acromioclavicular joints is redemonstrated. There is persistent cardiomegaly with atherosclerotic thoracic aorta. There may be pericardial calcification posteriorly on lateral view. T here is chronic parenchymal change with right hilar masslike opacity could reflect developing edema a nd/or infiltrate and suspected chronic lingular infiltrate or scarring.. IMPRESSION: Cardiomegaly and chronic parenchymal changes with chronic lingular infiltrate or scarrin g and possible developing right nodular infiltrate. Consider CT follow-up or correlation.
--- NOTE | 2016-12-24 13:29 | XR ---
EXAMINATION TYPE: XR thoracic spine complete DATE OF EXAM: 12/24/2016 CLINICAL HISTORY: Back pain for 2 months after fall injury. TECHNIQUE: Frontal, lateral, and swimmer's view of thoracic spine are obtained. COMPARISON: None. FINDINGS: Thoracic spine show satisfactory alignment without evidence of acute fracture or dislocatio n. Vertebral body heights and disc space heights are preserved. Multilevel moderate anterior and lat eral spurring is present. Visualized ribs are unremarkable. Surgical sutures and clips epigastric r egion are noted. Left basilar opacity is seen. IMPRESSION: No acute fracture or dislocation is seen in the thoracic spine. Moderate multilevel spur ring.
--- NOTE | 2016-12-24 13:32 | XR ---
EXAMINATION TYPE: XR lumbar spine 2 or 3V DATE OF EXAM: 12/24/2016 CLINICAL HISTORY: Back pain for 2 months after fall injury. TECHNIQUE: Frontal and lateral images of the lumbar spine are obtained. COMPARISON: None FINDINGS: There are 5 lumbar type vertebral bodies identified. The lumbar spine shows loss of balwinder l lumbar lordosis without evidence of acute fracture or dislocation. Osseous structures are demineral ized. There is some ossific fusion at left L2-L3 and entire L3-L4 level elements. There is vacuum dis c phenomenon with moderate disc space narrowing and spurring L4-L5 level. Spinous processes are not w ell seen on lateral view but better seen on frontal view. There is multilevel fairly moderate facet a rthropathy throughout the lumbar spine. There is multilevel moderate to severe anterior and lateral s purring. There is moderate to advanced disc space narrowing at L1-L2 and L2-L3 levels. Cholecystectomy clips are seen. Additional surgical clips epigastric region are noted. Metallic IUD o verlies right L3-L4 disc space which has ossific bridging. IMPRESSION: As above.
[2016-12-24] MEDS: HYDROcodone/APAP 5-325MG 1 EACH TAB PO PRN ×2 (13:51→19:56)
--- NOTE | 2016-12-24 13:57 | P.CNPUL ---
History of Present Illness Consult date: 12/24/16 Requesting physician: Nik Reardon Reason for consult: dyspnea Chief complaint: Shortness of breath History of present illness: This is a very pleasant 71-year-old female patient who follows with Dr. Kwong as her primary care physician and has a history of atrial fibrillation anticoagulated with warfarin, congestive heart failure, chronic obstructive pulmonary disease, DVT, hypertension, pulmonary embolism, hypothyroidism, chronic back pain, morbid obesity. She does have chronic hypoxic respiratory failure secondary to obesity/hypoventilation syndrome/obstructive sleep apnea. She is a lifelong nonsmoker. She is oxygen dependent. She has had multiple admissions for respiratory failure. She had developed increasing shortness of breath and was seen in the [facility] yesterday. She did require BiPAP support and was felt better served here she was transferred here to the hospitalist. She is seen today in consultation on the selective care unit. She is awake and alert and in no acute distress. Her chest x-ray reveals evidence of cardiomegaly and chronic dementia bowel changes with chronic lingular infiltrate or scarring. She's had minimal leukocytosis at 12.8. She has been afebrile. She is on 4 L of high flow nasal cannula to maintain O2 saturations in the 90s. She is hemodynamically stable. Recent echocardiogram reveals preserved left ventricular systolic function with an ejection fraction between 55 and 60%. She had also stated she had fallen back while at home and landed against her dresser and had some left-sided posterior discomfort. There was no acute fracture or dislocation noted in the thoracic spine on thoracic x- ray. No acute fracture or dislocation of the lumbar spine. Review of Systems 14 point review of system was conducted. All negative other than as mentioned in the HPI. Past Medical History Past Medical History: Atrial Fibrillation, Heart Failure, COPD, Deep Vein Thrombosis (DVT), Hypertension, Pneumonia, Pulmonary Embolus (PE), Respiratory Disorder, Thyroid Disorder Additional Past Medical History / Comment(s): anxiety, chronic back pain, morbid obesity, hypothyroidism, peripheral neuroapathy, UTI,CONSTIPATION, per pt 02 3.5 liters n/c while at [facility].gout, anxiety/depression History of Any Multi-Drug Resistant Organisms: MRSA Date of last positivie culture/infection: 11/13/07 MDRO Source:: Unknown Past Surgical History: Appendectomy, Cholecystectomy, Hysterectomy Additional Past Surgical History / Comment(s): Previous Trach placement- two cardiac arrests during procedure. Past Anesthesia/Blood Transfusion Reactions: No Reported Reaction Additional Past Anesthesia/Blood Transfusion Reaction / Comment(s): past blood transfusion" many years ago"-no reaction to it. Past Psychological History: Anxiety Additional Psychological History / Comment(s): . Lifelong nonsmoker. Retired office assistant. No experience. No travel history. No animal exposures Smoking Status: Never smoker Past Alcohol Use History: None Reported Past Drug Use History: None Reported - Past Family History Father Family Medical History: No Reported History Mother Family Medical History: Osteoarthritis (OA) Additional Family Medical History / Comment(s): Two knee replacements and two hip replacements Medications and Allergies Home Medications Medication Instructions Recorded Confirmed Type Allopurinol [Zyloprim] 100 mg PO DAILY 11/07/13 12/23/16 History Desvenlafaxine Succinate [Pristiq 50 mg PO DAILY 11/07/13 12/23/16 History ER] Gabapentin [Neurontin] 300 mg PO HS 11/07/13 12/23/16 History Ipratropium/Albuterol Sulfate 3 ml INHALATION RT-BID PRN 11/07/13 12/23/16 History [Duoneb 0.5 mg-3 mg/3 ml Soln] Levothyroxine Sodium [Levoxyl] 175 mcg PO AC-BRKFST 11/07/13 12/23/16 History Omeprazole [PriLOSEC] 20 mg PO BID 11/07/13 12/23/16 History Potassium Chloride [Klor-Con 20] 20 meq PO DAILY 11/07/13 12/23/16 History busPIRone HCl [Buspar] 10 mg PO BID 11/08/13 12/23/16 History Montelukast [Singulair] 10 mg PO HS 06/01/16 12/23/16 History tiZANidine [Zanaflex] 2 mg PO Q8HR PRN 06/01/16 12/23/16 History HYDROcodone/APAP 5-325MG [[place] 1 tab PO BID PRN 07/27/16 12/23/16 History 5-325] Verapamil HCl [Calan] 120 mg PO BID 07/27/16 12/23/16 History Ascorbic Acid [Vitamin C] 500 mg PO DAILY 12/23/16 12/23/16 History Cholecalciferol [Vitamin D3] 1,000 unit PO DAILY 12/23/16 12/23/16 History Codeine Phosphate/Guaifenesin 10 ml PO Q6HR PRN 12/23/16 12/23/16 History [Cheratussin AC Syrup] Cyanocobalamin (Vitamin B-12) 1,000 mcg PO DAILY 12/23/16 12/23/16 History [Vitamin B-12] Digoxin 250 mcg PO DAILY 12/23/16 12/23/16 History Ferrous Sulfate [Feosol] 325 mg PO DAILY 12/23/16 12/23/16 History Furosemide [Lasix] 40 mg PO HS 12/23/16 12/23/16 History Furosemide [Lasix] 60 mg PO DAILY 12/23/16 12/23/16 History Magnesium Oxide [Mag-Ox] 250 mg PO DAILY 12/23/16 12/23/16 History Meloxicam [Mobic] 7.5 mg PO DAILY 12/23/16 12/23/16 History Methocarbamol [Robaxin] 500 mg PO Q8H PRN 12/23/16 12/23/16 History Mometasone Furoate [Nasonex Nasal 1 - 2 spray EA NOSTRIL DAILY 12/23/16 History Wheeler] Niacin [Niaspan] 500 mg PO DAILY 12/23/16 12/23/16 History Pyridoxine HCl (Vitamin B6) 100 mg PO DAILY 12/23/16 12/23/16 History [Vitamin B-6] Warfarin Sodium 2.5 mg PO DAILY 12/23/16 12/23/16 History predniSONE 10 mg PO DAILY 12/23/16 12/23/16 History Allergies Allergy/AdvReac Type Severity Reaction Status Date / Time Penicillins Allergy Dyspnea Verified 12/23/16 17:58 Physical Exam Vitals: Vital Signs Temp Pulse Resp BP Pulse Ox 12/24/16 11:33 83 20 12/24/16 11:32 96.8 F L 83 20 115/58 93 L 12/24/16 09:45 92 L 12/24/16 08:00 96.6 F L 78 18 164/100 92 L 12/24/16 03:26 97.5 F L 65 18 132/67 94 L 12/24/16 00:00 97.5 F L 95 18 135/81 94 L 12/23/16 20:00 97.5 F L 98 19 132/75 94 L 12/23/16 19:35 99.0 F 22 98 12/23/16 19:01 20 98 12/23/16 17:38 97.8 F 95 20 145/69 93 L 12/23/16 17:31 95 22 12/23/16 16:46 97.8 F 95 22 145/69 93 L Intake and Output 12/23/16 12/24/16 12/24/16 22:59 06:59 14:59 Intake Total 80 Output Total 500 400 Balance -500 -400 80 Intake: Oral 80 Output: Urine 500 400 Other: Voiding Method Bedside Commode Bedside Commode Bedside Commode # Voids 1 1 Weight 153 kg 150.8 kg GENERAL EXAM: Morbidly obese. Alert, comfortable in no apparent distress. HEAD: Normocephalic. EYES: Normal reaction of pupils, equal size. NOSE: Clear with pink turbinates. THROAT: There is crowding the posterior pharynx. No erythema or exudates. NECK: Short. No masses, no JVD. CHEST: No chest wall deformity. LUNGS: Equal air entry with faint crackles in the posterior bases.. CVS: S1 and S2 normal with no audible murmurs, regular rhythm. ABDOMEN: Obese, soft, normal bowel sounds, no guarding or rigidity. Extremities: There is 1-2+ lower extremity peripheral edema. No clubbing, no cyanosis. Peripheral pulses are intact. Results - Laboratory Findings CBC and BMP: 12/24/16 05:56 12/24/16 05:56 PT/INR, D-dimer PT 26.3 sec (9.0-12.0) H 12/24/16 05:56 INR 2.7 (<1.1) 12/24/16 05:56 Abnormal lab findings: Abnormal Labs 12/23/16 12/23/16 12/23/16 19:37 19:37 19:37 WBC 11.2 H MCHC 29.7 L PT 22.9 H Chloride 93 L Carbon Dioxide 41 H* BUN 22 H Glucose 165 H POC Glucose (mg/dL) Total Protein 5.9 L Albumin 3.0 L 12/24/16 12/24/16 12/24/16 00:02 05:56 05:56 WBC 12.8 H MCHC 30.7 L PT Chloride 96 L Carbon Dioxide 40 H* BUN 26 H Glucose 137 H POC Glucose (mg/dL) 158 H Total Protein Albumin 12/24/16 05:56 WBC MCHC PT 26.3 H Chloride Carbon Dioxide BUN Glucose POC Glucose (mg/dL) Total Protein Albumin - Diagnostic Findings Chest x-ray: image reviewed Assessment and Plan Plan: Impression: #1 Dyspnea, multifactorial, suspect an acute exacerbation of chronic diastolic congestive heart failure. #2 Acute on chronic hypoxic respiratory failure secondary to above. #3 Acute on chronic hypercapnic respiratory failure secondary to above. #4 Moderate pulmonary hypertension. #5 Morbid obesity with obesity/hypoventilation syndrome. #6 Obstructive sleep apnea. #7 Prior history of atrial fibrillation, anticoagulated with warfarin. #8 Chronic back pain. #9 Peripheral neuropathy. #10 Hypothyroidism. #11 Anemia. #12 Prior history of PE/DVT #13 Poor overall functional performance secondary to the above-mentioned multiple comorbidities. Plan: The patient was seen and evaluated by Dr. Pathak. Her chest x-ray and labs were reviewed. We will continue with her bronchodilators, prednisone and diuretics. Continue warfarin. She is currently on empiric antibiotics in the form of Vibramycin. We will await results of cultures. We will increase her activity as tolerated. We'll continue to follow and make further recommendations based on her clinical status. Time with Patient: Greater than 30
--- NOTE | 2016-12-24 15:10 | P.HPIM ---
History of Present Illness 71-year-old female patient who follows with Dr. Kwong as her primary care physician, patient has a given history of chronic hypoxic respiratory failure secondary to obesity/hypoventilation syndrome/obstructive sleep apnea along with diastolic dysfunction congestive heart failure.. She is oxygen dependent and uses about 3 and half liters at home. She has had multiple admissions for respiratory failure. She was seen in outside medical facility was admitted and outside medical facility for acute respiratory failure and patient apparently required bilevel ventilation for that. Patient was given IV steroids. Patient denies any fever patient did chest x-ray did not show any pneumonic process did show a little bit of pulmonary edema. Patient was also given Lasix with improvement in symptoms patient was transferred here patient is presently on 4 L of oxygen and patient will be started on oral steroids. She is hemodynamically stable. Recent echocardiogram reveals preserved left ventricular systolic function with an ejection fraction between 55 and 60%. She had also stated she had fallen back while at home and landed against her dresser and had some left-sided posterior discomfort. There was no acute fracture or dislocation noted in the thoracic spine on thoracic x-ray. No acute fracture or dislocation of the lumbar spine. Imaging the chest x-ray here depending on that will decide on IV Lasix presently will continue with oral Lasix. Review of Systems REVIEW OF SYSTEMS: CONSTITUTIONAL: No fever, no malaise, no fatigue. HEENT: No recent visual problems or hearing problems. Denied any sore throat. CARDIOVASCULAR: No chest pain, orthopnea, PND, no palpitations, no syncope. PULMONARY: no hemoptysis, patient is coughing bringing up little bit of phlegm.. GASTROINTESTINAL: No diarrhea, no nausea, no vomiting, no abdominal pain. Normoactive bowel sounds. NEUROLOGICAL: No headaches, no weakness, no numbness. HEMATOLOGICAL: Denies any bleeding or petechiae. GENITOURINARY: Denies any burning micturition, frequency, or urgency. MUSCULOSKELETAL/RHEUMATOLOGICAL: Denies any joint pain, swelling, or any muscle pain. ENDOCRINE: Denies any polyuria or polydipsia. The rest of the 14-point review of systems is negative. Past Medical History Past Medical History: Atrial Fibrillation, Heart Failure, COPD, Deep Vein Thrombosis (DVT), Hypertension, Pneumonia, Pulmonary Embolus (PE), Respiratory Disorder, Thyroid Disorder Additional Past Medical History / Comment(s): anxiety, chronic back pain, morbid obesity, hypothyroidism, peripheral neuroapathy, UTI,CONSTIPATION, per pt 02 3.5 liters n/c while at the [email or web address], anxiety/depression History of Any Multi-Drug Resistant Organisms: MRSA Date of last positivie culture/infection: 11/13/07 MDRO Source:: Unknown Past Surgical History: Appendectomy, Cholecystectomy, Hysterectomy Additional Past Surgical History / Comment(s): Previous Trach placement- two cardiac arrests during procedure. Past Anesthesia/Blood Transfusion Reactions: No Reported Reaction Additional Past Anesthesia/Blood Transfusion Reaction / Comment(s): past blood transfusion" many years ago"-no reaction to it. Past Psychological History: Anxiety Additional Psychological History / Comment(s): . Lifelong nonsmoker. Retired philanthropy officer. No experience. No travel history. No animal exposures Smoking Status: Never smoker Past Alcohol Use History: None Reported Past Drug Use History: None Reported - Past Family History Father Family Medical History: No Reported History Mother Family Medical History: Osteoarthritis (OA) Additional Family Medical History / Comment(s): Two knee replacements and two hip replacements Medications and Allergies Home Medications Medication Instructions Recorded Confirmed Type Allopurinol [Zyloprim] 100 mg PO DAILY 11/07/13 12/23/16 History Desvenlafaxine Succinate [Pristiq 50 mg PO DAILY 11/07/13 12/23/16 History ER] Gabapentin [Neurontin] 300 mg PO HS 11/07/13 12/23/16 History Ipratropium/Albuterol Sulfate 3 ml INHALATION RT-BID PRN 11/07/13 12/23/16 History [Duoneb 0.5 mg-3 mg/3 ml Soln] Levothyroxine Sodium [Levoxyl] 175 mcg PO AC-BRKFST 11/07/13 12/23/16 History Omeprazole [PriLOSEC] 20 mg PO BID 11/07/13 12/23/16 History Potassium Chloride [Klor-Con 20] 20 meq PO DAILY 11/07/13 12/23/16 History busPIRone HCl [Buspar] 10 mg PO BID 11/08/13 12/23/16 History Montelukast [Singulair] 10 mg PO HS 06/01/16 12/23/16 History tiZANidine [Zanaflex] 2 mg PO Q8HR PRN 06/01/16 12/23/16 History HYDROcodone/APAP 5-325MG [[place] 1 tab PO BID PRN 07/27/16 12/23/16 History 5-325] Verapamil HCl [Calan] 120 mg PO BID 07/27/16 12/23/16 History Ascorbic Acid [Vitamin C] 500 mg PO DAILY 12/23/16 12/23/16 History Cholecalciferol [Vitamin D3] 1,000 unit PO DAILY 12/23/16 12/23/16 History Codeine Phosphate/Guaifenesin 10 ml PO Q6HR PRN 12/23/16 12/23/16 History [Cheratussin AC Syrup] Cyanocobalamin (Vitamin B-12) 1,000 mcg PO DAILY 12/23/16 12/23/16 History [Vitamin B-12] Digoxin 250 mcg PO DAILY 12/23/16 12/23/16 History Ferrous Sulfate [Feosol] 325 mg PO DAILY 12/23/16 12/23/16 History Furosemide [Lasix] 40 mg PO HS 12/23/16 12/23/16 History Furosemide [Lasix] 60 mg PO DAILY 12/23/16 12/23/16 History Magnesium Oxide [Mag-Ox] 250 mg PO DAILY 12/23/16 12/23/16 History Meloxicam [Mobic] 7.5 mg PO DAILY 12/23/16 12/23/16 History Methocarbamol [Robaxin] 500 mg PO Q8H PRN 12/23/16 12/23/16 History Mometasone Furoate [Nasonex Nasal 1 - 2 spray EA NOSTRIL DAILY 12/23/16 History [place]] Niacin [Niaspan] 500 mg PO DAILY 12/23/16 12/23/16 History Pyridoxine HCl (Vitamin B6) 100 mg PO DAILY 12/23/16 12/23/16 History [Vitamin B-6] Warfarin Sodium 2.5 mg PO DAILY 12/23/16 12/23/16 History predniSONE 10 mg PO DAILY 12/23/16 12/23/16 History Allergies Allergy/AdvReac Type Severity Reaction Status Date / Time Penicillins Allergy Dyspnea Verified 12/23/16 17:58 Physical Exam Vitals: Vital Signs Temp Pulse Resp BP Pulse Ox 12/24/16 11:33 83 20 12/24/16 11:32 96.8 F L 83 20 115/58 93 L 12/24/16 09:45 92 L 12/24/16 08:00 96.6 F L 78 18 164/100 92 L 12/24/16 03:26 97.5 F L 65 18 132/67 94 L 12/24/16 00:00 97.5 F L 95 18 135/81 94 L 12/23/16 20:00 97.5 F L 98 19 132/75 94 L 12/23/16 19:35 99.0 F 22 98 12/23/16 19:01 20 98 12/23/16 17:38 97.8 F 95 20 145/69 93 L 12/23/16 17:31 95 22 12/23/16 16:46 97.8 F 95 22 145/69 93 L Intake and Output 12/23/16 12/24/16 12/24/16 22:59 06:59 14:59 Intake Total 80 Output Total 500 400 Balance -500 -400 80 Intake: Oral 80 Output: Urine 500 400 Other: Voiding Method Bedside Commode Bedside Commode Bedside Commode # Voids 1 1 Weight 153 kg 150.8 kg PHYSICAL EXAMINATION: GENERAL: The patient is alert and oriented x3, not in any acute distress. Well developed, well nourished. HEENT: Pupils are round and equally reacting to light. EOMI. No scleral icterus. No conjunctival pallor. Normocephalic, atraumatic. No pharyngeal erythema. No thyromegaly. CARDIOVASCULAR: S1 and S2 present. No murmurs, rubs, or gallops. PULMONARY: Significant wheezing but presented bilateral lung son. ABDOMEN: Soft, nontender, nondistended, normoactive bowel sounds. No palpable organomegaly. MUSCULOSKELETAL: No joint swelling or deformity. EXTREMITIES: No cyanosis, clubbing, or pedal edema. NEUROLOGICAL: Gross neurological examination did not reveal any focal deficits. SKIN: No rashes. Results CBC & Chem 7: 12/24/16 05:56 12/24/16 05:56 Labs: Abnormal Lab Results - Last 24 Hours (Table) 12/23/16 12/23/16 12/23/16 Range/Units 19:37 19:37 19:37 WBC 11.2 H (3.8-10.6) k/uL MCHC 29.7 L (31.0-37.0) g/dL PT 22.9 H (9.0-12.0) sec Chloride 93 L (98-107) mmol/L Carbon Dioxide 41 H* (22-30) mmol/L BUN 22 H (7-17) mg/dL Glucose 165 H (74-99) mg/dL POC Glucose (mg/dL) (75-99) mg/dL Total Protein 5.9 L (6.3-8.2) g/dL Albumin 3.0 L (3.5-5.0) g/dL 12/24/16 12/24/16 12/24/16 Range/Units 00:02 05:56 05:56 WBC 12.8 H (3.8-10.6) k/uL MCHC 30.7 L (31.0-37.0) g/dL PT (9.0-12.0) sec Chloride 96 L (98-107) mmol/L Carbon Dioxide 40 H* (22-30) mmol/L BUN 26 H (7-17) mg/dL Glucose 137 H (74-99) mg/dL POC Glucose (mg/dL) 158 H (75-99) mg/dL Total Protein (6.3-8.2) g/dL Albumin (3.5-5.0) g/dL 12/24/16 Range/Units 05:56 WBC (3.8-10.6) k/uL MCHC (31.0-37.0) g/dL PT 26.3 H (9.0-12.0) sec Chloride (98-107) mmol/L Carbon Dioxide (22-30) mmol/L BUN (7-17) mg/dL Glucose (74-99) mg/dL POC Glucose (mg/dL) (75-99) mg/dL Total Protein (6.3-8.2) g/dL Albumin (3.5-5.0) g/dL Thrombosis Risk Factor Assmnt - Choose All That Apply Any of the Below Risk Factors Present?: Yes Each Factor Represents 1 point: Abnormal pulmonary function (COPD), Obesity ( BMI >25), Swollen legs (current) Other Risk Factors: Yes Each Risk Factor Represents 2 Points: Age 61-74 years Each Risk Factor Represents 3 Points: History of DVT/PE Other congenital or acquired thrombophilia - If yes, enter type in comment: No Thrombosis Risk Factor Assessment Total Risk Factor Score: 8 Thrombosis Risk Factor Assessment Level: High Risk Assessment and Plan Plan: #1 Dyspnea, multifactorial, COPD which probably have improved by now. Patient had, in the CHF chronic diastolic dysfunction with acute exacerbation. Above all days patient's pulmonary hypertension and obesity hypoventilation syndrome is contributing to her shortness of breath. Patient will need a new fitting CPAP at night. Patient will be started on oral steroids and oxygen for bronchitis. #2 Acute on chronic hypoxic respiratory failure secondary to above. #3 Acute on chronic hypercapnic respiratory failure secondary to above. #4 Moderate pulmonary hypertension. #5 Morbid obesity with obesity/hypoventilation syndrome. #6 Obstructive sleep apnea. #7 history of DVT, anticoagulated with warfarin. Brick on Coumadin but will decrease the dose of Coumadin because of the systemic strides and interaction with Coumadin #8 Chronic back pain. #9 Peripheral neuropathy. #10 Hypothyroidism. #11 Anemia.
[2016-12-24] MEDS: WARFARIN 2 MG TAB PO SCH (17:24)
[2016-12-24] MEDS ORDERED: WARFARIN 2.5 MG TAB PO SCH (18:00)
[2016-12-24] MEDS: FUROSEMIDE 40 MG TAB PO SCH (19:54)
[2016-12-24] MEDS: DOXYCYCLINE 50 MG CAP PO SCH (19:54)
[2016-12-24] MEDS: GABAPENTIN 300 MG CAP PO SCH (19:55)
[2016-12-25] MEDS: HYDROcodone/APAP 5-325MG 1 EACH TAB PO PRN (06:16)
[2016-12-25] MEDS: LEVOTHYROXINE 100 MCG TAB PO SCH (06:17)
[2016-12-25] MEDS: PANTOPRAZOLE 40 MG TABLET PO SCH ×2 (06:17→17:39)
[2016-12-25] MEDS: LEVOTHYROXINE 75 MCG TAB PO SCH (06:17)
[2016-12-25 06:41] LABS: Potassium 4.6 mmol/L (3.5-5.1)
[2016-12-25 06:44] LABS: CH 24.3; CHCM 28.4; HCT 39.5 % (34.0-46.0); HDW 2.64; HGB 11.7 gm/dL (11.4-16.0); Hypochromasia Marked; MCH 25.5 pg (25.0-35.0); MCHC 29.6 g/dL (31.0-37.0); MCV 85.8 fL (80.0-100.0); Mean Platelet Volume 6.4; RBC 4.61 m/uL (3.80-5.40); WBC 14.3 k/uL (3.8-10.6)
[2016-12-25 06:57] LABS: Calcium 9.1 mg/dL (8.4-10.2)
[2016-12-25] MEDS: VERAPAMIL SR 120 MG TABLET.ER PO SCH ×2 (08:14→19:53)
[2016-12-25] MEDS: ALPRAZolam 0.5 MG TAB PO PRN (08:14)
[2016-12-25] MEDS: METOPROLOL TARTRATE 50 MG TAB PO SCH ×2 (08:14→19:54)
[2016-12-25] MEDS: predniSONE 20 MG TAB PO SCH (08:14)
[2016-12-25] MEDS: POTASSIUM CHLORIDE ER 20 MEQ TAB.ER PO SCH (08:15)
[2016-12-25] MEDS: busPIRone HCl 10 MG TAB PO SCH ×2 (08:15→19:54)
[2016-12-25] MEDS: DOXYCYCLINE 50 MG CAP PO SCH ×2 (08:15→19:54)
[2016-12-25] MEDS: FUROSEMIDE 20 MG TAB PO SCH (08:15)
[2016-12-25] MEDS: MAGNESIUM OXIDE 400 MG TAB PO SCH (08:15)
[2016-12-25] MEDS: ALLOPURINOL 100 MG TAB PO SCH (08:15)
[2016-12-25] MEDS: DIGOXIN 250 MCG TAB PO SCH (08:15)
[2016-12-25] MEDS: DESVENLAFAXINE SUCCINATE 50 MG TAB.ER.24H PO SCH (08:15)
[2016-12-25 10:07] LABS: INR 2.3 (<1.1); Prothrombin Time 22.5 sec (9.0-12.0)
[2016-12-25] MEDS: ASCORBIC ACID 500 MG TAB PO SCH (12:31)
[2016-12-25] MEDS: CHOLECALCIFEROL 1,000 UNIT TAB PO SCH (12:32)
[2016-12-25] MEDS: FERROUS SULFATE 325 MG TAB PO SCH (12:32)
[2016-12-25] MEDS: CYANOCOBALAMIN 500 MCG TAB PO SCH (12:32)
[2016-12-25] MEDS ORDERED: IV VANCOMYCIN PER PHARMACY 1 EACH MISC MISCELLANE PRN (12:50)
[2016-12-25] MEDS ORDERED: VANCOMYCIN 2,250 MG in SODIUM CHLORIDE 0.9% 500 ML IVPB ONE (13:00)
--- NOTE | 2016-12-25 13:13 | P.PN ---
Subjective This is a very pleasant 71-year-old female patient who follows with Dr. Kwong as her primary care physician and has a history of atrial fibrillation anticoagulated with warfarin, congestive heart failure, chronic obstructive pulmonary disease, DVT, hypertension, pulmonary embolism, hypothyroidism, chronic back pain, morbid obesity. She does have chronic hypoxic respiratory failure secondary to obesity/hypoventilation syndrome/obstructive sleep apnea. She is a lifelong nonsmoker. She is oxygen dependent. She has had multiple admissions for respiratory failure. She had developed increasing shortness of breath and was seen in the [facility] yesterday. She did require BiPAP support and was felt better served here she was transferred here to the hospitalist. She is seen today in consultation on the selective care unit. She is awake and alert and in no acute distress. Her chest x-ray reveals evidence of cardiomegaly and chronic dementia bowel changes with chronic lingular infiltrate or scarring. She's had minimal leukocytosis at 12.8. She has been afebrile. She is on 4 L of high flow nasal cannula to maintain O2 saturations in the 90s. She is hemodynamically stable. Recent echocardiogram reveals preserved left ventricular systolic function with an ejection fraction between 55 and 60%. She had also stated she had fallen back while at home and landed against her dresser and had some left-sided posterior discomfort. There was no acute fracture or dislocation noted in the thoracic spine on thoracic x- ray. No acute fracture or dislocation of the lumbar spine. Patient is seen again today 12/25/2016 in follow-up on the selective care unit. She is resting quite comfortably in bed. She is awake and alert in no acute distress. She is breathing easier today as compared to yesterday. She is continued on 4 L of high flow nasal cannula to maintain O2 saturations in the 90s. She remains afebrile. Hemodynamically stable. Objective - Vital Signs Vital signs: Vital Signs Temp 97.5 F L 12/25/16 12:00 Pulse 62 12/25/16 12:00 Resp 16 12/25/16 12:00 BP 132/60 12/25/16 12:00 Pulse Ox 91 L 12/25/16 12:00 Intake & Output 12/24/16 12/25/16 12/25/16 18:59 06:59 18:59 Intake Total 430 Output Total 600 Balance 430 -600 Weight 150.7 kg Intake: Oral 430 Output: Urine 600 Other: Voiding Method Bedside Commode Bedside Commode # Voids 2 1 - Exam GENERAL EXAM: Morbidly obese. Alert, comfortable in no apparent distress. HEAD: Normocephalic. EYES: Normal reaction of pupils, equal size. NOSE: Clear with pink turbinates. THROAT: There is crowding the posterior pharynx. No erythema or exudates. NECK: Short. No masses, no JVD. CHEST: No chest wall deformity. LUNGS: Equal air entry with faint crackles in the posterior bases.. CVS: S1 and S2 normal with no audible murmurs, regular rhythm. ABDOMEN: Obese, soft, normal bowel sounds, no guarding or rigidity. Extremities: There is 1-2+ lower extremity peripheral edema. No clubbing, no cyanosis. Peripheral pulses are intact. - Labs CBC & Chem 7: 12/25/16 06:00 12/25/16 06:00 Labs: Abnormal Lab Results - Last 24 Hours (Table) 12/25/16 12/25/16 12/25/16 Range/Units 06:00 06:00 06:00 WBC 14.3 H (3.8-10.6) k/uL MCHC 29.6 L (31.0-37.0) g/dL PT 22.5 H (9.0-12.0) sec Chloride 96 L (98-107) mmol/L Carbon Dioxide 45 H* (22-30) mmol/L BUN 35 H (7-17) mg/dL Creatinine 1.14 H (0.52-1.04) mg/dL Glucose 111 H (74-99) mg/dL Assessment and Plan Plan: Impression: #1 Dyspnea, multifactorial, suspect an acute exacerbation of chronic diastolic congestive heart failure. #2 Acute on chronic hypoxic respiratory failure secondary to above. #3 Acute on chronic hypercapnic respiratory failure secondary to above. #4 Moderate pulmonary hypertension. #5 Morbid obesity with obesity/hypoventilation syndrome. #6 Obstructive sleep apnea. #7 Prior history of atrial fibrillation, anticoagulated with warfarin. #8 Chronic back pain. #9 Peripheral neuropathy. #10 Hypothyroidism. #11 Anemia. #12 Prior history of PE/DVT #13 Poor overall functional performance secondary to the above-mentioned multiple comorbidities. Plan: The patient was seen and evaluated by Dr. Pathak. We will continue with her bronchodilators, prednisone and diuretics. We will increase her activity as tolerated. We'll continue to follow and make further recommendations based on her clinical status.
[2016-12-25] MEDS: WARFARIN 2 MG TAB PO SCH (17:39)
[2016-12-25] MEDS: IPRATROPIUM-ALBUTEROL 3 ML NEB INHALATION SCH (17:53)
--- NOTE | 2016-12-25 18:07 | P.PN ---
Subjective Date of service 12/25/2016. Progress Note being dictated for Dr. Astudillo. Interval history: This is a 71-year-old female admitted with dyspnea- multifactorial, acute COPD exacerbation, [id number] cocci blood cultures from [place],, acute on chronic hypoxic, hypercapnic respiratory failure and multiple other medical issues. Maintained on oral Lasix, nebulized bronchodilators. Breathing improving, maintaining O2 sats of 92% on 5 L of nasal cannula, in a patient who wears 3 L nasal cannula O2 at home. Afebrile. Complains of back pain, recently lost balance fell back into her cabinets. Denies chest pain, palpitations or increasing shortness of breath. INR 2.3. Objective - Vital Signs Vital signs: Vital Signs Temp 97.5 F L 12/25/16 12:00 Pulse 62 12/25/16 12:00 Resp 16 12/25/16 12:00 BP 132/60 12/25/16 12:00 Pulse Ox 91 L 12/25/16 12:00 Intake & Output 12/24/16 12/25/16 12/25/16 18:59 06:59 18:59 Intake Total 430 Output Total 600 Balance 430 -600 Weight 150.7 kg Intake: Oral 430 Output: Urine 600 Other: Voiding Method Bedside Commode Bedside Commode # Voids 2 1 - Exam GENERAL: alert and oriented x3, no acute distress. Well developed, well nourished. HEENT: Pupils are round and equally reacting to light. EOMI. No scleral icterus. No conjunctival pallor. Normocephalic, atraumatic. CARDIOVASCULAR: S1 and S2 present. No murmurs, rubs, or gallops. Positive edema PULMONARY: Fine bibasilar crackles, occasional expiratory wheezing ABDOMEN: Soft, nontender, nondistended, normoactive bowel sounds. No palpable organomegaly. MUSCULOSKELETAL: No joint swelling or deformity. EXTREMITIES: No cyanosis, clubbing, positive pedal edema. NEUROLOGICAL: Gross neurological examination did not reveal any focal deficits. SKIN: No rashes. - Labs CBC & Chem 7: 12/25/16 06:00 12/25/16 06:00 Labs: Abnormal Lab Results - Last 24 Hours (Table) 12/25/16 12/25/16 12/25/16 Range/Units 06:00 06:00 06:00 WBC 14.3 H (3.8-10.6) k/uL MCHC 29.6 L (31.0-37.0) g/dL PT 22.5 H (9.0-12.0) sec Chloride 96 L (98-107) mmol/L Carbon Dioxide 45 H* (22-30) mmol/L BUN 35 H (7-17) mg/dL Creatinine 1.14 H (0.52-1.04) mg/dL Glucose 111 H (74-99) mg/dL Assessment and Plan Plan: #1 Dyspnea, multifactorial, COPD, acute on chronic CHF diastolic dysfunction in addition to patient's pulmonary hypertension and obesity hypoventilation. #2 Acute on chronic hypoxic respiratory failure secondary to above. #3 Acute on chronic hypercapnic respiratory failure secondary to above. #4 Moderate pulmonary hypertension. #5 Morbid obesity with obesity/hypoventilation syndrome. #6 Obstructive sleep apnea. #7 history of DVT, anticoagulated with warfarin. #8 Chronic back pain. #9 Peripheral neuropathy. #10 Hypothyroidism. #11 Anemia. #12 bacteremia, positive Felicia blood cultures with gram-positive cocci, repeat cultures pending Plan: Continue on current medication regime , nebulized bronchodilators, steroids, Lasix, monitoring and symptomatic treatment. Vancomycin added to med regime. Repeat blood cultures ordered. Daily PT INR.PT/OT. The impression and plan of care has been dictated as directed. : I performed a H&P examination of this patient and discussed the same with the dictator. I agree with the dictator's note. Any additional findings/opinions/ etc. will be noted.
[2016-12-25] MEDS ORDERED: WARFARIN 0.5 MG TAB PO ONE (18:30)
[2016-12-25] MEDS ORDERED: WARFARIN 1 MG TAB PO ONE (18:45)
[2016-12-25] MEDS: GABAPENTIN 300 MG CAP PO SCH (19:53)
[2016-12-25] MEDS: FUROSEMIDE 40 MG TAB PO SCH (19:54)
[2016-12-26] MEDS: VANCOMYCIN 2,250 MG in SODIUM CHLORIDE 0.9% 500 ML IVPB SCH (06:16)
[2016-12-26] MEDS: LEVOTHYROXINE 100 MCG TAB PO SCH (06:17)
[2016-12-26] MEDS: LEVOTHYROXINE 75 MCG TAB PO SCH (06:17)
[2016-12-26] MEDS: PANTOPRAZOLE 40 MG TABLET PO SCH ×2 (06:17→17:01)
[2016-12-26 07:08] LABS: INR 1.8 (<1.2)
[2016-12-26 07:32] LABS: Blood Urea Nitrogen 35 mg/dL (7-17); Calcium 8.8 mg/dL (8.4-10.2); Chloride 98 mmol/L (98-107); Glucose 86 mg/dL (74-99); Non-African American GFR(MDRD) >60 (>60 ml/min/1.73 sqM); Potassium 4.2 mmol/L (3.5-5.1); Sodium 143 mmol/L (137-145)
[2016-12-26 07:39] LABS: Anion Gap 2 mmol/L
[2016-12-26 07:46] LABS: Carbon Dioxide 43 mmol/L (22-30)
[2016-12-26] MEDS: IPRATROPIUM-ALBUTEROL 3 ML NEB INHALATION SCH ×4 (09:02→20:19)
[2016-12-26] MEDS: predniSONE 20 MG TAB PO SCH (09:30)
[2016-12-26] MEDS: ALLOPURINOL 100 MG TAB PO SCH (09:31)
[2016-12-26] MEDS: FUROSEMIDE 20 MG TAB PO SCH (09:31)
[2016-12-26] MEDS: VERAPAMIL SR 120 MG TABLET.ER PO SCH ×2 (09:31→21:03)
[2016-12-26] MEDS: POTASSIUM CHLORIDE ER 20 MEQ TAB.ER PO SCH (09:31)
[2016-12-26] MEDS: busPIRone HCl 10 MG TAB PO SCH ×2 (09:31→21:02)
[2016-12-26] MEDS: DESVENLAFAXINE SUCCINATE 50 MG TAB.ER.24H PO SCH (09:32)
[2016-12-26] MEDS: MAGNESIUM OXIDE 400 MG TAB PO SCH (09:32)
[2016-12-26] MEDS: DIGOXIN 250 MCG TAB PO SCH (09:32)
[2016-12-26] MEDS: DOXYCYCLINE 50 MG CAP PO SCH ×2 (09:32→21:02)
[2016-12-26] MEDS: METOPROLOL TARTRATE 50 MG TAB PO SCH ×2 (09:34→21:03)
--- NOTE | 2016-12-26 10:32 | P.PN ---
Subjective Progress note dated 12/26/2016 71-year-old female who resides at [facility] and [place]. Seems to be doing relatively well. Resting comfortably. Currently on O2 at 4 L. Her usual oxygen requirements 3 have to 4 L. Seemed pretty comfortable. Looks like she wants to go home. She states she's not going back to the [facility] [place]. His been hemodynamically stable. Breathing seems stable. Her graft she was initially admitted with a diagnosis of shortness of breath secondary to diastolic CHF as well as COPD. She does have a history of chronic hypoxemic and hypercapnic respiratory failure moderate pulmonary hypertension pickwickian syndrome morbid obesity sleep apnea syndrome atrial fibrillation chronic back pain and peripheral neuropathy and hypothyroidism. She is a CO2 retainer. Her bicarbonate on admission according to her electrolyte profile was 45 suggesting that her baseline PaCO2 is 75+ or -2 mmHg. Objective - Vital Signs Vital signs: Vital Signs Temp 96.9 F L 12/26/16 08:00 Pulse 60 12/26/16 09:16 Resp 18 12/26/16 08:00 BP 153/67 12/26/16 08:00 Pulse Ox 92 L 12/26/16 04:00 Intake & Output 12/25/16 12/26/16 12/26/16 18:59 06:59 18:59 Intake Total 280 500 Output Total 600 Balance 280 -100 Intake: Intake, IV Titration 500 Amount Vancomycin 2,250 mg In 500 Sodium Chloride 0.9% 500 ml @ 167 mls/hr IVPB ONCE ONE Rx#:[id number] Oral 280 Output: Urine 600 Other: Voiding Method Bedside Commode # Voids 1 - Exam No acute distress, oriented 3. HEENT examination is grossly unremarkable. Mixed membranes are moist. No oral lesions. Nasal O2 in place at 4 L. Supple. Full range of motion. No adenopathy or thyromegaly. Cardiovascular examination reveals regular rhythm rate. S1-S2 normal. Lungs reveal mostly clear breath sounds. No wheezes rhonchi or crackles. Breath sounds are equal. Abdomen is obese. Bowel sounds are noted. Extremities are intact. Mild edema. Skin without rash. - Labs CBC & Chem 7: 12/25/16 06:00 12/26/16 06:42 Labs: Abnormal Lab Results - Last 24 Hours (Table) 12/26/16 12/26/16 Range/Units 06:42 06:42 PT 17.0 H (9.0-12.0) sec INR 1.8 H (<1.2) Carbon Dioxide 43 H* (22-30) mmol/L BUN 35 H (7-17) mg/dL Assessment and Plan (1) AF (paroxysmal atrial fibrillation) Status: Acute (2) Acute on chronic diastolic CHF (congestive heart failure) Status: Acute (3) CHF (congestive heart failure) Status: Acute (4) COPD exacerbation Status: Acute (5) Diastolic CHF Status: Acute (6) Hypothyroid Status: Acute (7) Morbid obesity Status: Chronic (8) Restrictive lung disease secondary to obesity Status: Chronic Plan: Plan dated 12/26/2016 the patient's currently on good medications including bronchodilators prednisone and diuretics. She is on oxygen at 4 L which is her normal dose. We'll continue to follow. The patient does not want to be discharged back to the [facility] blood [facility] [place] and [place]. Likely discharge else her may be home. We'll continue to follow. Time with Patient: Less than 30
[2016-12-26] MEDS: ASCORBIC ACID 500 MG TAB PO SCH (12:26)
[2016-12-26] MEDS: FERROUS SULFATE 325 MG TAB PO SCH (12:26)
[2016-12-26] MEDS: CHOLECALCIFEROL 1,000 UNIT TAB PO SCH (12:26)
[2016-12-26] MEDS: CYANOCOBALAMIN 500 MCG TAB PO SCH (12:28)
--- NOTE | 2016-12-26 13:05 | P.PN ---
Subjective This is a 71-year-old female admitted with dyspnea-multifactorial, acute COPD exacerbation, jmqskwmsck-skvn-ysvqvsns cocci blood cultures from [place],, acute on chronic hypoxic, hypercapnic respiratory failure and multiple other medical issues. Maintained on oral Lasix, nebulized bronchodilators. Breathing improving, maintaining O2 sats of 92% on 5 L of nasal cannula, in a patient who wears 3 L nasal cannula O2 at home. Afebrile. Complains of back pain, recently lost balance fell back into her cabinets. Denies chest pain, palpitations or increasing shortness of breath. INR 1.9. Coumadin will be changed to 2.5 mg today and repeat INR tomorrow. We'll check with [facility] regarding finalization of the blood cultures so far blood cultures here are negative. Objective - Vital Signs Vital signs: Vital Signs Temp 96.9 F L 12/26/16 08:00 Pulse 60 12/26/16 09:16 Resp 18 12/26/16 08:00 BP 153/67 12/26/16 08:00 Pulse Ox 92 L 12/26/16 04:00 Intake & Output 12/25/16 12/26/16 12/26/16 18:59 06:59 18:59 Intake Total 280 500 Output Total 600 800 Balance 280 -100 -800 Intake: Intake, IV Titration 500 Amount Vancomycin 2,250 mg In 500 Sodium Chloride 0.9% 500 ml @ 167 mls/hr IVPB ONCE ONE Rx#:[id number] Oral 280 Output: Urine 600 800 Other: Voiding Method Bedside Commode # Voids 1 1 - Exam GENERAL: alert and oriented x3, no acute distress. Well developed, well nourished. HEENT: Pupils are round and equally reacting to light. EOMI. No scleral icterus. No conjunctival pallor. Normocephalic, atraumatic. CARDIOVASCULAR: S1 and S2 present. No murmurs, rubs, or gallops. Positive edema PULMONARY: No crackles,wheezing ABDOMEN: Soft, nontender, nondistended, normoactive bowel sounds. No palpable organomegaly. MUSCULOSKELETAL: No joint swelling or deformity. EXTREMITIES: No cyanosis, clubbing, positive pedal edema. NEUROLOGICAL: Gross neurological examination did not reveal any focal deficits. SKIN: No rashes. - Labs CBC & Chem 7: 12/25/16 06:00 07/15/17 06:42 Labs: Abnormal Lab Results - Last 24 Hours (Table) 12/26/16 12/26/16 Range/Units 06:42 06:42 PT 17.0 H (9.0-12.0) sec INR 1.8 H (<1.2) Carbon Dioxide 43 H* (22-30) mmol/L BUN 35 H (7-17) mg/dL Assessment and Plan Plan: #1 Dyspnea, multifactorial, COPD, acute on chronic CHF diastolic dysfunction in addition to patient's pulmonary hypertension and obesity hypoventilation. #2 Acute on chronic hypoxic respiratory failure secondary to above. #3 Acute on chronic hypercapnic respiratory failure secondary to above. #4 Moderate pulmonary hypertension. #5 Morbid obesity with obesity/hypoventilation syndrome. #6 Obstructive sleep apnea. #7 history of DVT, anticoagulated with warfarin. #8 Chronic back pain. #9 Peripheral neuropathy. #10 Hypothyroidism. #11 Anemia. #12 bacteremia, positive Felicia blood cultures with gram-positive cocci, repeat cultures are negative so far Continue on current medication regime , nebulized bronchodilators, steroids, Lasix, monitoring and symptomatic treatment. Vancomycin added to med regime. Repeat blood cultures ordered. Daily PT INR.PT/OT. She'll be to transfer out of [facility] care. Possible discharge tomorrow
[2016-12-26] MEDS: HYDROcodone/APAP 5-325MG 1 EACH TAB PO PRN (16:56)
[2016-12-26] MEDS: WARFARIN 2.5 MG TAB PO SCH (17:01)
[2016-12-26] MEDS: FUROSEMIDE 40 MG TAB PO SCH (21:02)
[2016-12-26] MEDS: GABAPENTIN 300 MG CAP PO SCH (21:02)
[2016-12-27] MEDS: VANCOMYCIN 2,250 MG in SODIUM CHLORIDE 0.9% 500 ML IVPB SCH (05:40)
[2016-12-27] MEDS: LEVOTHYROXINE 100 MCG TAB PO SCH (05:56)
[2016-12-27] MEDS: PANTOPRAZOLE 40 MG TABLET PO SCH ×2 (05:56→17:34)
[2016-12-27] MEDS: LEVOTHYROXINE 75 MCG TAB PO SCH (05:56)
[2016-12-27 06:59] LABS: CH 24.6; CHCM 28.3; HCT 39.3 % (34.0-46.0); HDW 2.65; HGB 11.3 gm/dL (11.4-16.0); Hypochromasia Marked; MCH 25.1 pg (25.0-35.0); MCHC 28.7 g/dL (31.0-37.0); MCV 87.4 fL (80.0-100.0); Mean Platelet Volume 6.4; WBC 9.9 k/uL (3.8-10.6)
[2016-12-27 07:09] LABS: Blood Urea Nitrogen 31 mg/dL (7-17); Calcium 8.8 mg/dL (8.4-10.2); Chloride 94 mmol/L (98-107); Glucose 99 mg/dL (74-99); Non-African American GFR(MDRD) >60 (>60 ml/min/1.73 sqM); Potassium 4.2 mmol/L (3.5-5.1); Sodium 143 mmol/L (137-145)
[2016-12-27 07:11] LABS: INR 1.9 (<1.2); Prothrombin Time 18.5 sec (9.0-12.0)
[2016-12-27 07:16] LABS: Anion Gap 5 mmol/L
[2016-12-27 07:18] LABS: Carbon Dioxide 44 mmol/L (22-30)
[2016-12-27] MEDS: VERAPAMIL SR 120 MG TABLET.ER PO SCH ×2 (09:09→21:54)
[2016-12-27] MEDS: DOXYCYCLINE 50 MG CAP PO SCH ×2 (09:09→21:54)
[2016-12-27] MEDS: busPIRone HCl 10 MG TAB PO SCH ×2 (09:10→21:54)
[2016-12-27] MEDS: DESVENLAFAXINE SUCCINATE 50 MG TAB.ER.24H PO SCH (09:10)
[2016-12-27] MEDS: ALLOPURINOL 100 MG TAB PO SCH (09:10)
[2016-12-27] MEDS: predniSONE 20 MG TAB PO SCH (09:10)
[2016-12-27] MEDS: POTASSIUM CHLORIDE ER 20 MEQ TAB.ER PO SCH (09:11)
[2016-12-27] MEDS: METOPROLOL TARTRATE 50 MG TAB PO SCH ×2 (09:11→21:54)
[2016-12-27] MEDS: MAGNESIUM OXIDE 400 MG TAB PO SCH (09:11)
[2016-12-27] MEDS: DIGOXIN 250 MCG TAB PO SCH (09:11)
[2016-12-27] MEDS: FUROSEMIDE 20 MG TAB PO SCH (09:12)
[2016-12-27] MEDS: ALPRAZolam 0.5 MG TAB PO PRN ×2 (09:20→22:02)
[2016-12-27] MEDS: HYDROcodone/APAP 5-325MG 1 EACH TAB PO PRN ×2 (09:20→22:02)
[2016-12-27] MEDS: IPRATROPIUM-ALBUTEROL 3 ML NEB INHALATION SCH ×4 (10:00→19:46)
[2016-12-27] MEDS: CHOLECALCIFEROL 1,000 UNIT TAB PO SCH (12:15)
[2016-12-27] MEDS: FERROUS SULFATE 325 MG TAB PO SCH (12:15)
[2016-12-27] MEDS: CYANOCOBALAMIN 500 MCG TAB PO SCH (12:15)
[2016-12-27] MEDS: ASCORBIC ACID 500 MG TAB PO SCH (12:15)
--- NOTE | 2016-12-27 13:58 | PN ---
71-year-old female who was admitted with a diagnosis of shortness of breath. Her shortness of breath is multifactorial, in part related to underlying atrial fibrillation, chronic diastolic CHF, COPD exacerbation and morbid obesity with restrictive lung disease. She is back down to her 3.5-4 liters nasal O2. Doing relatively well. Feeling about at baseline. The patient continues on current medications as well as diuretics, bronchodilators and prednisone. Feeling better as I mentioned. Currently temperature is 97.8, heart rate 69, respiratory rate 20, blood pressure 151/74, mean 99, 4 liter saturation 93%. Appears in no acute distress. HEENT: Grossly unremarkable. NECK: Supple. Full range of motion. No adenopathy or thyromegaly. Neck veins are flat. CARDIOVASCULAR: Reveals distant heart sounds. S1/S2 normal. No distinct murmur noted. LUNGS: Reveal a few scattered rhonchi. Some mild crackles. No wheezes. ABDOMEN: Obese. Bowel sounds are heard. EXTREMITIES: Intact. No significant edema, maybe a little bit. SKIN: Without rash. NEUROLOGIC: Brief but nonfocal. Labs are reviewed. White count 9.9, hemoglobin 11.3, hematocrit 39.3, platelet count is normal. PT and INR was 18.5 and 1.9 respectively. Sodium and potassium normal. Chloride is 94, CO2 is 44. BUN and creatinine were 31 and 0.90. Dig level is 0.5. No new x-rays to report. Microbiology is thus far negative. ASSESSMENT: 1. Shortness of breath with hypoxemia, multifactorial, in part related to underlying paroxysmal atrial fibrillation, chronic diastolic congestive heart failure, chronic obstructive pulmonary disease exacerbation and morbid obesity with restrictive lung disease. 2. History of chronic diastolic congestive heart failure. 3. Chronic obstructive pulmonary disease. 4. Hypothyroidism. 5. Morbid obesity. 6. Restrictive lung disease. 7. Hypoxemia. 8. Pulmonary hypertension. PLAN: The patient is pretty much back to baseline. Medications are reviewed. Labs are reviewed. Additional recommendations and suggestions are forthcoming. Will await for the primary service to discharge. [facility] CENTERMiguel
--- NOTE | 2016-12-27 15:54 | P.PN ---
Subjective This is a 71-year-old female admitted with dyspnea-multifactorial, acute COPD exacerbation, [id number] cocci blood cultures from [place],, acute on chronic hypoxic, hypercapnic respiratory failure and multiple other medical issues. Maintained on oral Lasix, nebulized bronchodilators. Breathing improving, maintaining O2 sats of 92% on 5 L of nasal cannula, in a patient who wears 3 L nasal cannula O2 at home. Afebrile. Complains of back pain, recently lost balance fell back into her cabinets. Denies chest pain, palpitations or increasing shortness of breath. INR 1.9. Coumadin will be changed to 2.5 mg today and repeat INR tomorrow. We'll check with [facility] regarding finalization of the blood cultures so far blood cultures here are negative. 12/27/2016 significant overall improvement, blood cultures for the last 24 hours is negative. Patient has Staphylococcus hominis, can be a contamination and will wait 1 more night for the finalization of the cultures that were drawn here. If they're negative patient was discharged and will not require antibiotics for Staphylococcus. Meantime we'll have IDU so [place] as well. Objective - Vital Signs Vital signs: Vital Signs Temp 99 F 12/27/16 14:15 Pulse 64 12/27/16 15:43 Resp 20 12/27/16 14:15 BP 138/60 12/27/16 14:15 Pulse Ox 90 L 12/27/16 14:15 Intake & Output 12/26/16 12/27/16 12/27/16 18:59 06:59 18:59 Intake Total 236 320 Output Total 1400 Balance -1164 320 Weight 150.7 kg Intake: Oral 236 320 Output: Urine 1400 Other: Voiding Method Bedside Commode Bedside Commode # Voids 1 1 1 # Bowel Movements 1 - Exam GENERAL: alert and oriented x3, no acute distress. Well developed, well nourished. HEENT: Pupils are round and equally reacting to light. EOMI. No scleral icterus. No conjunctival pallor. Normocephalic, atraumatic. CARDIOVASCULAR: S1 and S2 present. No murmurs, rubs, or gallops. Positive edema PULMONARY: No crackles,wheezing ABDOMEN: Soft, nontender, nondistended, normoactive bowel sounds. No palpable organomegaly. MUSCULOSKELETAL: No joint swelling or deformity. EXTREMITIES: No cyanosis, clubbing, positive pedal edema. NEUROLOGICAL: Gross neurological examination did not reveal any focal deficits. SKIN: No rashes. - Labs CBC & Chem 7: 12/27/16 06:12 12/27/16 06:12 Labs: Abnormal Lab Results - Last 24 Hours (Table) 12/27/16 12/27/16 12/27/16 Range/Units 06:12 06:12 06:12 Hgb 11.3 L (11.4-16.0) gm/dL MCHC 28.7 L (31.0-37.0) g/dL PT 18.5 H (9.0-12.0) sec INR 1.9 H (<1.2) Chloride 94 L (98-107) mmol/L Carbon Dioxide 44 H* (22-30) mmol/L BUN 31 H (7-17) mg/dL Microbiology - Last 24 Hours (Table) 12/26/16 06:42 Blood Culture - Preliminary Blood No Growth after 24 hours Assessment and Plan Plan: #1 Dyspnea, multifactorial, COPD, acute on chronic CHF diastolic dysfunction in addition to patient's pulmonary hypertension and obesity hypoventilation. #2 Acute on chronic hypoxic respiratory failure secondary to above. #3 Acute on chronic hypercapnic respiratory failure secondary to above. #4 Moderate pulmonary hypertension. #5 Morbid obesity with obesity/hypoventilation syndrome. #6 Obstructive sleep apnea. #7 history of DVT, anticoagulated with warfarin. #8 Chronic back pain. #9 Peripheral neuropathy. #10 Hypothyroidism. #11 Anemia. #12 bacteremia, positive [facility] blood cultures with gram-positive cocci, staph homis Continue on current medication regime , nebulized bronchodilators, steroids, Lasix, monitoring and symptomatic treatment. Vancomycin added to med regime. Repeat blood cultures ordered. Daily PT INR.PT/OT. She'll be to transfer out [facility]. Possible discharge tomorrow
[2016-12-27] MEDS: WARFARIN 2.5 MG TAB PO SCH (17:34)
[2016-12-27] MEDS: FUROSEMIDE 40 MG TAB PO SCH (21:54)
[2016-12-27] MEDS: GABAPENTIN 300 MG CAP PO SCH (21:54)
[2016-12-28 00:05] VITALS: RESP 16
[2016-12-28] MEDS: VANCOMYCIN 2,250 MG in SODIUM CHLORIDE 0.9% 500 ML IVPB SCH (06:16)
[2016-12-28] MEDS: LEVOTHYROXINE 100 MCG TAB PO SCH (06:17)
[2016-12-28] MEDS: LEVOTHYROXINE 75 MCG TAB PO SCH (06:17)
[2016-12-28] MEDS: IPRATROPIUM-ALBUTEROL 3 ML NEB INHALATION SCH ×2 (07:16→11:10)
[2016-12-28 07:26] VITALS: BP 143/78; TEMP 96.7
[2016-12-28] MEDS: MAGNESIUM OXIDE 400 MG TAB PO SCH (08:17)
[2016-12-28] MEDS: ALPRAZolam 0.5 MG TAB PO PRN (08:17)
[2016-12-28] MEDS: DOXYCYCLINE 50 MG CAP PO SCH (08:18)
[2016-12-28] MEDS: PANTOPRAZOLE 40 MG TABLET PO SCH (08:19)
[2016-12-28] MEDS: busPIRone HCl 10 MG TAB PO SCH (08:19)
[2016-12-28] MEDS: VERAPAMIL SR 120 MG TABLET.ER PO SCH (08:20)
[2016-12-28] MEDS: METOPROLOL TARTRATE 50 MG TAB PO SCH (08:20)
[2016-12-28] MEDS: ALLOPURINOL 100 MG TAB PO SCH (08:20)
[2016-12-28] MEDS: FUROSEMIDE 20 MG TAB PO SCH (08:20)
[2016-12-28] MEDS: DESVENLAFAXINE SUCCINATE 50 MG TAB.ER.24H PO SCH (08:20)
[2016-12-28] MEDS: POTASSIUM CHLORIDE ER 20 MEQ TAB.ER PO SCH (08:21)
[2016-12-28] MEDS: DIGOXIN 250 MCG TAB PO SCH (08:21)
[2016-12-28] MEDS: predniSONE 20 MG TAB PO SCH (08:21)
[2016-12-28 08:28] LABS: INR 2.4 (<1.2); Prothrombin Time 22.8 sec (9.0-12.0)
[2016-12-28 08:33] LABS: Blood Urea Nitrogen 24 mg/dL (7-17); Calcium 8.9 mg/dL (8.4-10.2); Chloride 93 mmol/L (98-107); Glucose 88 mg/dL (74-99); Non-African American GFR(MDRD) >60 (>60 ml/min/1.73 sqM); Potassium 3.9 mmol/L (3.5-5.1); Sodium 141 mmol/L (137-145)
[2016-12-28 08:40] LABS: Anion Gap 2 mmol/L
[2016-12-28 08:42] LABS: Carbon Dioxide 46 mmol/L (22-30)
--- NOTE | 2016-12-28 10:29 | CONS ---
DATE OF SERVICE: 12/27/2016 Reason for consultation is positive blood culture. HISTORY OF PRESENT ILLNESS: The patient is a 71-year-old female with the past medical history significant for COPD, morbid obesity and the previous history of respiratory failure. Patient presented to [facility] with chief complaints of increasing shortness of breath. Patient apparently has been getting worse over the last week or so prior to coming into the hospital. Patient denies having any high-grade fever, rigors or chills. Patient denies any significant urinary symptoms. No significant chest pain. Very minimal cough which remains to be a dry nature. No nausea, vomiting, and no bowel movement pain. Patient apparently did have a fall with a falling backward, hitting her back of the knees on the cabinet. Recently patient treated at the [facility]. She did have blood cultures obtained there and did receive some Lasix and subsequently transferred to [facility] for further evaluation. Patient did have a chest x-ray at this facility which is reported negative for any consolidation. Patient did have a lumbar spine x-ray that did show evidence of degenerative changes. The thoracic spine negative for any fracture. Patient has been continued with steroids, bronchodilators and ( ) therapy. Yesterday, the blood culture following [place] were reported and positive, sputum cultures were obtained and he was started on vancomycin. I was asked to the see the patient today for further examination regarding antibiotics. The patient remains to be afebrile. Breathing has improved and no new symptoms. REVIEW OF SYSTEMS: CONSTITUTIONAL: Positive for weakness, no high-grade fever. EYES: No complaint. ENT: No complaint. RESPIRATORY: As per HPI. CARDIOVASCULAR: No complaint. GENITOURINARY: No complaint. GASTROINTESTINAL: No complaint. MUSCULOSKELETAL: As per HPI. INTEGUMENT: No complaint. PSYCHOLOGICAL: No complaint. ENDOCRINE: No complaint. NEUROLOGIC: No complaint. PAST MEDICAL HISTORY: DVT, hypertension, heart failure, history of atrial fibrillation, prior embolism, hypothyroidism, anxiety, chronic back pain, morbid obesity, history of UTI, pneumonia. PAST SURGICAL HISTORY: Hysterectomy, cholecystectomy, appendectomy, 2 cardiac arrests. SOCIAL HISTORY: No history of smoking, drinking or drug use. FAMILY HISTORY: No pertinent findings. Allergy to PENICILLIN. Some medications for the patient currently on: 1. Robaxin. 2. Lopressor. 3. Protonix. 4. K-Dur. 5. Prednisone. 6. Vancomycin, Pharmacy to dose. 7. Coumadin. 8. Verapamil. 9. Maalox. 10. Levothyroxine. 11. Neurontin. 12. Lasix. 13. Ferrous sulfate. 14. DuoNeb. On examination, blood pressure is 132/60 with a pulse of 67, temperature of 99. She is 98% on room air. General description is an elderly female lying in bed in no distress. No tachypnea or respiration use. HEENT examination shows no pallor or scleral icterus. Oral mucosa dry. NECK: Trachea central, no thyromegaly. LUNG: Unlabored breathing, clear to auscultation. No wheeze or crackle. HEART: S1, S2, regular rate and rhythm. No loud murmur. ABDOMEN: Soft, no tenderness, no guarding or rigidity. EXTREMITIES: Trace edema of the feet. SKIN EXAMINATION: Bruises but no masses palpable. NEUROLOGICAL: Patient is awake, alert, oriented x3. Mood and affect normal. LABS: BUN of 31 with a creatinine of 0.90, hemoglobin is 11.3, white count of 9.9. Blood cultures at this facility negative. DIAGNOSTIC IMPRESSION AND PLAN: Patient with Enterococcus pseudomonas that has been obtained at an outside facility, possibly in a patient with no fever, ( ) with no significant cough, no evidence of any pneumonia. Patient with no history of pacemaker, placement of no central line placement. Findings more towards the ( ) as the patient is not clinically agrees to go along with it. PLAN: 1. If the blood cultures remain to be negative, which were obtained here on the 12/26, antibiotics will be discontinued. 2. As for underlying chronic obstructive pulmonary disease as well as patient' s tracheobronchitis, may benefit from a short course of ( ). Addition of steroid and bronchodilators by Pulmonary. Plan of care discussed in detail with the attending physician. Thank you for this consultation. Will follow this patient along with you. SHANNEN
[2016-12-28 11:24] VITALS: PULSE 64
--- NOTE | 2016-12-28 12:29 | PN ---
DATE OF SERVICE: 12/28/16 REASON FOR FOLLOW UP: Positive blood culture. INTERVAL HISTORY: The patient is afebrile. She is breathing comfortably. She denies significant chest pain or shortness of breath. Very minimal cough. No abdominal pain or any diarrhea. On examination, blood pressure is 143/78 with a pulse of 85. Temperature 96.7. She is 93% on 5 L nasal cannula. General description is an elderly female lying in bed in no distress. LUNGS: Unlabored breathing. Clear to auscultation anteriorly. HEART: S1, S2 regular rate and rhythm. ABDOMEN: Soft, no tenderness. EXTREMITIES: No edema of the feet. LABS: BUN 24, creatinine 0.7. Blood cultures 12/26 to 12/26 negative. DIAGNOSTIC IMPRESSION AND PLAN: Patient with positive blood cultures, one blood culture drawn on 12/23/2016 around 9:40. Blood cultures drawn at the same time, ( ) negative so far. More likely pointing towards skin contamination ( ) the patient clinically resistant to ( ). PLAN: At this time is no further workup ( ) positive blood culture. As for underlying COPD, the patient has possible tracheobronchitis, a short course of oral doxycycline to continue along with bronchodilators and steroid taper per primary team. MTDD
[2016-12-28] MEDS: HYDROcodone/APAP 5-325MG 1 EACH TAB PO PRN (13:00)
[2016-12-28] MEDS: CHOLECALCIFEROL 1,000 UNIT TAB PO SCH (13:02)
[2016-12-28] MEDS: CYANOCOBALAMIN 500 MCG TAB PO SCH (13:02)
[2016-12-28] MEDS: ASCORBIC ACID 500 MG TAB PO SCH (13:03)
[2016-12-28] MEDS: FERROUS SULFATE 325 MG TAB PO SCH (13:03)
[2016-12-28] MEDS ORDERED: FUROSEMIDE 40 MG TAB PO SCH (16:00)
--- NOTE | 2016-12-28 16:46 | P.PN ---
Subjective This is a very pleasant 71-year-old female patient who follows with Dr. Kwong as her primary care physician and has a history of atrial fibrillation anticoagulated with warfarin, congestive heart failure, chronic obstructive pulmonary disease, DVT, hypertension, pulmonary embolism, hypothyroidism, chronic back pain, morbid obesity. She does have chronic hypoxic respiratory failure secondary to obesity/hypoventilation syndrome/obstructive sleep apnea. She is a lifelong nonsmoker. She is oxygen dependent. She has had multiple admissions for respiratory failure. She had developed increasing shortness of breath and was seen in the [facility] yesterday. She did require BiPAP support and was felt better served here she was transferred here to the hospitalist. She is seen today in consultation on the selective care unit. She is awake and alert and in no acute distress. Her chest x-ray reveals evidence of cardiomegaly and chronic dementia bowel changes with chronic lingular infiltrate or scarring. She's had minimal leukocytosis at 12.8. She has been afebrile. She is on 4 L of high flow nasal cannula to maintain O2 saturations in the 90s. She is hemodynamically stable. Recent echocardiogram reveals preserved left ventricular systolic function with an ejection fraction between 55 and 60%. She had also stated she had fallen back while at home and landed against her dresser and had some left-sided posterior discomfort. There was no acute fracture or dislocation noted in the thoracic spine on thoracic x- ray. No acute fracture or dislocation of the lumbar spine. Patient is seen again today 12/25/2016 in follow-up on the selective care unit. She is resting quite comfortably in bed. She is awake and alert in no acute distress. She is breathing easier today as compared to yesterday. She is continued on 4 L of high flow nasal cannula to maintain O2 saturations in the 90s. She remains afebrile. Hemodynamically stable. The patient was seen again today 12/28/2016 in follow-up on the regular medical floor. She is awake and alert in no acute distress. She is much improved today as compared to yesterday. She is down to her usual 3-4 L of high flow nasal cannula to maintain O2 saturations in the 90s. She is cleared for discharge and is quite anxious to go home. Objective - Vital Signs Vital signs: Vital Signs Temp 96.7 F L 12/28/16 07:00 Pulse 64 12/28/16 11:23 Resp 16 12/28/16 08:00 BP 143/78 12/28/16 07:00 Pulse Ox 93 L 12/28/16 11:23 Intake & Output 12/27/16 12/28/16 12/28/16 18:59 06:59 18:59 Intake Total 320 200 Balance 320 200 Intake: Oral 320 200 Other: Voiding Method Bedside Commode Bedside Commode # Voids 1 1 2 # Bowel Movements 1 - Exam GENERAL EXAM: Morbidly obese. Alert, comfortable in no apparent distress. HEAD: Normocephalic. EYES: Normal reaction of pupils, equal size. NOSE: Clear with pink turbinates. THROAT: There is crowding the posterior pharynx. No erythema or exudates. NECK: Short. No masses, no JVD. CHEST: No chest wall deformity. LUNGS: Equal air entry with faint crackles in the posterior bases.. CVS: S1 and S2 normal with no audible murmurs, regular rhythm. ABDOMEN: Obese, soft, normal bowel sounds, no guarding or rigidity. Extremities: There is 1-2+ lower extremity peripheral edema. No clubbing, no cyanosis. Peripheral pulses are intact. - Labs CBC & Chem 7: 12/27/16 06:12 12/28/16 07:54 Labs: Abnormal Lab Results - Last 24 Hours (Table) 12/28/16 12/28/16 Range/Units 07:54 07:54 PT 22.8 H (9.0-12.0) sec INR 2.4 H (<1.2) Chloride 93 L (98-107) mmol/L Carbon Dioxide 46 H* (22-30) mmol/L BUN 24 H (7-17) mg/dL Microbiology - Last 24 Hours (Table) 12/27/16 06:12 Blood Culture - Preliminary Blood No Growth after 24 hours 12/26/16 06:42 Blood Culture - Preliminary Blood No Growth after 48 hours Assessment and Plan Plan: Impression: #1 Dyspnea, multifactorial, suspect an acute exacerbation of chronic diastolic congestive heart failure. #2 Acute on chronic hypoxic respiratory failure secondary to above. #3 Acute on chronic hypercapnic respiratory failure secondary to above. #4 Moderate pulmonary hypertension. #5 Morbid obesity with obesity/hypoventilation syndrome. #6 Obstructive sleep apnea. #7 Prior history of atrial fibrillation, anticoagulated with warfarin. #8 Chronic back pain. #9 Peripheral neuropathy. #10 Hypothyroidism. #11 Anemia. #12 Prior history of PE/DVT #13 Poor overall functional performance secondary to the above-mentioned multiple comorbidities. Plan: The patient was seen and evaluated by Dr. Leung. She is cleared for discharge from the pulmonary standpoint. She'll follow-up in our office in 1-2 weeks' time. She'll continue with her usual pulmonary medications. Continue CPAP. She is encouraged to call sooner with any recurrence of symptoms or other questions or concerns.
--- NOTE | 2016-12-28 18:37 | P.DS ---
Providers Date of admission: 12/23/16 16:41 Expected date of discharge: 12/28/16 Attending physician: MD Dr. Wilda Spencer. Consults: 12/24/16 12:43 Consult Physician Routine Consulting Provider: Uziel Pathak Consult Reason/Comments: KNOWN TO JIMBO- SOB Do you want consulting provider notified?: Yes 12/27/16 12:44 Consult Physician Routine Consulting Provider: Dinora Palm Consult Reason/Comments: positive blood cultures Do you want consulting provider notified?: Yes Primary care physician: Uziel Solis [facility] Course: Final Diagnoses: #1 Dyspnea, multifactorial, COPD and possible acute tracheobronchitis, acute on chronic CHF diastolic dysfunction in addition to patient's pulmonary hypertension and obesity hypoventilation. #2 Acute on chronic hypoxic respiratory failure secondary to above. #3 Acute on chronic hypercapnic respiratory failure secondary to above. #4 Moderate pulmonary hypertension. #5 Morbid obesity with obesity/hypoventilation syndrome. #6 Obstructive sleep apnea. #7 history of DVT, anticoagulated with warfarin. #8 Chronic back pain. #9 Peripheral neuropathy. #10 Hypothyroidism. #11 Anemia. #12 bacteremia, positive [facility] blood cultures with gram-positive cocci, staph homis-blood cultures negative so far, suspect skin contamination. Final culture results to be faxed to PCP and Dr. Palm. Hospital course:This is a 71-year-old female admitted with dyspnea- multifactorial, acute COPD exacerbation, [id number] cocci blood cultures from [place], acute on chronic hypoxic, hypercapnic respiratory failure and multiple other medical issues. Maintained on Lasix, nebulized bronchodilators, antibiotics. Evaluated by both pulmonary and infectious disease. Significant clinical improvement. Cleared by all consults for discharge. Patient is being discharged home with home care in a stable condition with guarded prognosis. Microbiology 12/27/16 06:12 Blood Blood Culture - Preliminary No Growth after 24 hours 12/26/16 06:42 Blood Blood Culture - Preliminary No Growth after 48 hours The impression and plan of care has been dictated as directedas bjorn carlsonibdaniela. : I performed a H&P examination of this patient and discussed the same with the dictator. I agree with the dictator's note. Any additional findings/opinions/ etc. will be noted. Patient Condition at Discharge: Stable Plan - Discharge Summary New Discharge Prescriptions: New Doxycycline Monohydrate [Monodox] 100 mg PO Q12HR #10 cap predniSONE 10 mg PO DIRECTED #60 tab Continue Omeprazole [PriLOSEC] 20 mg PO BID Gabapentin [Neurontin] 300 mg PO HS Desvenlafaxine Succinate [Pristiq ER] 50 mg PO DAILY Potassium Chloride [Klor-Con 20] 20 meq PO DAILY Allopurinol [Zyloprim] 100 mg PO DAILY Levothyroxine Sodium [Levoxyl] 175 mcg PO AC-BRKFST Ipratropium/Albuterol Sulfate [Duoneb 0.5 mg-3 mg/3 ml Soln] 3 ml INHALATION RT-BID PRN PRN Reason: Shortness Of Breath busPIRone HCl [Buspar] 10 mg PO BID Montelukast [Singulair] 10 mg PO HS tiZANidine [Zanaflex] 2 mg PO Q8HR PRN PRN Reason: Muscle Spasm/Pain Metoprolol Tartrate [Lopressor] 50 mg PO BID tab ALPRAZolam [Xanax] 0.5 mg PO TID PRN #20 tablet PRN Reason: Anxiety HYDROcodone/APAP 5-325MG [[place] 5-325] 1 tab PO BID PRN PRN Reason: Pain Verapamil HCl [Calan] 120 mg PO BID Codeine Phosphate/Guaifenesin [Cheratussin AC Syrup] 10 ml PO Q6HR PRN PRN Reason: Cough Niacin [Niaspan] 500 mg PO DAILY Mometasone Furoate [Nasonex Nasal [place]] 1 - 2 spray EA NOSTRIL DAILY Cyanocobalamin (Vitamin B-12) [Vitamin B-12] 1,000 mcg PO DAILY Cholecalciferol [Vitamin D3] 1,000 unit PO DAILY Ascorbic Acid [Vitamin C] 500 mg PO DAILY Magnesium Oxide [Mag-Ox] 250 mg PO DAILY Digoxin 250 mcg PO DAILY Pyridoxine HCl (Vitamin B6) [Vitamin B-6] 100 mg PO DAILY Ferrous Sulfate [Feosol] 325 mg PO DAILY Methocarbamol [Robaxin] 500 mg PO Q8H PRN PRN Reason: Muscle Pain Furosemide [Lasix] 60 mg PO DAILY Furosemide [Lasix] 40 mg PO HS Warfarin Sodium 2.5 mg PO DAILY predniSONE 10 mg PO DAILY #0 Discontinued Levofloxacin [Levaquin] 500 mg PO DAILY #7 tab Meloxicam [Mobic] 7.5 mg PO DAILY Discharge Medication List Allopurinol [Zyloprim] 100 mg PO DAILY 11/07/13 [History] Desvenlafaxine Succinate [Pristiq ER] 50 mg PO DAILY 11/07/13 [History] Gabapentin [Neurontin] 300 mg PO HS 11/07/13 [History] Ipratropium/Albuterol Sulfate [Duoneb 0.5 mg-3 mg/3 ml Soln] 3 ml INHALATION RT- BID PRN 11/07/13 [History] Levothyroxine Sodium [Levoxyl] 175 mcg PO AC-BRKFST 11/07/13 [History] Omeprazole [PriLOSEC] 20 mg PO BID 11/07/13 [History] Potassium Chloride [Klor-Con 20] 20 meq PO DAILY 11/07/13 [History] busPIRone HCl [Buspar] 10 mg PO BID 11/08/13 [History] Montelukast [Singulair] 10 mg PO HS 06/01/16 [History] tiZANidine [Zanaflex] 2 mg PO Q8HR PRN 06/01/16 [History] ALPRAZolam [Xanax] 0.5 mg PO TID PRN #20 tablet 06/29/16 [Rx] Metoprolol Tartrate [Lopressor] 50 mg PO BID tab 06/29/16 [Rx] HYDROcodone/APAP 5-325MG [[place] 5-325] 1 tab PO BID PRN 07/27/16 [History] Verapamil HCl [Calan] 120 mg PO BID 07/27/16 [History] Ascorbic Acid [Vitamin C] 500 mg PO DAILY 12/23/16 [History] Cholecalciferol [Vitamin D3] 1,000 unit PO DAILY 12/23/16 [History] Codeine Phosphate/Guaifenesin [Cheratussin AC Syrup] 10 ml PO Q6HR PRN 12/23/16 [History] Cyanocobalamin (Vitamin B-12) [Vitamin B-12] 1,000 mcg PO DAILY 12/23/16 [ History] Digoxin 250 mcg PO DAILY 12/23/16 [History] Ferrous Sulfate [Feosol] 325 mg PO DAILY 12/23/16 [History] Furosemide [Lasix] 40 mg PO HS 12/23/16 [History] Furosemide [Lasix] 60 mg PO DAILY 12/23/16 [History] Magnesium Oxide [Mag-Ox] 250 mg PO DAILY 12/23/16 [History] Methocarbamol [Robaxin] 500 mg PO Q8H PRN 12/23/16 [History] Mometasone Furoate [Nasonex Nasal [place]] 1 - 2 spray EA NOSTRIL DAILY 12/23/16 [ History] Niacin [Niaspan] 500 mg PO DAILY 12/23/16 [History] Pyridoxine HCl (Vitamin B6) [Vitamin B-6] 100 mg PO DAILY 12/23/16 [History] Warfarin Sodium 2.5 mg PO DAILY 12/23/16 [History] Doxycycline Monohydrate [Monodox] 100 mg PO Q12HR #10 cap 12/28/16 [Rx] predniSONE 10 mg PO DIRECTED #60 tab 12/28/16 [Rx] predniSONE 10 mg PO DAILY #0 12/28/16 [Rx] Follow up Appointment(s)/Referral(s): Uziel Pathak DO [Doctor of Osteopathic Medicine] - 01/19/17 1:00 pm Uziel Kwong MD [Primary Care Provider] - 01/07/17 3:00 pm Ambulatory/Diagnostic Orders: Prothrombin Time INR [LAB.AMB] Time Frame: 12/31/16, Location: Determined By Patient Patient Instructions/Handouts: Heart Failure (DC), COPD (Chronic Obstructive Pulmonary Disease) (DC) Discharge Disposition: HOME WITH HOME HEALTH SERVICES
[2016-12-29] MEDS ORDERED: VANCOMYCIN TROUGH DUE 1 EACH MISC MISCELLANE ONE (05:00)
== END 2016-12-28 15:43 | disposition home health service (06) | DRG 190 ==
LOC: 6SEL 16:41 → 4MS4W 12-27 08:28
PROVIDERS: ADMIT Internal Medicine; ATTEND Internal Medicine
DX: J44.0 Chronic obstructive pulmonary disease with (acute) lower respiratory infection (principal); J96.22 Acute and chronic respiratory failure with hypercapnia; J96.21 Acute and chronic respiratory failure with hypoxia; I50.33 Acute on chronic diastolic (congestive) heart failure; I27.2 Other secondary pulmonary hypertension; G62.9 Polyneuropathy, unspecified; Z99.81 Dependence on supplemental oxygen; I48.0 Paroxysmal atrial fibrillation; Z86.74 Personal history of sudden cardiac arrest; E66.2 Morbid (severe) obesity with alveolar hypoventilation; D64.9 Anemia, unspecified; S80.11XA Contusion of right lower leg, initial encounter; F32.9 Major depressive disorder, single episode, unspecified; E03.9 Hypothyroidism, unspecified; J20.9 Acute bronchitis, unspecified; J44.1 Chronic obstructive pulmonary disease with (acute) exacerbation; I11.0 Hypertensive heart disease with heart failure; M10.9 Gout, unspecified; S80.12XA Contusion of left lower leg, initial encounter; G89.29 Other chronic pain; F41.9 Anxiety disorder, unspecified; K59.00 Constipation, unspecified; M54.9 Dorsalgia, unspecified; R53.1 Weakness; J98.4 Other disorders of lung; Z90.710 Acquired absence of both cervix and uterus; Z90.49 Acquired absence of other specified parts of digestive tract; Z86.718 Personal history of other venous thrombosis and embolism; Z79.899 Other long term (current) drug therapy; Z86.711 Personal history of pulmonary embolism; Z88.0 Allergy status to penicillin; Z86.14 Personal history of Methicillin resistant Staphylococcus aureus infection; Z87.01 Personal history of pneumonia (recurrent); Z87.440 Personal history of urinary (tract) infections; Z79.01 Long term (current) use of anticoagulants; Z79.1 Long term (current) use of non-steroidal anti-inflammatories (NSAID); Z79.51 Long term (current) use of inhaled steroids; Z79.52 Long term (current) use of systemic steroids; Z79.891 Long term (current) use of opiate analgesic; W19.XXXA Unspecified fall, initial encounter
CPT/HCPCS: 71020; 72072; 72100; 80048; 80053; 80162; 83735; 83880; 85027; 85379; 85610; 87040; 94640; 94760

== ENCOUNTER 2017-01-03 19:04 | Inpatient (IN) | payer MEDICARE, BC, OTHER ==
[2017-01-03] MEDS ORDERED: ALBUTEROL NEBULIZED 2.5 MG/3 ML INHALATION STA (19:08)
[2017-01-03 19:34] LABS: VBG PH 7.39 (7.31-7.41)
[2017-01-03 19:39] LABS: Basophils % (A) 0 %; CH 25.1; CHCM 28.6; Eosinophils # (A) 0.1 k/uL (0-0.7); Eosinophils % (A) 0 %; HCT 41.8 % (34.0-46.0); HDW 2.85; HGB 12.3 gm/dL (11.4-16.0); Hypochromasia Marked; Luc # (Auto) 0.04; Luc % (Auto) 0; Lymphocytes # (A) 0.3 k/uL (1.0-4.8); Lymphocytes % (A) 2 %; MCH 25.9 pg (25.0-35.0); MCHC 29.4 g/dL (31.0-37.0); MCV 88.2 fL (80.0-100.0); Mean Platelet Volume 6.9; Monocytes # (A) 0.1 k/uL (0-1.0); Monocytes % (A) 1 %; Neutrophils # (A) 13.2 k/uL (1.3-7.7); Neutrophils % (A) 96 %; RBC 4.74 m/uL (3.80-5.40); RDW 15.8 % (11.5-15.5); WBC 13.7 k/uL (3.8-10.6); WBC (Perox) 13.53
[2017-01-03 19:55] LABS: ALT 42 U/L (9-52); AST 21 U/L (14-36); Alkaline Phosphatase 98 U/L (38-126); Blood Urea Nitrogen 29 mg/dL (7-17); Calcium 8.8 mg/dL (8.4-10.2); Chloride 90 mmol/L (98-107); Glucose 148 mg/dL (74-99); Non-African American GFR(MDRD) >60 (>60 ml/min/1.73 sqM); Potassium 4.2 mmol/L (3.5-5.1); Sodium 142 mmol/L (137-145); Total Bilirubin 0.5 mg/dL (0.2-1.3); Total Protein 5.6 g/dL (6.3-8.2)
[2017-01-03 19:56] LABS: Creatine Kinase <20 U/L (30-135)
[2017-01-03 20:09] LABS: Anion Gap 4 mmol/L; Creatine Kinase MB 0.7 ng/mL (0.0-2.4); Troponin I 0.021 ng/mL (0.000-0.034)
[2017-01-03 20:10] LABS: Carbon Dioxide 48 mmol/L (22-30); Prothrombin Time 19.5 sec (9.0-12.0)
--- NOTE | 2017-01-03 20:27 | XR ---
EXAMINATION TYPE: XR chest 1V DATE OF EXAM: 01/03/2017 COMPARISON: 12/24/2016 HISTORY: Difficulty breathing TECHNIQUE: Single frontal view of the chest is obtained. FINDINGS: Heart is enlarged. There is coarsening of interstitial markings. There are chest leads. Th ere is mild pulmonary congestion. IMPRESSION: There is probably mild heart failure. There is also evidence of pulmonary interstitial f ibrosis. No change compared to last exam. Cardiomegaly.
--- NOTE | 2017-01-03 20:57 | ED ---
General Adult HPI - General Chief complaint: Shortness of Breath Stated complaint: COPD Time Seen by Provider: 01/03/17 19:06 Source: patient, EMS, RN notes reviewed, old records reviewed Mode of arrival: EMS Limitations: no limitations - History of Present Illness Initial comments: 8-year-old female with history of COPD, diastolic heart failure, pulmonary hypertension, history of pulmonary embolism, and obesity associated hyperventilation presents as a transfer from outside facility. Patient was confused and found to have a CO2 of 93. She was placed on BiPAP. Her complaint was dyspnea at that time. Upon arrival to our emergency department she is more alert. Stating that she has had 3 days of worsening dyspnea. Denies chest pain. Denies cough or sputum production. Denies fever. Denies nausea vomiting or diarrhea. Patient states she normally wears 3 L of home oxygen, denies the use of CPAP at night. Patient also states that she had a minor injury to her left aldana after an oxygen tank fell on her leg. - Related Data Home Medications Medication Instructions Recorded Confirmed Allopurinol [Zyloprim] 100 mg PO DAILY 11/07/13 01/03/17 Desvenlafaxine Succinate [Pristiq 50 mg PO DAILY 11/07/13 01/03/17 ER] Gabapentin [Neurontin] 300 mg PO HS 11/07/13 01/03/17 Ipratropium/Albuterol Sulfate 3 ml INHALATION RT-BID PRN 11/07/13 01/03/17 [Duoneb 0.5 mg-3 mg/3 ml Soln] Levothyroxine Sodium [Levoxyl] 175 mcg PO AC-BRKFST 11/07/13 01/03/17 Omeprazole [PriLOSEC] 20 mg PO BID 11/07/13 01/03/17 Potassium Chloride [Klor-Con 20] 20 meq PO DAILY 11/07/13 01/03/17 busPIRone HCl [Buspar] 10 mg PO BID 11/08/13 01/03/17 Montelukast [Singulair] 10 mg PO HS 06/01/16 01/03/17 tiZANidine [Zanaflex] 2 mg PO Q8HR PRN 06/01/16 01/03/17 HYDROcodone/APAP 5-325MG [[place] 1 tab PO BID PRN 07/27/16 01/03/17 5-325] Verapamil HCl [Calan] 120 mg PO BID 07/27/16 01/03/17 Ascorbic Acid [Vitamin C] 500 mg PO DAILY 12/23/16 01/03/17 Cholecalciferol [Vitamin D3] 1,000 unit PO DAILY 12/23/16 01/03/17 Codeine Phosphate/Guaifenesin 10 ml PO Q6HR PRN 12/23/16 01/03/17 [Cheratussin AC Syrup] Cyanocobalamin (Vitamin B-12) 1,000 mcg PO DAILY 12/23/16 01/03/17 [Vitamin B-12] Digoxin 250 mcg PO DAILY 12/23/16 01/03/17 Ferrous Sulfate [Feosol] 325 mg PO DAILY 12/23/16 01/03/17 Furosemide [Lasix] 40 mg PO HS 12/23/16 01/03/17 Furosemide [Lasix] 60 mg PO DAILY 12/23/16 01/03/17 Magnesium Oxide [Mag-Ox] 250 mg PO DAILY 12/23/16 01/03/17 Methocarbamol [Robaxin] 500 mg PO Q8H PRN 12/23/16 01/03/17 Mometasone Furoate [Nasonex Nasal 1 - 2 spray EA NOSTRIL DAILY 12/23/16 01/03/17 [place]] Niacin [Niaspan] 500 mg PO DAILY 12/23/16 01/03/17 Pyridoxine HCl (Vitamin B6) 100 mg PO DAILY 12/23/16 01/03/17 [Vitamin B-6] Warfarin Sodium 2.5 mg PO DAILY 12/23/16 01/03/17 predniSONE See Taper PO DAILY 01/03/17 01/03/17 Previous Rx's Medication Instructions Recorded ALPRAZolam [Xanax] 0.5 mg PO TID PRN #20 tablet 06/29/16 Metoprolol Tartrate [Lopressor] 50 mg PO BID tab 06/29/16 Doxycycline Monohydrate [Monodox] 100 mg PO Q12HR #10 cap 12/28/16 Allergies Allergy/AdvReac Type Severity Reaction Status Date / Time Penicillins Allergy Dyspnea Verified 01/03/17 19:34 Review of Systems ROS Statement: Those systems with pertinent positive or pertinent negative responses have been documented in the HPI. ROS Other: All systems not noted in ROS Statement are negative. Respiratory: Reports: dyspnea. Denies: cough Cardiovascular: Denies: chest pain Past Medical History Past Medical History: Atrial Fibrillation, Heart Failure, COPD, Deep Vein Thrombosis (DVT), Hypertension, Pneumonia, Pulmonary Embolus (PE), Respiratory Disorder, Thyroid Disorder Additional Past Medical History / Comment(s): anxiety, chronic back pain, morbid obesity, hypothyroidism, peripheral neuroapathy, UTI,CONSTIPATION, per pt 02 3.5 liters n/c while at [email or web address], anxiety/depression History of Any Multi-Drug Resistant Organisms: MRSA Date of last positivie culture/infection: 11/13/07 MDRO Source:: Unknown Past Surgical History: Appendectomy, Cholecystectomy, Hysterectomy Additional Past Surgical History / Comment(s): Previous Trach placement- two cardiac arrests during procedure. Past Anesthesia/Blood Transfusion Reactions: No Reported Reaction Additional Past Anesthesia/Blood Transfusion Reaction / Comment(s): past blood transfusion" many years ago"-no reaction to it. Past Psychological History: Anxiety Smoking Status: Never smoker Past Alcohol Use History: None Reported Past Drug Use History: None Reported - Past Family History Father Family Medical History: No Reported History Mother Family Medical History: Osteoarthritis (OA) Additional Family Medical History / Comment(s): Two knee replacements and two hip replacements General Exam Limitations: no limitations General appearance: alert, in no apparent distress Head exam: Present: atraumatic, normocephalic Eye exam: Present: normal appearance, PERRL ENT exam: Present: normal exam, mucous membranes moist Neck exam: Present: normal inspection Respiratory exam: Present: decreased breath sounds Cardiovascular Exam: Present: regular rate, normal rhythm GI/Abdominal exam: Present: soft, other (Obese). Absent: distended, tenderness Extremities exam: Present: normal capillary refill, pedal edema (Trace), other ( Abrasion to the left anterior aldana) Neurological exam: Present: alert, oriented X3. Absent: motor sensory deficit Psychiatric exam: Present: normal affect, normal mood Skin exam: Present: warm, dry. Absent: cyanosis, diaphoretic Course Vital Signs 01/03/17 01/03/17 01/03/17 19:08 19:20 19:55 Temperature 97.6 F Pulse Rate 70 74 68 Respiratory 26 H 30 H Rate Blood Pressure 135/62 128/59 O2 Sat by Pulse 99 98 Oximetry 01/03/17 01/03/17 19:57 20:25 Temperature Pulse Rate 67 72 Respiratory 30 H Rate Blood Pressure 132/91 O2 Sat by Pulse 98 Oximetry - Reevaluation(s) Reevaluation #1: 01/03/17 20:50 Patient is given additional 5 mg of albuterol in the emergency department. She states she is more comfortable on BiPAP. No additional complaints. EKG Findings - EKG Comments: EKG Findings:: EKG shows normal sinus rhythm, right bundle branch block, ventricular rate 67,. Avoid 92, QRS duration 146, QTC 454, no significant change when compared to EKG from June 2016 Medical Decision Making - Medical Decision Making 71-year-old female presenting from outside facility with worsening dyspnea and elevated CO2 requiring BiPAP. Patient does have elevated carbon dioxide on BMP , she is a chronic CO2 retainer. Repeat blood gas upon arrival shows a venous CO2 of 83 which is improved. Patient states she wears home oxygen but does not wear CPAP or BiPAP at home. Patient is on Coumadin, INR 2.0 which is therapeutic. Her white cell count in the setting of steroid use, is noncontributory. Chest x-ray shows mild pulmonary vascular congestion, no focal pneumonia. There is also some interstitial changes suggestive of fibrosis. Laboratory studies are otherwise unremarkable. Patient will be placed in observation, she will be maintained on BiPAP and she is more comfortable. Dyspnea and CO2 retention likely related primarily to obesity hypoventilation. Diagnosis: Hypercarbic Respiratory failure requiring BiPAP, COPD, diastolic heart failure, obesity associated hypoventilation - Lab Data Result diagrams: 01/03/17 19:18 01/03/17 19:18 Lab Results 01/03/17 01/03/17 01/03/17 Range/Units 19:18 19:18 19:18 WBC 13.7 H (3.8-10.6) k/uL RBC 4.74 (3.80-5.40) m/uL Hgb 12.3 (11.4-16.0) gm/dL Hct 41.8 (34.0-46.0) % MCV 88.2 (80.0-100.0) fL MCH 25.9 (25.0-35.0) pg MCHC 29.4 L (31.0-37.0) g/dL RDW 15.8 H (11.5-15.5) % Plt Count 215 (150-450) k/uL Neutrophils % 96 % Lymphocytes % 2 % Monocytes % 1 % Eosinophils % 0 % Basophils % 0 % Neutrophils # 13.2 H (1.3-7.7) k/uL Lymphocytes # 0.3 L (1.0-4.8) k/uL Monocytes # 0.1 (0-1.0) k/uL Eosinophils # 0.1 (0-0.7) k/uL Basophils # 0.0 (0-0.2) k/uL Hypochromasia Marked PT (9.0-12.0) sec INR (<1.2) APTT (22.0-30.0) sec VBG pH (7.31-7.41) VBG pCO2 (37-51) mmHg VBG HCO3 (24-28) mmol/L Sodium 142 (137-145) mmol/L Potassium 4.2 (3.5-5.1) mmol/L Chloride 90 L (98-107) mmol/L Carbon Dioxide 48 H* (22-30) mmol/L Anion Gap 4 mmol/L BUN 29 H (7-17) mg/dL Creatinine 0.92 (0.52-1.04) mg/dL Est GFR (MDRD) Af Amer >60 (>60 ml/min/1.73 sqM) Est GFR (MDRD) Non-Af >60 (>60 ml/min/1.73 sqM) Glucose 148 H (74-99) mg/dL Plasma Lactic Acid [place] (0.7-2.0) mmol/L Calcium 8.8 (8.4-10.2) mg/dL Magnesium 2.0 (1.6-2.3) mg/dL Total Bilirubin 0.5 (0.2-1.3) mg/dL AST 21 (14-36) U/L ALT 42 (9-52) U/L Alkaline Phosphatase 98 (38-126) U/L Total Creatine Kinase <20 L (30-135) U/L CK-MB (CK-2) 0.7 (0.0-2.4) ng/mL CK-MB (CK-2) Rel Index 0.0 Troponin I 0.021 (0.000-0.034) ng/mL NT-Pro-B Natriuret Pep pg/mL Total Protein 5.6 L (6.3-8.2) g/dL Albumin 3.0 L (3.5-5.0) g/dL 01/03/17 01/03/17 01/03/17 Range/Units 19:18 19:18 19:18 WBC (3.8-10.6) k/uL RBC (3.80-5.40) m/uL Hgb (11.4-16.0) gm/dL Hct (34.0-46.0) % MCV (80.0-100.0) fL MCH (25.0-35.0) pg MCHC (31.0-37.0) g/dL RDW (11.5-15.5) % Plt Count (150-450) k/uL Neutrophils % % Lymphocytes % % Monocytes % % Eosinophils % % Basophils % % Neutrophils # (1.3-7.7) k/uL Lymphocytes # (1.0-4.8) k/uL Monocytes # (0-1.0) k/uL Eosinophils # (0-0.7) k/uL Basophils # (0-0.2) k/uL Hypochromasia PT 19.5 H (9.0-12.0) sec INR 2.0 H (<1.2) APTT 26.0 (22.0-30.0) sec VBG pH 7.39 (7.31-7.41) VBG pCO2 83 H* (37-51) mmHg VBG HCO3 49 H (24-28) mmol/L Sodium (137-145) mmol/L Potassium (3.5-5.1) mmol/L Chloride (98-107) mmol/L Carbon Dioxide (22-30) mmol/L Anion Gap mmol/L BUN (7-17) mg/dL Creatinine (0.52-1.04) mg/dL Est GFR (MDRD) Af Amer (>60 ml/min/1.73 sqM) Est GFR (MDRD) Non-Af (>60 ml/min/1.73 sqM) Glucose (74-99) mg/dL Plasma Lactic Acid [place] (0.7-2.0) mmol/L Calcium (8.4-10.2) mg/dL Magnesium (1.6-2.3) mg/dL Total Bilirubin (0.2-1.3) mg/dL AST (14-36) U/L ALT (9-52) U/L Alkaline Phosphatase (38-126) U/L Total Creatine Kinase (30-135) U/L CK-MB (CK-2) (0.0-2.4) ng/mL CK-MB (CK-2) Rel Index Troponin I (0.000-0.034) ng/mL NT-Pro-B Natriuret Pep 1130 pg/mL Total Protein (6.3-8.2) g/dL Albumin (3.5-5.0) g/dL 01/03/17 Range/Units 19:18 WBC (3.8-10.6) k/uL RBC (3.80-5.40) m/uL Hgb (11.4-16.0) gm/dL Hct (34.0-46.0) % MCV (80.0-100.0) fL MCH (25.0-35.0) pg MCHC (31.0-37.0) g/dL RDW (11.5-15.5) % Plt Count (150-450) k/uL Neutrophils % % Lymphocytes % % Monocytes % % Eosinophils % % Basophils % % Neutrophils # (1.3-7.7) k/uL Lymphocytes # (1.0-4.8) k/uL Monocytes # (0-1.0) k/uL Eosinophils # (0-0.7) k/uL Basophils # (0-0.2) k/uL Hypochromasia PT (9.0-12.0) sec INR (<1.2) APTT (22.0-30.0) sec VBG pH (7.31-7.41) VBG pCO2 (37-51) mmHg VBG HCO3 (24-28) mmol/L Sodium (137-145) mmol/L Potassium (3.5-5.1) mmol/L Chloride (98-107) mmol/L Carbon Dioxide (22-30) mmol/L Anion Gap mmol/L BUN (7-17) mg/dL Creatinine (0.52-1.04) mg/dL Est GFR (MDRD) Af Amer (>60 ml/min/1.73 sqM) Est GFR (MDRD) Non-Af (>60 ml/min/1.73 sqM) Glucose (74-99) mg/dL Plasma Lactic Acid [place] 1.2 (0.7-2.0) mmol/L Calcium (8.4-10.2) mg/dL Magnesium (1.6-2.3) mg/dL Total Bilirubin (0.2-1.3) mg/dL AST (14-36) U/L ALT (9-52) U/L Alkaline Phosphatase (38-126) U/L Total Creatine Kinase (30-135) U/L CK-MB (CK-2) (0.0-2.4) ng/mL CK-MB (CK-2) Rel Index Troponin I (0.000-0.034) ng/mL NT-Pro-B Natriuret Pep pg/mL Total Protein (6.3-8.2) g/dL Albumin (3.5-5.0) g/dL Disposition Clinical Impression: Acute exacerbation of chronic obstructive airways disease, CHF (congestive heart failure), COPD exacerbation, Morbid obesity, Hypercapnic respiratory failure Disposition: ADMITTED IP TO THIS [facility] Condition: Stable Referrals: Uziel Kwong MD [Primary Care Provider] - 1-2 days Decision to Admit Reason: Admit from EC Decision Date: 01/03/17 Decision Time: 20:00
[2017-01-04 01:04] VITALS: BMI 55.0
[2017-01-04 02:00] LABS: Creatine Kinase MB 0.7 ng/mL (0.0-2.4)
[2017-01-04 02:02] LABS: Troponin I 0.027 ng/mL (0.000-0.034)
[2017-01-04] MEDS: busPIRone HCl 10 MG TAB PO SCH ×3 (02:03→20:30)
[2017-01-04] MEDS: FUROSEMIDE 40 MG TAB PO SCH ×2 (02:03→20:30)
[2017-01-04] MEDS: METOPROLOL TARTRATE 50 MG TAB PO SCH ×3 (02:03→20:31)
[2017-01-04] MEDS: IPRATROPIUM-ALBUTEROL 3 ML NEB INHALATION PRN ×2 (07:40→11:48)
[2017-01-04] MEDS: LEVOTHYROXINE 100 MCG TAB PO SCH (09:06)
[2017-01-04] MEDS: DIGOXIN 250 MCG TAB PO SCH (09:06)
[2017-01-04] MEDS: LEVOTHYROXINE 75 MCG TAB PO SCH (09:06)
[2017-01-04] MEDS: WARFARIN 2.5 MG TAB PO SCH (09:06)
[2017-01-04] MEDS: ALLOPURINOL 100 MG TAB PO SCH (09:06)
[2017-01-04] MEDS: predniSONE 20 MG TAB PO SCH (09:55)
--- NOTE | 2017-01-04 14:12 | P.HPIM ---
History of Present Illness 71-year-old female with history of COPD, diastolic heart failure, pulmonary hypertension, history of pulmonary embolism, and obesity associated hyperventilation presents as a transfer from outside facility. Patient was confused and found to have a pCO2 of 93 to normal ph of 7.3. Patient comes a confusing improved patient is still bit confused but the patient does not appear to be septic all the workup for sepsis is essentially negative and the patient doesn't use any CPAP machine at home. She was placed on BiPAP. Patient had improved symptoms and is more alert, almost oriented times close to 3 but little bit confused still. Denies chest pain. Denies cough or sputum production. Denies fever. Denies nausea vomiting or diarrhea. Patient states she normally wears 3 L of home oxygen, denies the use of CPAP at night. Patient also states that she had a minor injury to her left aldana after an oxygen tank fell on her leg. Patient was later evaluated by pulmonology in the recommending CPAP machine to go home on. Patient will be discharged once we're able to get CPAP set up for her. Review of Systems REVIEW OF SYSTEMS: CONSTITUTIONAL: No fever, no malaise, no fatigue. HEENT: No recent visual problems or hearing problems. Denied any sore throat. CARDIOVASCULAR: No chest pain, orthopnea, PND, no palpitations, no syncope. PULMONARY: No shortness of breath, no cough, no hemoptysis. GASTROINTESTINAL: No diarrhea, no nausea, no vomiting, no abdominal pain. Normoactive bowel sounds. NEUROLOGICAL: No headaches, no weakness, no numbness. HEMATOLOGICAL: Denies any bleeding or petechiae. GENITOURINARY: Denies any burning micturition, frequency, or urgency. MUSCULOSKELETAL/RHEUMATOLOGICAL: Denies any joint pain, swelling, or any muscle pain. Patient is complaining of an injury to the left leg after dropping an oxygen tank on her leg which doesn't appear to be infected. There is a small laceration ENDOCRINE: Denies any polyuria or polydipsia. The rest of the 14-point review of systems is negative. Past Medical History Past Medical History: Atrial Fibrillation, Heart Failure, COPD, Deep Vein Thrombosis (DVT), Hypertension, Pneumonia, Pulmonary Embolus (PE), Respiratory Disorder, Thyroid Disorder Additional Past Medical History / Comment(s): Morbid obesity, chronic hypoxic respiratory failure, chronic hypercapnic the story failure, CHF with diastolic dysfunction, moderate degree of pulmonary hypertension, obesity hypoventilation syndrome, obstructive sleep apnea, atrial fibrillation, chronic back pain, hypothyroidism, peripheral neuropathy, chronic constipation, gout, anxiety, depression, hypothyroidism, previous history of DVT/pulmonary embolism, very poor performance and functional status secondary to above-mentioned comorbidities. The patient has been on oxygen between 2-3 L/m nasal cannula. History of Any Multi-Drug Resistant Organisms: MRSA Date of last positivie culture/infection: 11/13/07 MDRO Source:: Unknown Past Surgical History: Appendectomy, Cholecystectomy, Hysterectomy Additional Past Surgical History / Comment(s): Previous Trach placement- two cardiac arrests during procedure. Past Anesthesia/Blood Transfusion Reactions: No Reported Reaction Additional Past Anesthesia/Blood Transfusion Reaction / Comment(s): past blood transfusion" many years ago"-no reaction to it. Smoking Status: Never smoker - Past Family History Father Family Medical History: No Reported History Mother Family Medical History: Osteoarthritis (OA) Additional Family Medical History / Comment(s): Two knee replacements and two hip replacements Medications and Allergies Home Medications Medication Instructions Recorded Confirmed Type Allopurinol [Zyloprim] 100 mg PO DAILY 11/07/13 01/04/17 History Desvenlafaxine Succinate [Pristiq 50 mg PO DAILY 11/07/13 01/04/17 History ER] Gabapentin [Neurontin] 300 mg PO HS 11/07/13 01/04/17 History Ipratropium/Albuterol Sulfate 3 ml INHALATION RT-BID PRN 11/07/13 01/04/17 History [Duoneb 0.5 mg-3 mg/3 ml Soln] Levothyroxine Sodium [Levoxyl] 175 mcg PO AC-BRKFST 11/07/13 01/04/17 History Omeprazole [PriLOSEC] 20 mg PO BID 11/07/13 01/04/17 History Potassium Chloride [Klor-Con 20] 20 meq PO DAILY 11/07/13 01/04/17 History busPIRone HCl [Buspar] 10 mg PO BID 11/08/13 01/04/17 History Montelukast [Singulair] 10 mg PO HS 06/01/16 01/04/17 History tiZANidine [Zanaflex] 2 mg PO Q8HR PRN 06/01/16 01/04/17 History HYDROcodone/APAP 5-325MG [[place] 1 tab PO BID PRN 07/27/16 01/04/17 History 5-325] Verapamil HCl [[place]] 120 mg PO BID 07/27/16 01/04/17 History Ascorbic Acid [Vitamin C] 500 mg PO DAILY 12/23/16 01/04/17 History Cholecalciferol [Vitamin D3] 1,000 unit PO DAILY 12/23/16 01/04/17 History Codeine Phosphate/Guaifenesin 10 ml PO Q6HR PRN 12/23/16 01/04/17 History [Cheratussin AC Syrup] Cyanocobalamin (Vitamin B-12) 1,000 mcg PO DAILY 12/23/16 01/04/17 History [Vitamin B-12] Digoxin 250 mcg PO DAILY 12/23/16 01/04/17 History Ferrous Sulfate [Feosol] 325 mg PO DAILY 12/23/16 01/04/17 History Furosemide [Lasix] 40 mg PO HS 12/23/16 01/04/17 History Furosemide [Lasix] 60 mg PO DAILY 12/23/16 01/04/17 History Magnesium Oxide [Mag-Ox] 250 mg PO DAILY 12/23/16 01/04/17 History Methocarbamol [Robaxin] 500 mg PO Q8H PRN 12/23/16 01/04/17 History Mometasone Furoate [Nasonex Nasal 1 - 2 spray EA NOSTRIL DAILY 12/23/16 History [place]] Niacin [Niaspan] 500 mg PO DAILY 12/23/16 01/04/17 History Pyridoxine HCl (Vitamin B6) 100 mg PO DAILY 12/23/16 01/04/17 History [Vitamin B-6] Warfarin Sodium 2.5 mg PO DAILY 12/23/16 01/04/17 History predniSONE See Taper PO DAILY 01/03/17 01/04/17 History Allergies Allergy/AdvReac Type Severity Reaction Status Date / Time Penicillins Allergy Dyspnea Verified 01/04/17 01:12 Physical Exam Vitals: Vital Signs Temp Pulse Pulse Resp BP BP Pulse Ox 01/04/17 12:00 98.1 F 88 65 16 152/68 95 01/04/17 11:49 93 L 01/04/17 11:48 80 01/04/17 08:00 97.6 F 74 20 179/64 94 L 01/04/17 07:52 76 01/04/17 07:43 76 01/04/17 03:34 74 34 H 01/04/17 03:31 71 34 H 157/61 95 01/04/17 00:25 97.7 F 76 38 H 146/63 95 01/04/17 00:05 74 38 H 01/03/17 23:55 97.5 F L 72 30 H 139/61 93 L 01/03/17 23:25 74 30 H 141/63 96 01/03/17 22:55 74 30 H 140/63 95 01/03/17 22:25 72 30 H 133/62 96 01/03/17 21:55 74 30 H 134/63 96 01/03/17 21:25 70 30 H 135/60 96 01/03/17 21:00 72 30 H 156/67 97 01/03/17 20:25 72 30 H 132/91 98 01/03/17 19:57 67 01/03/17 19:55 68 30 H 128/59 98 01/03/17 19:20 74 01/03/17 19:08 97.6 F 70 26 H 135/62 99 Intake and Output 01/03/17 01/04/17 01/04/17 22:59 06:59 14:59 Intake Total 0 Output Total 500 Balance -500 Intake: Oral 0 Output: Urine 500 Other: Voiding Method Indwelling Catheter Indwelling Catheter Weight 150 kg 153 kg PHYSICAL EXAMINATION: GENERAL: The patient is alert and oriented x3, not in any acute distress. Well developed, well nourished. HEENT: Pupils are round and equally reacting to light. EOMI. No scleral icterus. No conjunctival pallor. Normocephalic, atraumatic. No pharyngeal erythema. No thyromegaly. CARDIOVASCULAR: S1 and S2 present. No murmurs, rubs, or gallops. PULMONARY: He is decreased air entry into bilateral lung son minimal expiratory wheezing was appreciated morbidly obese. ABDOMEN: Soft, nontender, nondistended, normoactive bowel sounds. No palpable organomegaly. MUSCULOSKELETAL: No joint swelling or deformity. EXTREMITIES: No cyanosis, clubbing, or pedal edema. NEUROLOGICAL: Gross neurological examination did not reveal any focal deficits. SKIN: No rashes. Results CBC & Chem 7: 01/03/17 19:18 01/03/17 19:18 Labs: Abnormal Lab Results - Last 24 Hours (Table) 01/03/17 01/03/17 01/03/17 Range/Units 19:18 19:18 19:18 WBC 13.7 H (3.8-10.6) k/uL MCHC 29.4 L (31.0-37.0) g/dL RDW 15.8 H (11.5-15.5) % Neutrophils # 13.2 H (1.3-7.7) k/uL Lymphocytes # 0.3 L (1.0-4.8) k/uL PT (9.0-12.0) sec INR (<1.2) VBG pCO2 (37-51) mmHg VBG HCO3 (24-28) mmol/L Chloride 90 L (98-107) mmol/L Carbon Dioxide 48 H* (22-30) mmol/L BUN 29 H (7-17) mg/dL Glucose 148 H (74-99) mg/dL Total Creatine Kinase <20 L (30-135) U/L Total Protein 5.6 L (6.3-8.2) g/dL Albumin 3.0 L (3.5-5.0) g/dL 01/03/17 01/03/17 Range/Units 19:18 19:18 WBC (3.8-10.6) k/uL MCHC (31.0-37.0) g/dL RDW (11.5-15.5) % Neutrophils # (1.3-7.7) k/uL Lymphocytes # (1.0-4.8) k/uL PT 19.5 H (9.0-12.0) sec INR 2.0 H (<1.2) VBG pCO2 83 H* (37-51) mmHg VBG HCO3 49 H (24-28) mmol/L Chloride (98-107) mmol/L Carbon Dioxide (22-30) mmol/L BUN (7-17) mg/dL Glucose (74-99) mg/dL Total Creatine Kinase (30-135) U/L Total Protein (6.3-8.2) g/dL Albumin (3.5-5.0) g/dL Thrombosis Risk Factor Assmnt - Choose All That Apply Each Factor Represents 1 point: Abnormal pulmonary function (COPD), Heart failure (<1month), Medical pt on bed rest, Obesity (BMI >25), Swollen legs ( current) Each Risk Factor Represents 2 Points: Age 61-74 years Each Risk Factor Represents 3 Points: History of DVT/PE Other congenital or acquired thrombophilia - If yes, enter type in comment: No Thrombosis Risk Factor Assessment Total Risk Factor Score: 10 Thrombosis Risk Factor Assessment Level: High Risk Assessment and Plan Plan: #1 altered mental status: Secondary to metabolic encephalopathy from CO2 retention from obesity hypoventilation syndrome and sleep apnea. Patient will need CPAP upon discharge. Patient is not in any significant COPD exacerbation at this point of time. #2 chronic hypercapnic respiratory failure secondary to COPD, pulmonary hypertension and obesity hypoventilation. Patient uses 3 L of onset at home. #3 moderate pulmonary hypertension #4 history of DVT on anticoagulation with Coumadin #5 chronic low back pain #6 peripheral neuropathy #7 hypothyroidism #8 anemia of chronic disease
--- NOTE | 2017-01-04 14:13 | P.DS ---
Providers Date of admission: 01/03/17 20:35 Attending physician: Gustavo Astudillo Consults: 01/04/17 12:30 Consult Physician Routine Consulting Provider: Sima Leung Consult Reason/Comments: hypoventilation syndrome with resp fail. Do you want consulting provider notified?: Yes Primary care physician: [facility] Course: Refer to HPI Patient Condition at Discharge: Stable Plan - Discharge Summary New Discharge Prescriptions: No Action Omeprazole [PriLOSEC] 20 mg PO BID Gabapentin [Neurontin] 300 mg PO HS Desvenlafaxine Succinate [Pristiq ER] 50 mg PO DAILY Potassium Chloride [Klor-Con 20] 20 meq PO DAILY Allopurinol [Zyloprim] 100 mg PO DAILY Levothyroxine Sodium [Levoxyl] 175 mcg PO AC-BRKFST Ipratropium/Albuterol Sulfate [Duoneb 0.5 mg-3 mg/3 ml Soln] 3 ml INHALATION RT-BID PRN PRN Reason: Shortness Of Breath busPIRone HCl [Buspar] 10 mg PO BID Montelukast [Singulair] 10 mg PO HS tiZANidine [Zanaflex] 2 mg PO Q8HR PRN PRN Reason: Muscle Spasm/Pain Metoprolol Tartrate [Lopressor] 50 mg PO BID tab ALPRAZolam [Xanax] 0.5 mg PO TID PRN #20 tablet PRN Reason: Anxiety HYDROcodone/APAP 5-325MG [[place] 5-325] 1 tab PO BID PRN PRN Reason: Pain Verapamil HCl [Calan] 120 mg PO BID Codeine Phosphate/Guaifenesin [Cheratussin AC Syrup] 10 ml PO Q6HR PRN PRN Reason: Cough Niacin [Niaspan] 500 mg PO DAILY Mometasone Furoate [Nasonex Nasal [place]] 1 - 2 spray EA NOSTRIL DAILY Cyanocobalamin (Vitamin B-12) [Vitamin B-12] 1,000 mcg PO DAILY Cholecalciferol [Vitamin D3] 1,000 unit PO DAILY Ascorbic Acid [Vitamin C] 500 mg PO DAILY Magnesium Oxide [Mag-Ox] 250 mg PO DAILY Digoxin 250 mcg PO DAILY Pyridoxine HCl (Vitamin B6) [Vitamin B-6] 100 mg PO DAILY Ferrous Sulfate [Feosol] 325 mg PO DAILY Methocarbamol [Robaxin] 500 mg PO Q8H PRN PRN Reason: Muscle Pain Furosemide [Lasix] 60 mg PO DAILY Furosemide [Lasix] 40 mg PO HS Warfarin Sodium 2.5 mg PO DAILY Doxycycline Monohydrate [Monodox] 100 mg PO Q12HR #10 cap predniSONE See Taper PO DAILY Discharge Medication List Allopurinol [Zyloprim] 100 mg PO DAILY 11/07/13 [History] Desvenlafaxine Succinate [Pristiq ER] 50 mg PO DAILY 11/07/13 [History] Gabapentin [Neurontin] 300 mg PO HS 11/07/13 [History] Ipratropium/Albuterol Sulfate [Duoneb 0.5 mg-3 mg/3 ml Soln] 3 ml INHALATION RT- BID PRN 11/07/13 [History] Levothyroxine Sodium [Levoxyl] 175 mcg PO AC-BRKFST 11/07/13 [History] Omeprazole [PriLOSEC] 20 mg PO BID 11/07/13 [History] Potassium Chloride [Klor-Con 20] 20 meq PO DAILY 11/07/13 [History] busPIRone HCl [Buspar] 10 mg PO BID 11/08/13 [History] Montelukast [Singulair] 10 mg PO HS 06/01/16 [History] tiZANidine [Zanaflex] 2 mg PO Q8HR PRN 06/01/16 [History] ALPRAZolam [Xanax] 0.5 mg PO TID PRN #20 tablet 06/29/16 [Rx] Metoprolol Tartrate [Lopressor] 50 mg PO BID tab 06/29/16 [Rx] HYDROcodone/APAP 5-325MG [[place] 5-325] 1 tab PO BID PRN 07/27/16 [History] Verapamil HCl [Calan] 120 mg PO BID 07/27/16 [History] Ascorbic Acid [Vitamin C] 500 mg PO DAILY 12/23/16 [History] Cholecalciferol [Vitamin D3] 1,000 unit PO DAILY 12/23/16 [History] Codeine Phosphate/Guaifenesin [Cheratussin AC Syrup] 10 ml PO Q6HR PRN 12/23/16 [History] Cyanocobalamin (Vitamin B-12) [Vitamin B-12] 1,000 mcg PO DAILY 12/23/16 [ History] Digoxin 250 mcg PO DAILY 12/23/16 [History] Ferrous Sulfate [Feosol] 325 mg PO DAILY 12/23/16 [History] Furosemide [Lasix] 40 mg PO HS 12/23/16 [History] Furosemide [Lasix] 60 mg PO DAILY 12/23/16 [History] Magnesium Oxide [Mag-Ox] 250 mg PO DAILY 12/23/16 [History] Methocarbamol [Robaxin] 500 mg PO Q8H PRN 12/23/16 [History] Mometasone Furoate [Nasonex Nasal [place]] 1 - 2 spray EA NOSTRIL DAILY 12/23/16 [ History] Niacin [Niaspan] 500 mg PO DAILY 12/23/16 [History] Pyridoxine HCl (Vitamin B6) [Vitamin B-6] 100 mg PO DAILY 12/23/16 [History] Warfarin Sodium 2.5 mg PO DAILY 12/23/16 [History] Doxycycline Monohydrate [Monodox] 100 mg PO Q12HR #10 cap 12/28/16 [Rx] predniSONE See Taper PO DAILY 01/03/17 [History] Follow up Appointment(s)/Referral(s): Uziel Kwong MD [Primary Care Provider] - 3 Days
--- NOTE | 2017-01-04 14:23 | P.CNPUL ---
History of Present Illness Consult date: 01/04/17 Reason for consult: dyspnea History of present illness: Is 71-year-old female patient, morbidly obese with known history of COPD, or breast hypoventilation syndrome and chronic hypercapnic respiratory failure, previous history of pulmonary embolism and pulmonary potential diastolic heart failure, came into the hospital because of diminished level of consciousness. The patient apparently was also confused he had the blood gas was done at the emergency department at [facility] showed a pH of 7.33 with a pCO2 of 93.9 and pO2 of 133. Subsequently a venous blood gases was done. [facility] and showed pH of 7.39 with a pCO2 of 83 and pO2 of 49. The patient was placed on a BiPAP and she was admitted to the observation unit. The chest x-ray showed probable mild congestion heart failure. No evidence of any other abnormalities. She has background cardiomegaly. The BNP level is at 11:30. Troponins are 0.022 respectively. This patient has had multiple hospitalizations. She is a lifetime nonsmoker. She has been having recurrent hospitalizations since December 2014 for respiratory complications. In fact, she was in the hospital earlier this month for the same , and she came in after she had fallen on her back while at home and she had landed on a dresser and she was having some left-sided posterior chest discomfort. No acute fracture or dislocation in the thoracic spine or thoracic chest. No fractures involving the lumbar spine. She was discharged home after her condition being stabilized on 3-4 L of oxygen nasal cannula. A she has significant impairment in the performance and functional status. He does minimal amount of activity with help of a walker at home. She does not have a home BiPAP machine yet. Review of Systems Constitutional: Reports fatigue, Reports lethargy, Reports weakness Eyes: denies blurred vision, denies bulging eye, denies decreased vision Ears: deny: decreased hearing, ear discharge, earache Ears, nose, mouth and throat: Denies headache, Denies sore throat Cardiovascular: Reports decreased exercise tolerance, Reports dyspnea on exertion Respiratory: Reports cough, Reports dyspnea, Reports sleep apnea Gastrointestinal: Denies abdominal pain, Denies diarrhea, Denies nausea, Denies vomiting Genitourinary: Denies dysuria, Denies hematuria Musculoskeletal: Reports limitation of motion, Reports low back pain Musculoskeletal: absent: ankle pain, ankle stiffness, ankle swelling Integumentary: Denies pruritus, Denies rash Neurological: Reports confusion, Denies numbness, Denies weakness Psychiatric: Denies anxiety, Denies depression Past Medical History Past Medical History: Atrial Fibrillation, Heart Failure, COPD, Deep Vein Thrombosis (DVT), Hypertension, Pneumonia, Pulmonary Embolus (PE), Respiratory Disorder, Thyroid Disorder Additional Past Medical History / Comment(s): Morbid obesity, chronic hypoxic respiratory failure, chronic hypercapnic the story failure, CHF with diastolic dysfunction, moderate degree of pulmonary hypertension, obesity hypoventilation syndrome, obstructive sleep apnea, atrial fibrillation, chronic back pain, hypothyroidism, peripheral neuropathy, chronic constipation, gout, anxiety, depression, hypothyroidism, previous history of DVT/pulmonary embolism, very poor performance and functional status secondary to above-mentioned comorbidities. The patient has been on oxygen between 2-3 L/m nasal cannula. History of Any Multi-Drug Resistant Organisms: MRSA Date of last positivie culture/infection: 11/13/07 MDRO Source:: Unknown Past Surgical History: Appendectomy, Cholecystectomy, Hysterectomy Additional Past Surgical History / Comment(s): Previous Trach placement- two cardiac arrests during procedure. Past Anesthesia/Blood Transfusion Reactions: No Reported Reaction Additional Past Anesthesia/Blood Transfusion Reaction / Comment(s): past blood transfusion" many years ago"-no reaction to it. Smoking Status: Never smoker - Past Family History Father Family Medical History: No Reported History Mother Family Medical History: Osteoarthritis (OA) Additional Family Medical History / Comment(s): Two knee replacements and two hip replacements Medications and Allergies Home Medications Medication Instructions Recorded Confirmed Type Allopurinol [Zyloprim] 100 mg PO DAILY 11/07/13 01/04/17 History Desvenlafaxine Succinate [Pristiq 50 mg PO DAILY 11/07/13 01/04/17 History ER] Gabapentin [Neurontin] 300 mg PO HS 11/07/13 01/04/17 History Ipratropium/Albuterol Sulfate 3 ml INHALATION RT-BID PRN 11/07/13 01/04/17 History [Duoneb 0.5 mg-3 mg/3 ml Soln] Levothyroxine Sodium [Levoxyl] 175 mcg PO AC-BRKFST 11/07/13 01/04/17 History Omeprazole [PriLOSEC] 20 mg PO BID 11/07/13 01/04/17 History Potassium Chloride [Klor-Con 20] 20 meq PO DAILY 11/07/13 01/04/17 History busPIRone HCl [Buspar] 10 mg PO BID 11/08/13 01/04/17 History Montelukast [Singulair] 10 mg PO HS 06/01/16 01/04/17 History tiZANidine [Zanaflex] 2 mg PO Q8HR PRN 06/01/16 01/04/17 History HYDROcodone/APAP 5-325MG [[place] 1 tab PO BID PRN 07/27/16 01/04/17 History 5-325] Verapamil HCl [Calan] 120 mg PO BID 07/27/16 01/04/17 History Ascorbic Acid [Vitamin C] 500 mg PO DAILY 12/23/16 01/04/17 History Cholecalciferol [Vitamin D3] 1,000 unit PO DAILY 12/23/16 01/04/17 History Codeine Phosphate/Guaifenesin 10 ml PO Q6HR PRN 12/23/16 01/04/17 History [Cheratussin AC Syrup] Cyanocobalamin (Vitamin B-12) 1,000 mcg PO DAILY 12/23/16 01/04/17 History [Vitamin B-12] Digoxin 250 mcg PO DAILY 12/23/16 01/04/17 History Ferrous Sulfate [Feosol] 325 mg PO DAILY 12/23/16 01/04/17 History Furosemide [Lasix] 40 mg PO HS 12/23/16 01/04/17 History Furosemide [Lasix] 60 mg PO DAILY 12/23/16 01/04/17 History Magnesium Oxide [Mag-Ox] 250 mg PO DAILY 12/23/16 01/04/17 History Methocarbamol [Robaxin] 500 mg PO Q8H PRN 12/23/16 01/04/17 History Mometasone Furoate [Nasonex Nasal 1 - 2 spray EA NOSTRIL DAILY 12/23/16 History [place]] Niacin [Niaspan] 500 mg PO DAILY 12/23/16 01/04/17 History Pyridoxine HCl (Vitamin B6) 100 mg PO DAILY 12/23/16 01/04/17 History [Vitamin B-6] Warfarin Sodium 2.5 mg PO DAILY 12/23/16 01/04/17 History predniSONE See Taper PO DAILY 01/03/17 01/04/17 History Allergies Allergy/AdvReac Type Severity Reaction Status Date / Time Penicillins Allergy Dyspnea Verified 01/04/17 01:12 Physical Exam Vitals: Vital Signs Temp Pulse Pulse Resp BP BP Pulse Ox 01/04/17 12:00 98.1 F 88 65 16 152/68 95 01/04/17 11:49 93 L 01/04/17 11:48 80 01/04/17 08:00 97.6 F 74 20 179/64 94 L 01/04/17 07:52 76 01/04/17 07:43 76 01/04/17 03:34 74 34 H 01/04/17 03:31 71 34 H 157/61 95 01/04/17 00:25 97.7 F 76 38 H 146/63 95 01/04/17 00:05 74 38 H 01/03/17 23:55 97.5 F L 72 30 H 139/61 93 L 01/03/17 23:25 74 30 H 141/63 96 01/03/17 22:55 74 30 H 140/63 95 01/03/17 22:25 72 30 H 133/62 96 01/03/17 21:55 74 30 H 134/63 96 01/03/17 21:25 70 30 H 135/60 96 01/03/17 21:00 72 30 H 156/67 97 01/03/17 20:25 72 30 H 132/91 98 01/03/17 19:57 67 01/03/17 19:55 68 30 H 128/59 98 01/03/17 19:20 74 01/03/17 19:08 97.6 F 70 26 H 135/62 99 Intake and Output 01/03/17 01/04/17 01/04/17 22:59 06:59 14:59 Intake Total 0 Output Total 500 Balance -500 Intake: Oral 0 Output: Urine 500 Other: Voiding Method Indwelling Catheter Indwelling Catheter Weight 150 kg 153 kg Morbid obesity, comfortable likely distress. Head is atraumatic normocephalic.Head exam was generally normal. There was no scleral icterus or corneal arcus. Mucous membranes were moist. Neck is short and supple and there is significant crowding of posterior pharynx. There is no goiter or neck masses. Lungs sounds are diminished in lung bases bilaterally. Few scattered expiratory wheezes. Breath sounds are quite diminished.Cardiac exam revealed the PMI to be normally situated and sized. The rhythm was regular and no extrasystoles were noted during several minutes of auscultation. The first and second heart sounds were normal and physiologic splitting of the second heart sound was noted. There were no murmurs, rubs, clicks, or gallops. Abdomen is obese soft nontender. There is no direct tenderness no rebound tensile guarding. Extremities reveal trace edema and there is no cyanosis or clubbing at this point. Results - Laboratory Findings CBC and BMP: 01/03/17 19:18 01/03/17 19:18 PT/INR, D-dimer PT 19.5 sec (9.0-12.0) H 01/03/17 19:18 INR 2.0 (<1.2) H 01/03/17 19:18 Abnormal lab findings: Abnormal Labs 01/03/17 01/03/17 01/03/17 19:18 19:18 19:18 WBC 13.7 H MCHC 29.4 L RDW 15.8 H Neutrophils # 13.2 H Lymphocytes # 0.3 L PT INR VBG pCO2 VBG HCO3 Chloride 90 L Carbon Dioxide 48 H* BUN 29 H Glucose 148 H Total Creatine Kinase <20 L Total Protein 5.6 L Albumin 3.0 L 01/03/17 01/03/17 19:18 19:18 WBC MCHC RDW Neutrophils # Lymphocytes # PT 19.5 H INR 2.0 H VBG pCO2 83 H* VBG HCO3 49 H Chloride Carbon Dioxide BUN Glucose Total Creatine Kinase Total Protein Albumin - Diagnostic Findings Chest x-ray: image reviewed Assessment and Plan Plan: Assessment 1 altered mentation, probably related to CO2 narcosis. The decompensating fact it is not clear although it could be secondary to 2 morbid obesity, obstructive sleep apnea and a breast hypoventilation syndrome 2 chronic dyspnea 3 chronic diastolic heart failure with secondary pulmonary hypertension 4 chronic hypoxic respiratory failure 5 chronic hypercapnic respiratory failure with secondary metabolic alkalosis 6 morbid obesity with a breast hypoventilation syndrome 7 chronic atrial fibrillation on long-term and to coagulation 8 chronic back pain 9 peripheral neuropathy 10 hypothyroidism 11 previous history of DVT and pulmonary embolism, on anticoagulation , the patient is therapeutic PT/INR 12 multiple hospitalization for gastric complications and CO2 narcosis. 13 poor performance and functional status. 14 chronic back pain I am Altered mental status probably due to CO2 narcosis in the setting of morbid obesity, obstructive sleep apnea and a breast hypoventilation syndrome. Chest x -ray findings shows chronic CHF with diastolic dysfunction and some mild four- vessel congestion. Yet there is no evidence of any pneumonia. No septic event. The patient was fully anticoagulated and therapeutic on her INR. No other comorbidities that can be noted at this point to cause respiratory decompensation and CO2 narcosis. The patient is currently being monitored. He is a 4l of oxygen nasal cannula. I'm going to try to arrange for her to a a AVAPS BIPAP machine that she can utilize at home and this will hopefully optimize her respiratory status and prevent recurrent hypercapnic respiratory failure. We'll continue to follow.
[2017-01-04] MEDS ORDERED: IV VANCOMYCIN PER PHARMACY 1 EACH MISC MISCELLANE PRN (14:53)
[2017-01-04 14:57] LABS: ABG PH 7.56 (7.35-7.45)
[2017-01-04 14:58] LABS: ABG HCO3 47 mmol/L (21-25); ABG PCO2 53 mmHg (35-45); ABG PO2 66 mmHg (83-108); ABG TCO2 49 mmol/L (19-24)
[2017-01-04] MEDS ORDERED: VANCOMYCIN 2,500 MG in SODIUM CHLORIDE 0.9% 500 ML IVPB ONE (16:00)
[2017-01-05] MEDS: ONDANSETRON 4 MG/2 ML VIAL IVP PRN ×3 (04:39→22:43)
[2017-01-05] MEDS ORDERED: VANCOMYCIN 2,000 MG in SODIUM CHLORIDE 0.9% 500 ML IVPB SCH (06:00)
[2017-01-05 07:32] LABS: Blood Urea Nitrogen 37 mg/dL (7-17); Calcium 8.3 mg/dL (8.4-10.2); Chloride 96 mmol/L (98-107); Glucose 112 mg/dL (74-99); Non-African American GFR(MDRD) >60 (>60 ml/min/1.73 sqM); Sodium 142 mmol/L (137-145)
[2017-01-05 07:38] LABS: Anion Gap 1 mmol/L
[2017-01-05 07:40] LABS: Carbon Dioxide 45 mmol/L (22-30)
[2017-01-05] MEDS: IPRATROPIUM-ALBUTEROL 3 ML NEB INHALATION PRN (07:53)
[2017-01-05] MEDS: METOPROLOL TARTRATE 50 MG TAB PO SCH ×2 (08:10→21:07)
[2017-01-05] MEDS: predniSONE 20 MG TAB PO SCH (08:10)
[2017-01-05] MEDS: WARFARIN 2.5 MG TAB PO SCH (08:10)
[2017-01-05] MEDS: LEVOTHYROXINE 100 MCG TAB PO SCH (08:11)
[2017-01-05] MEDS: ALLOPURINOL 100 MG TAB PO SCH (08:11)
[2017-01-05] MEDS: busPIRone HCl 10 MG TAB PO SCH ×2 (08:11→21:07)
[2017-01-05] MEDS: DIGOXIN 250 MCG TAB PO SCH (08:11)
[2017-01-05] MEDS: LEVOTHYROXINE 75 MCG TAB PO SCH (08:11)
--- NOTE | 2017-01-05 14:14 | P.PN ---
Subjective 71-year-old admitted for confusion and altered mental status secondary to metabolic encephalopathy from CO2 retention. Patient will will be discharged on CPAP which is being set up at this time. It was noted from the other facility that had blood cultures from yesterday came back positive. I believe it's a contamination again. Since her blood cultures from this hospital are negative. Blood cultures from as today that were drawn here were also negative. Patient will be started on IV antibiotics and infectious disease will be consulted. And repeat blood cultures will be obtained although I still feel is a contamination again from the other facility. Since all the blood cultures from her previous hospital admission this hospitalization are still negative from this facility. Patient doesn't have any fevers, denied any shortness of breath denied any nausea denied any vomiting denied any abdominal pain denied any dysuria. Objective - Vital Signs Vital signs: Vital Signs Temp 98.1 F 01/05/17 08:00 Pulse 68 01/05/17 12:00 Resp 18 01/05/17 12:00 BP 184/79 01/05/17 08:00 Pulse Ox 91 L 01/05/17 08:00 Intake & Output 01/04/17 01/05/17 01/05/17 18:59 06:59 18:59 Intake Total 680 Output Total 640 671 3575 Balance -750 300 -1320 Intake: Oral 680 Output: Urine 062 288 [id number] Uretheral ([place]) 1999 Other: Voiding Method Indwelling Catheter Indwelling Catheter Indwelling Catheter - Exam GENERAL: The patient is alert and oriented x3, not in any acute distress. Well developed, well nourished. HEENT: Pupils are round and equally reacting to light. EOMI. No scleral icterus. No conjunctival pallor. Normocephalic, atraumatic. No pharyngeal erythema. No thyromegaly. CARDIOVASCULAR: S1 and S2 present. No murmurs, rubs, or gallops. PULMONARY: He is decreased air entry into bilateral lung son minimal expiratory wheezing was appreciated morbidly obese. ABDOMEN: Soft, nontender, nondistended, normoactive bowel sounds. No palpable organomegaly. MUSCULOSKELETAL: No joint swelling or deformity. EXTREMITIES: No cyanosis, clubbing, or pedal edema. NEUROLOGICAL: Gross neurological examination did not reveal any focal deficits. SKIN: No rashes. - Labs CBC & Chem 7: 01/03/17 19:18 01/05/17 06:54 Labs: Abnormal Lab Results - Last 24 Hours (Table) 01/04/17 01/05/17 Range/Units 12:32 06:54 ABG pH 7.56 H (7.35-7.45) ABG pCO2 53 H (35-45) mmHg ABG pO2 66 L (83-108) mmHg ABG HCO3 47 H* (21-25) mmol/L ABG Total CO2 49 H (19-24) mmol/L Chloride 96 L (98-107) mmol/L Carbon Dioxide 45 H* (22-30) mmol/L BUN 37 H (7-17) mg/dL Glucose 112 H (74-99) mg/dL Calcium 8.3 L (8.4-10.2) mg/dL Microbiology - Last 24 Hours (Table) 01/03/17 19:18 Blood Culture - Preliminary Blood No Growth after 24 hours Assessment and Plan Plan: #1 altered mental status: Secondary to metabolic encephalopathy from CO2 retention from obesity hypoventilation syndrome and sleep apnea. Patient will need CPAP upon discharge. Patient is not in any significant COPD exacerbation at this point of time. #2 chronic hypercapnic respiratory failure secondary to COPD, pulmonary hypertension and obesity hypoventilation. Patient uses 3 L of onset at home. #3 moderate pulmonary hypertension #4 history of DVT on anticoagulation with Coumadin #5 chronic low back pain #6 peripheral neuropathy #7 hypothyroidism #8 anemia of chronic disease #9 positive blood cultures of gram-positive cocci: Management as mentioned in the interval history. #10 chronic deconditioning: Patient is being evaluated for subacute rehab.
--- NOTE | 2017-01-05 17:13 | P.PN ---
Subjective Is 71-year-old female patient, morbidly obese with known history of COPD, or breast hypoventilation syndrome and chronic hypercapnic respiratory failure, previous history of pulmonary embolism and pulmonary potential diastolic heart failure, came into the hospital because of diminished level of consciousness. The patient apparently was also confused he had the blood gas was done at the emergency department at [facility] showed a pH of 7.33 with a pCO2 of 93.9 and pO2 of 133. Subsequently a venous blood gases was done. [facility] and showed pH of 7.39 with a pCO2 of 83 and pO2 of 49. The patient was placed on a BiPAP and she was admitted to the observation unit. The chest x-ray showed probable mild congestion heart failure. No evidence of any other abnormalities. She has background cardiomegaly. The BNP level is at 11:30. Troponins are 0.022 respectively. This patient has had multiple hospitalizations. She is a lifetime nonsmoker. She has been having recurrent hospitalizations since December 2014 for respiratory complications. In fact, she was in the hospital earlier this month for the same , and she came in after she had fallen on her back while at home and she had landed on a dresser and she was having some left-sided posterior chest discomfort. No acute fracture or dislocation in the thoracic spine or thoracic chest. No fractures involving the lumbar spine. She was discharged home after her condition being stabilized on 3-4 L of oxygen nasal cannula. A she has significant impairment in the performance and functional status. He does minimal amount of activity with help of a walker at home. She does not have a home BiPAP machine yet. The patient is seen again today 01/05/2017 in follow-up on the regular medical floor. She is awake and alert in no acute distress. She is much more oriented today as compared to yesterday. She has been qualified for an AVAPS machine to be utilized in the outpatient setting secondary to her hypercapnic respiratory failure and her obesity/hypoventilation syndrome. She currently denies any worsening shortness of breath, cough or congestion. She is maintaining O2 saturations in the low 90s on 4 L/m per nasal cannula. She's afebrile. Hemodynamically stable. The cultures reveal no growth to date. Objective - Vital Signs Vital signs: Vital Signs Temp 98.2 F 01/05/17 16:00 Pulse 60 01/05/17 16:00 Resp 18 01/05/17 16:00 BP 146/62 01/05/17 16:00 Pulse Ox 92 L 01/05/17 16:00 Intake & Output 01/04/17 01/05/17 01/05/17 18:59 06:59 18:59 Intake Total 680 Output Total 829 396 5936 Balance -750 -300 -2220 Intake: Oral 680 Output: Urine 092 143 1737 Uretheral ([place]) 2900 Other: Voiding Method Indwelling Catheter Indwelling Catheter Indwelling Catheter - Exam Morbid obesity, comfortable likely distress. Head is atraumatic normocephalic.Head exam was generally normal. There was no scleral icterus or corneal arcus. Mucous membranes were moist. Neck is short and supple and there is significant crowding of posterior pharynx. There is no goiter or neck masses. Lungs sounds are diminished in lung bases bilaterally. Few scattered expiratory wheezes. Breath sounds are quite diminished.Cardiac exam revealed the PMI to be normally situated and sized. The rhythm was regular and no extrasystoles were noted during several minutes of auscultation. The first and second heart sounds were normal and physiologic splitting of the second heart sound was noted. There were no murmurs, rubs, clicks, or gallops. Abdomen is obese soft nontender. There is no direct tenderness no rebound tensile guarding. Extremities reveal trace edema and there is no cyanosis or clubbing at this point. - Labs CBC & Chem 7: 01/03/17 19:18 01/05/17 06:54 Labs: Abnormal Lab Results - Last 24 Hours (Table) 01/05/17 Range/Units 06:54 Chloride 96 L (98-107) mmol/L Carbon Dioxide 45 H* (22-30) mmol/L BUN 37 H (7-17) mg/dL Glucose 112 H (74-99) mg/dL Calcium 8.3 L (8.4-10.2) mg/dL Microbiology - Last 24 Hours (Table) 01/03/17 19:18 Blood Culture - Preliminary Blood No Growth after 24 hours Assessment and Plan Plan: Assessment 1 altered mentation, probably related to CO2 narcosis. The decompensating fact it is not clear although it could be secondary to 2 morbid obesity, obstructive sleep apnea and a breast hypoventilation syndrome 2 chronic dyspnea 3 chronic diastolic heart failure with secondary pulmonary hypertension 4 chronic hypoxic respiratory failure 5 chronic hypercapnic respiratory failure with secondary metabolic alkalosis 6 morbid obesity with a breast hypoventilation syndrome 7 chronic atrial fibrillation on long-term and to coagulation 8 chronic back pain 9 peripheral neuropathy 10 hypothyroidism 11 previous history of DVT and pulmonary embolism, on anticoagulation , the patient is therapeutic PT/INR 12 multiple hospitalization for gastric complications and CO2 narcosis. 13 poor performance and functional status. 14 chronic back pain Plan: The patient was seen and evaluated by Dr. Leung. He did arrange for outpatient AVAPS machine. She'll be able utilize this in the evening and throughout the day when napping. She may benefit from inpatient rehabilitation center possibly back at [facility]. We will continue to follow.
[2017-01-05] MEDS: traMADol 50 MG TAB PO PRN (21:06)
[2017-01-05] MEDS: FUROSEMIDE 40 MG TAB PO SCH (21:07)
[2017-01-06] MEDS: traMADol 50 MG TAB PO PRN ×3 (03:17→20:24)
[2017-01-06] MEDS: DIGOXIN 250 MCG TAB PO SCH (07:37)
[2017-01-06] MEDS: METOPROLOL TARTRATE 50 MG TAB PO SCH ×2 (07:38→21:16)
--- NOTE | 2017-01-06 07:50 | CONS ---
DATE OF SERVICE: 01/05/2017 Reason for consultation is positive blood culture. HISTORY OF PRESENT ILLNESS: The patient is a 71-year-old morbidly obese female with a past medical history significant for diastolic heart failure and COPD. Patient presented to the [facility] with mental status changes. The patient was noticed to be confused and thought to have a CO2 of 93. Patient was placed on a BiPAP and subsequently transferred to the [facility] for further evaluation. While at the [facility], the patient did have blood culture drawn. She had only 1 bottle drawn x2 only aerobic as the patient was hard stick for the lab person to reach the ( ) personally. One of those blood cultures showed gram-positive cocci and patient was started on vancomycin yesterday. I was asked to see the patient today after discharge summary was dictated for recommendation regarding discharge antibiotics. Patient did have a chest x-ray at that facility which shows probably mild heart failure. Patient did have blood cultures obtained at our facility on 01/03 which remains to be negative. Patient did have slight elevated white count of 13.7. Blood ( ). However, no fever has been recorded. Patient denies having any fever or chills. There has been confusion when she was sent to the [facility]. Patient currently denies having any headache, denies any chest pain. Her breathing has improved. Denies significant cough or sputum production. Patient denies any abdominal pain and no diarrhea. Patient with no central lines or any ports and no joint replacement. Patient did have injury to the left leg from possible tank following into it with a blister there. No significant redness or pain. REVIEW OF SYSTEMS: CONSTITUTIONAL: Positive for weakness, but no fever has been recorded. EYES: No complaint. ENT: No complaint. RESPIRATORY: As per HPI. CARDIOVASCULAR: No complaint. GENITOURINARY: No complaint. GASTROINTESTINAL: No complaint. MUSCULOSKELETAL: No complaint. INTEGUMENTARY: As per HPI. PSYCHOLOGICAL: No complaint. ENDOCRINE: No complaint. NEUROLOGICAL: No complaint. PAST MEDICAL HISTORY: Significant for hypertension, hyperlipidemia, atrial fibrillation, pulmonary embolism, hypothyroidism, anxiety, chronic back pain, morbid obesity, UTI, pneumonia and DVT. PAST SURGICAL HISTORY: Hysterectomy, cholecystectomy, appendectomy and cardiac stent x2. SOCIAL HISTORY: No history of smoking, alcohol or drug use. FAMILY HISTORY: No pertinent findings were noticed. Allergic to PENICILLIN. No history of of ( ). Medications currently the patient is on Zyloprim, Xanax, BuSpar, Lanoxin, Lasix , Synthroid, Lopressor, Zofran, prednisone, vancomycin and Coumadin. On examination, her blood pressure 194/77 with a pulse of 68, temperature 98.1. She is 94% on 4 L nasal cannula. General description is a elderly female lying in bed, in no distress. No tachypnea or accessory muscle for respiration use. HEENT examination shows no pallor, scleral icterus, oral mucosa is moist. NECK: Trachea central with no thyromegaly. LUNGS: Unlabored breathing with decreased basal breath sounds. No wheeze. HEART: S1, S2, regular rate and rhythm. ABDOMEN: Soft, no tenderness, no guarding or rigidity. EXTREMITIES: No edema of the feet. SKIN EXAMINATION: No rash or masses palpable. NEUROLOGICAL: Patient awake, alert, oriented x3. Mood and affect normal. LABS: Hemoglobin is 12.8, white count 13.7, with a BUN of 37, creatinine 0.83, liver enzymes are normal. CO2 was 45, admission was 48. Blood cultures drawn here are negative. Blood cultures that were drawn at the [facility], she has only 1 bottle drawn x2 and only one of them is positive for gram- positive cocci. Patient previously had a similar suspicion with the blood cultures drawn at [facility] on 12/27, came in positive, only 1 bottle with staphylococcus hominis with the blood cultures drawn at this facility on and 12/27 that were negative. DIAGNOSTIC IMPRESSION AND PLAN: Patient with a positive blood culture with a gram positive cocci, more likely it was a negative skin contamination as the patient is a hard draw at the outpatient facility in a patient with no fever and no clinical focus of infection. Patient with no central line, no pacemaker or any joint replacement. PLAN: 1. Discontinue the vancomycin as blood culture more likely representing a contamination. 2. No need for any further workup for the same. [facility]
[2017-01-06] MEDS: IPRATROPIUM-ALBUTEROL 3 ML NEB INHALATION PRN ×2 (08:28→19:31)
[2017-01-06] MEDS: ALLOPURINOL 100 MG TAB PO SCH (08:39)
[2017-01-06] MEDS: LEVOTHYROXINE 100 MCG TAB PO SCH (08:39)
[2017-01-06] MEDS: predniSONE 20 MG TAB PO SCH (08:39)
[2017-01-06] MEDS: LEVOTHYROXINE 75 MCG TAB PO SCH (08:39)
[2017-01-06] MEDS: busPIRone HCl 10 MG TAB PO SCH ×2 (08:39→21:16)
[2017-01-06] MEDS: ALPRAZolam 0.5 MG TAB PO PRN ×2 (08:42→21:56)
[2017-01-06] MEDS: ONDANSETRON 4 MG/2 ML VIAL IVP PRN ×2 (08:42→18:29)
[2017-01-06 10:36] LABS: INR 2.7 (<1.2); Prothrombin Time 25.7 sec (9.0-12.0)
[2017-01-06] MEDS: WARFARIN 2.5 MG TAB PO SCH (10:44)
[2017-01-06 10:54] LABS: Blood Urea Nitrogen 52 mg/dL (7-17); Calcium 8.6 mg/dL (8.4-10.2); Chloride 98 mmol/L (98-107); Glucose 113 mg/dL (74-99); Non-African American GFR(MDRD) >60 (>60 ml/min/1.73 sqM); Potassium 4.4 mmol/L (3.5-5.1); Sodium 142 mmol/L (137-145)
[2017-01-06 11:02] LABS: Anion Gap 2 mmol/L
[2017-01-06 11:19] LABS: Carbon Dioxide 42 mmol/L (22-30)
[2017-01-06] MEDS ORDERED: CALCIUM CARBONATE 500 MG CHEWABLE PO PRN (12:46)
--- NOTE | 2017-01-06 13:48 | P.PN ---
Subjective Is 71-year-old female patient, morbidly obese with known history of COPD, or breast hypoventilation syndrome and chronic hypercapnic respiratory failure, previous history of pulmonary embolism and pulmonary potential diastolic heart failure, came into the hospital because of diminished level of consciousness. The patient apparently was also confused he had the blood gas was done at the emergency department at [facility] showed a pH of 7.33 with a pCO2 of 93.9 and pO2 of 133. Subsequently a venous blood gases was done. [facility] and showed pH of 7.39 with a pCO2 of 83 and pO2 of 49. The patient was placed on a BiPAP and she was admitted to the observation unit. The chest x-ray showed probable mild congestion heart failure. No evidence of any other abnormalities. She has background cardiomegaly. The BNP level is at 11:30. Troponins are 0.022 respectively. This patient has had multiple hospitalizations. She is a lifetime nonsmoker. She has been having recurrent hospitalizations since December 2014 for respiratory complications. In fact, she was in the hospital earlier this month for the same , and she came in after she had fallen on her back while at home and she had landed on a dresser and she was having some left-sided posterior chest discomfort. No acute fracture or dislocation in the thoracic spine or thoracic chest. No fractures involving the lumbar spine. She was discharged home after her condition being stabilized on 3-4 L of oxygen nasal cannula. A she has significant impairment in the performance and functional status. He does minimal amount of activity with help of a walker at home. She does not have a home BiPAP machine yet. The patient is seen again today 01/05/2017 in follow-up on the regular medical floor. She is awake and alert in no acute distress. She is much more oriented today as compared to yesterday. She has been qualified for an AVAPS machine to be utilized in the outpatient setting secondary to her hypercapnic respiratory failure and her obesity/hypoventilation syndrome. She currently denies any worsening shortness of breath, cough or congestion. She is maintaining O2 saturations in the low 90s on 4 L/m per nasal cannula. She's afebrile. Hemodynamically stable. The cultures reveal no growth to date. The patient is seen again today 01/06/2017 in follow-up on the regular medical floor. She is currently sitting up in a chair at the bedside. She is alert and oriented 3 today. She denies any further confusion. She did wear the BiPAP throughout the evening. She did qualify for a AVAPS machine for home. The plan is for transfer to [facility] where she will continue to utilize BiPAP until discharge. Objective - Vital Signs Vital signs: Vital Signs Temp 97.0 F L 01/06/17 07:00 Pulse 74 01/06/17 08:39 Resp 18 01/06/17 07:00 BP 136/67 01/06/17 07:00 Pulse Ox 96 01/06/17 07:00 Intake & Output 01/05/17 01/06/17 01/06/17 18:59 06:59 18:59 Intake Total 1100 Output Total 2900 1650 Balance -1800 -1650 Weight 153 kg Intake: Oral 1100 Output: Urine 2900 1650 Uretheral ([place]) 2900 Other: Voiding Method Indwelling Catheter Indwelling Catheter Indwelling Catheter - Exam Morbid obesity, comfortable likely distress. Head is atraumatic normocephalic.Head exam was generally normal. There was no scleral icterus or corneal arcus. Mucous membranes were moist. Neck is short and supple and there is significant crowding of posterior pharynx. There is no goiter or neck masses. Lungs sounds are diminished in lung bases bilaterally. Few scattered expiratory wheezes. Breath sounds are quite diminished.Cardiac exam revealed the PMI to be normally situated and sized. The rhythm was regular and no extrasystoles were noted during several minutes of auscultation. The first and second heart sounds were normal and physiologic splitting of the second heart sound was noted. There were no murmurs, rubs, clicks, or gallops. Abdomen is obese soft nontender. There is no direct tenderness no rebound tensile guarding. Extremities reveal trace edema and there is no cyanosis or clubbing at this point. - Labs CBC & Chem 7: 01/03/17 19:18 01/06/17 09:29 Labs: Abnormal Lab Results - Last 24 Hours (Table) 01/06/17 01/06/17 Range/Units 09:29 09:29 PT 25.7 H (9.0-12.0) sec INR 2.7 H (<1.2) Carbon Dioxide 42 H* (22-30) mmol/L BUN 52 H (7-17) mg/dL Glucose 113 H (74-99) mg/dL Microbiology - Last 24 Hours (Table) 01/03/17 19:18 Blood Culture - Preliminary Blood No Growth after 48 hours Assessment and Plan Plan: Assessment 1 altered mentation, probably related to CO2 narcosis. The decompensating fact it is not clear although it could be secondary to 2 morbid obesity, obstructive sleep apnea and a breast hypoventilation syndrome 2 chronic dyspnea 3 chronic diastolic heart failure with secondary pulmonary hypertension 4 chronic hypoxic respiratory failure 5 chronic hypercapnic respiratory failure with secondary metabolic alkalosis 6 morbid obesity with a breast hypoventilation syndrome 7 chronic atrial fibrillation on long-term and to coagulation 8 chronic back pain 9 peripheral neuropathy 10 hypothyroidism 11 previous history of DVT and pulmonary embolism, on anticoagulation , the patient is therapeutic PT/INR 12 multiple hospitalization for gastric complications and CO2 narcosis. 13 poor performance and functional status. 14 chronic back pain Plan: The patient was seen and evaluated by Dr. Leung. He did arrange for outpatient AVAPS machine. She'll be able utilize this in the evening and throughout the day when napping. The plan is for transfer to inpatient rehabilitation center possibly back at [facility]. She will need to wear the BiPAP there has a AVAPS has been approved for home use only. We will continue to follow.
[2017-01-06] MEDS ORDERED: WARFARIN 2.5 MG TAB PO SCH (18:00)
--- NOTE | 2017-01-06 20:14 | PN ---
DATE OF SERVICE: 01/06/2017 REASON FOR FOLLOWUP: Positive blood culture. INTERVAL HISTORY: The patient is afebrile. She is breathing comfortably. Denies significant chest pain. Occasional cough. No abdominal pain. No nausea, vomiting or any diarrhea. On examination, blood pressure is 136/67 with a pulse of 72, temperature 97. She is 96% on 4 L nasal cannula. General description is an elderly female up in the chair in no distress. RESPIRATORY SYSTEM: Unlabored breathing. Clear to auscultation anteriorly. HEART: S1, S2. Regular rate and rhythm. ABDOMEN: Soft. No tenderness. LABS: BUN of 52 with a creatinine 0.91. DIAGNOSTIC IMPRESSION AND PLAN: Patient with a positive blood culture, more likely representing a skin contamination, as patient has no clinical disease to go along with it. Blood culture has been negative. Patient is currently off antibiotic. Will continue to monitor her off antibiotic therapy. Continue supportive care. SHANNEN
[2017-01-06] MEDS: FUROSEMIDE 40 MG TAB PO SCH (21:16)
[2017-01-07] MEDS: traMADol 50 MG TAB PO PRN (08:19)
[2017-01-07] MEDS: predniSONE 20 MG TAB PO SCH (08:20)
[2017-01-07] MEDS: ALLOPURINOL 100 MG TAB PO SCH (08:20)
[2017-01-07] MEDS: busPIRone HCl 10 MG TAB PO SCH (08:20)
[2017-01-07] MEDS: LEVOTHYROXINE 100 MCG TAB PO SCH (08:21)
[2017-01-07] MEDS: LEVOTHYROXINE 75 MCG TAB PO SCH (08:21)
[2017-01-07] MEDS: DIGOXIN 250 MCG TAB PO SCH (08:26)
[2017-01-07] MEDS: METOPROLOL TARTRATE 50 MG TAB PO SCH (08:26)
[2017-01-07] MEDS: IPRATROPIUM-ALBUTEROL 3 ML NEB INHALATION PRN (08:46)
[2017-01-07 09:33] VITALS: BP 118/50; PULSE 56; RESP 20; TEMP 98.1
[2017-01-07 09:56] LABS: Blood Urea Nitrogen 55 mg/dL (7-17); Calcium 8.6 mg/dL (8.4-10.2); Chloride 99 mmol/L (98-107); Glucose 109 mg/dL (74-99); Non-African American GFR(MDRD) >60 (>60 ml/min/1.73 sqM); Sodium 143 mmol/L (137-145)
[2017-01-07 10:02] LABS: Anion Gap -1 mmol/L
[2017-01-07 10:06] LABS: Carbon Dioxide 45 mmol/L (22-30)
[2017-01-07] MEDS: ONDANSETRON 4 MG/2 ML VIAL IVP PRN (12:06)
--- NOTE | 2017-01-07 13:13 | P.PN ---
Subjective Is 71-year-old female patient, morbidly obese with known history of COPD, or breast hypoventilation syndrome and chronic hypercapnic respiratory failure, previous history of pulmonary embolism and pulmonary potential diastolic heart failure, came into the hospital because of diminished level of consciousness. The patient apparently was also confused he had the blood gas was done at the emergency department at [facility] showed a pH of 7.33 with a pCO2 of 93.9 and pO2 of 133. Subsequently a venous blood gases was done. [facility] and showed pH of 7.39 with a pCO2 of 83 and pO2 of 49. The patient was placed on a BiPAP and she was admitted to the observation unit. The chest x-ray showed probable mild congestion heart failure. No evidence of any other abnormalities. She has background cardiomegaly. The BNP level is at 11:30. Troponins are 0.022 respectively. This patient has had multiple hospitalizations. She is a lifetime nonsmoker. She has been having recurrent hospitalizations since December 2014 for respiratory complications. In fact, she was in the hospital earlier this month for the same , and she came in after she had fallen on her back while at home and she had landed on a dresser and she was having some left-sided posterior chest discomfort. No acute fracture or dislocation in the thoracic spine or thoracic chest. No fractures involving the lumbar spine. She was discharged home after her condition being stabilized on 3-4 L of oxygen nasal cannula. A she has significant impairment in the performance and functional status. He does minimal amount of activity with help of a walker at home. She does not have a home BiPAP machine yet. The patient is seen again today 01/05/2017 in follow-up on the regular medical floor. She is awake and alert in no acute distress. She is much more oriented today as compared to yesterday. She has been qualified for an AVAPS machine to be utilized in the outpatient setting secondary to her hypercapnic respiratory failure and her obesity/hypoventilation syndrome. She currently denies any worsening shortness of breath, cough or congestion. She is maintaining O2 saturations in the low 90s on 4 L/m per nasal cannula. She's afebrile. Hemodynamically stable. The cultures reveal no growth to date. The patient is seen again today 01/06/2017 in follow-up on the regular medical floor. She is currently sitting up in a chair at the bedside. She is alert and oriented 3 today. She denies any further confusion. She did wear the BiPAP throughout the evening. She did qualify for a AVAPS machine for home. The plan is for transfer to [facility] where she will continue to utilize BiPAP until discharge. The patient is seen again today 01/07/2017 in follow-up on the regular medical floor. She is sitting up in the chair at the bedside. She is awake and alert. Oriented 3. She did utilize the BiPAP last evening as well. The plan is for transfer to an extended care facility with continued BiPAP until she is home where she will given an AVAPS device. Objective - Vital Signs Vital signs: Vital Signs Temp 98.1 F 01/07/17 07:00 Pulse 76 01/07/17 09:01 Resp 20 01/07/17 07:00 BP 118/50 01/07/17 07:00 Pulse Ox 92 L 01/07/17 08:48 Intake & Output 01/06/17 01/07/17 01/07/17 18:59 06:59 18:59 Intake Total 236 Balance 236 Weight 151.5 kg Intake: Oral 236 Other: Voiding Method Indwelling Catheter # Voids 1 3 # Bowel Movements 1 - Exam Morbid obesity, comfortable likely distress. Head is atraumatic normocephalic.Head exam was generally normal. There was no scleral icterus or corneal arcus. Mucous membranes were moist. Neck is short and supple and there is significant crowding of posterior pharynx. There is no goiter or neck masses. Lungs sounds are diminished in lung bases bilaterally. Few scattered expiratory wheezes. Breath sounds are quite diminished.Cardiac exam revealed the PMI to be normally situated and sized. The rhythm was regular and no extrasystoles were noted during several minutes of auscultation. The first and second heart sounds were normal and physiologic splitting of the second heart sound was noted. There were no murmurs, rubs, clicks, or gallops. Abdomen is obese soft nontender. There is no direct tenderness no rebound tenderness or guarding. Extremities reveal trace edema and there is no cyanosis or clubbing at this point. - Labs CBC & Chem 7: 01/03/17 19:18 01/07/17 07:50 Labs: Abnormal Lab Results - Last 24 Hours (Table) 01/07/17 Range/Units 07:50 Carbon Dioxide 45 H* (22-30) mmol/L BUN 55 H (7-17) mg/dL Glucose 109 H (74-99) mg/dL Microbiology - Last 24 Hours (Table) 01/03/17 19:18 Blood Culture - Preliminary Blood No Growth after 72 hours 01/05/17 15:44 Blood Culture - Preliminary Blood No Growth after 24 hours 01/05/17 13:37 Blood Culture - Preliminary Blood No Growth after 24 hours 01/05/17 14:10 Blood Culture - Preliminary Blood No Growth after 24 hours Assessment and Plan Plan: Assessment 1 altered mentation, probably related to CO2 narcosis. The decompensating fact it is not clear although it could be secondary to 2 morbid obesity, obstructive sleep apnea and a breast hypoventilation syndrome 2 chronic dyspnea 3 chronic diastolic heart failure with secondary pulmonary hypertension 4 chronic hypoxic respiratory failure 5 chronic hypercapnic respiratory failure with secondary metabolic alkalosis 6 morbid obesity with a breast hypoventilation syndrome 7 chronic atrial fibrillation on long-term and to coagulation 8 chronic back pain 9 peripheral neuropathy 10 hypothyroidism 11 previous history of DVT and pulmonary embolism, on anticoagulation , the patient is therapeutic PT/INR 12 multiple hospitalization for gastric complications and CO2 narcosis. 13 poor performance and functional status. 14 chronic back pain Plan: The patient was seen and evaluated by Dr. Leung again today. The plan is for transfer to inpatient rehabilitation center possibly back at [facility]. She will need to wear the BiPAP there has a AVAPS has been approved for home use only. We will continue to follow.
--- NOTE | 2017-01-07 13:28 | P.DS ---
Providers Date of admission: 01/05/17 13:05 Expected date of discharge: 01/07/17 Attending physician: Gustavo Astudillo Consults: 01/04/17 12:30 Consult Physician Routine Consulting Provider: Sima Leung Consult Reason/Comments: hypoventilation syndrome with resp fail. Do you want consulting provider notified?: Yes 01/05/17 13:23 Consult Physician Routine Consulting Provider: Dinora Palm Consult Reason/Comments: positive blood culture Do you want consulting provider notified?: Yes Primary care physician: Uziel Taylor at [facility] Hospital Course: Final Diagnoses: #1 altered mental status: Secondary to metabolic encephalopathy from CO2 retention from obesity hypoventilation syndrome and sleep apnea. Patient will need CPAP upon discharge. #2 chronic hypercapnic respiratory failure secondary to COPD, pulmonary hypertension and obesity hypoventilation. Patient uses 3 L of O2 at home. #3 moderate pulmonary hypertension #4 history of DVT on anticoagulation with Coumadin #5 chronic low back pain #6 peripheral neuropathy #7 hypothyroidism #8 anemia of chronic disease #9 positive blood cultures of gram-positive cocci: Management as mentioned in the interval history. #10 chronic deconditioning: Patient is being evaluated for subacute rehab. Hospital course: This is a 71-year-old admitted for confusion and altered mental status secondary to metabolic encephalopathy from CO2 retention. Evaluated by pulmonary. Patient will will be discharged on CPAP as per pulmonary.It was noted from the other facility that had blood cultures from yesterday came back positive, suspect contamination again. Patient doesn't have any fevers, denied any shortness of breath denied any nausea denied any vomiting denied any abdominal pain denied any dysuria.Repeat Blood cultures remain negative. Initially treated with IV antibiotics, now off antibiotics . Significant clinical improvement. Evaluated by infectious disease and no further antibiotics recommended. Patient has been cleared for discharge by both pulmonary and infectious disease. Patient is being discharged to [facility] in a stable condition with guarded prognosis. The impression and plan of care has been dictated as directed as a scribe. : I performed a H&P examination of this patient and discussed the same with the dictator. I agree with the dictator's note. Any additional findings/opinions/ etc. will be noted. Patient Condition at Discharge: Stable Plan - Discharge Summary New Discharge Prescriptions: New Calcium Carbonate [Tums] 500 mg PO QID PRN PRN Reason: Heartburn Ipratropium-Albuterol Nebulize [Duoneb 0.5 mg-3 mg/3 ml Soln] 3 ml INHALATION QID neb traMADol HCl [Ultram] 50 mg PO Q6HR PRN #20 tab PRN Reason: Pain Continue Omeprazole [PriLOSEC] 20 mg PO BID Gabapentin [Neurontin] 300 mg PO HS Desvenlafaxine Succinate [Pristiq ER] 50 mg PO DAILY Potassium Chloride [Klor-Con 20] 20 meq PO DAILY Allopurinol [Zyloprim] 100 mg PO DAILY Levothyroxine Sodium [Levoxyl] 175 mcg PO AC-BRKFST busPIRone HCl [Buspar] 10 mg PO BID Montelukast [Singulair] 10 mg PO HS tiZANidine [Zanaflex] 2 mg PO Q8HR PRN PRN Reason: Muscle Spasm/Pain Metoprolol Tartrate [Lopressor] 50 mg PO BID tab Verapamil HCl [Calan] 120 mg PO BID Niacin [Niaspan] 500 mg PO DAILY Mometasone Furoate [Nasonex Nasal [place]] 1 - 2 spray EA NOSTRIL DAILY Cyanocobalamin (Vitamin B-12) [Vitamin B-12] 1,000 mcg PO DAILY Cholecalciferol [Vitamin D3] 1,000 unit PO DAILY Ascorbic Acid [Vitamin C] 500 mg PO DAILY Magnesium Oxide [Mag-Ox] 250 mg PO DAILY Digoxin 250 mcg PO DAILY Pyridoxine HCl (Vitamin B6) [Vitamin B-6] 100 mg PO DAILY Ferrous Sulfate [Feosol] 325 mg PO DAILY Methocarbamol [Robaxin] 500 mg PO Q8H PRN PRN Reason: Muscle Pain Furosemide [Lasix] 40 mg PO HS Warfarin Sodium 2.5 mg PO DAILY ALPRAZolam [Xanax] 0.5 mg PO TID PRN #20 tablet PRN Reason: Anxiety predniSONE See Taper PO DAILY #1 Discontinued Ipratropium/Albuterol Sulfate [Duoneb 0.5 mg-3 mg/3 ml Soln] 3 ml INHALATION RT-BID PRN PRN Reason: Shortness Of Breath HYDROcodone/APAP 5-325MG [[place] 5-325] 1 tab PO BID PRN PRN Reason: Pain Codeine Phosphate/Guaifenesin [Cheratussin AC Syrup] 10 ml PO Q6HR PRN PRN Reason: Cough Furosemide [Lasix] 60 mg PO DAILY Doxycycline Monohydrate [Monodox] 100 mg PO Q12HR #10 cap Discharge Medication List Allopurinol [Zyloprim] 100 mg PO DAILY 11/07/13 [History] Desvenlafaxine Succinate [Pristiq ER] 50 mg PO DAILY 11/07/13 [History] Gabapentin [Neurontin] 300 mg PO HS 11/07/13 [History] Levothyroxine Sodium [Levoxyl] 175 mcg PO AC-BRKFST 11/07/13 [History] Omeprazole [PriLOSEC] 20 mg PO BID 11/07/13 [History] Potassium Chloride [Klor-Con 20] 20 meq PO DAILY 11/07/13 [History] busPIRone HCl [Buspar] 10 mg PO BID 11/08/13 [History] Montelukast [Singulair] 10 mg PO HS 06/01/16 [History] tiZANidine [Zanaflex] 2 mg PO Q8HR PRN 06/01/16 [History] Metoprolol Tartrate [Lopressor] 50 mg PO BID tab 06/29/16 [Rx] Verapamil HCl [Calan] 120 mg PO BID 07/27/16 [History] Ascorbic Acid [Vitamin C] 500 mg PO DAILY 12/23/16 [History] Cholecalciferol [Vitamin D3] 1,000 unit PO DAILY 12/23/16 [History] Cyanocobalamin (Vitamin B-12) [Vitamin B-12] 1,000 mcg PO DAILY 12/23/16 [ History] Digoxin 250 mcg PO DAILY 12/23/16 [History] Ferrous Sulfate [Feosol] 325 mg PO DAILY 12/23/16 [History] Furosemide [Lasix] 40 mg PO HS 12/23/16 [History] Magnesium Oxide [Mag-Ox] 250 mg PO DAILY 12/23/16 [History] Methocarbamol [Robaxin] 500 mg PO Q8H PRN 12/23/16 [History] Mometasone Furoate [Nasonex Nas[place]] 1 - 2 spray EA NOSTRIL DAILY 12/23/16 [ History] Niacin [Niaspan] 500 mg PO DAILY 12/23/16 [History] Pyridoxine HCl (Vitamin B6) [Vitamin B-6] 100 mg PO DAILY 12/23/16 [History] Warfarin Sodium 2.5 mg PO DAILY 12/23/16 [History] ALPRAZolam [Xanax] 0.5 mg PO TID PRN #20 tablet 01/07/17 [Rx] Calcium Carbonate [Tums] 500 mg PO QID PRN 01/07/17 [Rx] Ipratropium-Albuterol Nebulize [Duoneb 0.5 mg-3 mg/3 ml Soln] 3 ml INHALATION QID neb 01/07/17 [Rx] predniSONE See Taper PO DAILY #1 01/07/17 [Rx] traMADol HCl [Ultram] 50 mg PO Q6HR PRN #20 tab 01/07/17 [Rx] Follow up Appointment(s)/Referral(s): Joao Dutton, [NON-STAFF] - 1 Week Cain Taylor MD [REFERRING] - 3 Days (While at [facility]) Uziel Kwong MD [Primary Care Provider] - 1 Week (After DC from [facility]) Sima Leung MD [STAFF PHYSICIAN] - 2 Weeks Ambulatory/Diagnostic Orders: Prothrombin Time INR [LAB.AMB] Time Frame: 01/11/17, Location: Determined By Patient Patient Instructions/Handouts: Heart Failure (DC), COPD (Chronic Obstructive Pulmonary Disease) (DC) Activity/Diet/Wound Care/Special Instructions: INR PENDING: [facility]. BiPAP as per pulmonary.Oxygen via nasal cannula at 3Liters. AVAPS set up for outpatient setting. To be used in the evening and throughout the day for napping. Cardiac diet. Dry dressing left leg daily. Discharge Disposition: TRANSFER TO SNF/ECF
[2017-01-07 13:41] LABS: INR 3.1 (<1.2); Prothrombin Time 29.5 sec (9.0-12.0)
--- NOTE | 2017-01-07 17:18 | PN ---
DATE OF SERVICE: 01/07/2017 REASON FOR FOLLOWUP: 1. Positive blood culture, likely skin contamination. 2. Left leg blister, traumatic. INTERVAL HISTORY: The patient is afebrile. She is breathing comfortably. The patient denies significant chest pain or cough. Some abdominal discomfort after ( ) of the BiPap, but no nausea or vomiting. The left leg blister persists , with no worsening pain or any drainage. On examination, blood pressure is 118/50 with a pulse of 56, temperature 98.1. She is 92% on 4 L nasal cannula. General description is an elderly female up in the chair in no distress. RESPIRATORY SYSTEM: Unlabored breathing. Clear to auscultation anteriorly. HEART: S1. S2. Regular rate and rhythm. ABDOMEN: Soft. No tenderness. Left leg with a left leg blister but no evidence of any cellulitis. LABS: Creatinine 0.80 with blood cultures of 01/03 and 01/05 remaining to be negative. DIAGNOSTIC IMPRESSION AND PLAN: 1. Patient with positive blood culture at the outside facility with Staphylococcus hominis, likely a skin contamination, as the patient has no clinical disease to go along with it. All the cultures done here are negative so far. Hence there is no need for further workup for the same. 2. Left leg blood-filled blister, traumatic, ( ). Continue with a dry dressing to the area. No need for any Medihoney or other local treatment. MTDD
--- NOTE | 2017-01-07 19:06 | P.PN ---
Subjective 05/09/2017 Progress note being dictated for Dr. Astudillo. Interval history:This is a 71-year-old admitted for confusion and altered mental status secondary to metabolic encephalopathy from CO2 retention. Evaluated by pulmonary. BiPAP throughout the night. It was noted from the other facility that had blood cultures from yesterday came back positive, suspect contamination again. Afebrile, Repeat Blood cultures remain negative. Initially treated with IV antibiotics, now off antibiotics . Significant clinical improvement. Objective - Vital Signs Vital signs: Vital Signs Temp 97.0 F L 01/06/17 14:53 Pulse 78 01/06/17 14:53 Resp 19 01/06/17 14:53 BP 162/94 01/06/17 14:53 Pulse Ox 97 01/06/17 14:53 Intake & Output 01/05/17 01/06/17 01/06/17 18:59 06:59 18:59 Intake Total 1100 Output Total 2900 1650 Balance -1800 -1650 Weight 153 kg Intake: Oral 1100 Output: Urine 2900 1650 Uretheral (Rebolledo) 2900 Other: Voiding Method Indwelling Catheter Indwelling Catheter Indwelling Catheter # Voids 1 # Bowel Movements 1 - Exam PHYSICAL EXAM: VITAL SIGNS: As above GENERAL: [Sitting up in chair, no acute distress] HEENT: [Pupils equal conjunctiva normal. Oral mucosa moist] NECK: [Supple, no JVD] RESPIRATORY EFFORT:[ Normal] LUNGS: [Lungs diminished, occasional expiratory wheeze] CARDIOVASCULAR[ regular S1 and S2, no murmurs rubs or gallops, mild edema] GI: [Abdomen soft, nontender, positive bowel sounds.] PSYCH: [Alert and oriented -3, mood and affect normal.] NEURO: [No focal deficits, moves all 4 extremities, generalized weakness] - Labs CBC & Chem 7: 01/03/17 19:18 01/07/17 07:50 Labs: Abnormal Lab Results - Last 24 Hours (Table) 01/06/17 01/06/17 Range/Units 09:29 09:29 PT 25.7 H (9.0-12.0) sec INR 2.7 H (<1.2) Carbon Dioxide 42 H* (22-30) mmol/L BUN 52 H (7-17) mg/dL Glucose 113 H (74-99) mg/dL Microbiology - Last 24 Hours (Table) 01/05/17 15:44 Blood Culture - Preliminary Blood No Growth after 24 hours 01/05/17 13:37 Blood Culture - Preliminary Blood No Growth after 24 hours 01/05/17 14:10 Blood Culture - Preliminary Blood No Growth after 24 hours 01/03/17 19:18 Blood Culture - Preliminary Blood No Growth after 48 hours Assessment and Plan Plan: #1 altered mental status: Secondary to metabolic encephalopathy from CO2 retention from obesity hypoventilation syndrome and sleep apnea. Patient will need CPAP upon discharge. #2 chronic hypercapnic respiratory failure secondary to COPD, pulmonary hypertension and obesity hypoventilation. Patient uses 3 L of O2 at home. #3 moderate pulmonary hypertension #4 history of DVT on anticoagulation with Coumadin #5 chronic low back pain #6 peripheral neuropathy #7 hypothyroidism #8 anemia of chronic disease #9 positive blood cultures of gram-positive cocci: Management as mentioned in the interval history. #10 chronic deconditioning Plan: Continue on current medication regime ,monitoring and symptomatic treatment. No further antibiotics recommended per ID, as initial positive blood culture suspected to be contamination with repeat blood cultures currently negative. Discharge planning in progress for ECF rehab tomorrow. Maintain supportive care. Further recommendations to follow. The impression and plan of care has been dictated as directed. : I performed a H&P examination of this patient and discussed the same with the dictator. I agree with the dictator's note. Any additional findings/opinions/ etc. will be noted.
== END 2017-01-07 14:37 | DRG 205 ==
LOC: EC 19:04 → 3OBS 20:35 → OBSVTOIN 01-05 13:05 → 4MS4W 01-05 23:33
PROVIDERS: ADMIT Internal Medicine; ATTEND Internal Medicine
DX: E66.2 Morbid (severe) obesity with alveolar hypoventilation (principal); G93.41 Metabolic encephalopathy; E87.4 Mixed disorder of acid-base balance; J96.11 Chronic respiratory failure with hypoxia; J96.12 Chronic respiratory failure with hypercapnia; G62.9 Polyneuropathy, unspecified; I27.2 Other secondary pulmonary hypertension; I50.32 Chronic diastolic (congestive) heart failure; I11.0 Hypertensive heart disease with heart failure; I48.2 Chronic atrial fibrillation; J44.1 Chronic obstructive pulmonary disease with (acute) exacerbation; Z68.43 Body mass index [BMI] 50.0-59.9, adult; Z99.81 Dependence on supplemental oxygen; D63.8 Anemia in other chronic diseases classified elsewhere; E03.9 Hypothyroidism, unspecified; M54.5 Low back pain; M10.9 Gout, unspecified; E78.5 Hyperlipidemia, unspecified; R53.1 Weakness; K59.09 Other constipation; G89.29 Other chronic pain; S80.822A Blister (nonthermal), left lower leg, initial encounter; I45.10 Unspecified right bundle-branch block; D72.829 Elevated white blood cell count, unspecified; F41.9 Anxiety disorder, unspecified; F32.9 Major depressive disorder, single episode, unspecified; Z79.01 Long term (current) use of anticoagulants; Z86.711 Personal history of pulmonary embolism; Z95.5 Presence of coronary angioplasty implant and graft; Z86.718 Personal history of other venous thrombosis and embolism; Z79.899 Other long term (current) drug therapy; Z86.74 Personal history of sudden cardiac arrest; Z88.0 Allergy status to penicillin; Z87.01 Personal history of pneumonia (recurrent); Z87.440 Personal history of urinary (tract) infections; Z91.81 History of falling; Z86.14 Personal history of Methicillin resistant Staphylococcus aureus infection; Z87.828 Personal history of other (healed) physical injury and trauma; Z79.891 Long term (current) use of opiate analgesic; Z79.51 Long term (current) use of inhaled steroids; Z79.52 Long term (current) use of systemic steroids; Z90.49 Acquired absence of other specified parts of digestive tract; Z90.710 Acquired absence of both cervix and uterus
CPT/HCPCS: 36415; 71010; 80048; 80053; 80162; 82550; 82553; 82803; 82805; 83605; 83735; 83880; 84484; 85025; 85610; 85730; 87040; 93005; 94640; 94660; 94760; 99285

== ENCOUNTER 2017-01-22 15:36 | Inpatient (IN) | payer MEDICARE, BC, OTHER ==
[2017-01-22 18:11] VITALS: BMI 56.1
[2017-01-22] MEDS ORDERED: CALCIUM CARBONATE 500 MG CHEWABLE PO PRN (18:49)
[2017-01-22] MEDS ORDERED: IPRATROPIUM-ALBUTEROL 3 ML NEB INHALATION PRN (19:19)
[2017-01-22] MEDS: IPRATROPIUM-ALBUTEROL 3 ML NEB INHALATION SCH (20:15)
[2017-01-22] MEDS: busPIRone HCl 10 MG TAB PO SCH (21:33)
[2017-01-22] MEDS: GABAPENTIN 300 MG CAP PO SCH (21:33)
[2017-01-22] MEDS: MONTELUKAST 10 MG TAB PO SCH (21:34)
[2017-01-22] MEDS: VERAPAMIL SR 120 MG TABLET.ER PO SCH (21:34)
[2017-01-22] MEDS: METOPROLOL TARTRATE 50 MG TAB PO SCH (21:34)
[2017-01-22] MEDS: ALPRAZolam 0.5 MG TAB PO PRN (21:45)
[2017-01-22] MEDS: traMADol 50 MG TAB PO PRN (21:45)
[2017-01-22] MEDS ORDERED: IPRATROPIUM-ALBUTEROL 3 ML NEB INHALATION SCH (22:00)
[2017-01-22] MEDS: METHOCARBAMOL 500 MG TAB PO PRN (22:33)
[2017-01-23] MEDS: FUROSEMIDE 10 MG/ML 4 ML VIAL IV SCH ×4 (01:03→23:52)
[2017-01-23 06:49] LABS: Basophils % (A) 0 %; CH 25.9; CHCM 29.3; Eosinophils % (A) 0 %; HCT 31.7 % (34.0-46.0); HDW 3.89; Hypochromasia Marked; Luc # (Auto) 0.08; Luc % (Auto) 1; Lymphocytes # (A) 0.3 k/uL (1.0-4.8); Lymphocytes % (A) 3 %; MCHC 28.2 g/dL (31.0-37.0); MCV 88.5 fL (80.0-100.0); Mean Platelet Volume 7.3; Monocytes # (A) 0.2 k/uL (0-1.0); Monocytes % (A) 3 %; Neutrophils # (A) 8.8 k/uL (1.3-7.7); Neutrophils % (A) 94 %; Poikilocytosis Slight; RBC 3.59 m/uL (3.80-5.40); RDW 15.9 % (11.5-15.5); WBC 9.4 k/uL (3.8-10.6); WBC (Perox) 9.93
[2017-01-23 06:51] LABS: INR 1.5 (<1.2); Prothrombin Time 14.7 sec (9.0-12.0)
[2017-01-23 06:59] LABS: Blood Urea Nitrogen 20 mg/dL (7-17); Calcium 8.3 mg/dL (8.4-10.2); Chloride 95 mmol/L (98-107); Glucose 160 mg/dL (74-99); Non-African American GFR(MDRD) >60 (>60 ml/min/1.73 sqM); Potassium 4.1 mmol/L (3.5-5.1); Sodium 141 mmol/L (137-145)
[2017-01-23 07:06] LABS: Anion Gap 2 mmol/L
[2017-01-23 07:08] LABS: Carbon Dioxide 44 mmol/L (22-30)
[2017-01-23] MEDS: IPRATROPIUM-ALBUTEROL 3 ML NEB INHALATION SCH ×4 (08:16→21:40)
[2017-01-23] MEDS: POTASSIUM CHLORIDE ER 20 MEQ TAB.ER PO SCH (08:27)
[2017-01-23] MEDS: METOPROLOL TARTRATE 50 MG TAB PO SCH ×2 (08:27→21:09)
[2017-01-23] MEDS: ALLOPURINOL 100 MG TAB PO SCH (08:27)
[2017-01-23] MEDS: DESVENLAFAXINE SUCCINATE 50 MG TAB.ER.24H PO SCH (08:27)
[2017-01-23] MEDS: LEVOTHYROXINE 100 MCG TAB PO SCH (08:27)
[2017-01-23] MEDS: PYRIDOXINE 50 MG TAB PO SCH (08:27)
[2017-01-23] MEDS: ASCORBIC ACID 500 MG TAB PO SCH (08:27)
[2017-01-23] MEDS: FLUTICASONE 50MCG/SPRAY NASAL 16GM EA NOSTRIL SCH (08:27)
[2017-01-23] MEDS: MAGNESIUM OXIDE 400 MG TAB PO SCH (08:27)
[2017-01-23] MEDS: PANTOPRAZOLE 40 MG TABLET PO SCH (08:27)
[2017-01-23] MEDS: busPIRone HCl 10 MG TAB PO SCH ×2 (08:27→21:08)
[2017-01-23] MEDS: DIGOXIN 250 MCG TAB PO SCH (08:27)
[2017-01-23] MEDS: VERAPAMIL SR 120 MG TABLET.ER PO SCH ×2 (08:27→21:08)
[2017-01-23] MEDS: NIACIN TR 500 MG CAPSULE.ER PO SCH (08:27)
[2017-01-23] MEDS: LEVOTHYROXINE 75 MCG TAB PO SCH (08:28)
[2017-01-23] MEDS: FERROUS SULFATE 325 MG TAB PO SCH (08:28)
[2017-01-23] MEDS: traMADol 50 MG TAB PO PRN (08:44)
[2017-01-23] MEDS: CHOLECALCIFEROL 1,000 UNIT TAB PO SCH (12:25)
[2017-01-23] MEDS: CYANOCOBALAMIN 500 MCG TAB PO SCH (12:25)
--- NOTE | 2017-01-23 12:25 | XR ---
EXAMINATION TYPE: XR chest 1V DATE OF EXAM: 01/23/2017 COMPARISON: 01/03/2017 HISTORY: 71-year-old female shortness of breath, rule out CHF TECHNIQUE: Single frontal view of the chest is obtained. FINDINGS: The heart is mildly enlarged. Increasing interstitial opacities and prominence to the pulmonary vascu lature. There are increasing patchy areas of opacity are also present suggesting the peripheral right mid lung and both lung bases. The left base remains underpenetrated limiting assessment. Small left pleural effusion cannot be excluded. Right PICC tip at the cavoatrial junction. IMPRESSION: Mild cardiomegaly with worsening interstitial changes and patchy airspace opacity. Correl ate for mild to moderate CHF. Left base underpenetrated. A left pleural effusion is not excluded.
--- NOTE | 2017-01-23 14:25 | P.CNPUL ---
History of Present Illness Consult date: 01/23/17 Requesting physician: Gustavo Astudillo Reason for consult: dyspnea Chief complaint: Shortness of breath History of present illness: This is a very pleasant 71-year-old female patient who follows with Dr. Kwong as her primary care physician and has a history of atrial fibrillation anticoagulated with warfarin, congestive heart failure, chronic obstructive pulmonary disease, DVT, hypertension, pulmonary embolism, hypothyroidism, chronic back pain, morbid obesity. She does have chronic hypoxic respiratory failure secondary to obesity/hypoventilation syndrome/obstructive sleep apnea. She is a lifelong nonsmoker. She is oxygen dependent. She has had multiple admissions for respiratory failure. She had developed increasing shortness of breath and was seen in the [facility] yesterday. She did require increasing FiO2 requirements to maintain O2 saturations in the 90s and was felt better served here she was transferred here to the hospitalist. She is seen today in consultation on the regular medical floor. She is resting quite comfortably in bed. She is awake and alert in no acute distress. She is oriented 3. Currently maintaining O2 saturations in the 90s on 4 L/m per nasal cannula. No tachycardia, no tachypnea. Afebrile. CO2 on electrolyte panel is 45 which is consistent for her. Her chest x-ray reveals mild cardiomegaly with worsening interstitial changes and patchy airspace opacity most likely secondary to mild to moderate congestive heart failure. Is currently on Lasix 40 mg IV push every 8 hours. She diuresed greater than 3 L. Review of Systems 12 point review of system was conducted and mainly negative other than as mentioned in HPI. Past Medical History Past Medical History: Atrial Fibrillation, Heart Failure, COPD, Deep Vein Thrombosis (DVT), Hypertension, Pneumonia, Pulmonary Embolus (PE), Respiratory Disorder, Thyroid Disorder Additional Past Medical History / Comment(s): Morbid obesity, chronic hypoxic respiratory failure, chronic hypercapnic the story failure, CHF with diastolic dysfunction, moderate degree of pulmonary hypertension, obesity hypoventilation syndrome, obstructive sleep apnea, atrial fibrillation, chronic back pain, hypothyroidism, peripheral neuropathy, chronic constipation, gout, anxiety, depression, hypothyroidism, previous history of DVT/pulmonary embolism, very poor performance and functional status secondary to above-mentioned comorbidities. The patient has been on oxygen between 3-4 L/m nasal cannula. History of Any Multi-Drug Resistant Organisms: MRSA Date of last positivie culture/infection: 11/13/07 MDRO Source:: Unknown Past Surgical History: Appendectomy, Cholecystectomy, Hysterectomy Additional Past Surgical History / Comment(s): Previous Trach placement- two cardiac arrests during procedure. Past Anesthesia/Blood Transfusion Reactions: No Reported Reaction Additional Past Anesthesia/Blood Transfusion Reaction / Comment(s): past blood transfusions many times with no reactions Past Psychological History: Anxiety Additional Psychological History / Comment(s): . Lifelong nonsmoker. Retired office assistant. No experience. No travel history. No animal exposures Smoking Status: Never smoker Past Alcohol Use History: None Reported Past Drug Use History: None Reported - Past Family History Father Family Medical History: No Reported History Mother Family Medical History: Osteoarthritis (OA) Additional Family Medical History / Comment(s): Two knee replacements and two hip replacements Medications and Allergies Home Medications Medication Instructions Recorded Confirmed Type Allopurinol [Zyloprim] 100 mg PO DAILY 11/07/13 01/22/17 History Desvenlafaxine Succinate [Pristiq 50 mg PO DAILY 11/07/13 01/22/17 History ER] Gabapentin [Neurontin] 300 mg PO HS 11/07/13 01/22/17 History Levothyroxine Sodium [Levoxyl] 175 mcg PO AC-BRKFST 11/07/13 01/22/17 History Omeprazole [PriLOSEC] 20 mg PO BID 11/07/13 01/22/17 History Potassium Chloride [Klor-Con 20] 20 meq PO DAILY 11/07/13 01/22/17 History busPIRone HCl [Buspar] 10 mg PO BID 11/08/13 01/22/17 History Montelukast [Singulair] 10 mg PO HS 06/01/16 01/22/17 History tiZANidine [Zanaflex] 2 mg PO Q8HR PRN 06/01/16 01/22/17 History Verapamil HCl [Calan] 120 mg PO BID 07/27/16 01/22/17 History Ascorbic Acid [Vitamin C] 500 mg PO DAILY 12/23/16 01/22/17 History Cholecalciferol [Vitamin D3] 1,000 unit PO DAILY 12/23/16 01/22/17 History Cyanocobalamin (Vitamin B-12) 1,000 mcg PO DAILY 12/23/16 01/22/17 History [Vitamin B-12] Digoxin 250 mcg PO DAILY 12/23/16 01/22/17 History Ferrous Sulfate [Feosol] 325 mg PO DAILY 12/23/16 01/22/17 History Furosemide [Lasix] 40 mg PO HS 12/23/16 01/22/17 History Magnesium Oxide [Mag-Ox] 250 mg PO DAILY 12/23/16 01/22/17 History Methocarbamol [Robaxin] 500 mg PO Q8H PRN 12/23/16 01/22/17 History Mometasone Furoate [Nasonex Nasal 1 - 2 spray EA NOSTRIL DAILY 12/23/16 History [place]] Niacin [Niaspan] 500 mg PO DAILY 12/23/16 01/22/17 History Pyridoxine HCl (Vitamin B6) 100 mg PO DAILY 12/23/16 01/22/17 History [Vitamin B-6] Ipratropium-Albuterol Nebulize 3 ml INHALATION RT-QID 01/22/17 01/22/17 History [Duoneb 0.5 mg-3 mg/3 ml Soln] Allergies Allergy/AdvReac Type Severity Reaction Status Date / Time Penicillins Allergy Dyspnea Verified 01/22/17 19:51 Physical Exam Vitals: Vital Signs Temp Pulse Pulse Resp BP BP Pulse Ox 01/23/17 11:51 92 01/23/17 11:41 88 01/23/17 08:30 16 01/23/17 08:24 88 01/23/17 08:16 80 94 L 01/23/17 07:00 97.0 F L 63 16 141/55 94 L 01/22/17 23:00 98.1 F 62 20 133/57 95 01/22/17 20:26 86 01/22/17 20:21 95 01/22/17 20:16 87 01/22/17 18:18 86 16 01/22/17 18:06 98.9 F 86 16 127/98 93 L Intake and Output 01/22/17 01/23/17 01/23/17 22:59 06:59 14:59 Intake Total 400 100 Output Total 3300 Balance 400 -3200 Intake: Oral 400 100 Output: Urine 3300 Uretheral (Rebolledo) 1100 Other: Voiding Method Indwelling Catheter Indwelling Catheter Indwelling Catheter # Bowel Movements 0 Weight 153 kg 153 kg Patient Weight 01/24/17 06:59 Weight 153 kg GENERAL EXAM: Morbidly obese. Alert, comfortable in no apparent distress. HEAD: Normocephalic. EYES: Normal reaction of pupils, equal size. NOSE: Clear with pink turbinates. THROAT: There is crowding the posterior pharynx. No erythema or exudates. NECK: Short. No masses, no JVD. CHEST: No chest wall deformity. LUNGS: Equal air entry with crackles in the posterior bases.. CVS: S1 and S2 normal with no audible murmurs, regular rhythm. ABDOMEN: Obese, soft, normal bowel sounds, no guarding or rigidity. Extremities: There is 1-2+ lower extremity peripheral edema. No clubbing, no cyanosis. Peripheral pulses are intact. Results - Laboratory Findings CBC and BMP: 01/23/17 Unknown 01/23/17 Unknown PT/INR, D-dimer PT 14.7 sec (9.0-12.0) H 01/23/17 Unknown INR 1.5 (<1.2) H 01/23/17 Unknown Abnormal lab findings: Abnormal Labs 01/23/17 01/23/17 01/23/17 Unknown Unknown Unknown RBC 3.59 L Hgb 9.0 L D Hct 31.7 L MCHC 28.2 L RDW 15.9 H Neutrophils # 8.8 H Lymphocytes # 0.3 L PT 14.7 H INR 1.5 H Chloride 95 L Carbon Dioxide 44 H* BUN 20 H Glucose 160 H Calcium 8.3 L - Diagnostic Findings Chest x-ray: image reviewed Assessment and Plan Plan: Impression: #1 Acute exacerbation of chronic diastolic congestive heart failure. #2 Acute on chronic hypoxic respiratory failure secondary to above. #3 Acute on chronic hypercapnic respiratory failure secondary to above. #4 Moderate pulmonary hypertension. #5 Morbid obesity with obesity/hypoventilation syndrome. Utilizing BiPAP in the outpatient setting. #6 Obstructive sleep apnea. #7 Prior history of atrial fibrillation, anticoagulated with warfarin. #8 Chronic back pain. #9 Peripheral neuropathy. #10 Hypothyroidism. #11 Anemia. #12 Prior history of PE/DVT #13 Poor overall functional performance secondary to the above-mentioned multiple comorbidities. Plan: The patient was seen and evaluated by Dr. Leung. Her chest x-ray was reviewed. We will continue to diurese the patient. Continue to monitor accurate I&O's. The staff was instructed to assure that she wears the BiPAP throughout the evening and during the day while wrapping to prevent recurrent CO2 retention and altered mental status. We'll continue with her home medications. We'll continue to follow. Time with Patient: Greater than 30
--- NOTE | 2017-01-23 14:26 | P.HPIM ---
History of Present Illness Patient is a 71-year-old female morbidly obese known history of sleep apnea obesity hypoventilation syndrome came in with complaints of shortness of breath. Patient had normal ejection fraction the past patient is found to have pulmonary edema here. Patient will be started on IV Lasix. Patient was admitted in [facility]. Because of her multiple medical problems and non-improvement in her respiratory status patient was transferred here. Patient had ABGs done in [facility] which showed some 7.3 pH pCO2 of 79 bicarbonate of 39 at that time, patient's pCO2 is consistent with chronic retention rather any acute retention. And the patient does have contraction alkalosis as she received some Lasix and patient contraction alkalosis scleral bit worse now. Patient gives me a vague history of orthopnea PND denied any fever,, cough. Review of Systems PHYSICAL EXAMINATION: GENERAL: The patient is alert and oriented x3, not in any acute distress. Morbidly obese HEENT: Pupils are round and equally reacting to light. EOMI. No scleral icterus. No conjunctival pallor. Normocephalic, atraumatic. No pharyngeal erythema. No thyromegaly. CARDIOVASCULAR: S1 and S2 present. No murmurs, rubs, or gallops. Unable to appreciate JVD PULMONARY: Chest is clear to auscultation, no wheezing or crackles. Decreased air entry into bilateral lung son. ABDOMEN: Soft, nontender, nondistended, normoactive bowel sounds. No palpable organomegaly. MUSCULOSKELETAL: No joint swelling or deformity. EXTREMITIES: No cyanosis, clubbing, or pedal edema. NEUROLOGICAL: Gross neurological examination did not reveal any focal deficits. SKIN: has an ulcer in the left leg anterior aspect from her, during her last hospitalization that doesn't appear to be infected Past Medical History Past Medical History: Atrial Fibrillation, Heart Failure, COPD, Deep Vein Thrombosis (DVT), Hypertension, Pneumonia, Pulmonary Embolus (PE), Respiratory Disorder, Thyroid Disorder Additional Past Medical History / Comment(s): Morbid obesity, chronic hypoxic respiratory failure, chronic hypercapnic the story failure, CHF with diastolic dysfunction, moderate degree of pulmonary hypertension, obesity hypoventilation syndrome, obstructive sleep apnea, atrial fibrillation, chronic back pain, hypothyroidism, peripheral neuropathy, chronic constipation, gout, anxiety, depression, hypothyroidism, previous history of DVT/pulmonary embolism, very poor performance and functional status secondary to above-mentioned comorbidities. The patient has been on oxygen between 3-4 L/m nasal cannula. History of Any Multi-Drug Resistant Organisms: MRSA Date of last positivie culture/infection: 11/13/07 MDRO Source:: Unknown Past Surgical History: Appendectomy, Cholecystectomy, Hysterectomy Additional Past Surgical History / Comment(s): Previous Trach placement- two cardiac arrests during procedure. Past Anesthesia/Blood Transfusion Reactions: No Reported Reaction Additional Past Anesthesia/Blood Transfusion Reaction / Comment(s): past blood transfusions many times with no reactions Past Psychological History: Anxiety Additional Psychological History / Comment(s): . Lifelong nonsmoker. Retired fiscal officer. No experience. No travel history. No animal exposures Smoking Status: Never smoker Past Alcohol Use History: None Reported Past Drug Use History: None Reported - Past Family History Father Family Medical History: No Reported History Mother Family Medical History: Osteoarthritis (OA) Additional Family Medical History / Comment(s): Two knee replacements and two hip replacements Medications and Allergies Home Medications Medication Instructions Recorded Confirmed Type Allopurinol [Zyloprim] 100 mg PO DAILY 11/07/13 01/22/17 History Desvenlafaxine Succinate [Pristiq 50 mg PO DAILY 11/07/13 01/22/17 History ER] Gabapentin [Neurontin] 300 mg PO HS 11/07/13 01/22/17 History Levothyroxine Sodium [Levoxyl] 175 mcg PO AC-BRKFST 11/07/13 01/22/17 History Omeprazole [PriLOSEC] 20 mg PO BID 11/07/13 01/22/17 History Potassium Chloride [Klor-Con 20] 20 meq PO DAILY 11/07/13 01/22/17 History busPIRone HCl [Buspar] 10 mg PO BID 11/08/13 01/22/17 History Montelukast [Singulair] 10 mg PO HS 06/01/16 01/22/17 History tiZANidine [Zanaflex] 2 mg PO Q8HR PRN 06/01/16 01/22/17 History Verapamil HCl [Calan] 120 mg PO BID 07/27/16 01/22/17 History Ascorbic Acid [Vitamin C] 500 mg PO DAILY 12/23/16 01/22/17 History Cholecalciferol [Vitamin D3] 1,000 unit PO DAILY 12/23/16 01/22/17 History Cyanocobalamin (Vitamin B-12) 1,000 mcg PO DAILY 12/23/16 01/22/17 History [Vitamin B-12] Digoxin 250 mcg PO DAILY 12/23/16 01/22/17 History Ferrous Sulfate [Feosol] 325 mg PO DAILY 12/23/16 01/22/17 History Furosemide [Lasix] 40 mg PO HS 12/23/16 01/22/17 History Magnesium Oxide [Mag-Ox] 250 mg PO DAILY 12/23/16 01/22/17 History Methocarbamol [Robaxin] 500 mg PO Q8H PRN 12/23/16 01/22/17 History Mometasone Furoate [Nasonex Nasal 1 - 2 spray EA NOSTRIL DAILY 12/23/16 History [place]] Niacin [Niaspan] 500 mg PO DAILY 12/23/16 01/22/17 History Pyridoxine HCl (Vitamin B6) 100 mg PO DAILY 12/23/16 01/22/17 History [Vitamin B-6] Ipratropium-Albuterol Nebulize 3 ml INHALATION RT-QID 01/22/17 01/22/17 History [Duoneb 0.5 mg-3 mg/3 ml Soln] Allergies Allergy/AdvReac Type Severity Reaction Status Date / Time Penicillins Allergy Dyspnea Verified 01/22/17 19:51 Physical Exam Vitals: Vital Signs Temp Pulse Pulse Resp BP BP Pulse Ox 01/23/17 11:51 92 01/23/17 11:41 88 01/23/17 08:30 16 01/23/17 08:24 88 01/23/17 08:16 80 94 L 01/23/17 07:00 97.0 F L 63 16 141/55 94 L 01/22/17 23:00 98.1 F 62 20 133/57 95 01/22/17 20:26 86 01/22/17 20:21 95 01/22/17 20:16 87 01/22/17 18:18 86 16 01/22/17 18:06 98.9 F 86 16 127/98 93 L Intake and Output 01/22/17 01/23/17 01/23/17 22:59 06:59 14:59 Intake Total 400 100 Output Total 3300 Balance 400 -3200 Intake: Oral 400 100 Output: Urine 3300 Uretheral (Rebolledo) 1100 Other: Voiding Method Indwelling Catheter Indwelling Catheter Indwelling Catheter # Bowel Movements 0 Weight 153 kg 153 kg Patient Weight 01/24/17 06:59 Weight 153 kg Results CBC & Chem 7: 01/23/17 Unknown 01/23/17 Unknown Labs: Abnormal Lab Results - Last 24 Hours (Table) 01/23/17 01/23/17 01/23/17 Range/Units Unknown Unknown Unknown RBC 3.59 L (3.80-5.40) m/uL Hgb 9.0 L D (11.4-16.0) gm/dL Hct 31.7 L (34.0-46.0) % MCHC 28.2 L (31.0-37.0) g/dL RDW 15.9 H (11.5-15.5) % Neutrophils # 8.8 H (1.3-7.7) k/uL Lymphocytes # 0.3 L (1.0-4.8) k/uL PT 14.7 H (9.0-12.0) sec INR 1.5 H (<1.2) Chloride 95 L (98-107) mmol/L Carbon Dioxide 44 H* (22-30) mmol/L BUN 20 H (7-17) mg/dL Glucose 160 H (74-99) mg/dL Calcium 8.3 L (8.4-10.2) mg/dL Thrombosis Risk Factor Assmnt - Choose All That Apply Each Factor Represents 1 point: Abnormal pulmonary function (COPD), Medical pt on bed rest, Obesity (BMI >25) Each Risk Factor Represents 2 Points: Age 61-74 years, Patient confined to bed Thrombosis Risk Factor Assessment Total Risk Factor Score: 7 Thrombosis Risk Factor Assessment Level: High Risk Assessment and Plan Plan: #1 shortness of breath: Probably secondary to pulmonary edema probably chronic diastolic dysfunction with acute exacerbation patient was started on IV Lasix pulmonology was consulted because of her complex history of sleep apnea obesity hypoventilation syndrome. And chronic CO2 retention. Patient in the past was admitted for metabolic encephalopathy secondary to CO2 retention apparently she had that encephalopathy during her hospitalization and [place]. At this point of time patient is not confused. #2 chronic hypercapnic respiratory failure patient uses around 2-3 L of oxygen at home. #3 acute hypoxic respiratory failure secondary to possible congestive heart failure exacerbation continue with IV Lasix monitoring kidney function. #4 DVT in the past patient's had so further otic INR received 2.5 mg of vitamin K yesterday and her INR today is 1.5 patient will be resumed on Coumadin but at a lower dose patient uses 2.5 mg at home which will cut down to 1.5 year. Patient doesn't have any obvious GI bleed. #5 chronic low back pain next and #6 peripheral neuropathy #7 hypothyroidism #8 anemia of chronic disease #10 chronic deconditioning #11 obesity hypoventilation syndrome and obstructive sleep apnea For above-mentioned chronic medical problems with good and continue her home medications with close clinical monitoring.
--- NOTE | 2017-01-23 15:50 | P.CRDCN ---
History of Present Illness Consult date: 01/23/17 Chief complaint: Shortness of breath History of present illness: This is a pleasant 71-year-old female patient with a past medical history significant for congestive heart failure secondary to diastolic dysfunction, hypertensive heart disease, paroxysmal atrial fibrillation on anticoagulation was Coumadin, as well as chronic respiratory failure on home oxygen at 2 L, presented initially to [facility] with shortness of breath and then she was transferred to [facility]. The patient had multiple hospital admission with acute on chronic respiratory failure. She has been experiencing progressive dyspnea as well as progressive bilateral lower extremities edema. She did require higher FiO2 to maintain her oxygen saturation. The chest x-ray showed findings consistent with congestive heart failure exacerbation. The patient underwent an echocardiogram within the last 6 month and that showed normal LV function. Currently the patient was admitted to the hospital was congestive heart failure and she was started on Lasix IV. Past Medical History Past Medical History: Atrial Fibrillation, Heart Failure, COPD, Deep Vein Thrombosis (DVT), Hypertension, Pneumonia, Pulmonary Embolus (PE), Respiratory Disorder, Thyroid Disorder Additional Past Medical History / Comment(s): Morbid obesity, chronic hypoxic respiratory failure, chronic hypercapnic the story failure, CHF with diastolic dysfunction, moderate degree of pulmonary hypertension, obesity hypoventilation syndrome, obstructive sleep apnea, atrial fibrillation, chronic back pain, hypothyroidism, peripheral neuropathy, chronic constipation, gout, anxiety, depression, hypothyroidism, previous history of DVT/pulmonary embolism, very poor performance and functional status secondary to above-mentioned comorbidities. The patient has been on oxygen between 3-4 L/m nasal cannula. History of Any Multi-Drug Resistant Organisms: MRSA Date of last positivie culture/infection: 11/13/07 MDRO Source:: Unknown Past Surgical History: Appendectomy, Cholecystectomy, Hysterectomy Additional Past Surgical History / Comment(s): Previous Trach placement- two cardiac arrests during procedure. Past Anesthesia/Blood Transfusion Reactions: No Reported Reaction Additional Past Anesthesia/Blood Transfusion Reaction / Comment(s): past blood transfusions many times with no reactions Past Psychological History: Anxiety Additional Psychological History / Comment(s): . Lifelong nonsmoker. Retired medical office specialist. No experience. No travel history. No animal exposures Smoking Status: Never smoker Past Alcohol Use History: None Reported Past Drug Use History: None Reported - Past Family History Father Family Medical History: No Reported History Mother Family Medical History: Osteoarthritis (OA) Additional Family Medical History / Comment(s): Two knee replacements and two hip replacements Medications and Allergies Home Medications Medication Instructions Recorded Confirmed Type Allopurinol [Zyloprim] 100 mg PO DAILY 11/07/13 01/22/17 History Desvenlafaxine Succinate [Pristiq 50 mg PO DAILY 11/07/13 01/22/17 History ER] Gabapentin [Neurontin] 300 mg PO HS 11/07/13 01/22/17 History Levothyroxine Sodium [Levoxyl] 175 mcg PO AC-BRKFST 11/07/13 01/22/17 History Omeprazole [PriLOSEC] 20 mg PO BID 11/07/13 01/22/17 History Potassium Chloride [Klor-Con 20] 20 meq PO DAILY 11/07/13 01/22/17 History busPIRone HCl [Buspar] 10 mg PO BID 11/08/13 01/22/17 History Montelukast [Singulair] 10 mg PO HS 06/01/16 01/22/17 History tiZANidine [Zanaflex] 2 mg PO Q8HR PRN 06/01/16 01/22/17 History Verapamil HCl [Calan] 120 mg PO BID 07/27/16 01/22/17 History Ascorbic Acid [Vitamin C] 500 mg PO DAILY 12/23/16 01/22/17 History Cholecalciferol [Vitamin D3] 1,000 unit PO DAILY 12/23/16 01/22/17 History Cyanocobalamin (Vitamin B-12) 1,000 mcg PO DAILY 12/23/16 01/22/17 History [Vitamin B-12] Digoxin 250 mcg PO DAILY 12/23/16 01/22/17 History Ferrous Sulfate [Feosol] 325 mg PO DAILY 12/23/16 01/22/17 History Furosemide [Lasix] 40 mg PO HS 12/23/16 01/22/17 History Magnesium Oxide [Mag-Ox] 250 mg PO DAILY 12/23/16 01/22/17 History Methocarbamol [Robaxin] 500 mg PO Q8H PRN 12/23/16 01/22/17 History Mometasone Furoate [Nasonex Nasal 1 - 2 spray EA NOSTRIL DAILY 12/23/16 History [place]] Niacin [Niaspan] 500 mg PO DAILY 12/23/16 01/22/17 History Pyridoxine HCl (Vitamin B6) 100 mg PO DAILY 12/23/16 01/22/17 History [Vitamin B-6] Ipratropium-Albuterol Nebulize 3 ml INHALATION RT-QID 01/22/17 01/22/17 History [Duoneb 0.5 mg-3 mg/3 ml Soln] Allergies Allergy/AdvReac Type Severity Reaction Status Date / Time Penicillins Allergy Dyspnea Verified 01/22/17 19:51 Physical Exam Vitals: Vital Signs Temp Pulse Pulse Resp BP BP Pulse Ox 01/23/17 15:00 98.5 F 64 18 131/60 92 L 01/23/17 11:51 92 01/23/17 11:41 88 01/23/17 08:30 16 01/23/17 08:24 88 01/23/17 08:16 80 94 L 01/23/17 07:00 97.0 F L 63 16 141/55 94 L 01/22/17 23:00 98.1 F 62 20 133/57 95 01/22/17 20:26 86 01/22/17 20:21 95 01/22/17 20:16 87 01/22/17 18:18 86 16 01/22/17 18:06 98.9 F 86 16 127/98 93 L Intake and Output 01/23/17 01/23/17 01/23/17 06:59 14:59 22:59 Intake Total 100 Output Total 3300 1000 Balance -3200 -1000 Intake: Oral 100 Output: Urine 3300 1000 Uretheral (Rebolledo) 1100 Other: Voiding Method Indwelling Catheter Indwelling Catheter # Bowel Movements 0 Weight 153 kg Patient Weight 01/24/17 06:59 Weight 153 kg - Constitutional General appearance: no acute distress - Respiratory Respiratory: bilateral: diminished - Cardiovascular Heart sounds: normal: S1, S2 Results 01/23/17 Unknown 01/23/17 Unknown Coagulation 01/23/17 Range/Units Unknown PT 14.7 H (9.0-12.0) sec CBC 01/23/17 Range/Units Unknown WBC 9.4 (3.8-10.6) k/uL RBC 3.59 L (3.80-5.40) m/uL Hgb 9.0 L D (11.4-16.0) gm/dL Hct 31.7 L (34.0-46.0) % Plt Count 165 (150-450) k/uL Comprehensive Metabolic Panel 01/23/17 Range/Units Unknown Sodium 141 (137-145) mmol/L Potassium 4.1 (3.5-5.1) mmol/L Chloride 95 L (98-107) mmol/L Carbon Dioxide 44 H* (22-30) mmol/L BUN 20 H (7-17) mg/dL Creatinine 0.89 (0.52-1.04) mg/dL Glucose 160 H (74-99) mg/dL Calcium 8.3 L (8.4-10.2) mg/dL Current Medications Generic Name Dose Route Start Last Admin Trade Name Freq PRN Reason Stop Dose Admin Albuterol/Ipratropium 3 ml 01/22/17 20:00 01/23/17 11:40 Duoneb 0.5 Mg-3 Mg/3 Ml Soln INHALATION 3 ml RT-QID JOLEEN Administration Albuterol/Ipratropium 3 ml 01/22/17 19:19 Duoneb 0.5 Mg-3 Mg/3 Ml Soln INHALATION RT-Q4H PRN Shortness Of Breath Allopurinol 100 mg 01/23/17 09:00 01/23/17 08:27 Zyloprim PO 100 mg DAILY JOLEEN Administration Alprazolam 0.5 mg 01/22/17 18:49 01/22/17 21:45 Xanax PO 0.5 mg TID PRN Administration Anxiety Ascorbic Acid 500 mg 01/23/17 09:00 01/23/17 08:27 Vitamin C PO 500 mg DAILY JOLEEN Administration Buspirone HCl 10 mg 01/22/17 21:00 01/23/17 08:27 Buspar PO 10 mg BID JOLEEN Administration Calcium Carbonate/Glycine 500 mg 01/22/17 18:49 Tums PO QID PRN Heartburn Cholecalciferol 1,000 unit 01/23/17 12:00 01/23/17 12:25 Vitamin D3 PO 1,000 unit DAILY@1200 [facility] Administration Cyanocobalamin 1,000 mcg 01/23/17 12:00 01/23/17 12:25 Vitamin B-12 PO 1,000 mcg DAILY@1200 [facility] Administration Desvenlafaxine Succinate 50 mg 01/23/17 09:00 01/23/17 08:27 Pristiq Er PO 50 mg DAILY JOLEEN Administration Digoxin 250 mcg 01/23/17 09:00 01/23/17 08:27 Lanoxin PO 250 mcg DAILY JOLEEN Administration Ferrous Sulfate 325 mg 01/23/17 09:00 01/23/17 08:28 Feosol PO 325 mg DAILY JOLEEN Administration Fluticasone Propionate 1 spray 01/23/17 09:00 01/23/17 08:27 Flonase Nasal [place] EA NOSTRIL 1 spray DAILY JOLEEN Administration Furosemide 40 mg 01/23/17 00:00 01/23/17 08:27 Lasix IV 40 mg Q8HR JOLEEN Administration Gabapentin 300 mg 01/22/17 21:00 01/22/17 21:33 Neurontin PO 300 mg HS JOLEEN Administration Levothyroxine Sodium 75 mcg 01/23/17 07:30 01/23/17 08:28 Synthroid PO 75 mcg AC-BRKFST JOLEEN Administration Levothyroxine Sodium 100 mcg 01/23/17 07:30 01/23/17 08:27 Synthroid PO 100 mcg AC-BRKFST JOLEEN Administration Magnesium Oxide 400 mg 01/23/17 09:00 01/23/17 08:27 Mag-Ox PO 400 mg DAILY JOLEEN Administration Methocarbamol 500 mg 01/22/17 18:49 01/22/17 22:33 Robaxin PO 500 mg Q8H PRN Administration Muscle Pain Metoprolol Tartrate 50 mg 01/22/17 21:00 01/23/17 08:27 Lopressor PO 50 mg BID JOLEEN Administration Montelukast Sodium 10 mg 01/22/17 21:00 01/22/17 21:34 Singulair PO 10 mg HS JOLEEN Administration Niacin 500 mg 01/23/17 09:00 01/23/17 08:27 Niacin Tr PO 500 mg DAILY JOLEEN Administration Pantoprazole Sodium 40 mg 01/23/17 09:00 01/23/17 08:27 Protonix PO 40 mg DAILY JOLEEN Administration Potassium Chloride 20 meq 01/23/17 09:00 01/23/17 08:27 K-Dur 20 PO 20 meq DAILY JOLEEN Administration Pyridoxine HCl 100 mg 01/23/17 09:00 01/23/17 08:27 Vitamin B-6 PO 100 mg DAILY JOLEEN Administration Tizanidine HCl 2 mg 01/22/17 18:49 Zanaflex PO Q8HR PRN Muscle Spasm/Pain Tramadol HCl 50 mg 01/22/17 18:49 01/23/17 08:44 Ultram PO 50 mg Q6HR PRN Administration Pain Verapamil HCl 120 mg 01/22/17 21:00 01/23/17 08:27 Isoptin Sr PO 120 mg BID JOLEEN Administration Warfarin Sodium 1.5 mg 01/23/17 18:00 Coumadin PO DAILY@1800 JOLEEN Intake and Output 01/23/17 01/23/17 01/23/17 06:59 14:59 22:59 Intake Total 100 Output Total 3300 1000 Balance -3200 -1000 Intake: Oral 100 Output: Urine 3300 1000 Uretheral (Rebolledo) 1100 Other: Voiding Method Indwelling Catheter Indwelling Catheter # Bowel Movements 0 Weight 153 kg Patient Weight 01/24/17 06:59 Weight 153 kg 01/23/17 Unknown 01/23/17 Unknown Assessment and Plan Plan: This is a pleasant 71-year-old female patient was admitted to the hospital with progressive dyspnea and was diagnosed with acute on chronic respiratory failure secondary to CHF exacerbation as well as COPD exacerbation. We'll continue the current above dose of Lasix IV. Continue monitor the kidney function as well as electrolytes. Continue monitor the input and output.
[2017-01-23] MEDS: WARFARIN 1.5 MG TAB PO SCH (17:38)
[2017-01-23] MEDS: GABAPENTIN 300 MG CAP PO SCH (21:08)
[2017-01-23] MEDS: MONTELUKAST 10 MG TAB PO SCH (21:08)
[2017-01-23] MEDS: ALPRAZolam 0.5 MG TAB PO PRN (21:16)
[2017-01-23] MEDS: METHOCARBAMOL 500 MG TAB PO PRN (23:52)
[2017-01-24 06:56] LABS: CH 25.5; CHCM 28.9; HCT 29.2 % (34.0-46.0); HDW 3.86; HGB 8.4 gm/dL (11.4-16.0); Hypochromasia Marked; MCH 25.3 pg (25.0-35.0); MCHC 28.6 g/dL (31.0-37.0); MCV 88.5 fL (80.0-100.0); Mean Platelet Volume 6.8; Poikilocytosis Slight; RDW 15.7 % (11.5-15.5); WBC 8.7 k/uL (3.8-10.6)
[2017-01-24 07:05] LABS: INR 1.2 (<1.2); Prothrombin Time 12.1 sec (9.0-12.0)
[2017-01-24 07:06] LABS: Blood Urea Nitrogen 23 mg/dL (7-17); Calcium 8.4 mg/dL (8.4-10.2); Chloride 94 mmol/L (98-107); Glucose 110 mg/dL (74-99); Non-African American GFR(MDRD) 52 (>60 ml/min/1.73 sqM); Potassium 3.7 mmol/L (3.5-5.1); Sodium 142 mmol/L (137-145)
[2017-01-24] MEDS: IPRATROPIUM-ALBUTEROL 3 ML NEB INHALATION SCH ×4 (07:56→19:34)
[2017-01-24] MEDS: traMADol 50 MG TAB PO PRN ×2 (08:00→17:34)
[2017-01-24] MEDS: ALPRAZolam 0.5 MG TAB PO PRN ×2 (08:00→20:16)
[2017-01-24] MEDS: FUROSEMIDE 10 MG/ML 4 ML VIAL IV SCH ×2 (08:00→20:08)
[2017-01-24] MEDS: VERAPAMIL SR 120 MG TABLET.ER PO SCH ×2 (08:02→20:09)
[2017-01-24] MEDS: busPIRone HCl 10 MG TAB PO SCH ×2 (08:02→20:09)
[2017-01-24] MEDS: POTASSIUM CHLORIDE ER 20 MEQ TAB.ER PO SCH (08:02)
[2017-01-24] MEDS: DIGOXIN 250 MCG TAB PO SCH (08:03)
[2017-01-24] MEDS: DESVENLAFAXINE SUCCINATE 50 MG TAB.ER.24H PO SCH (08:03)
[2017-01-24] MEDS: METOPROLOL TARTRATE 50 MG TAB PO SCH ×2 (08:03→20:09)
[2017-01-24] MEDS: ASCORBIC ACID 500 MG TAB PO SCH (08:04)
[2017-01-24] MEDS: PANTOPRAZOLE 40 MG TABLET PO SCH (08:04)
[2017-01-24] MEDS: ALLOPURINOL 100 MG TAB PO SCH (08:05)
[2017-01-24] MEDS: MAGNESIUM OXIDE 400 MG TAB PO SCH (08:05)
[2017-01-24] MEDS: LEVOTHYROXINE 100 MCG TAB PO SCH (08:05)
[2017-01-24] MEDS: LEVOTHYROXINE 75 MCG TAB PO SCH (08:05)
[2017-01-24] MEDS: NIACIN TR 500 MG CAPSULE.ER PO SCH (08:05)
[2017-01-24] MEDS: FERROUS SULFATE 325 MG TAB PO SCH (08:06)
[2017-01-24] MEDS: FLUTICASONE 50MCG/SPRAY NASAL 16GM EA NOSTRIL SCH (08:06)
[2017-01-24] MEDS: PYRIDOXINE 50 MG TAB PO SCH (08:08)
--- NOTE | 2017-01-24 11:04 | P.PN ---
Subjective 71-year-old female was admitted for acute on chronic respiratory failure secondary to COPD exacerbation patient is also being treated for pulmonary edema there may be a minimal pulmonary edema patient does have significant peripheral edema peripheral edema improved but patient does have significant contraction alkalosis probably we may need to back off on the Lasix IV. Patient 's respiratory status improved as well. Patient was restarted back on Coumadin INR is 1.2 today patient received about 2.5 mg of IV vitamin K in [facility]. Patient was sober the medic INR at 8 on admission to [place] so we will required lesser dose of Coumadin than what she was taking at home. Patient denied any fever, chills, nausea, vomiting respiratory status improved patient is lying in sleeping comfortably when I went to see the patient. Patient denied any dysuria. And new focal new focal weakness. Objective - Vital Signs Vital signs: Vital Signs Temp 98.2 F 01/24/17 07:00 Pulse 76 01/24/17 08:11 Resp 22 01/24/17 07:00 BP 127/50 01/24/17 07:00 Pulse Ox 96 01/24/17 07:00 Intake & Output 01/23/17 01/24/17 01/24/17 18:59 06:59 18:59 Intake Total 300 200 Output Total 1000 3100 Balance -1000 -2800 200 Weight 153 kg Intake: Oral 300 200 Output: Urine 1000 3100 Uretheral (Rebolledo) 2100 Other: Voiding Method Indwelling Catheter Indwelling Catheter # Bowel Movements 0 0 - Exam GENERAL: The patient is alert and oriented x3, not in any acute distress. Morbidly obese HEENT: Pupils are round and equally reacting to light. EOMI. No scleral icterus. No conjunctival pallor. Normocephalic, atraumatic. No pharyngeal erythema. No thyromegaly. CARDIOVASCULAR: S1 and S2 present. No murmurs, rubs, or gallops. Unable to appreciate JVD PULMONARY: Chest is clear to auscultation, no wheezing or crackles. Decreased air entry into bilateral lung son. ABDOMEN: Soft, nontender, nondistended, normoactive bowel sounds. No palpable organomegaly. MUSCULOSKELETAL: No joint swelling or deformity. EXTREMITIES: No cyanosis, clubbing, or pedal edema. NEUROLOGICAL: Gross neurological examination did not reveal any focal deficits. SKIN: has an ulcer in the left leg anterior aspect from her, during her last hospitalization that doesn't appear to be infected - Labs CBC & Chem 7: 01/24/17 06:00 01/24/17 06:00 Labs: Abnormal Lab Results - Last 24 Hours (Table) 01/24/17 01/24/17 01/24/17 Range/Units 06:00 06:00 06:00 RBC 3.30 L (3.80-5.40) m/uL Hgb 8.4 L (11.4-16.0) gm/dL Hct 29.2 L (34.0-46.0) % MCHC 28.6 L (31.0-37.0) g/dL RDW 15.7 H (11.5-15.5) % PT 12.1 H (9.0-12.0) sec INR 1.2 H (<1.2) Chloride 94 L (98-107) mmol/L Carbon Dioxide 47 H* (22-30) mmol/L BUN 23 H (7-17) mg/dL Creatinine 1.05 H (0.52-1.04) mg/dL Glucose 110 H (74-99) mg/dL Assessment and Plan Plan: #1 shortness of breath: Probably secondary to pulmonary edema probably chronic diastolic dysfunction with acute exacerbation patient was started on IV Lasix pulmonology was consulted because of her complex history of sleep apnea obesity hypoventilation syndrome. And chronic CO2 retention. Patient in the past was admitted for metabolic encephalopathy secondary to CO2 retention apparently she had that encephalopathy during her hospitalization and [place]. At this point of time patient is not confused. Patient does have more contraction alkalosis today because of which I'm going to cut down the dose of IV Lasix. Repeat Avapro lites tomorrow. #2 chronic hypercapnic respiratory failure patient uses around 2-3 L of oxygen at home. #3 acute hypoxic respiratory failure secondary to possible congestive heart failure exacerbation continue with IV Lasix monitoring kidney function. #4 DVT in the past patient's had supra-therapeutic INR received 2.5 mg of vitamin K yesterday and her INR today is 1.5 patient will be resumed on Coumadin but at a lower dose patient uses 2.5 mg at home which will cut down to 1.5 year. Patient doesn't have any obvious GI bleed. #5 chronic low back pain #6 peripheral neuropathy #7 hypothyroidism #8 anemia of chronic disease #10 chronic deconditioning #11 obesity hypoventilation syndrome and obstructive sleep apnea For above-mentioned chronic medical problems with good and continue her home medications with close clinical monitoring.
[2017-01-24] MEDS: CHOLECALCIFEROL 1,000 UNIT TAB PO SCH (11:51)
[2017-01-24] MEDS: CYANOCOBALAMIN 500 MCG TAB PO SCH (11:51)
[2017-01-24] MEDS: SENNOSIDES-DOCUSATE SODIUM 1 EACH TAB PO PRN (12:18)
[2017-01-24 12:48] LABS: Anion Gap 1 mmol/L
--- NOTE | 2017-01-24 13:26 | P.PN ---
Subjective Principal diagnosis: Acute respiratory failure This is a pleasant 71-year-old female patient with a past medical history significant for congestive heart failure secondary to diastolic dysfunction, hypertensive heart disease, paroxysmal atrial fibrillation on anticoagulation was Coumadin, as well as chronic respiratory failure on home oxygen at 2 L, presented initially to [facility] with shortness of breath and then she was transferred to [facility]. The patient had multiple hospital admission with acute on chronic respiratory failure. She has been experiencing progressive dyspnea as well as progressive bilateral lower extremities edema. She did require higher FiO2 to maintain her oxygen saturation. The chest x-ray showed findings consistent with congestive heart failure exacerbation. The patient underwent an echocardiogram within the last 6 month and that showed normal LV function. Objective - Vital Signs Vital signs: Vital Signs Temp 98.2 F 01/24/17 07:00 Pulse 68 01/24/17 11:44 Resp 22 01/24/17 07:00 BP 127/50 01/24/17 07:00 Pulse Ox 96 01/24/17 07:00 Intake & Output 01/23/17 01/24/17 01/24/17 18:59 06:59 18:59 Intake Total 300 200 Output Total 1000 3100 Balance -1000 -2800 200 Weight 153 kg Intake: Oral 300 200 Output: Urine 1000 3100 Uretheral (Rebolledo) 2100 Other: Voiding Method Indwelling Catheter Indwelling Catheter # Bowel Movements 0 0 - Constitutional General appearance: Present: no acute distress - Respiratory Respiratory: bilateral: diminished - Cardiovascular Heart sounds: normal: S1, S2 - Labs CBC & Chem 7: 01/24/17 06:00 01/24/17 06:00 Labs: Abnormal Lab Results - Last 24 Hours (Table) 01/24/17 01/24/17 01/24/17 Range/Units 06:00 06:00 06:00 RBC 3.30 L (3.80-5.40) m/uL Hgb 8.4 L (11.4-16.0) gm/dL Hct 29.2 L (34.0-46.0) % MCHC 28.6 L (31.0-37.0) g/dL RDW 15.7 H (11.5-15.5) % PT 12.1 H (9.0-12.0) sec INR 1.2 H (<1.2) Chloride 94 L (98-107) mmol/L Carbon Dioxide 47 H* (22-30) mmol/L BUN 23 H (7-17) mg/dL Creatinine 1.05 H (0.52-1.04) mg/dL Glucose 110 H (74-99) mg/dL Assessment and Plan Plan: This is a pleasant 71-year-old female patient was admitted to the hospital with progressive dyspnea and was diagnosed with acute on chronic respiratory failure secondary to CHF exacerbation as well as COPD exacerbation. We'll continue the current above dose of Lasix IV. Continue monitor the kidney function as well as electrolytes. Continue monitor the input and output.
[2017-01-24] MEDS: METHOCARBAMOL 500 MG TAB PO PRN (13:35)
--- NOTE | 2017-01-24 13:56 | P.PN ---
Subjective This is a very pleasant 71-year-old female patient who follows with Dr. Kwong as her primary care physician and has a history of atrial fibrillation anticoagulated with warfarin, congestive heart failure, chronic obstructive pulmonary disease, DVT, hypertension, pulmonary embolism, hypothyroidism, chronic back pain, morbid obesity. She does have chronic hypoxic respiratory failure secondary to obesity/hypoventilation syndrome/obstructive sleep apnea. She is a lifelong nonsmoker. She is oxygen dependent. She has had multiple admissions for respiratory failure. She had developed increasing shortness of breath and was seen in the [facility] yesterday. She did require increasing FiO2 requirements to maintain O2 saturations in the 90s and was felt better served here she was transferred here to the hospitalist. She is seen today in consultation on the regular medical floor. She is resting quite comfortably in bed. She is awake and alert in no acute distress. She is oriented 3. Currently maintaining O2 saturations in the 90s on 4 L/m per nasal cannula. No tachycardia, no tachypnea. Afebrile. CO2 on electrolyte panel is 45 which is consistent for her. Her chest x-ray reveals mild cardiomegaly with worsening interstitial changes and patchy airspace opacity most likely secondary to mild to moderate congestive heart failure. Is currently on Lasix 40 mg IV push every 8 hours. She diuresed greater than 3 L. On 01/24/2017 I'm seeing this patient in follow-up. The patient is improving. She is not having any significant shortness of breath. She is on 40s about 2 by nasal cannula pH is being diuresis with IV Lasix. The patient has been producing considerable amount of urine output. For example, the Fluid balance for the day of admission was 2840 yesterday was 3800. As such she has put out more than 7 L of urine output while on IV Lasix. Lower extremity edema is gradually improving. The patient is less short of breath. The patient was able to use her BiPAP machine overnight. She is not having any respiratory distress. No angina. No other complaints otherwise. Objective - Vital Signs Vital signs: Vital Signs Temp 98.2 F 01/24/17 07:00 Pulse 68 01/24/17 11:44 Resp 22 01/24/17 07:00 BP 127/50 01/24/17 07:00 Pulse Ox 96 01/24/17 07:00 Intake & Output 01/23/17 01/24/17 01/24/17 18:59 06:59 18:59 Intake Total 300 200 Output Total 1000 3100 Balance -1000 -2800 200 Weight 153 kg Intake: Oral 300 200 Output: Urine 1000 3100 Uretheral (Rebolledo) 2100 Other: Voiding Method Indwelling Catheter Indwelling Catheter # Bowel Movements 0 0 - Exam GENERAL EXAM: Morbidly obese. Alert, comfortable in no apparent distress. HEAD: Normocephalic. EYES: Normal reaction of pupils, equal size. NOSE: Clear with pink turbinates. THROAT: There is crowding the posterior pharynx. No erythema or exudates. NECK: Short. No masses, no JVD. CHEST: No chest wall deformity. LUNGS: Equal air entry with crackles in the posterior bases.. CVS: S1 and S2 normal with no audible murmurs, regular rhythm. ABDOMEN: Obese, soft, normal bowel sounds, no guarding or rigidity. Extremities: There is 1-2+ lower extremity peripheral edema. No clubbing, no cyanosis. Peripheral pulses are intact. - Labs CBC & Chem 7: 01/24/17 06:00 01/24/17 06:00 Labs: Abnormal Lab Results - Last 24 Hours (Table) 01/24/17 01/24/17 01/24/17 Range/Units 06:00 06:00 06:00 RBC 3.30 L (3.80-5.40) m/uL Hgb 8.4 L (11.4-16.0) gm/dL Hct 29.2 L (34.0-46.0) % MCHC 28.6 L (31.0-37.0) g/dL RDW 15.7 H (11.5-15.5) % PT 12.1 H (9.0-12.0) sec INR 1.2 H (<1.2) Chloride 94 L (98-107) mmol/L Carbon Dioxide 47 H* (22-30) mmol/L BUN 23 H (7-17) mg/dL Creatinine 1.05 H (0.52-1.04) mg/dL Glucose 110 H (74-99) mg/dL Assessment and Plan Plan: Impression: #1 Acute exacerbation of chronic diastolic congestive heart failure. The patient massive fluid overload at time of admission. She has been negative fluid balance, at least 6 L over the past 24-48 hours. #2 Acute on chronic hypoxic respiratory failure secondary to above. #3 Acute on chronic hypercapnic respiratory failure secondary to above. #4 Moderate pulmonary hypertension. #5 Morbid obesity with obesity/hypoventilation syndrome. Utilizing BiPAP in the outpatient setting. #6 Obstructive sleep apnea. #7 Prior history of atrial fibrillation, anticoagulated with warfarin. #8 Chronic back pain. #9 Peripheral neuropathy. #10 Hypothyroidism. #11 Anemia. #12 Prior history of PE/DVT #13 Poor overall functional performance secondary to the above-mentioned multiple comorbidities. Plan Continue IV Lasix. Monitor renal function. Monitor electrolytes. Watch for any metabolic alkalosis. He was stable at 8.4. Volume status is improving. A Rebolledo catheter is in place. Continue using BiPAP if we'll continue to follow.
[2017-01-24] MEDS: WARFARIN 1.5 MG TAB PO SCH (17:36)
[2017-01-24] MEDS: GABAPENTIN 300 MG CAP PO SCH (20:09)
[2017-01-24] MEDS: MONTELUKAST 10 MG TAB PO SCH (20:09)
[2017-01-25] MEDS: LEVOTHYROXINE 75 MCG TAB PO SCH (05:38)
[2017-01-25] MEDS: LEVOTHYROXINE 100 MCG TAB PO SCH (05:38)
[2017-01-25 06:07] LABS: CH 25.5; CHCM 28.4; HCT 30.6 % (34.0-46.0); HDW 3.88; HGB 8.6 gm/dL (11.4-16.0); Hypochromasia Marked; MCH 25.3 pg (25.0-35.0); MCHC 28.1 g/dL (31.0-37.0); Mean Platelet Volume 7.5; Poikilocytosis Slight; RDW 15.6 % (11.5-15.5); WBC 7.5 k/uL (3.8-10.6)
[2017-01-25 06:13] LABS: Blood Urea Nitrogen 23 mg/dL (7-17); Calcium 8.5 mg/dL (8.4-10.2); Chloride 94 mmol/L (98-107); Glucose 93 mg/dL (74-99); Non-African American GFR(MDRD) 54 (>60 ml/min/1.73 sqM); Sodium 142 mmol/L (137-145)
[2017-01-25 06:20] LABS: Anion Gap -1 mmol/L; INR 1.4 (<1.2); Prothrombin Time 13.5 sec (9.0-12.0)
[2017-01-25 06:29] LABS: Carbon Dioxide 49 mmol/L (22-30)
[2017-01-25] MEDS: IPRATROPIUM-ALBUTEROL 3 ML NEB INHALATION SCH ×4 (07:40→20:36)
[2017-01-25] MEDS: traMADol 50 MG TAB PO PRN ×2 (09:03→23:12)
[2017-01-25] MEDS: FLUTICASONE 50MCG/SPRAY NASAL 16GM EA NOSTRIL SCH (09:04)
[2017-01-25] MEDS: ALLOPURINOL 100 MG TAB PO SCH (09:07)
[2017-01-25] MEDS: ASCORBIC ACID 500 MG TAB PO SCH (09:07)
[2017-01-25] MEDS: FUROSEMIDE 10 MG/ML 4 ML VIAL IV SCH (09:07)
[2017-01-25] MEDS: PYRIDOXINE 50 MG TAB PO SCH (09:07)
[2017-01-25] MEDS: POTASSIUM CHLORIDE ER 20 MEQ TAB.ER PO SCH (09:07)
[2017-01-25] MEDS: METOPROLOL TARTRATE 50 MG TAB PO SCH ×2 (09:08→20:28)
[2017-01-25] MEDS: DESVENLAFAXINE SUCCINATE 50 MG TAB.ER.24H PO SCH (09:08)
[2017-01-25] MEDS: VERAPAMIL SR 120 MG TABLET.ER PO SCH ×2 (09:08→20:27)
[2017-01-25] MEDS: PANTOPRAZOLE 40 MG TABLET PO SCH (09:08)
[2017-01-25] MEDS: NIACIN TR 500 MG CAPSULE.ER PO SCH (09:09)
[2017-01-25] MEDS: busPIRone HCl 10 MG TAB PO SCH ×2 (09:09→20:27)
[2017-01-25] MEDS: FERROUS SULFATE 325 MG TAB PO SCH (09:10)
[2017-01-25] MEDS: DIGOXIN 250 MCG TAB PO SCH (09:10)
[2017-01-25] MEDS: MAGNESIUM OXIDE 400 MG TAB PO SCH (09:10)
[2017-01-25] MEDS ORDERED: DIGOXIN 125 MCG TAB PO SCH (10:29)
[2017-01-25 11:31] LABS: Carbon Dioxide 47 mmol/L (22-30)
[2017-01-25] MEDS: CYANOCOBALAMIN 500 MCG TAB PO SCH (11:50)
[2017-01-25] MEDS: CHOLECALCIFEROL 1,000 UNIT TAB PO SCH (11:50)
--- NOTE | 2017-01-25 12:55 | P.PN ---
Subjective This is a 71-year-old female with past medical history significant for congestive heart failure secondary to diastolic dysfunction, hypertension, paroxysmal atrial fibrillation on anticoagulation with Coumadin and digoxin for rate control and chronic respiratory failure on home O2. Her admission chest x- ray was consistent with congestive heart failure exacerbation. She had a recent echo in the previous 6 months that showed a normal LV function. She is currently on Lasix 40 mg IV twice a day. She denies chest pain and states breathing has improved significantly. Objective - Vital Signs Vital signs: Vital Signs Temp 97.5 F L 01/25/17 07:00 Pulse 65 01/25/17 07:52 Resp 16 01/25/17 07:00 BP 132/61 01/25/17 07:00 Pulse Ox 93 L 01/25/17 07:42 Intake & Output 01/24/17 01/25/17 01/25/17 18:59 06:59 18:59 Intake Total 440 Output Total 4900 2200 Balance -4460 -2200 Weight 153 kg Intake: Oral 440 Output: Urine 4900 2200 Uretheral (Rebolledo) 2100 Other: Voiding Method Indwelling Catheter Indwelling Catheter # Bowel Movements 0 0 - Exam GENERAL: Well-appearing, well-nourished and in no acute distress. Morbidly obese. NECK: Supple without JVD or thyromegaly. LUNGS: Breath sounds clear to auscultation bilaterally and diminished.. No wheezes, rales or rhonchi. HEART: Irregular rate and rhythm without murmurs, rubs or gallops. S1 and S2 heard. EXTREMITIES: Normal range of motion, mild ongoing b/l lower extremity edema. No clubbing or cyanosis. Peripheral pulses intact and strong. - Labs CBC & Chem 7: 01/25/17 05:40 01/25/17 05:40 Labs: Abnormal Lab Results - Last 24 Hours (Table) 01/24/17 01/25/17 01/25/17 Range/Units 06:00 05:40 05:40 RBC 3.40 L (3.80-5.40) m/uL Hgb 8.6 L (11.4-16.0) gm/dL Hct 30.6 L (34.0-46.0) % MCHC 28.1 L (31.0-37.0) g/dL RDW 15.6 H (11.5-15.5) % Plt Count 125 L (150-450) k/uL PT 13.5 H (9.0-12.0) sec INR 1.4 H (<1.2) Chloride (98-107) mmol/L Carbon Dioxide 47 H* (22-30) mmol/L BUN (7-17) mg/dL 01/25/17 Range/Units 05:40 RBC (3.80-5.40) m/uL Hgb (11.4-16.0) gm/dL Hct (34.0-46.0) % MCHC (31.0-37.0) g/dL RDW (11.5-15.5) % Plt Count (150-450) k/uL PT (9.0-12.0) sec INR (<1.2) Chloride 94 L (98-107) mmol/L Carbon Dioxide 49 H* (22-30) mmol/L BUN 23 H (7-17) mg/dL Assessment and Plan Plan: ASSESSMENT 1. Chronic diastolic dysfunction 2. Paroxysmal atrial fibrillation on chronic anticoagulation with Coumadin and rate control with digoxin and metoprolol 3. Acute on chronic respiratory failure secondary to exacerbation of COPD and heart failure 4. Subacute therapeutic INR current dose of Coumadin 1.5 mg daily. PLAN EKG from [facility] shows a normal sinus mechanism. Patient appears to have an irregular rhythm at this time. We will order an EKG. Rate is controlled with a heart rate in the 60s. We can decrease the digoxin to 125 g daily. INR sub-therapeutic we will give one dose of Coumadin 2.5 mg today to resume her typical dose tomorrow 1.5 mg daily. Lasix can be changed to by mouth 60 mg given in the a.m. and 40 mg in the evening. Nurse Practitioner note has been reviewed, I agree with a documented findings and plan of care. Patient was seen and examined.
[2017-01-25] MEDS: SENNOSIDES-DOCUSATE SODIUM 1 EACH TAB PO PRN (12:59)
--- NOTE | 2017-01-25 13:08 | P.PN ---
Subjective This is a very pleasant 71-year-old female patient who follows with Dr. Kwong as her primary care physician and has a history of atrial fibrillation anticoagulated with warfarin, congestive heart failure, chronic obstructive pulmonary disease, DVT, hypertension, pulmonary embolism, hypothyroidism, chronic back pain, morbid obesity. She does have chronic hypoxic respiratory failure secondary to obesity/hypoventilation syndrome/obstructive sleep apnea. She is a lifelong nonsmoker. She is oxygen dependent. She has had multiple admissions for respiratory failure. She had developed increasing shortness of breath and was seen in the [facility] yesterday. She did require increasing FiO2 requirements to maintain O2 saturations in the 90s and was felt better served here she was transferred here to the hospitalist. She is seen today in consultation on the regular medical floor. She is resting quite comfortably in bed. She is awake and alert in no acute distress. She is oriented 3. Currently maintaining O2 saturations in the 90s on 4 L/m per nasal cannula. No tachycardia, no tachypnea. Afebrile. CO2 on electrolyte panel is 45 which is consistent for her. Her chest x-ray reveals mild cardiomegaly with worsening interstitial changes and patchy airspace opacity most likely secondary to mild to moderate congestive heart failure. Is currently on Lasix 40 mg IV push every 8 hours. She diuresed greater than 3 L. On 01/24/2017 I'm seeing this patient in follow-up. The patient is improving. She is not having any significant shortness of breath. She is on 40s about 2 by nasal cannula pH is being diuresis with IV Lasix. The patient has been producing considerable amount of urine output. For example, the fluid balance for the day of admission was 2840 yesterday was 3800. As such she has put out more than 7 L of urine output while on IV Lasix. Lower extremity edema is gradually improving. The patient is less short of breath. The patient was able to use her BiPAP machine overnight. She is not having any respiratory distress. No angina. No other complaints otherwise. The patient is seen again today 01/25/2017 in follow-up on the regular medical floor. She is awake and alert in no acute distress. She is breathing easier today as compared to yesterday. Maintaining good O2 saturations in the 90s on 4 L/m. nasal cannula. She is afebrile. Hemodynamically stable. She remains in a negative balance. She is tolerating her BiPAP throughout the evening and during the day while napping. Objective - Vital Signs Vital signs: Vital Signs Temp 97.5 F L 01/25/17 07:00 Pulse 65 01/25/17 11:16 Resp 16 01/25/17 08:00 BP 132/61 01/25/17 07:00 Pulse Ox 93 L 01/25/17 07:42 Intake & Output 01/24/17 01/25/17 01/25/17 18:59 06:59 18:59 Intake Total 440 240 Output Total 4900 2200 Balance -4460 -2200 240 Weight 153 kg 153 kg Intake: Oral 440 240 Output: Urine 4900 2200 Uretheral (Rebolledo) 2100 Other: Voiding Method Indwelling Catheter Indwelling Catheter Indwelling Catheter # Bowel Movements 0 0 0 - Exam GENERAL EXAM: Morbidly obese. Alert, comfortable in no apparent distress. HEAD: Normocephalic. EYES: Normal reaction of pupils, equal size. NOSE: Clear with pink turbinates. THROAT: There is crowding the posterior pharynx. No erythema or exudates. NECK: Short. No masses, no JVD. CHEST: No chest wall deformity. LUNGS: Equal air entry with crackles in the posterior bases.. CVS: S1 and S2 normal with no audible murmurs, regular rhythm. ABDOMEN: Obese, soft, normal bowel sounds, no guarding or rigidity. Extremities: There is 1-2+ lower extremity peripheral edema. No clubbing, no cyanosis. Peripheral pulses are intact. - Labs CBC & Chem 7: 01/25/17 05:40 01/25/17 05:40 Labs: Abnormal Lab Results - Last 24 Hours (Table) 01/24/17 01/25/17 01/25/17 Range/Units 06:00 05:40 05:40 RBC 3.40 L (3.80-5.40) m/uL Hgb 8.6 L (11.4-16.0) gm/dL Hct 30.6 L (34.0-46.0) % MCHC 28.1 L (31.0-37.0) g/dL RDW 15.6 H (11.5-15.5) % Plt Count 125 L (150-450) k/uL PT 13.5 H (9.0-12.0) sec INR 1.4 H (<1.2) Chloride (98-107) mmol/L Carbon Dioxide 47 H* (22-30) mmol/L BUN (7-17) mg/dL 01/25/17 Range/Units 05:40 RBC (3.80-5.40) m/uL Hgb (11.4-16.0) gm/dL Hct (34.0-46.0) % MCHC (31.0-37.0) g/dL RDW (11.5-15.5) % Plt Count (150-450) k/uL PT (9.0-12.0) sec INR (<1.2) Chloride 94 L (98-107) mmol/L Carbon Dioxide 49 H* (22-30) mmol/L BUN 23 H (7-17) mg/dL Assessment and Plan Plan: Impression: #1 Acute exacerbation of chronic diastolic congestive heart failure. Significant fluid overload on admission. She is currently in at least a -6 L balance and improved. #2 Acute on chronic hypoxic respiratory failure secondary to above. #3 Acute on chronic hypercapnic respiratory failure secondary to above. #4 Moderate pulmonary hypertension. #5 Morbid obesity with obesity/hypoventilation syndrome. Utilizing BiPAP in the outpatient setting. #6 Obstructive sleep apnea. #7 Prior history of atrial fibrillation, anticoagulated with warfarin. #8 Chronic back pain. #9 Peripheral neuropathy. #10 Hypothyroidism. #11 Anemia. #12 Prior history of PE/DVT #13 Poor overall functional performance secondary to the above-mentioned multiple comorbidities. Plan: The patient was seen and evaluated by Dr. Tolliver. She is stable from the pulmonary standpoint. He has been wearing her own BiPAP and tolerating it well. Diuretics per cardiology. We'll continue to follow.
[2017-01-25] MEDS: FUROSEMIDE 40 MG TAB PO SCH (17:06)
[2017-01-25] MEDS ORDERED: WARFARIN 2.5 MG TAB PO ONE (18:00)
[2017-01-25] MEDS: ALPRAZolam 0.5 MG TAB PO PRN (20:27)
[2017-01-25] MEDS: MONTELUKAST 10 MG TAB PO SCH (20:27)
[2017-01-25] MEDS: GABAPENTIN 300 MG CAP PO SCH (20:27)
--- NOTE | 2017-01-26 00:51 | P.PN ---
Subjective Principal diagnosis: Acute CHF exacerbation 71-year-old female was admitted for acute on chronic respiratory failure secondary to COPD exacerbation patient is also being treated for pulmonary edema there may be a minimal pulmonary edema patient does have significant peripheral edema peripheral edema improved but patient does have significant contraction alkalosis probably we may need to back off on the Lasix IV. Patient 's respiratory status improved as well. Patient was restarted back on Coumadin INR is 1.2 today patient received about 2.5 mg of IV vitamin K in [facility]. Patient was sober the medic INR at 8 on admission to [place] so we will required lesser dose of Coumadin than what she was taking at [facility] On 01/25/2017 She is awake and alert in no acute distress. She is breathing easier today as compared to yesterday. Maintaining good O2 saturations in the 90s on 4 L/m. nasal cannula. She is afebrile. Hemodynamically stable. She remains in a negative balance. She is tolerating her BiPAP throughout the evening and during the day while napping. Patient denied any fever, chills, nausea, vomiting respiratory status improved patient is lying in sleeping comfortably when I went to see the patient. Patient denied any dysuria. And new focal new focal weakness. Objective - Vital Signs Vital signs: Vital Signs Temp 97.9 F 01/25/17 15:00 Pulse 68 01/25/17 20:49 Resp 20 01/25/17 16:00 BP 150/52 01/25/17 20:23 Pulse Ox 92 L 01/25/17 20:23 Intake & Output 01/25/17 01/25/17 01/26/17 06:59 18:59 06:59 Intake Total 615 Output Total 2200 3000 Balance -2200 -2385 Weight 153 kg Intake: Oral 615 Output: Urine 2200 3000 Uretheral (Rebolledo) 100 Other: Voiding Method Indwelling Catheter Indwelling Catheter # Bowel Movements 0 1 - Exam GENERAL: The patient is alert and oriented x3, not in any acute distress. Morbidly obese HEENT: Pupils are round and equally reacting to light. EOMI. No scleral icterus. No conjunctival pallor. Normocephalic, atraumatic. No pharyngeal erythema. No thyromegaly. CARDIOVASCULAR: S1 and S2 present. No murmurs, rubs, or gallops. Unable to appreciate JVD PULMONARY: Chest is clear to auscultation, no wheezing or crackles. Decreased air entry into bilateral lung son. ABDOMEN: Soft, nontender, nondistended, normoactive bowel sounds. No palpable organomegaly. MUSCULOSKELETAL: No joint swelling or deformity. EXTREMITIES: No cyanosis, clubbing. 2+ pedal edema. NEUROLOGICAL: Gross neurological examination did not reveal any focal deficits. SKIN: Ryanne has an ulcer in the left leg anterior aspect from her, during her last hospitalization that doesn't appear to be infected - Labs CBC & Chem 7: 01/25/17 05:40 01/25/17 05:40 Labs: Abnormal Lab Results - Last 24 Hours (Table) 01/24/17 01/25/17 01/25/17 Range/Units 06:00 05:40 05:40 RBC 3.40 L (3.80-5.40) m/uL Hgb 8.6 L (11.4-16.0) gm/dL Hct 30.6 L (34.0-46.0) % MCHC 28.1 L (31.0-37.0) g/dL RDW 15.6 H (11.5-15.5) % Plt Count 125 L (150-450) k/uL PT 13.5 H (9.0-12.0) sec INR 1.4 H (<1.2) Chloride (98-107) mmol/L Carbon Dioxide 47 H* (22-30) mmol/L BUN (7-17) mg/dL 01/25/17 Range/Units 05:40 RBC (3.80-5.40) m/uL Hgb (11.4-16.0) gm/dL Hct (34.0-46.0) % MCHC (31.0-37.0) g/dL RDW (11.5-15.5) % Plt Count (150-450) k/uL PT (9.0-12.0) sec INR (<1.2) Chloride 94 L (98-107) mmol/L Carbon Dioxide 49 H* (22-30) mmol/L BUN 23 H (7-17) mg/dL Assessment and Plan Plan: #1 shortness of breath: Probably secondary to pulmonary edema probably chronic diastolic dysfunction with acute exacerbation patient was started on IV Lasix pulmonology was consulted because of her complex history of sleep apnea obesity hypoventilation syndrome. And chronic CO2 retention. Patient in the past was admitted for metabolic encephalopathy secondary to CO2 retention apparently she had that encephalopathy during her hospitalization and [place]. At this point of time patient is not confused. Patient does have more contraction alkalosis today because of which cut down the dose of IV Lasix. Repeat lites tomorrow. #2 chronic hypercapnic respiratory failure patient uses around 2-3 L of oxygen at home. #3 acute hypoxic respiratory failure secondary to possible congestive heart failure exacerbation continue with IV Lasix monitoring kidney function. #4 DVT in the past patient's had supra-therapeutic INR received 2.5 mg of vitamin K yesterday and her INR today is 1.5 patient will be resumed on Coumadin but at a lower dose patient uses 2.5 mg at home which will cut down to 1.5 year. Patient doesn't have any obvious GI bleed. #5 chronic low back pain #6 peripheral neuropathy #7 hypothyroidism #8 anemia of chronic disease #10 chronic deconditioning #11 obesity hypoventilation syndrome and obstructive sleep apnea For above-mentioned chronic medical problems with good and continue her home medications with close clinical monitoring. Time with Patient: Greater than 30
[2017-01-26 06:42] LABS: INR 1.6 (<1.2); Prothrombin Time 15.5 sec (9.0-12.0)
[2017-01-26] MEDS: IPRATROPIUM-ALBUTEROL 3 ML NEB INHALATION SCH ×3 (08:42→15:38)
[2017-01-26] MEDS ORDERED: FUROSEMIDE 20 MG TAB PO SCH (09:00)
[2017-01-26] MEDS: traMADol 50 MG TAB PO PRN (09:24)
[2017-01-26] MEDS: FLUTICASONE 50MCG/SPRAY NASAL 16GM EA NOSTRIL SCH (09:25)
[2017-01-26] MEDS: PYRIDOXINE 50 MG TAB PO SCH (09:26)
[2017-01-26] MEDS: POTASSIUM CHLORIDE ER 20 MEQ TAB.ER PO SCH (09:26)
[2017-01-26] MEDS: VERAPAMIL SR 120 MG TABLET.ER PO SCH (09:26)
[2017-01-26] MEDS: busPIRone HCl 10 MG TAB PO SCH (09:26)
[2017-01-26] MEDS: DESVENLAFAXINE SUCCINATE 50 MG TAB.ER.24H PO SCH (09:26)
[2017-01-26] MEDS: FERROUS SULFATE 325 MG TAB PO SCH (09:27)
[2017-01-26] MEDS: LEVOTHYROXINE 75 MCG TAB PO SCH (09:27)
[2017-01-26] MEDS: NIACIN TR 500 MG CAPSULE.ER PO SCH (09:27)
[2017-01-26] MEDS: METOPROLOL TARTRATE 50 MG TAB PO SCH (09:27)
[2017-01-26] MEDS: MAGNESIUM OXIDE 400 MG TAB PO SCH (09:27)
[2017-01-26] MEDS: PANTOPRAZOLE 40 MG TABLET PO SCH (09:27)
[2017-01-26] MEDS: ALLOPURINOL 100 MG TAB PO SCH (09:27)
[2017-01-26] MEDS: LEVOTHYROXINE 100 MCG TAB PO SCH (09:28)
[2017-01-26] MEDS: ASCORBIC ACID 500 MG TAB PO SCH (09:28)
[2017-01-26] MEDS: CYANOCOBALAMIN 500 MCG TAB PO SCH (11:19)
[2017-01-26] MEDS: CHOLECALCIFEROL 1,000 UNIT TAB PO SCH (11:20)
--- NOTE | 2017-01-26 14:34 | P.PN ---
Subjective This is a very pleasant 71-year-old female patient who follows with Dr. Kwong as her primary care physician and has a history of atrial fibrillation anticoagulated with warfarin, congestive heart failure, chronic obstructive pulmonary disease, DVT, hypertension, pulmonary embolism, hypothyroidism, chronic back pain, morbid obesity. She does have chronic hypoxic respiratory failure secondary to obesity/hypoventilation syndrome/obstructive sleep apnea. She is a lifelong nonsmoker. She is oxygen dependent. She has had multiple admissions for respiratory failure. She had developed increasing shortness of breath and was seen in the [facility] yesterday. She did require increasing FiO2 requirements to maintain O2 saturations in the 90s and was felt better served here she was transferred here to the hospitalist. She is seen today in consultation on the regular medical floor. She is resting quite comfortably in bed. She is awake and alert in no acute distress. She is oriented 3. Currently maintaining O2 saturations in the 90s on 4 L/m per nasal cannula. No tachycardia, no tachypnea. Afebrile. CO2 on electrolyte panel is 45 which is consistent for her. Her chest x-ray reveals mild cardiomegaly with worsening interstitial changes and patchy airspace opacity most likely secondary to mild to moderate congestive heart failure. Is currently on Lasix 40 mg IV push every 8 hours. She diuresed greater than 3 L. On 01/24/2017 I'm seeing this patient in follow-up. The patient is improving. She is not having any significant shortness of breath. She is on 40s about 2 by nasal cannula pH is being diuresis with IV Lasix. The patient has been producing considerable amount of urine output. For example, the fluid balance for the day of admission was 2840 yesterday was 3800. As such she has put out more than 7 L of urine output while on IV Lasix. Lower extremity edema is gradually improving. The patient is less short of breath. The patient was able to use her BiPAP machine overnight. She is not having any respiratory distress. No angina. No other complaints otherwise. The patient is seen again today 01/25/2017 in follow-up on the regular medical floor. She is awake and alert in no acute distress. She is breathing easier today as compared to yesterday. Maintaining good O2 saturations in the 90s on 4 L/m. nasal cannula. She is afebrile. Hemodynamically stable. She remains in a negative balance. She is tolerating her BiPAP throughout the evening and during the day while napping. Patient is seen again today 01/26/2017 in follow-up on the regular medical floor. Her breathing is back to her baseline. Wearing the CPAP nightly. She remains alert and oriented 3. No pulmonary complaints. She remains afebrile. Hemodynamically stable. Back to her baseline of 4 L/m per nasal cannula. She remains in a negative balance. Objective - Vital Signs Vital signs: Vital Signs Temp 98.7 F 01/26/17 07:00 Pulse 68 01/26/17 12:15 Resp 20 01/26/17 08:00 BP 121/85 01/26/17 07:00 Pulse Ox 92 L 01/26/17 07:00 Intake & Output 01/25/17 01/26/17 01/26/17 18:59 06:59 18:59 Intake Total 615 Output Total 3000 1450 Balance -2385 -1450 Weight 153 kg 148 kg 148 kg Intake: Oral 615 Output: Urine 3000 1450 Uretheral ([place]) 100 Other: Voiding Method Indwelling Catheter Indwelling Catheter # Voids 1 1 # Bowel Movements 1 1 - Exam GENERAL EXAM: Morbidly obese. Alert, comfortable in no apparent distress. HEAD: Normocephalic. EYES: Normal reaction of pupils, equal size. NOSE: Clear with pink turbinates. THROAT: There is crowding the posterior pharynx. No erythema or exudates. NECK: Short. No masses, no JVD. CHEST: No chest wall deformity. LUNGS: Equal air entry with crackles in the posterior bases.. CVS: S1 and S2 normal with no audible murmurs, regular rhythm. ABDOMEN: Obese, soft, normal bowel sounds, no guarding or rigidity. Extremities: There is 1-2+ lower extremity peripheral edema. No clubbing, no cyanosis. Peripheral pulses are intact. - Labs CBC & Chem 7: 01/25/17 05:40 01/25/17 05:40 Labs: Abnormal Lab Results - Last 24 Hours (Table) 01/26/17 Range/Units 06:20 PT 15.5 H (9.0-12.0) sec INR 1.6 H (<1.2) Assessment and Plan Plan: Impression: #1 Acute exacerbation of chronic diastolic congestive heart failure. Significant fluid overload on admission. She is at least a -6 L balance and improved. #2 Acute on chronic hypoxic respiratory failure secondary to above. #3 Acute on chronic hypercapnic respiratory failure secondary to above. #4 Moderate pulmonary hypertension. #5 Morbid obesity with obesity/hypoventilation syndrome. Utilizing BiPAP in the outpatient setting. #6 Obstructive sleep apnea. #7 Prior history of atrial fibrillation, anticoagulated with warfarin. #8 Chronic back pain. #9 Peripheral neuropathy. #10 Hypothyroidism. #11 Anemia. #12 Prior history of PE/DVT #13 Poor overall functional performance secondary to the above-mentioned multiple comorbidities. Plan: The patient was seen and evaluated by Dr. Tolliver. The plan is to transfer back to [facility]. She is cleared for discharge from the pulmonary standpoint. She'll continue with bronchodilators and Singulair. She remains on diuretics. She could follow-up in our office in 1-2 weeks' time. She is however encouraged to call sooner with any recurrence of symptoms or other questions or concerns.
[2017-01-26 15:19] VITALS: BP 130/54; TEMP 98.5
[2017-01-26 15:41] VITALS: RESP 16
[2017-01-26 16:09] VITALS: PULSE 65
--- NOTE | 2017-01-26 16:17 | P.DS ---
Providers Date of admission: 01/22/17 17:39 Expected date of discharge: 01/26/17 Attending physician: Gustavo Astudillo Consults: 01/22/17 18:55 Consult Physician Routine Consulting Provider: Sima Leung Consult Reason/Comments: COPD CHF Do you want consulting provider notified?: Yes, Notify in am 01/22/17 18:56 Consult Physician Routine Consulting Provider: Fredi Adkins Consult Reason/Comments: CHF ex. Do you want consulting provider notified?: Yes, Notify in am Primary care physician: Stated None Hospital Course: #1 shortness of breath: Probably secondary to pulmonary edema probably chronic diastolic dysfunction with acute exacerbation patient was started on IV Lasix pulmonology was consulted because of her complex history of sleep apnea obesity hypoventilation syndrome. And chronic CO2 retention. Patient in the past was admitted for metabolic encephalopathy secondary to CO2 retention apparently she had that encephalopathy during her hospitalization and [facility]. At this point of time patient is not confused. Patient does have more contraction alkalosis today because of which cut down the dose of IV Lasix- changed to PO. #2 chronic hypercapnic respiratory failure patient uses around 2-3 L of oxygen at home. #3 acute hypoxic respiratory failure secondary to possible congestive heart failure exacerbation continue with IV Lasix monitoring kidney function. #4 DVT in the past patient's had supra-therapeutic INR received 2.5 mg of vitamin K yesterday and her INR today is 1.5 patient will be resumed on Coumadin but at a lower dose patient uses 2.5 mg at home which will cut down to 1.5 year. Patient doesn't have any obvious GI bleed. #5 chronic low back pain #6 peripheral neuropathy #7 hypothyroidism #8 anemia of chronic disease #10 chronic deconditioning #11 obesity hypoventilation syndrome and obstructive sleep apnea 71-year-old female was admitted for acute on chronic respiratory failure secondary to COPD exacerbation patient is also being treated for pulmonary edema there may be a minimal pulmonary edema patient does have significant peripheral edema peripheral edema improved but patient does have significant contraction alkalosis probably we may need to back off on the Lasix IV. Patient 's respiratory status improved as well. Patient was restarted back on Coumadin INR is 1.2 today patient received about 2.5 mg of IV vitamin K in [facility]. Patient was sober the medic INR at 8 on admission to [facility] so we will required lesser dose of Coumadin than what she was taking at [facility] On 01/25/2017 She is awake and alert in no acute distress. She is breathing easier today as compared to yesterday. Maintaining good O2 saturations in the 90s on 4 L/m. nasal cannula. She is afebrile. Hemodynamically stable. She remains in a negative balance. She is tolerating her BiPAP throughout the evening and during the day while napping. 01/26/2017. Patient was seen and examined. Patient denied any complaints of chest pain worsening short of breath. Breathing is much improved now Patient denied any fever, chills, nausea, vomiting respiratory status improved patient is lying in sleeping comfortably when I went to see the patient. Patient denied any dysuria. no new focal weakness. Patient Condition at Discharge: Good Plan - Discharge Summary New Discharge Prescriptions: New Ipratropium-Albuterol Nebulize [Duoneb 0.5 mg-3 mg/3 ml Soln] 3 ml INHALATION QID PRN #1 each PRN Reason: Shortness Of Breath Furosemide [Lasix] 60 mg PO DAILY #30 tab Continue Omeprazole [PriLOSEC] 20 mg PO BID Gabapentin [Neurontin] 300 mg PO HS Desvenlafaxine Succinate [Pristiq ER] 50 mg PO DAILY Potassium Chloride [Klor-Con 20] 20 meq PO DAILY Allopurinol [Zyloprim] 100 mg PO DAILY Levothyroxine Sodium [Levoxyl] 175 mcg PO AC-BRKFST busPIRone HCl [Buspar] 10 mg PO BID Montelukast [Singulair] 10 mg PO HS tiZANidine [Zanaflex] 2 mg PO Q8HR PRN PRN Reason: Muscle Spasm/Pain Metoprolol Tartrate [Lopressor] 50 mg PO BID tab Verapamil HCl [Calan] 120 mg PO BID Niacin [Niaspan] 500 mg PO DAILY Mometasone Furoate [Nasonex Nasal [place]] 1 - 2 spray EA NOSTRIL DAILY Cyanocobalamin (Vitamin B-12) [Vitamin B-12] 1,000 mcg PO DAILY Cholecalciferol [Vitamin D3] 1,000 unit PO DAILY Ascorbic Acid [Vitamin C] 500 mg PO DAILY Magnesium Oxide [Mag-Ox] 250 mg PO DAILY Digoxin 250 mcg PO DAILY Pyridoxine HCl (Vitamin B6) [Vitamin B-6] 100 mg PO DAILY Ferrous Sulfate [Feosol] 325 mg PO DAILY Methocarbamol [Robaxin] 500 mg PO Q8H PRN PRN Reason: Muscle Pain Calcium Carbonate [Tums] 500 mg PO QID PRN PRN Reason: Heartburn traMADol HCl [Ultram] 50 mg PO Q6HR PRN #20 tab PRN Reason: Pain Warfarin [Coumadin] 2.5 mg PO HS #1 tab ALPRAZolam [Xanax] 0.5 mg PO TID PRN #20 tablet PRN Reason: Anxiety Discontinued Furosemide [Lasix] 40 mg PO HS predniSONE See Taper PO DAILY #1 Ipratropium-Albuterol Nebulize [Duoneb 0.5 mg-3 mg/3 ml Soln] 3 ml INHALATION RT-QID Discharge Medication List Allopurinol [Zyloprim] 100 mg PO DAILY 11/07/13 [History] Desvenlafaxine Succinate [Pristiq ER] 50 mg PO DAILY 11/07/13 [History] Gabapentin [Neurontin] 300 mg PO HS 11/07/13 [History] Levothyroxine Sodium [Levoxyl] 175 mcg PO AC-BRKFST 11/07/13 [History] Omeprazole [PriLOSEC] 20 mg PO BID 11/07/13 [History] Potassium Chloride [Klor-Con 20] 20 meq PO DAILY 11/07/13 [History] busPIRone HCl [Buspar] 10 mg PO BID 11/08/13 [History] Montelukast [Singulair] 10 mg PO HS 06/01/16 [History] tiZANidine [Zanaflex] 2 mg PO Q8HR PRN 06/01/16 [History] Metoprolol Tartrate [Lopressor] 50 mg PO BID tab 06/29/16 [Rx] Verapamil HCl [Calan] 120 mg PO BID 07/27/16 [History] Ascorbic Acid [Vitamin C] 500 mg PO DAILY 12/23/16 [History] Cholecalciferol [Vitamin D3] 1,000 unit PO DAILY 12/23/16 [History] Cyanocobalamin (Vitamin B-12) [Vitamin B-12] 1,000 mcg PO DAILY 12/23/16 [ History] Digoxin 250 mcg PO DAILY 12/23/16 [History] Ferrous Sulfate [Feosol] 325 mg PO DAILY 12/23/16 [History] Magnesium Oxide [Mag-Ox] 250 mg PO DAILY 12/23/16 [History] Methocarbamol [Robaxin] 500 mg PO Q8H PRN 12/23/16 [History] Mometasone Furoate [Nasonex Nasal [place]] 1 - 2 spray EA NOSTRIL DAILY 12/23/16 [ History] Niacin [Niaspan] 500 mg PO DAILY 12/23/16 [History] Pyridoxine HCl (Vitamin B6) [Vitamin B-6] 100 mg PO DAILY 12/23/16 [History] Calcium Carbonate [Tums] 500 mg PO QID PRN 01/07/17 [Rx] Warfarin [Coumadin] 2.5 mg PO HS #1 tab 01/07/17 [Rx] traMADol HCl [Ultram] 50 mg PO Q6HR PRN #20 tab 01/07/17 [Rx] ALPRAZolam [Xanax] 0.5 mg PO TID PRN #20 tablet 01/26/17 [Rx] Furosemide [Lasix] 60 mg PO DAILY #30 tab 01/26/17 [Rx] Ipratropium-Albuterol Nebulize [Duoneb 0.5 mg-3 mg/3 ml Soln] 3 ml INHALATION QID PRN #1 each 01/26/17 [Rx] Follow up Appointment(s)/Referral(s): Joao Dutton, [NON-STAFF] - 1 Week Frantz Faulkner MD [STAFF PHYSICIAN] - 02/09/17 10:15 am Cain Taylor MD [REFERRING] - 1 Week Patient Instructions/Handouts: COPD (Chronic Obstructive Pulmonary Disease) (DC ) Activity/Diet/Wound Care/Special Instructions: 4L O2 NC, PAP HS cardiac diet up with one to two person assist last BM 01/25 Do Not Resuscitate PICC line capped in right upper arm, dressing changed 01/25 left leg wrapped in krilex PRN for weeping . Discharge Disposition: TRANSFER TO SNF/ECF
[2017-01-26] MEDS: FUROSEMIDE 40 MG TAB PO SCH (17:40)
[2017-01-26] MEDS ORDERED: WARFARIN 1.5 MG TAB PO SCH (18:00)
== END 2017-01-26 18:30 | DRG 291 ==
LOC: 4MS4W 17:39
PROVIDERS: ADMIT Internal Medicine; ATTEND Internal Medicine
DX: I11.0 Hypertensive heart disease with heart failure (principal); J96.21 Acute and chronic respiratory failure with hypoxia; E87.3 Alkalosis; I27.2 Other secondary pulmonary hypertension; E66.2 Morbid (severe) obesity with alveolar hypoventilation; G62.9 Polyneuropathy, unspecified; I48.0 Paroxysmal atrial fibrillation; L97.929 Non-pressure chronic ulcer of unspecified part of left lower leg with unspecified severity; Z86.74 Personal history of sudden cardiac arrest; J44.1 Chronic obstructive pulmonary disease with (acute) exacerbation; J96.22 Acute and chronic respiratory failure with hypercapnia; Z66 Do not resuscitate; Z99.81 Dependence on supplemental oxygen; I50.33 Acute on chronic diastolic (congestive) heart failure; E03.9 Hypothyroidism, unspecified; D63.8 Anemia in other chronic diseases classified elsewhere; F41.9 Anxiety disorder, unspecified; M54.5 Low back pain; G89.29 Other chronic pain; F32.9 Major depressive disorder, single episode, unspecified; M10.9 Gout, unspecified; R53.1 Weakness; R79.1 Abnormal coagulation profile; Z90.49 Acquired absence of other specified parts of digestive tract; Z90.79 Acquired absence of other genital organ(s); Z86.711 Personal history of pulmonary embolism; Z87.01 Personal history of pneumonia (recurrent); Z88.0 Allergy status to penicillin; Z79.01 Long term (current) use of anticoagulants; Z79.899 Other long term (current) drug therapy; Z86.718 Personal history of other venous thrombosis and embolism; Z82.61 Family history of arthritis; Z86.14 Personal history of Methicillin resistant Staphylococcus aureus infection; Z79.51 Long term (current) use of inhaled steroids; Z51.81 Encounter for therapeutic drug level monitoring; Z74.01 Bed confinement status
CPT/HCPCS: 71010; 80048; 85025; 85027; 85610; 93005; 94640; 94660; 94760